=== PATIENT | female | born 1950 | race Caucasian/White ===

== ENCOUNTER 2016-10-22 02:04 | Inpatient (IN) | payer MEDICARE ==
[~2016-10-22] VITALS: Ht 162.6 cm; Wt 72.7 kg
[2016-10-22] VITALS (7 sets, daily range): BP systolic 95–123; BP diastolic 49–60
[~2016-10-22 02:04] MED LIST: ADV500INH INH; AVEL1TAB PO; BREO1INH3 INH; DEPA250T2 PO; FLON0.054; FLON1SPR; FOLI1TAB2 PO; LOMO2.5T PO; OXYC1TAB16 PO; PRED10TA PO; PREG50CA PO; SERT-138 PO; TRAZ100T4 PO; VITA100072 PO; VITA500055 PO; ZONI100C2 PO; ZYRT10TA2 PO
[2016-10-22] MEDS ORDERED: IPRATROPIUM 0.5MG/ALBUTEROL 2.5MG INH SOL UD 3ML (DUONEB)(J7620) As Ordered ONE ×2 (02:56→07:37)
[2016-10-22 03:08] LABS: ABG BASE EXCESS -3.8 (-2.0-2.0); ABG DEVICE NASAL CANN; ABG HCO3 21.2 MEQ/L (22.0-26.0); ABG PARTIAL PRESSURE CO2 38.7 mmHg (35.0-45.0); ABG PARTIAL PRESSURE O2 70.9 mmHg (75.0-100.0); ABG STANDARD HCO3 21.2 MEQ/L (22.0-26.0); ABG TOTAL CO2 22.4 MEQ/L (23.0-31.0); ABG pH (ARTERIAL) 7.357 UNITS (7.350-7.450)
[2016-10-22 03:16] LABS: BASO # 0.1 K/mm3 (0.0-0.2); BASO % 0.6 % (0.0-1.0); EOS # 0.2 K/mm3 (0.0-0.50); EOS % 1.4 % (0.0-3.0); LARGE UNSTAINED CELL # 0.1 K/mm3 (0.0-0.4); LYMPH # 1.2 K/mm3 (1.5-4.5); LYMPH % 9.5 % (24.0-44.0); MEAN CORPUSCULAR HGB CONC 31.5 g/dl (32.0-36.5); MONO # 0.6 K/mm3 (0.0-0.8); MONO % 4.8 % (0.0-5.0); NEUTROPHILS # 10.6 K/mm3 (1.8-7.7); NEUTROPHILS % 82.6 % (36.0-66.0); PLATELET COUNT, AUTOMATED 214 k/mm3 (150-450); WHITE BLOOD COUNT 12.8 K/mm3 (4.0-10.0)
[2016-10-22] MEDS ORDERED: AZITHROMYCIN 250 MG TAB As Ordered ONE (03:16)
[2016-10-22] MEDS ORDERED: CEFUROXIME INJ 750 MG VIAL (J0697) As Ordered ONE (03:16)
[2016-10-22 03:38] LABS: CALCIUM LEVEL 8.5 MG/DL (8.8-10.2); CREATININE FOR GFR 1.42 MG/DL (0.55-1.02); GLOMERULAR FILTRATION RATE 39.4 (>45); POTASSIUM SERUM 4.3 MEQ/L (3.5-5.1)
[2016-10-22] MEDS ORDERED: AZITHROMYCIN INJ 500MG VIAL (J0456) As Ordered ONE (03:39)
[2016-10-22] MEDS ORDERED: ZOLO100T PO (04:05)
[2016-10-22] MEDS ORDERED: VITA100066 PO (04:07)
[2016-10-22] MEDS ORDERED: VITA-113 SL (04:07)
[2016-10-22] MEDS ORDERED: CEPACOL LOZENGE PO PRN (05:00)
[2016-10-22] MEDS ORDERED: IPRATROPIUM 0.5MG/ALBUTEROL 2.5MG INH SOL UD 3ML (DUONEB)(J7620) NEB PRN (05:00)
[2016-10-22] MEDS ORDERED: ONDANSETRON 4 MG TAB (S0181) PO PRN (05:00)
[2016-10-22] MEDS ORDERED: MORPHINE 2 MG/ML 1ML SYRINGE IV PRN (05:00)
[2016-10-22] MEDS ORDERED: ONDANSETRON 4MG/2ML VIAL (J2405) IV PRN ×2 (05:00→13:30)
[2016-10-22] MEDS ORDERED: AZITHROMYCIN INJ 500 MG, VIAL MATE ADAPTER 1 EACH in D5W 250 ML IV SCH (05:00)
--- NOTE | 2016-10-22 05:13 | HPEPDOC ---
Medical History and Physical Date of Admission Oct 22, 2016 at 04:54 History and Physical HISTORY AND PHYSICAL Date of admission: 10/22/2016 PCP: Dr. Obi Wilhelm Chief complaint: I couldn't breathe HPI: 66-year-old female with COPD, anxiety, ulcerative colitis, chronic back pain who presented to the ER because she couldn't breathe. She states that she had been feeling well until yesterday, when she started coughing and she noticed that her breathing was worse. She denies any sick contacts. She has not found anything that helps relieve her shortness of breath. She endorses chest pain when she coughs, as well as some posttussive emesis. She denies any fevers and chills. Past medical history: COPD, anxiety, ulcerative colitis, chronic back pain Past surgical history: Hemicolectomy, hysterectomy, tonsillectomy, cholecystectomy, back surgery Family history: coronary artery disease and cancer Social history: Patient states she quit smoking approximately 18 years ago. She denies any alcohol use. She currently lives with her grandson. Allergies: Amoxicillin, clavulanic acid, NSAIDs, tapentadol Review of systems: General: Negative for fever and chills Eyes: Positive for blurry vision and goopy eyes ENT: Positive for sore throat. Negative for nose bleed. Cardiovascular: Positive for pleuritic chest pain that occurs with cough, negative for palpitations Respiratory: Positive for cough and shortness of breath GI: Positive for nausea, vomiting, chronic diarrhea. Musculoskeletal: Positive for chronic back pain Skin: Negative for rash Neuro: Positive for headache and dizziness. Negative for numbness and tingling. Psych: Negative for depression and suicidal ideation Endocrine: Negative for polyuria : Negative for dysuria Heme: Negative for bruising and bleeding Home meds: See below Physical exam: Vital signs: Blood pressure 123/66, HR 130, temperature 98.7, O2 sat 96% on 4 L , RR 20 Gen.: awake, alert, no acute distress Eyes: Extraocular movements intact, normal sclera ENT: Moist mucous membranes Cardiovascular: tachycardic but regular, no murmurs rubs or gallops Lungs: diffuse rhonchi Abdomen: Soft, NT/ND, normal BS Musculoskeletal: normal range of motion Extremities: No peripheral edema Neuro: alert and oriented 3, normal speech, no focal deficits Psych: Normal mood with congruent affect Labs and radiology: See below Sodium 147 BUN 28, creatinine 1.42 WBC 12.8 Lactate within normal limits Chest x-ray with right lower lobe infiltrate Assessment and plan: 66-year-old female with COPD, anxiety, ulcerative colitis, chronic back pain who presented to the ER because she couldn't breathe. She is admitted with sepsis secondary to community-acquired pneumonia. 1. Sepsis secondary to community-acquired pneumonia: The patient is afebrile, but she does have a leukocytosis and a sinus tachycardia. An initial lactate is within normal limits. We will continue her on Rocephin and azithromycin, and we' ll check sputum cultures. Blood cultures are already pending. She'll be monitored on telemetry given her tachycardia. She is currently hemodynamically stable and does not need a fluid bolus. 2. COPD: I believe the patient is currently experiencing a mild exacerbation secondary to her pneumonia. I will start her on scheduled and as needed DuoNeb' s. However, at this time, I do not plan on starting her on systemic steroids given her underlying infection. This can be reassessed as her clinical course continues to unfold. Continue home Zyrtec, Flonase and we will substitute her home Breo for Advair, as we do not have Breo on formulary. 3. Acute on chronic kidney disease stage III: The patient's baseline creatinine is in the low ones. Her creatinine upon admission is 1.42, and I suspect that this is prerenal secondary to her infection. We will hydrate her with gentle IV fluids and recheck creatinine tomorrow. 4. Anxiety: Continue home Zoloft and trazodone. 5. Chronic back pain: Continue home Lyrica and pain meds. DVT prophylaxis: SCDs Dispo: admit as an inpatient to the service of Dr. Bergman. CODE STATUS: DO NOT INTUBATE Vital Signs see above Laboratory Data Labs 24H Laboratory Tests 2 10/22/16 03:02: Anion Gap 11, Arterial Blood pH 7.357, Arterial Blood Partial Pressure CO2 38.7 , Arterial Blood Partial Pressure O2 70.9L, Arterial Blood Total CO2 22.4L, Arterial Blood HCO3 21.2L, Arterial Blood Base Excess -3.8L, Arterial Blood Oxygen Saturation 93.8L, White Blood Count 12.8H, Red Blood Count 4.87, Hemoglobin 13.7, Hematocrit 43.3, Mean Corpuscular Volume 89.0, Mean Corpuscular Hemoglobin 28.0, Mean Corpuscular Hemoglobin Concent 31.5L, Red Cell Distribution Width 14.0, Platelet Count 214, Neutrophils (%) (Auto) 82.6H, Lymphocytes (%) (Auto) 9.5L, Monocytes (%) (Auto) 4.8, Eosinophils (%) (Auto) 1.4, Basophils (%) (Auto) 0.6, Neutrophils # (Auto) 10.6H, Lymphocytes # (Auto) 1.2L, Monocytes # (Auto) 0.6, Eosinophils # (Auto) 0.2, Basophils # (Auto) 0.1, Blood Gas Bicarbonate Standard 21.2L, Blood Urea Nitrogen 28H, Creatinine 1.42H , Sodium Level 147H, Potassium Level 4.3, Chloride Level 111H, Carbon Dioxide Level 25, Calcium Level 8.5L, Glomerular Filtration Rate 39.4L, Lactic Acid Level 0.8, Large Unclassified Cells # 0.1, Large Unclassified Cells % 1.0, Oxygen Delivery Device NASAL JESSIE CBC/BMP Laboratory Tests 10/22/16 03:02 Calcium Level 8.5 L, Red Blood Count 4.87, Mean Corpuscular Volume 89.0, Mean Corpuscular Hemoglobin 28.0, Mean Corpuscular Hemoglobin Concent 31.5 L, Red Cell Distribution Width 14.0, Neutrophils (%) (Auto) 82.6 H, Lymphocytes (%) ( Auto) 9.5 L, Monocytes (%) (Auto) 4.8, Eosinophils (%) (Auto) 1.4, Basophils (% ) (Auto) 0.6, Neutrophils # (Auto) 10.6 H, Lymphocytes # (Auto) 1.2 L, Monocytes # (Auto) 0.6, Eosinophils # (Auto) 0.2, Basophils # (Auto) 0.1 Microbiology Microbiology 10/22/16 Blood Culture, Received Pending 10/22/16 Blood Culture, Received Pending Home Medications Scheduled (Flonase Allergy Relief) 50 Mcg/Act Spr 2 SPRAYS NA BID Cetirizine HCl (Zyrtec Allergy) 10 Mg Tab 10 MG PO DAILY Cholecalciferol (Vitamin D) 1,000 Unit Tab 1,000 UNIT PO DAILY Cyanocobalamin (Vitamin B-12) 1,000 Mcg Sub 1,000 MCG SL DAILY Fluticasone/Vilanterol (Breo Ellipta 200-25 Mcg/INH) 1 Inh Inh 1 INH INH DAILY Pregabalin (Lyrica) 50 Mg Cap 50 MG PO QID Sertraline Hcl (Zoloft) 100 Mg Tab 150 MG PO QHS Trazodone HCl (Trazodone HCl) 100 Mg Tab 200 MG PO QHS Scheduled PRN (Oxycodone/Acetaminophen 10-325 mg) 1 Tab Tab 2 TAB PO Q6H PRN PRN PAIN Allergies Coded Allergies: Amoxicillin (Verified Allergy, Mild, RASH, INCREASED HEARTRATE, 10/07/14) Clavulanic Acid (Verified Allergy, Mild, RASH, INCREASED HEARTRATE, ) NSAIDs (Verified Adverse Reaction, Severe, kidney failure, 10/07/14) Tapentadol (Verified Adverse Reaction, Intermediate, HAIR LOSS, WEIGHT LOSS, MEMORY LOSS, 10/07/14) TOMMIE HART Oct 22, 2016 05:13
[2016-10-22] MEDS ORDERED: ACETAMINOPHEN SUSP 160 MG/5 ML UDC As Ordered ONE (05:36)
[2016-10-22] MEDS ORDERED: ACETAMINOPHEN 650 MG SUPP As Ordered ONE (05:52)
[2016-10-22] MEDS: IPRATROPIUM 0.5MG/ALBUTEROL 2.5MG INH SOL UD 3ML (DUONEB)(J7620) NEB SCH ×3 (07:42→20:00)
[2016-10-22] MEDS ORDERED: cefTRIAXone SOD 1 GM in D5W MINI-BAG PLUS 50 ML IV SCH (08:00)
[2016-10-22] MEDS ORDERED: cefTRIAXone SOD 1 GM VIAL (J0696) As Ordered ONE (08:32)
[2016-10-22] MEDS: PREGABALIN 50 MG CAP (LYRICA) PO SCH ×4 (09:00→20:58)
[2016-10-22] MEDS ORDERED: SODIUM CHLORIDE 0.9% 1000 ML IV SCH (09:00)
[2016-10-22] MEDS: ADVAIR DISKUS 250/50 INH PWD INH SCH ×2 (09:43→19:49)
[2016-10-22] MEDS ORDERED: ACETAMINOPHEN 325 MG TAB As Ordered ONE (12:05)
--- NOTE | 2016-10-22 13:15 | EDDOCDS ---
Physician Documentation [facility] Name: Tierra Vanegas Age: 66 yrs Sex: Female : 1950 Arrival Date: 10/22/2016 Time: 02:04 Bed Admit Hold Private MD: Obi Wilhelm MD Disposition: 10/22/16 03:30 Hospitalization ordered by Thalia Waters for Inpatient Admission. Preliminary diagnosis are Pneumonia in diseases classified elsewhere, Chronic obstructive pulmonary disease with acute lower respiratory infection. - Bed requested for PCU. - Status is Inpatient Admission. pml - Condition is Stable. - Problem is an ongoing problem. - Symptoms have improved. Historical: - Allergies: Augmentin; nucinda; NSAIDS; - Home Meds: 1. oxycodone-acetaminophen 10-325 mg Oral tab 1 tab as needed 2. Breo Ellipta 100-25 mcg/dose inhalation dsdv 1 puff once daily 3. Flonase Allergy Relief 50 mcg/actuation nasal spsn twice a day 4. pregabalin 50 mg Oral cap four times a day 5. trazodone 100 mg Oral tab 2 tabs nightly 6. Vitamin D Oral 52481 unit daily 7. Vitmin B 12 - 2 tabs daily 8. Zoloft 150 mg Oral tab nightly 9. Zyrtec 10 mg Oral tab 1 tab once daily - PMHx: Anxiety; back pain; COPD; - PSHx: Hysterectomy; Colectomy, Complete; back surgery; Tonsillectomy; Cholecystectomy; - Social history: Smoking status: Patient states former smoker of tobacco. No barriers to communication noted, The patient speaks fluent Lithuanian, Speaks appropriately for age. - Family history: Not pertinent. - : The pt / caregiver states he / she is not on anticoagulants. Home medication list is obtained from the patient. - Exposure Risk Screening:: None identified. Vital Signs: 10/22 02:08 BP 133 / 82 (auto/); kas2 02:08 Pulse 132 MON; Pulse Ox 85% ; kas2 02:12 BP 133 / 82; Pulse 131; Resp 24; Temp 98.7(O); Pulse Ox 84% on R/A; ld5 02:13 Pulse Ox 93% on 2 lpm NC; ld5 02:23 BP 148 / 79 (auto/); kas2 02:23 Pulse 124 MON; Pulse Ox 95% ; kas2 02:24 Weight 61.69 kg / 136 lbs (R); Height 5 ft. 4 in. (162.56 cm) (R); ld5 03:30 BP 123 / 66 (auto/); kas2 03:30 Pulse 144 MON; Pulse Ox 97% ; kas2 04:31 BP 128 / 67; Pulse 133; Resp 20; Temp 98.2(O); Pulse Ox 96% 4 lpm ; Pain 0/10; kas2 04:57 BP 133 / 63 (auto/); kas2 04:57 Pulse 126 MON; Pulse Ox 97% ; kas2 05:32 Resp 22; Temp 101.1(O); Pulse Ox 99% 4 lpm ; Pain 0/10; kas2 06:38 BP 132 / 72; Pulse 124; Resp 20; Pulse Ox 99% 4 lpm ; Pain 0/10; kas2 07:07 BP 116 / 56 (auto/); hs1 07:08 Pulse 124 MON; Resp 22; Temp 101(O); Pulse Ox 87% on 4 lpm NC; hs1 07:26 Pulse 120; Resp 22; Temp 100.5(O); Pulse Ox 91% on 6 lpm NC; pml 12:35 BP 119 / 60; Pulse 112; Resp 20; Temp 101.3; Pulse Ox 96% on 6 lpm NC; pml 13:10 BP 138 / 64; Pulse 115; Resp 22; Temp 101.3(O); Pulse Ox 95% on 6 lpm NC; pml 02:24 Body Mass Index 23.34 (61.69 kg, 162.56 cm) ld5 MDM: 02:23 Chest, 2 View (pa\E\lat) Ordered. EDMS 02:52 IV Saline Lock ordered. cs11 02:52 cefUROXime 1.5 grams IV at calculated rate once over 30 mins; dilute in 50mL of NS or cs11 D5W ordered. 02:53 -Blood Culture (Adults Only), peripheral from different site, or from device/port/PICC cs11 etc. if present ordered. 02:53 Albuterol-Ipratropium 1 neb Nebulizer every 20 minutes x3 ordered. cs11 02:53 Call Respiratory ordered. cs11 02:53 azithromycin 500 mg PO once ordered. cs11 02:54 Oxygen at 4L/Min NC or Home dosage ordered. cs11 02:55 Lactic Acid (Kessler tube on ice) Ordered. EDMS 02:55 CBC with Diff Ordered. EDMS 02:55 MED Profile Ordered. EDMS 02:55 -Arterial Blood Gas Ordered. EDMS 02:55 -Blood Culture Ordered. EDMS 02:55 BED REQUEST+ADM ordered. EDMS 03:09 Call Respiratory complete. kas2 03:23 CBC with Diff Reviewed. cs11 03:23 -Arterial Blood Gas Reviewed. cs11 03:24 -Blood Culture (Adults Only), peripheral from different site, or from device/port/PICC jlm etc. if present complete. 03:26 BLOOD CULTURES Ordered. EDMS 03:39 azithromycin 500 mg IVPB once over 1 hrs; dilute in 250mL of D5W or NS ordered. cs11 03:46 Financial registration complete. hs2 03:47 [facility] [place] Payment Agreement was scanned into [employer] and attached to record. hs2 05:02 SPUTUM CULTURE AND GRAM STAIN Ordered. EDMS 05:04 Admission / Observation Status ordered. EDMS 05:05 REGULAR DIET ordered. EDMS 05:33 Acetaminophen (15mg/kg) Liquid 1000 mg PO once; not to exceed 1,000 milligrams ordered. cs11 05:34 MED Profile Reviewed. cs11 05:34 Lactic Acid (Kessler tube on ice) Reviewed. cs11 05:34 NS 0.9% 500 ml IV at bolus once ordered. cs11 05:47 Acetaminophen Suppository 650 mg WV once ordered. cs11 05:59 Acetaminophen (15mg/kg) Liquid 1000 mg PO once; not to exceed 1,000 milligrams ordered. kas2 07:41 T-Sheet-- Draft Copy was scanned into [employer] and attached to record. gb 12:47 Written Provider Order was scanned into [employer] and attached to record. deg 12:47 ECG WITH READING ER PHYS ordered. EDMS Administered Medications: 02:55 Drug: Albuterol-Ipratropium 1 neb [ipratropium-albuterol 0.5 mg-3 mg(2.5 mg base)/3 mL jc3 nebulization soln (1 neb)] Route: Nebulizer; 03:06 Drug: Albuterol-Ipratropium 1 neb [ipratropium-albuterol 0.5 mg-3 mg(2.5 mg base)/3 mL jc3 nebulization soln (1 neb)] Route: Nebulizer; 03:14 Drug: Albuterol-Ipratropium 1 neb [ipratropium-albuterol 0.5 mg-3 mg(2.5 mg base)/3 mL jc3 nebulization soln (1 neb)] Route: Nebulizer; 03:37 Drug: cefUROXime 1.5 grams [cefuroxime sodium 750 mg solution for injection] Route: IV; kas2 Rate: calculated rate; Infused Over: 30 mins; Site: right antecubital; 03:38 Not Given (patient unable to swallow pills): azithromycin 500 mg PO once kas2 04:28 Drug: azithromycin 500 mg [azithromycin 500 mg intravenous solution] Route: IVPB; kas2 Infused Over: 1 hrs; Site: right antecubital; 05:37 Drug: NS 0.9% 500 ml [sodium chloride 0.9 % intravenous solution] Route: IV; Rate: kas2 bolus; Site: right antecubital; 05:58 Drug: Acetaminophen 650 mg [acetaminophen 650 mg rectal suppository (1 supp)] Route: WV;nn1 05:59 Not Given (patient cannot tolerated po meds): Acetaminophen (15mg/kg) Liquid 1000 mg PO kas2 once; not to exceed 1,000 milligrams Signatures: Dispatcher [employer] EDAnn Marie Ventura, [employer] deg Mariel Aldridge, Reg Reg gb Myra Chapman RN RN ld5 Yuliya Sanchez RN RN pml Schiff, Craig, DO cs11 Adrienne Rodarte, [employer] [facility] Aruna Graham, Reg Reg hs2 Ciara Collins RN RN kas2 Maxi Bartlett jc3 Vishal Mcwilliams RN nn1 The chart was reviewed and I authenticate all verbal orders and agree with the evaluation and treatment provided.Attachments: 03:47 [facility] Payment Agreement hs2 07:41 T-Sheet-- Draft Copy gb 12:47 Written Provider Order deg MTDD
--- NOTE | 2016-10-22 13:15 | EDDOCDS ---
Nurse's Notes [facility] Name: Tierra Vanegas Age: 66 yrs Sex: Female : 1950 Arrival Date: 10/22/2016 Time: 02:04 Bed Admit Hold Private MD: Obi Wilhelm MD Diagnosis: Pneumonia in diseases classified elsewhere;Chronic obstructive pulmonary disease with acute lower respiratory infection Presentation: 10/22 02:13 Presenting complaint: Patient states: Productive cough and breathing difficulty for ld5 several weeks. Put on prednisone by Dr. Rico. Presents to ER with increasing SOB and breathing difficulty. Pt 84% on room air upon ER arrival. Adult Sepsis Screening: The patient does not have new or worsening altered mentation. Patient has a respiratory rate of greater than or equal to 22 (1 point). Systolic blood pressure is greater than 100. Patient has a qSOFA score of 1- Negative Sepsis Screen. Suicide/Homicide risk assessment- the patient denies having any suicidal and/or homicidal ideations and does not present with any other emotional, behavioral or mental health complaints. Status: Patient is not a rehabilitation services manager or dependent. Transition of care: patient was not received from another setting of care. 02:13 Acuity: BRAYDEN Level 2 ld5 02:13 Method Of Arrival: Walkin/Carried/Asstd ld5 Triage Assessment: 02:18 General: Appears ill. Pain: Location: head. Neurological: Level of Consciousness is ld5 awake, obeys commands. EENT: Reports sore throat, pain when swallowing. Respiratory: Onset: The symptoms/episode began/occurred yesterday, Respiratory effort is labored, Reports shortness of breath at rest on exertion cough that is productive. GI: Reports vomiting, "a couple of times". Historical: - Allergies: Augmentin; nucinda; NSAIDS; - Home Meds: 1. oxycodone-acetaminophen 10-325 mg Oral tab 1 tab as needed 2. Breo Ellipta 100-25 mcg/dose inhalation dsdv 1 puff once daily 3. Flonase Allergy Relief 50 mcg/actuation nasal spsn twice a day 4. pregabalin 50 mg Oral cap four times a day 5. trazodone 100 mg Oral tab 2 tabs nightly 6. Vitamin D Oral 33032 unit daily 7. Vitmin B 12 - 2 tabs daily 8. Zoloft 150 mg Oral tab nightly 9. Zyrtec 10 mg Oral tab 1 tab once daily - PMHx: Anxiety; back pain; COPD; - PSHx: Hysterectomy; Colectomy, Complete; back surgery; Tonsillectomy; Cholecystectomy; - Social history: Smoking status: Patient states former smoker of tobacco. No barriers to communication noted, The patient speaks fluent Haitian, Speaks appropriately for age. - Family history: Not pertinent. - : The pt / caregiver states he / she is not on anticoagulants. Home medication list is obtained from the patient. - Exposure Risk Screening:: None identified. Screenin:31 Screening information is obtained from the patient. Fall risk: No risks identified. kas2 Assistance ADL's: requires no assistance with activities of daily living. Abuse/DV Screen: The patient / caregiver reports he/she is: not in a situation that causes fear, pain or injury. Nutritional screening: No deficits noted. Advance Directives: Currently, there is no health care proxy. There is no active DNR order. There is no living will. There is no Power of Intensive Care Unit Registered Nurse. home support is adequate. Assessment: 02:28 General:. kas2 02:29 General: Appears distressed, uncomfortable, well nourished, well groomed, Behavior is kas2 appropriate for age, cooperative. Pain: Denies pain. Neurological: Level of Consciousness is awake, alert, Oriented to person, place, time. Cardiovascular: Capillary refill < 3 seconds Heart tones S1 S2 present Rhythm is sinus tachycardia No ectopy. Respiratory: Airway is patent Respiratory effort is even, unlabored, Respiratory pattern is regular, symmetrical, Breath sounds are coarse inspiratory expiratory bilaterally. Breath sounds are diminished bilaterally. Derm: Skin is intact, Skin is dry, Skin is pale, Skin temperature is warm. Injury Description: No known injury. 03:30 General: Appears in no apparent distress, comfortable, Behavior is appropriate for age, kas2 cooperative. Pain: Denies pain. Neurological: Level of Consciousness is awake, alert, Oriented to person, place, time. Cardiovascular: Rhythm is sinus tachycardia No ectopy. Respiratory: Airway is patent Respiratory effort is even, unlabored, Respiratory pattern is regular, symmetrical. Derm: Skin is intact, Skin is dry, Skin is pink, warm & dry. Skin temperature is warm. 04:28 General: Hospitalist in assessing patient at this time.. kas2 04:28 General: Patient laying in bed talking to hospitalist. Denies pain or discomfort at [facility] this time. Appears comfortable. No apparent distress. Airway patent and respiratory effort even and unlabored. Call johansen within reach. Will continue to monitor.. 05:29 General: Appears in no apparent distress, comfortable, Behavior is appropriate for age, kas2 cooperative. Pain: Denies pain. Neurological: Level of Consciousness is awake, alert, Oriented to person, place, time. Cardiovascular: Rhythm is sinus tachycardia No ectopy. Respiratory: Airway is patent Respiratory effort is even, unlabored, Respiratory pattern is regular, symmetrical. Derm: Skin is intact, Skin is dry, Skin is pink, warm & dry. Skin temperature is warm. 05:55 General: Patient tried to take oral tylenol and vomited. Dr. Soriano aware. [facility] 06:14 General:. kas2 06:37 General: Appears in no apparent distress, comfortable, Behavior is appropriate for age, kas2 cooperative. Pain: Denies pain. Neurological: Level of Consciousness is awake, alert, Oriented to person, place, time. Respiratory: Airway is patent Respiratory effort is even, unlabored, Respiratory pattern is regular, symmetrical. Derm: Skin is intact, Skin is dry, Skin is pink, warm & dry. Skin temperature is. 07:26 General: Appears in no apparent distress, comfortable, Behavior is appropriate for age, pml cooperative. Pain: Denies pain. Neurological: Level of Consciousness is awake, alert, Oriented to person, place, time. Cardiovascular: Capillary refill < 3 seconds Rhythm is sinus tachycardia No ectopy. Respiratory: Airway is patent Respiratory effort is even, pursed lip, shallow, Respiratory pattern is regular, symmetrical, Breath sounds are coarse Breath sounds with rhonchi bilaterally. GI: Abdomen is non- distended. Derm: Skin is pink, warm & dry. 09:08 General: pt unable to tolerate sips of PO fluid - appears to cough and gasp. states pml sore throat. MD Linares aware, hold AM meds until pt able to tolerate PO . 13:10 General: Appears in no apparent distress, Behavior is appropriate for age, cooperative. pml Pain: Location: throat. Neurological: Level of Consciousness is awake, alert, Oriented to person, place, time. Cardiovascular: Capillary refill < 3 seconds Rhythm is sinus tachycardia No ectopy. Respiratory: Airway is patent Respiratory effort is even, unlabored. Derm: Skin is pink, warm & dry. Vital Signs: 02:08 BP 133 / 82 (auto/); kas2 02:08 Pulse 132 MON; Pulse Ox 85% ; kas2 02:12 BP 133 / 82; Pulse 131; Resp 24; Temp 98.7(O); Pulse Ox 84% on R/A; ld5 02:13 Pulse Ox 93% on 2 lpm NC; ld5 02:23 BP 148 / 79 (auto/); kas2 02:23 Pulse 124 MON; Pulse Ox 95% ; kas2 02:24 Weight 61.69 kg (R); Height 5 ft. 4 in. (162.56 cm) (R); ld5 03:30 BP 123 / 66 (auto/); kas2 03:30 Pulse 144 MON; Pulse Ox 97% ; kas2 04:31 BP 128 / 67; Pulse 133; Resp 20; Temp 98.2(O); Pulse Ox 96% 4 lpm ; Pain 0/10; kas2 04:57 BP 133 / 63 (auto/); kas2 04:57 Pulse 126 MON; Pulse Ox 97% ; kas2 05:32 Resp 22; Temp 101.1(O); Pulse Ox 99% 4 lpm ; Pain 0/10; kas2 06:38 BP 132 / 72; Pulse 124; Resp 20; Pulse Ox 99% 4 lpm ; Pain 0/10; kas2 07:07 BP 116 / 56 (auto/); hs1 07:08 Pulse 124 MON; Resp 22; Temp 101(O); Pulse Ox 87% on 4 lpm NC; hs1 07:26 Pulse 120; Resp 22; Temp 100.5(O); Pulse Ox 91% on 6 lpm NC; pml 12:35 BP 119 / 60; Pulse 112; Resp 20; Temp 101.3; Pulse Ox 96% on 6 lpm NC; pml 13:10 BP 138 / 64; Pulse 115; Resp 22; Temp 101.3(O); Pulse Ox 95% on 6 lpm NC; pml 02:24 Body Mass Index 23.34 (61.69 kg, 162.56 cm) ld5 ED Course: 02:06 Patient visited by Corky Davis Reg. pm4 02:06 Obi Wilhelm is Private Physician. pm4 02:06 Patient moved to Waiting pm4 02:09 Tigist Black,RN is Primary Nurse. ld5 02:09 Patient moved to 10 ld5 02:15 Triage Initiated ld5 02:19 Patient visited by Myra Chapman,BOBBY. ld5 02:21 Felix Soriano DO is Attending Physician. cs11 02:21 Patient visited by Felix Soriano DO. cs11 02:24 O2 via nasal cannula \\T\\ 2L/min. ld5 02:31 Patient visited by Ciara Collins RN. kas2 02:51 Patient visited by Ciara Collins RN. kas2 03:05 -Arterial Blood Gas Sent. jc3 03:09 -Blood Culture Sent. kas2 03:09 Lactic Acid (Kessler tube on ice) Sent. kas2 03:09 CBC with Diff Sent. kas2 03:09 MED Profile Sent. kas2 03:10 groundwater monitoring technician on. Pulse ox on. NIBP on. kas2 03:10 Inserted saline lock: 20 gauge in right antecubital area and blood collected. The kas2 patient tolerated the procedure well. No procedures done that require assistance. 03:10 O2 via nasal cannula \\T\\ 4L/min. kas2 03:11 Patient visited by Ciara Collins RN. kas2 03:24 Patient visited by Ciara Collins RN. kas2 03:30 Thalia Waters is Hospitalizing Provider. cs11 03:47 [facility] Payment Agreement was scanned into [employer] and attached to record. hs2 04:00 Patient visited by Ciaar Collins RN. kas2 04:13 Patient visited by Ciara Collins RN. kas2 04:31 Patient visited by Ciara Collins RN. kas2 05:03 Patient visited by Ciara Collins RN. kas2 05:34 Patient visited by Ciara Collins RN. kas2 05:52 Patient visited by Ciara Collins RN. kas2 06:00 Patient visited by Ciara Collins RN. kas2 06:35 Patient moved to 18 jlm 06:36 Patient moved to Admit Hold kmg1 06:39 Patient visited by Ciara Collins RN. kas2 06:53 Patient visited by Ciara Collins RN. kas2 06:54 Patient visited by Ciara Collins RN. kas2 07:06 Patient visited by Ciara Collins RN. kas2 07:28 Patient visited by Yuliya Sanchez RN. pml 07:41 T-Sheet-- Draft Copy was scanned into [employer] and attached to record. gb 08:27 Primary Nurse role handed off by Tigist Black RN j 09:08 Patient visited by Yuliya Sanchez RN. pml 12:47 Written Provider Order was scanned into [employer] and attached to record. deg 13:10 The patient / caregiver is instructed regarding the plan of care and ED course. Patient pml has correct armband on for positive identification. Placed in gown. Bed in low position. Call light in reach. Side rails up X2. Administered Medications: 02:55 Drug: Albuterol-Ipratropium 1 neb [ipratropium-albuterol 0.5 mg-3 mg(2.5 mg base)/3 mL jc3 nebulization soln (1 neb)] Route: Nebulizer; 03:06 Drug: Albuterol-Ipratropium 1 neb [ipratropium-albuterol 0.5 mg-3 mg(2.5 mg base)/3 mL jc3 nebulization soln (1 neb)] Route: Nebulizer; 03:14 Drug: Albuterol-Ipratropium 1 neb [ipratropium-albuterol 0.5 mg-3 mg(2.5 mg base)/3 mL jc3 nebulization soln (1 neb)] Route: Nebulizer; 03:37 Drug: cefUROXime 1.5 grams [cefuroxime sodium 750 mg solution for injection] Route: IV; kas2 Rate: calculated rate; Infused Over: 30 mins; Site: right antecubital; 03:38 Not Given (patient unable to swallow pills): azithromycin 500 mg PO once kas2 04:28 Drug: azithromycin 500 mg [azithromycin 500 mg intravenous solution] Route: IVPB; kas2 Infused Over: 1 hrs; Site: right antecubital; 05:37 Drug: NS 0.9% 500 ml [sodium chloride 0.9 % intravenous solution] Route: IV; Rate: kas2 bolus; Site: right antecubital; 05:58 Drug: Acetaminophen 650 mg [acetaminophen 650 mg rectal suppository (1 supp)] Route: OK;nn1 05:59 Not Given (patient cannot tolerated po meds): Acetaminophen (15mg/kg) Liquid 1000 mg PO kas2 once; not to exceed 1,000 milligrams RT: 03:06 ABG's drawn from left radial artery pressure held for 5 minutes no bleeding noted jc3 pressure bandage applied specimen sent pt. tolerated well. Initial Med Neb Given as ordered. O2 via nasal cannula \\T\\ 2L/min. Respiratory: Breath sounds are coarse Breath sounds with rhonchi bilaterally. Breath sounds are diminished bilaterally. Breath sounds with wheezes bilaterally. Order Results: Lab Order: Lactic Acid (Kessler tube on ice); SPEC'M 10/22/16 03:02 Test: LACTIC ACID LEVEL, LACTATE; Value: 0.8; Range: 0.4-2.0; Units: MMOL/L; Status: F Lab Order: CBC with Diff; SPEC'M 10/22/16 03:02 Test: WHITE BLOOD COUNT; Value: 12.8; Range: 4.0-10.0; Abnormal: Above high normal; Units: K/mm3; Status: F Test: RED BLOOD COUNT; Value: 4.87; Range: 4.00-5.40; Units: M/mm3; Status: F Test: HEMOGLOBIN; Value: 13.7; Range: 12.0-16.0; Units: g/dl; Status: F Test: HEMATOCRIT; Value: 43.3; Range: 36.0-47.0; Units: %; Status: F Test: MEAN CORPUSCULAR VOLUME; Value: 89.0; Range: 80.0-96.0; Units: fl; Status: F Test: MEAN CORPUSCULAR HEMOGLOBIN; Value: 28.0; Range: 27.0-33.0; Units: pg; Status: F Test: MEAN CORPUSCULAR HGB CONC; Value: 31.5; Range: 32.0-36.5; Abnormal: Below low normal; Units: g/dl; Status: F Test: RED CELL DISTRIBUTION WIDTH; Value: 14.0; Range: 11.5-14.5; Units: %; Status: F Test: PLATELET COUNT, AUTOMATED; Value: 214; Range: 150-450; Units: k/mm3; Status: F Test: NEUTROPHILS %; Value: 82.6; Range: 36.0-66.0; Abnormal: Above high normal; Units: %; Status: F Test: LYMPH %; Value: 9.5; Range: 24.0-44.0; Abnormal: Below low normal; Units: %; Status: F Test: MONO %; Value: 4.8; Range: 0.0-5.0; Units: %; Status: F Test: EOS %; Value: 1.4; Range: 0.0-3.0; Units: %; Status: F Test: BASO %; Value: 0.6; Range: 0.0-1.0; Units: %; Status: F Test: LARGE UNSTAINED CELL %; Value: 1.0; Range: 0.0-4.0; Units: %; Status: F Test: NEUTROPHILS #; Value: 10.6; Range: 1.8-7.7; Abnormal: Above high normal; Units: K/mm3; Status: F Test: LYMPH #; Value: 1.2; Range: 1.5-4.5; Abnormal: Below low normal; Units: K/mm3; Status: F Test: MONO #; Value: 0.6; Range: 0.0-0.8; Units: K/mm3; Status: F Test: EOS #; Value: 0.2; Range: 0.0-0.50; Units: K/mm3; Status: F Test: BASO #; Value: 0.1; Range: 0.0-0.2; Units: K/mm3; Status: F Test: LARGE UNSTAINED CELL #; Value: 0.1; Range: 0.0-0.4; Units: K/mm3; Status: F Lab Order: [facility]; [facility]M 10/22/16 03:02 Test: GLUCOSE, FASTING; Value: 111; Range: 80-110; Abnormal: Above high normal; Units: MG/DL; Status: F Test: BLOOD UREA NITROGEN; Value: 28; Range: 7-18; Abnormal: Above high normal; Units: MG/DL; Status: F Test: CREATININE FOR GFR; Value: 1.42; Range: 0.55-1.02; Abnormal: Above high normal; Units: MG/DL; Status: F Test: GLOMERULAR FILTRATION RATE; Value: 39.4; Range: >45; Abnormal: Below low normal; Status: F Test: SODIUM LEVEL; Value: 147; Range: 136-145; Abnormal: Above high normal; Units: MEQ/L; Status: F Test: POTASSIUM SERUM; Value: 4.3; Range: 3.5-5.1; Units: MEQ/L; Status: F Test: CHLORIDE LEVEL; Value: 111; Range: 98-107; Abnormal: Above high normal; Units: MEQ/L; Status: F Test: CARBON DIOXIDE LEVEL; Value: 25; Range: 21-32; Units: MEQ/L; Status: F Test: ANION GAP; Value: 11; Range: 8-16; Units: MEQ/L; Status: F Test: CALCIUM LEVEL; Value: 8.5; Range: 8.8-10.2; Abnormal: Below low normal; Units: MG/DL; Status: F Test Note: ; Units are mL/min/1.73 m2 Chronic Kidney Disease Staging per NKF: Stage I & II GFR >=60 Normal to Mildly Decreased Stage III GFR 30-59 Moderately Decreased Stage IV GFR 15-29 Severely Decreased Stage V GFR <15 Very Little GFR Left ESRD GFR <15 on EQUIPMENT CLEANER Lab Order: -Arterial Blood Gas; [facility]' 10/22/16 03:02 Test: ABG pH (ARTERIAL); Value: 7.357; Range: 7.350-7.450; Units: UNITS; Status: F Test: ABG PARTIAL PRESSURE CO2; Value: 38.7; Range: 35.0-45.0; Units: mmHg; Status: F Test: ABG PARTIAL PRESSURE O2; Value: 70.9; Range: 75.0-100.0; Abnormal: Below low normal; Units: mmHg; Status: F Test: ABG TOTAL CO2; Value: 22.4; Range: 23.0-31.0; Abnormal: Below low normal; Units: MEQ/L; Status: F Test: ABG HCO3; Value: 21.2; Range: 22.0-26.0; Abnormal: Below low normal; Units: MEQ/L; Status: F Test: ABG BASE EXCESS; Value: -3.8; Range: -2.0-2.0; Abnormal: Below low normal; Status: F Test: ABG STANDARD HCO3; Value: 21.2; Range: 22.0-26.0; Abnormal: Below low normal; Units: MEQ/L; Status: F Test: ABG O2 SATURATION; Value: 93.8; Range: 95.0-99.0; Abnormal: Below low normal; Units: %; Status: F Test: ABG DEVICE; Value: NASAL JESSIE; Status: F Outcome: 03:30 Decision to Hospitalize by Provider. cs11 13:10 Discharge Assessment: Patient awake, alert and oriented x 3. No cognitive and/or pml functional deficits noted. Patient verbalized understanding of disposition instructions. patient administered narcotics - no. The following High Risk Discharge criteria are identified: None. Condition: good Condition: stable. Admission hand-off: Report Faxed Fax receipt verified by Jessy Nhi. Property sent home with patient. 13:13 No special radiology studies were completed. pml 13:14 Patient left the ED. pml Signatures: Ann Marie Jackson, Metallurgical Laboratory Assistant Unit deg Rachell Marquez, RN RN kmg1 Mariel Aldridge, Reg Reg gb Annel Horton, RN RN Maxi Schwartz jc3 Myra ChapmanRN RN ld5 Jessica Colbert RN RN hs1 Yuliya SanchezRN RN pml Felix Soriano, DO cs11 Adrienne Rodarte, Metallurgical Laboratory Assistant Unit Vishal Naidu,RN RN nn1 Aruna Graham, Reg Reg hs2 Ciara Collins RN RN kas2 Corky Davis, Reg Reg pm4 Corrections: (The following items were deleted from the chart) 05:59 05:35 Acetaminophen (15mg/kg) Liquid 1000 mg PO kas2 kas2 MTDD
[2016-10-22] MEDS: NS 1,000 ML IV SCH ×2 (14:42→22:21)
[2016-10-22] MEDS ORDERED: LevoFLOXacin IV 500 MG in APPROPRIATE DILUENT 1 EA IV ONE (15:00)
[2016-10-22] MEDS: VITAMIN D 1,000 INTERNATIONAL UNITS TABLET PO SCH (15:01)
[2016-10-22] MEDS: PERCOCET 5MG/325MG TAB PO PRN (15:01)
[2016-10-22] MEDS: CETIRIZINE (ZyrTEC) 10 MG TAB PO SCH (15:01)
[2016-10-22] MEDS: FLUTICASONE PROP 0.05% NASAL SPRAY 16 GM (FLONASE) SCH ×2 (15:02→20:57)
[2016-10-22] MEDS: guaiFENesin/CODEINE SYRUP 5 ML UDC PO PRN ×2 (15:16→20:58)
--- NOTE | 2016-10-22 15:30 | PHACANCOPD ---
PHARMACY VANCOMYCIN DOSING Pt Demographics Demographics Patient Age:66 , Weight:65.300 , Gender: female Adjusted Body Weight Date: 10/22/16, Adjusted Body Weight: Kg Events Past 24 Hours Events Past 24 Hours: YES: Elevation in WBC, Fever, Pending Diagnostics Vancomycin Vancomycin indication: sepsis Vancomycin Target Ranges: 15-20 mcg/ml Vancomycin Load Y/N: Yes Load Dose Date Time Vancomycin Load Dose: 1500mg Date: 10/22/16 Time: 1600 Vancomycin Dose Date: 10/22/16. Current Vancomycin Dose: [1g IV Q24H] Intermittent Dosing?: No Labs Labs Item Value Date Time White Blood Count 12.8 K/mm3 H 10/22/16 0302 Creatinine 1.42 MG/DL H 10/22/16 0302 Micro Microbiology 10/22/16 Blood Culture, Received Pending 10/22/16 Blood Culture, Received Pending 10/22/16 Gram Stain - Final, Resulted 10/22/16 Sputum Culture, Resulted Pending Creatinine Clearance Date:10/22/16. Estimated Creatinine Clearance: ~[36.1 ml/min]. Pending Labs Vancomycin trough scheduled for 10/25/16 @ 1500, prior to the 4th dose Assessment and Plan Maintaining Current Dose?: Yes Reason for dose change: No Dose Change Pharmacist Note Pharmacist Note Date: 10/22/16. Pharmacist note: Day #1 empiric IV levaquin/vanco initiated with a 1500mg loading dose followed by a maintenance regimen of 1g IV Q24H for the treatment of sepsis 2/2 CAP - aiming for a goal trough of 15-20 mcg/ml. WBC is currently elevated, patient has been febrile within the past 24 hours, and has a PMH of COPD. Scr is currently elevated at 1.42 with a baseline scr ~ 1.26. No PMH MRSA or vanco use here at [facility]. Blood and sputum cultures are pending. A trough has been scheduled 10/25/16 @ 1500, prior to the 4th dose. We will continue to monitor and make dose adjustments as needed. [facility] Oct 22, 2016 15:30
[2016-10-22] MEDS: VANCOMYCIN HCL 1,000 MG, VIAL MATE ADAPTER 1 EACH in D5W 250 ML IV SCH (16:34)
[2016-10-22] MEDS ORDERED: VANCOMYCIN HCL 500 MG in D5W MINI-BAG PLUS 100 ML IV ONE (17:00)
[2016-10-22] MEDS ORDERED: SODIUM CHLORIDE 0.9% 1000 ML IV ONE (17:30)
[2016-10-22 17:59] LABS: BASO % 0.3 % (0.0-1.0); EOS # 0.1 K/mm3 (0.0-0.50); EOS % 0.5 % (0.0-3.0); LARGE UNSTAINED CELL # 0.1 K/mm3 (0.0-0.4); LARGE UNSTAINED CELL % 0.7 % (0.0-4.0); LYMPH # 0.7 K/mm3 (1.5-4.5); LYMPH % 4.4 % (24.0-44.0); MEAN CORPUSCULAR HEMOGLOBIN 28.3 pg (27.0-33.0); MEAN CORPUSCULAR HGB CONC 31.8 g/dl (32.0-36.5); MEAN CORPUSCULAR VOLUME 89.1 fl (80.0-96.0); MONO # 0.5 K/mm3 (0.0-0.8); MONO % 2.8 % (0.0-5.0); NEUTROPHILS # 14.7 K/mm3 (1.8-7.7); NEUTROPHILS % 91.4 % (36.0-66.0); PLATELET COUNT, AUTOMATED 175 k/mm3 (150-450); RED CELL DISTRIBUTION WIDTH 14.1 % (11.5-14.5); WHITE BLOOD COUNT 16.1 K/mm3 (4.0-10.0)
[2016-10-22 18:22] LABS: ALBUMIN 2.4 GM/DL (3.2-5.2); ALBUMIN/GLOBULIN RATIO 0.77 (1.00-1.93); BILIRUBIN,TOTAL 0.3 MG/DL (0.2-1.0); CALCIUM LEVEL 7.5 MG/DL (8.8-10.2); CREATININE FOR GFR 1.21 MG/DL (0.55-1.02); GLOMERULAR FILTRATION RATE 47.4 (>45); MAGNESIUM LEVEL 1.9 MG/DL (1.8-2.4); TOTAL PROTEIN 5.5 GM/DL (6.4-8.2)
[2016-10-22] MEDS: SERTRALINE HCL 50 MG TAB PO SCH (20:57)
[2016-10-22] MEDS: traZODone 100 MG TAB PO SCH (20:58)
[2016-10-23] MEDS: ACETAMINOPHEN TAB 650MG DOSE (2X325MG) PO PRN ×4 (00:01→23:57)
[2016-10-23] MEDS: IPRATROPIUM 0.5MG/ALBUTEROL 2.5MG INH SOL UD 3ML (DUONEB)(J7620) NEB SCH ×4 (01:30→20:00)
[2016-10-23] MEDS ORDERED: AZITHROMYCIN INJ 500 MG, VIAL MATE ADAPTER 1 EACH in D5W 250 ML IV SCH (02:00)
[2016-10-23 04:00] VITALS: BP 100/54
[2016-10-23] MEDS: NS 1,000 ML IV SCH ×2 (04:17→14:21)
[2016-10-23] MEDS: PERCOCET 5MG/325MG TAB PO PRN (04:18)
[2016-10-23 05:47] LABS: CALCIUM LEVEL 7.7 MG/DL (8.8-10.2); CREATININE FOR GFR 1.12 MG/DL (0.55-1.02); GLOMERULAR FILTRATION RATE 51.8 (>45); MAGNESIUM LEVEL 1.8 MG/DL (1.8-2.4); POTASSIUM SERUM 3.9 MEQ/L (3.5-5.1)
[2016-10-23 05:50] LABS: BASO # 0.2 K/mm3 (0.0-0.2); BASO % 1.7 % (0.0-1.0); EOS # 0.1 K/mm3 (0.0-0.50); EOS % 0.5 % (0.0-3.0); LARGE UNSTAINED CELL # 0.1 K/mm3 (0.0-0.4); LARGE UNSTAINED CELL % 0.5 % (0.0-4.0); LYMPH # 0.6 K/mm3 (1.5-4.5); LYMPH % 3.8 % (24.0-44.0); MEAN CORPUSCULAR HEMOGLOBIN 28.3 pg (27.0-33.0); MEAN CORPUSCULAR HGB CONC 31.8 g/dl (32.0-36.5); MEAN CORPUSCULAR VOLUME 89.1 fl (80.0-96.0); MONO # 0.3 K/mm3 (0.0-0.8); MONO % 2.3 % (0.0-5.0); NEUTROPHILS # 12.6 K/mm3 (1.8-7.7); NEUTROPHILS % 91.2 % (36.0-66.0); PLATELET COUNT, AUTOMATED 150 k/mm3 (150-450); WHITE BLOOD COUNT 13.8 K/mm3 (4.0-10.0)
[2016-10-23] MEDS: ADVAIR DISKUS 250/50 INH PWD INH SCH ×2 (07:31→19:52)
[2016-10-23 08:00] VITALS: BP 107/53
[2016-10-23] MEDS: CETIRIZINE (ZyrTEC) 10 MG TAB PO SCH (08:06)
[2016-10-23] MEDS: VITAMIN D 1,000 INTERNATIONAL UNITS TABLET PO SCH (08:06)
[2016-10-23] MEDS: PREGABALIN 50 MG CAP (LYRICA) PO SCH ×4 (08:06→20:04)
[2016-10-23] MEDS: LevoFLOXacin IV 250 MG in APPROPRIATE DILUENT 1 EA IV SCH (10:40)
[2016-10-23] MEDS: FLUTICASONE PROP 0.05% NASAL SPRAY 16 GM (FLONASE) SCH ×2 (11:34→20:04)
--- NOTE | 2016-10-23 11:40 | IPNPDOC ---
Text Note Date of Service The patient was seen on 10/23/16 at 11:31. NOTE Subjective: Patient states shortness of breath has slightly improved. She is able to cough up her sputum. Denies chest pain/palpitations. Objective: Vitals: (see below) General: No acute distress, laying comfortably in bed. HEENT: Moist mucous membranes. Neck: No JVD or lymphadenopathy Cardiac: RRR, No murmurs Pulm: Coarse crackles and diminished breath sounds at the bases b/l. Expiratory wheezing and rhonchi rhonchi noted bilaterally. Abd: NT/ND + BS Ext: No edema or cyanosis Labs (see below) Laboratory Tests 2 10/22/16 17:35: Blood Urea Nitrogen 19H, Creatinine 1.21H, Sodium Level 144, Potassium Level 4.0 , Chloride Level 113H, Carbon Dioxide Level 21, Calcium Level 7.5L, Aspartate Amino Transf (AST/SGOT) 21, Alanine Aminotransferase (ALT/SGPT) 13, Alkaline Phosphatase 87, Total Bilirubin 0.3, Total Protein 5.5L, Albumin 2.4L, Albumin/ Globulin Ratio 0.77L, Anion Gap 10, White Blood Count 16.1H, Red Blood Count 4.18, Hemoglobin 11.9L, Hematocrit 37.3, Mean Corpuscular Volume 89.1, Mean Corpuscular Hemoglobin 28.3, Mean Corpuscular Hemoglobin Concent 31.8L, Red Cell Distribution Width 14.1, Platelet Count 175, Neutrophils (%) (Auto) 91.4H, Lymphocytes (%) (Auto) 4.4L, Monocytes (%) (Auto) 2.8, Eosinophils (%) (Auto) 0.5, Basophils (%) (Auto) 0.3, Neutrophils # (Auto) 14.7H, Lymphocytes # (Auto) 0.7L, Monocytes # (Auto) 0.5, Eosinophils # (Auto) 0.1, Basophils # (Auto) 0.0, Glomerular Filtration Rate 47.4, Large Unclassified Cells # 0.1, Large Unclassified Cells % 0.7, Magnesium Level 1.9 10/23/16 05:09: Blood Urea Nitrogen 16, Creatinine 1.12H, Sodium Level 144, Potassium Level 3.9 , Chloride Level 114H, Carbon Dioxide Level 21, Calcium Level 7.7L, Anion Gap 9 , White Blood Count 13.8H, Red Blood Count 3.90L, Hemoglobin 11.1L, Hematocrit 34.7L, Mean Corpuscular Volume 89.1, Mean Corpuscular Hemoglobin 28.3, Mean Corpuscular Hemoglobin Concent 31.8L, Red Cell Distribution Width 15.0H, Platelet Count 150, Neutrophils (%) (Auto) 91.2H, Lymphocytes (%) (Auto) 3.8L, Monocytes (%) (Auto) 2.3, Eosinophils (%) (Auto) 0.5, Basophils (%) (Auto) 1.7H , Neutrophils # (Auto) 12.6H, Lymphocytes # (Auto) 0.6L, Monocytes # (Auto) 0.3 , Eosinophils # (Auto) 0.1, Basophils # (Auto) 0.2, Glomerular Filtration Rate 51.8, Large Unclassified Cells # 0.1, Large Unclassified Cells % 0.5, Magnesium Level 1.8 Images: Chest x-ray on 10/22/16 with right lower lobe infiltrate Assessment/Plan 1. Severe sepsis from community acquired pneumonia- patient's antibiotics have been broadened given her acute illness. We will better doubt antibiotics pending sputum and blood cultures. Continue IV fluids. We'll trend inflammatory markers. 2. Acute COPD exacerbation secondary to underlying pneumonia. Continue nebs. Continue treating of her underlying pneumonia with current buttocks. We'll also start patient on steroids. 3. NEVIN on chronic kidney disease- patient currently is trending down today. Avoid nephrotoxins. 4. Anxiety continue home meds- 5. Chronic back pain- continue Lyrica and home meds DVT prophy: Enoxaparin Current Medications Current Medications Medications (Trade) Dose Ordered Sig/Darling Route PRN Reason Start Time Stop Time Status Last Admin Dose Admin Acetaminophen (Tylenol Tab) 650 mg Q4HP PRN PO MILD PAIN OR FEVER 10/22/16 05:00 11/21/16 04:59 10/23/16 08:06 Albuterol/ Ipratropium (Duoneb (Ipr 0.5mg/Alb 2.5mg)) 3 ml Q2HP PRN NEB SOB/WHEEZING 10/22/16 05:00 11/21/16 04:59 Albuterol/ Ipratropium (Duoneb (Ipr 0.5mg/Alb 2.5mg)) 3 ml RQ6H NEB 10/22/16 08:00 11/21/16 07:59 10/23/16 01:30 Azithromycin 500 mg/IV Miscellaneous Supplies 1 each/ Dextrose 255 ml @ 255 mls/hr Q24H IV 10/22/16 05:00 10/22/16 05:48 DC Azithromycin/IV Miscellaneous Supplies/Dextrose (Zithromax Inj/ Adapter-Vial Mate/ Dextrose 5%) 255 ml @ 255 mls/hr Q24H IV 10/23/16 02:00 10/23/16 02:00 DC Ceftriaxone Sodium/Dextrose (Rocephin/ Dextrose 5% Mini-Bag Plus) 50 ml @ 100 mls/hr Q24H IV 10/22/16 08:00 10/22/16 14:06 DC Cetirizine HCl (ZyrTEC) 10 mg DAILY PO 10/22/16 09:00 11/21/16 08:59 10/23/16 08:06 Cetylpyridinium Chloride (Cepacol) 1 suha Q1HP PRN PO COUGH 10/22/16 05:00 11/21/16 04:59 Codeine Phosphate/ Guaifenesin (Robitussin Ac) 5 ml Q4HP PRN PO COUGH 10/22/16 11:00 10/29/16 10:59 10/22/16 20:58 Fluticasone Propionate (Flonase 0.05% Nasal [place]) 2 SPRAYS IN EACH NOSTRIL BID NA 10/22/16 09:00 11/21/16 08:59 10/22/16 20:57 Home Med ASDIRECTED XX 10/22/16 04:15 10/22/16 05:51 DC Levofloxacin/IV Miscellaneous Supplies (Levaquin) 50 ml @ 50 mls/hr Q24H IV 10/23/16 10:00 10/30/16 09:59 10/23/16 10:40 Morphine Sulfate 2 mg 2 mg Q4HP PRN IV SEVERE PAIN (PS 8-10) 10/22/16 05:00 10/29/16 04:59 Ondansetron HCl (Zofran) 4 mg Q6HP PRN PO NAUSEA OR VOMITING 10/22/16 05:00 10/22/16 13:23 DC Ondansetron HCl 4 mg 4 mg Q6HP PRN IV NAUSEA OR VOMITING 10/22/16 05:00 11/21/16 04:59 10/22/16 13:56 Ondansetron HCl 4 mg 4 mg Q6HP PRN IV NAUSEA OR VOMITING 10/22/16 13:30 10/22/16 13:30 DC Oxycodone/ Acetaminophen (Percocet 5mg/ 325mg Tablet) 1 tab Q4HP PRN PO MODERATE PAIN (PS 5-7) 10/22/16 05:00 10/29/16 04:59 10/23/16 04:18 Pregabalin (Lyrica) 50 mg QID PO 10/22/16 09:00 10/29/16 08:59 10/23/16 08:06 Salmeterol Xinafoate/ Fluticasone (Advair Diskus 250/50) 1 puff BID INH 10/22/16 09:00 11/21/16 08:59 10/23/16 07:31 Sertraline HCl (Zoloft) 150 mg QHS PO 10/22/16 21:00 11/21/16 20:59 10/22/16 20:57 Sodium Chloride (Nacl 0.9%) 1,000 ml BOLUS IV 10/22/16 09:00 10/22/16 14:00 DC Sodium Chloride (Nacl 0.9%) 1,000 ml @ 125 mls/hr Q8H IV 10/22/16 04:54 11/21/16 04:53 10/23/16 04:17 Trazodone HCl (Desyrel) 200 mg QHS PO 10/22/16 21:00 11/21/16 20:59 10/22/16 20:58 Vancomycin HCl 1000 mg/IV Miscellaneous Supplies 1 each/ Dextrose 270 ml @ 270 mls/hr Q24H IV 10/22/16 16:00 10/29/16 15:59 10/22/16 16:34 Vitamin D (Vitamin D) 1,000 units DAILY PO 10/22/16 09:00 11/21/16 08:59 10/23/16 08:06 Allergies Coded Allergies: Amoxicillin (Verified Allergy, Mild, RASH, INCREASED HEARTRATE, 10/07/14) Clavulanic Acid (Verified Allergy, Mild, RASH, INCREASED HEARTRATE, ) NSAIDs (Verified Adverse Reaction, Severe, kidney failure, 10/07/14) Tapentadol (Verified Adverse Reaction, Intermediate, HAIR LOSS, WEIGHT LOSS, MEMORY LOSS, 10/07/14) VS,Fishbone, I+O VS, Fishbone, I+O Laboratory Tests 10/22/16 17:35 Calcium Level 7.5 L, Aspartate Amino Transf (AST/SGOT) 21, Alanine Aminotransferase (ALT/SGPT) 13, Alkaline Phosphatase 87, Total Bilirubin 0.3, Total Protein 5.5 L, Albumin 2.4 L, Red Blood Count 4.18, Mean Corpuscular Volume 89.1, Mean Corpuscular Hemoglobin 28.3, Mean Corpuscular Hemoglobin Concent 31.8 L, Red Cell Distribution Width 14.1, Neutrophils (%) (Auto) 91.4 H , Lymphocytes (%) (Auto) 4.4 L, Monocytes (%) (Auto) 2.8, Eosinophils (%) (Auto ) 0.5, Basophils (%) (Auto) 0.3, Neutrophils # (Auto) 14.7 H, Lymphocytes # ( Auto) 0.7 L, Monocytes # (Auto) 0.5, Eosinophils # (Auto) 0.1, Basophils # (Auto ) 0.0 10/23/16 05:09 Calcium Level 7.7 L, Red Blood Count 3.90 L, Mean Corpuscular Volume 89.1, Mean Corpuscular Hemoglobin 28.3, Mean Corpuscular Hemoglobin Concent 31.8 L, Red Cell Distribution Width 15.0 H, Neutrophils (%) (Auto) 91.2 H, Lymphocytes (%) ( Auto) 3.8 L, Monocytes (%) (Auto) 2.3, Eosinophils (%) (Auto) 0.5, Basophils (% ) (Auto) 1.7 H, Neutrophils # (Auto) 12.6 H, Lymphocytes # (Auto) 0.6 L, Monocytes # (Auto) 0.3, Eosinophils # (Auto) 0.1, Basophils # (Auto) 0.2 Vital Signs Date Time Temp Pulse Resp B/P Pulse Ox O2 Delivery O2 Flow Rate FiO2 10/23/16 08:00 99.2 110 24 107/53 93 Nasal Cannula 3.0 I&O- Last 24 Hours up to 6 AM 10/23/16 06:00 Intake Total 3480 ml Output Total 600 ml Balance 2880 ml DEONTE DANIEL MD Oct 23, 2016 11:40
[2016-10-23 12:00] VITALS: BP 104/53
[2016-10-23] MEDS: ENOXAPARIN 40 MG/0.4 ML SYRINGE (J1650) SC SCH (12:29)
[2016-10-23] MEDS: predniSONE 20 MG TAB PO SCH (12:29)
--- NOTE | 2016-10-23 15:38 | ECGEPIP ---
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
[2016-10-23] MEDS: guaiFENesin/CODEINE SYRUP 5 ML UDC PO PRN ×2 (15:49→20:04)
[2016-10-23] MEDS: VANCOMYCIN HCL 1,000 MG, VIAL MATE ADAPTER 1 EACH in D5W 250 ML IV SCH (15:50)
[2016-10-23 16:00] VITALS: BP 107/52
[2016-10-23 19:37] VITALS: BP 108/55
[2016-10-23] MEDS: traZODone 100 MG TAB PO SCH (20:04)
[2016-10-23] MEDS: SERTRALINE HCL 50 MG TAB PO SCH (20:04)
[2016-10-23 23:56] VITALS: BP 129/60
[2016-10-24] MEDS: guaiFENesin/CODEINE SYRUP 5 ML UDC PO PRN ×5 (00:26→18:28)
[2016-10-24] MEDS: IPRATROPIUM 0.5MG/ALBUTEROL 2.5MG INH SOL UD 3ML (DUONEB)(J7620) NEB SCH ×4 (01:27→20:00)
[2016-10-24] MEDS: NS 1,000 ML IV SCH ×3 (02:17→21:15)
[2016-10-24 04:00] VITALS: BP 115/56
[2016-10-24 05:27] LABS: BASO % 0.6 % (0.0-1.0); EOS % 0.2 % (0.0-3.0); LARGE UNSTAINED CELL # 0.1 K/mm3 (0.0-0.4); LARGE UNSTAINED CELL % 0.9 % (0.0-4.0); LYMPH # 0.3 K/mm3 (1.5-4.5); LYMPH % 3.5 % (24.0-44.0); MEAN CORPUSCULAR HEMOGLOBIN 28.1 pg (27.0-33.0); MEAN CORPUSCULAR HGB CONC 31.6 g/dl (32.0-36.5); MONO # 0.2 K/mm3 (0.0-0.8); NEUTROPHILS # 6.4 K/mm3 (1.8-7.7); NEUTROPHILS % 91.8 % (36.0-66.0); PLATELET COUNT, AUTOMATED 134 k/mm3 (150-450)
[2016-10-24 05:38] LABS: ANION GAP 9 MEQ/L (8-16); BLOOD UREA NITROGEN 10 MG/DL (7-18); CARBON DIOXIDE LEVEL 24 MEQ/L (21-32); CHLORIDE LEVEL 112 MEQ/L (98-107); CREATININE FOR GFR 0.96 MG/DL (0.55-1.02); GLOMERULAR FILTRATION RATE > 60.0 (>45); GLUCOSE, FASTING 117 MG/DL (80-110); MAGNESIUM LEVEL 2.1 MG/DL (1.8-2.4); POTASSIUM SERUM 3.9 MEQ/L (3.5-5.1); SODIUM LEVEL 145 MEQ/L (136-145)
[2016-10-24] MEDS: ADVAIR DISKUS 250/50 INH PWD INH SCH ×2 (07:28→20:04)
[2016-10-24 07:50] VITALS: BP 106/64
[2016-10-24] MEDS: PREGABALIN 50 MG CAP (LYRICA) PO SCH ×4 (08:19→21:15)
[2016-10-24] MEDS: predniSONE 20 MG TAB PO SCH (08:19)
[2016-10-24] MEDS: PERCOCET 5MG/325MG TAB PO PRN ×4 (08:20→22:39)
[2016-10-24] MEDS: FLUTICASONE PROP 0.05% NASAL SPRAY 16 GM (FLONASE) SCH ×2 (08:20→21:16)
[2016-10-24] MEDS: CETIRIZINE (ZyrTEC) 10 MG TAB PO SCH (08:20)
[2016-10-24] MEDS: ENOXAPARIN 40 MG/0.4 ML SYRINGE (J1650) SC SCH (08:20)
--- NOTE | 2016-10-24 08:29 | REP ---
PA and lateral chest: Comparison is a 2015. There are bilateral upper lobe bulla, more severe on the right. There is crowding of the lung markings in the lower lung zones. Findings are compatible with bullous emphysema and are unchanged. There are no acute infiltrates or effusions. There are surgical clips superimposed over the upper mediastinum, unchanged. Cardiac size is normal. The yunior, mediastinum, bony thorax are otherwise unremarkable and unchanged. Impression: There are no acute cardiopulmonary findings. There are findings compatible with bullous emphysema, unchanged. Signed by Zane Solo MD 10/22/2016 08:08 A
[2016-10-24] MEDS: VITAMIN D 1,000 INTERNATIONAL UNITS TABLET PO SCH (09:00)
[2016-10-24] MEDS: LevoFLOXacin IV 250 MG in APPROPRIATE DILUENT 1 EA IV SCH (10:22)
[2016-10-24 12:00] VITALS: BP 117/58
--- NOTE | 2016-10-24 14:03 | IPNPDOC ---
Text Note Date of Service The patient was seen on 10/24/16 at 14:01. NOTE Subjective: Patient states her shortness of breath is improving. Patient was tachycardic all ambulate into the bathroom. Denies chest pain. Objective: Vitals: (see below) General: No acute distress, laying comfortably in bed. HEENT: Moist mucous membranes. Neck: No JVD or lymphadenopathy Cardiac: RRR, No murmurs Pulm: Coarse crackles and diminished breath sounds at the bases b/l. Expiratory wheezing and rhonchi rhonchi noted bilaterally. Abd: NT/ND + BS Ext: No edema or cyanosis Labs (see below) Images: Chest x-ray on 10/22/16 with right lower lobe infiltrate Assessment/Plan 1. Severe sepsis from community acquired pneumonia- patient's antibiotics have been broadened given her acute illness. Continue vancomycin and Levaquin. We will better doubt antibiotics pending sputum and blood cultures. Continue IV fluids. Inflammatory markers trending down. 2. Acute COPD exacerbation secondary to underlying pneumonia. Continue nebs. Continue treating of her underlying pneumonia with current buttocks. We'll also start patient on steroids. 3. NEVIN on chronic kidney disease-creatinine trending down. Avoid nephrotoxins. 4. Anxiety - continue home meds 5. Chronic back pain- continue Lyrica and home meds 6. Sinus tachycardia- likely secondary to severe sepsis. Continue IV fluids antibiotics. DVT prophy: Enoxaparin VS,Fishbone, I+O VS, Fishbone, I+O Laboratory Tests 10/24/16 05:10 Calcium Level 8.0 L, Red Blood Count 3.59 L, Mean Corpuscular Volume 89.0, Mean Corpuscular Hemoglobin 28.1, Mean Corpuscular Hemoglobin Concent 31.6 L, Red Cell Distribution Width 15.0 H, Neutrophils (%) (Auto) 91.8 H, Lymphocytes (%) ( Auto) 3.5 L, Monocytes (%) (Auto) 3.0, Eosinophils (%) (Auto) 0.2, Basophils (% ) (Auto) 0.6, Neutrophils # (Auto) 6.4, Lymphocytes # (Auto) 0.3 L, Monocytes # (Auto) 0.2, Eosinophils # (Auto) 0.0, Basophils # (Auto) 0.0 Vital Signs Date Time Temp Pulse Resp B/P Pulse Ox O2 Delivery O2 Flow Rate FiO2 10/24/16 13:33 20 10/24/16 12:00 Nasal Cannula 3.0 10/24/16 12:00 99.1 113 117/58 92 I&O- Last 24 Hours up to 6 AM 10/24/16 05:59 Intake Total 2260 ml Output Total 1300 ml Balance 960 ml DEONTE DANIEL MD Oct 24, 2016 14:03
--- NOTE | 2016-10-24 14:15 | EDDOCDS ---
Physician Documentation [facility] Name: Tierra Vanegas Age: 66 yrs Sex: Female : 1950 Arrival Date: 10/22/2016 Time: 02:04 Bed Admit Hold Private MD: Obi Wilhelm MD Disposition: 10/22/16 03:30 Hospitalization ordered by Thalia Waters for Inpatient Admission. Preliminary diagnosis are Pneumonia in diseases classified elsewhere, Chronic obstructive pulmonary disease with acute lower respiratory infection. - Bed requested for PCU. - Status is Inpatient Admission. pml - Condition is Stable. - Problem is an ongoing problem. - Symptoms have improved. Historical: - Allergies: Augmentin; nucinda; NSAIDS; - Home Meds: 1. oxycodone-acetaminophen 10-325 mg Oral tab 1 tab as needed 2. Breo Ellipta 100-25 mcg/dose inhalation dsdv 1 puff once daily 3. Flonase Allergy Relief 50 mcg/actuation nasal spsn twice a day 4. pregabalin 50 mg Oral cap four times a day 5. trazodone 100 mg Oral tab 2 tabs nightly 6. [place] [address] unit daily 7. Vitmin B 12 - 2 tabs daily 8. Zoloft 150 mg Oral tab nightly 9. Zyrtec 10 mg Oral tab 1 tab once daily - PMHx: Anxiety; back pain; COPD; - PSHx: Hysterectomy; Colectomy, Complete; back surgery; Tonsillectomy; Cholecystectomy; - Social history: Smoking status: Patient states former smoker of tobacco. No barriers to communication noted, The patient speaks fluent Occitan, Speaks appropriately for age. - Family history: Not pertinent. - : The pt / caregiver states he / she is not on anticoagulants. Home medication list is obtained from the patient. - Exposure Risk Screening:: None identified. Vital Signs: 10/22 02:08 BP 133 / 82 (auto/); kas2 02:08 Pulse 132 MON; Pulse Ox 85% ; kas2 02:12 BP 133 / 82; Pulse 131; Resp 24; Temp 98.7(O); Pulse Ox 84% on R/A; ld5 02:13 Pulse Ox 93% on 2 lpm NC; ld5 02:23 BP 148 / 79 (auto/); kas2 02:23 Pulse 124 MON; Pulse Ox 95% ; kas2 02:24 Weight 61.69 kg / 136 lbs (R); Height 5 ft. 4 in. (162.56 cm) (R); ld5 03:30 BP 123 / 66 (auto/); kas2 03:30 Pulse 144 MON; Pulse Ox 97% ; kas2 04:31 BP 128 / 67; Pulse 133; Resp 20; Temp 98.2(O); Pulse Ox 96% 4 lpm ; Pain 0/10; kas2 04:57 BP 133 / 63 (auto/); kas2 04:57 Pulse 126 MON; Pulse Ox 97% ; kas2 05:32 Resp 22; Temp 101.1(O); Pulse Ox 99% 4 lpm ; Pain 0/10; kas2 06:38 BP 132 / 72; Pulse 124; Resp 20; Pulse Ox 99% 4 lpm ; Pain 0/10; kas2 07:07 BP 116 / 56 (auto/); hs1 07:08 Pulse 124 MON; Resp 22; Temp 101(O); Pulse Ox 87% on 4 lpm NC; hs1 07:26 Pulse 120; Resp 22; Temp 100.5(O); Pulse Ox 91% on 6 lpm NC; pml 12:35 BP 119 / 60; Pulse 112; Resp 20; Temp 101.3; Pulse Ox 96% on 6 lpm NC; pml 13:10 BP 138 / 64; Pulse 115; Resp 22; Temp 101.3(O); Pulse Ox 95% on 6 lpm NC; pml 02:24 Body Mass Index 23.34 (61.69 kg, 162.56 cm) ld5 MDM: 02:23 Chest, 2 View (pa\E\lat) Ordered. EDMS 02:52 IV Saline Lock ordered. cs11 02:52 cefUROXime 1.5 grams IV at calculated rate once over 30 mins; dilute in 50mL of NS or cs11 D5W ordered. 02:53 -Blood Culture (Adults Only), peripheral from different site, or from device/port/PICC cs11 etc. if present ordered. 02:53 Albuterol-Ipratropium 1 neb Nebulizer every 20 minutes x3 ordered. cs11 02:53 Call Respiratory ordered. cs11 02:53 azithromycin 500 mg PO once ordered. cs11 02:54 Oxygen at 4L/Min NC or Home dosage ordered. cs11 02:55 Lactic Acid (Kessler tube on ice) Ordered. EDMS 02:55 CBC with Diff Ordered. EDMS 02:55 MED Profile Ordered. EDMS 02:55 -Arterial Blood Gas Ordered. EDMS 02:55 -Blood Culture Ordered. EDMS 02:55 BED REQUEST+ADM ordered. EDMS 03:09 Call Respiratory complete. kas2 03:23 CBC with Diff Reviewed. cs11 03:23 -Arterial Blood Gas Reviewed. cs11 03:24 -Blood Culture (Adults Only), peripheral from different site, or from device/port/PICC jlm etc. if present complete. 03:26 BLOOD CULTURES Ordered. EDMS 03:39 azithromycin 500 mg IVPB once over 1 hrs; dilute in 250mL of D5W or NS ordered. cs11 03:46 Financial registration complete. hs2 03:47 [facility] Payment Agreement was scanned into [email or web address] and attached to record. hs2 05:02 SPUTUM CULTURE AND GRAM STAIN Ordered. EDMS 05:04 Admission / Observation Status ordered. EDMS 05:05 REGULAR DIET ordered. EDMS 05:33 Acetaminophen (15mg/kg) Liquid 1000 mg PO once; not to exceed 1,000 milligrams ordered. cs11 05:34 MED Profile Reviewed. cs11 05:34 Lactic Acid (Kessler tube on ice) Reviewed. cs11 05:34 NS 0.9% 500 ml IV at bolus once ordered. cs11 05:47 Acetaminophen Suppository 650 mg MN once ordered. cs11 05:59 Acetaminophen (15mg/kg) Liquid 1000 mg PO once; not to exceed 1,000 milligrams ordered. kas2 07:41 T-Sheet-- Draft Copy was scanned into [email or web address] and attached to record. gb 12:47 Written Provider Order was scanned into [email or web address] and attached to record. deg 12:47 ECG WITH READING ER PHYS ordered. EDMS Administered Medications: 02:55 Drug: Albuterol-Ipratropium 1 neb [ipratropium-albuterol 0.5 mg-3 mg(2.5 mg base)/3 mL jc3 nebulization soln (1 neb)] Route: Nebulizer; 03:06 Drug: Albuterol-Ipratropium 1 neb [ipratropium-albuterol 0.5 mg-3 mg(2.5 mg base)/3 mL jc3 nebulization soln (1 neb)] Route: Nebulizer; 03:14 Drug: Albuterol-Ipratropium 1 neb [ipratropium-albuterol 0.5 mg-3 mg(2.5 mg base)/3 mL jc3 nebulization soln (1 neb)] Route: Nebulizer; 03:37 Drug: cefUROXime 1.5 grams [cefuroxime sodium 750 mg solution for injection] Route: IV; kas2 Rate: calculated rate; Infused Over: 30 mins; Site: right antecubital; 03:38 Not Given (patient unable to swallow pills): azithromycin 500 mg PO once kas2 04:28 Drug: azithromycin 500 mg [azithromycin 500 mg intravenous solution] Route: IVPB; kas2 Infused Over: 1 hrs; Site: right antecubital; 05:37 Drug: NS 0.9% 500 ml [sodium chloride 0.9 % intravenous solution] Route: IV; Rate: kas2 bolus; Site: right antecubital; 05:58 Drug: Acetaminophen 650 mg [acetaminophen 650 mg rectal suppository (1 supp)] Route: MN;nn1 05:59 Not Given (patient cannot tolerated po meds): Acetaminophen (15mg/kg) Liquid 1000 mg PO kas2 once; not to exceed 1,000 milligrams Signatures: Dispatcher [employer] EDAnn Marie Ventura, Emergency Spill Response Technician Unit deg Mariel Aldridge, Reg Reg gb Myra Chapman RN RN ld5 Yuliya Sanchez RN RN pml Schiff, Craig, DO cs11 Adrienne Rodarte, Emergency Spill Response Technician Unit [facility] Aruna Graham, Reg Reg hs2 Ciara Collins RN RN kas2 Maxi Bartlett jc3 Vishal Mcwilliams RN nn1 The chart was reviewed and I authenticate all verbal orders and agree with the evaluation and treatment provided.Attachments: 03:47 [facility] Payment Agreement hs2 07:41 T-Sheet-- Draft Copy gb 12:47 Written Provider Order deg Chart Complete MTDD
--- NOTE | 2016-10-24 14:15 | EDDOCDS ---
Physician Documentation [facility] Name: Tierra Vanegas Age: 66 yrs Sex: Female : 1950 Arrival Date: 10/22/2016 Time: 02:04 Bed Admit Hold Private MD: Obi Wilhelm MD Disposition: 10/22/16 03:30 Hospitalization ordered by Thalia Waters for Inpatient Admission. Preliminary diagnosis are Pneumonia in diseases classified elsewhere, Chronic obstructive pulmonary disease with acute lower respiratory infection. - Bed requested for PCU. - Status is Inpatient Admission. pml - Condition is Stable. - Problem is an ongoing problem. - Symptoms have improved. Historical: - Allergies: Augmentin; nucinda; NSAIDS; - Home Meds: 1. oxycodone-acetaminophen 10-325 mg Oral tab 1 tab as needed 2. Breo Ellipta 100-25 mcg/dose inhalation dsdv 1 puff once daily 3. Flonase Allergy Relief 50 mcg/actuation nasal spsn twice a day 4. pregabalin 50 mg Oral cap four times a day 5. trazodone 100 mg Oral tab 2 tabs nightly 6. Vitamin D Oral 24007 unit daily 7. Vitmin B 12 - 2 tabs daily 8. Zoloft 150 mg Oral tab nightly 9. Zyrtec 10 mg Oral tab 1 tab once daily - PMHx: Anxiety; back pain; COPD; - PSHx: Hysterectomy; Colectomy, Complete; back surgery; Tonsillectomy; Cholecystectomy; - Social history: Smoking status: Patient states former smoker of tobacco. No barriers to communication noted, The patient speaks fluent Swedish, Speaks appropriately for age. - Family history: Not pertinent. - : The pt / caregiver states he / she is not on anticoagulants. Home medication list is obtained from the patient. - Exposure Risk Screening:: None identified. Vital Signs: 10/22 02:08 BP 133 / 82 (auto/); kas2 02:08 Pulse 132 MON; Pulse Ox 85% ; kas2 02:12 BP 133 / 82; Pulse 131; Resp 24; Temp 98.7(O); Pulse Ox 84% on R/A; ld5 02:13 Pulse Ox 93% on 2 lpm NC; ld5 02:23 BP 148 / 79 (auto/); kas2 02:23 Pulse 124 MON; Pulse Ox 95% ; kas2 02:24 Weight 61.69 kg / 136 lbs (R); Height 5 ft. 4 in. (162.56 cm) (R); ld5 03:30 BP 123 / 66 (auto/); kas2 03:30 Pulse 144 MON; Pulse Ox 97% ; kas2 04:31 BP 128 / 67; Pulse 133; Resp 20; Temp 98.2(O); Pulse Ox 96% 4 lpm ; Pain 0/10; kas2 04:57 BP 133 / 63 (auto/); kas2 04:57 Pulse 126 MON; Pulse Ox 97% ; kas2 05:32 Resp 22; Temp 101.1(O); Pulse Ox 99% 4 lpm ; Pain 0/10; kas2 06:38 BP 132 / 72; Pulse 124; Resp 20; Pulse Ox 99% 4 lpm ; Pain 0/10; kas2 07:07 BP 116 / 56 (auto/); hs1 07:08 Pulse 124 MON; Resp 22; Temp 101(O); Pulse Ox 87% on 4 lpm NC; hs1 07:26 Pulse 120; Resp 22; Temp 100.5(O); Pulse Ox 91% on 6 lpm NC; pml 12:35 BP 119 / 60; Pulse 112; Resp 20; Temp 101.3; Pulse Ox 96% on 6 lpm NC; pml 13:10 BP 138 / 64; Pulse 115; Resp 22; Temp 101.3(O); Pulse Ox 95% on 6 lpm NC; pml 02:24 Body Mass Index 23.34 (61.69 kg, 162.56 cm) ld5 MDM: 02:23 Chest, 2 View (pa\E\lat) Ordered. EDMS 02:52 IV Saline Lock ordered. cs11 02:52 cefUROXime 1.5 grams IV at calculated rate once over 30 mins; dilute in 50mL of NS or cs11 D5W ordered. 02:53 -Blood Culture (Adults Only), peripheral from different site, or from device/port/PICC cs11 etc. if present ordered. 02:53 Albuterol-Ipratropium 1 neb Nebulizer every 20 minutes x3 ordered. cs11 02:53 Call Respiratory ordered. cs11 02:53 azithromycin 500 mg PO once ordered. cs11 02:54 Oxygen at 4L/Min NC or Home dosage ordered. cs11 02:55 Lactic Acid (Kessler tube on ice) Ordered. EDMS 02:55 CBC with Diff Ordered. EDMS 02:55 MED Profile Ordered. EDMS 02:55 -Arterial Blood Gas Ordered. EDMS 02:55 -Blood Culture Ordered. EDMS 02:55 BED REQUEST+ADM ordered. EDMS 03:09 Call Respiratory complete. kas2 03:23 CBC with Diff Reviewed. cs11 03:23 -Arterial Blood Gas Reviewed. cs11 03:24 -Blood Culture (Adults Only), peripheral from different site, or from device/port/PICC jlm etc. if present complete. 03:26 BLOOD CULTURES Ordered. EDMS 03:39 azithromycin 500 mg IVPB once over 1 hrs; dilute in 250mL of D5W or NS ordered. cs11 03:46 Financial registration complete. hs2 03:47 [facility] [place] was scanned into [employer] and attached to record. hs2 05:02 SPUTUM CULTURE AND GRAM STAIN Ordered. EDMS 05:04 Admission / Observation Status ordered. EDMS 05:05 REGULAR DIET ordered. EDMS 05:33 Acetaminophen (15mg/kg) Liquid 1000 mg PO once; not to exceed 1,000 milligrams ordered. cs11 05:34 MED Profile Reviewed. cs11 05:34 Lactic Acid (Kessler tube on ice) Reviewed. cs11 05:34 NS 0.9% 500 ml IV at bolus once ordered. cs11 05:47 Acetaminophen Suppository 650 mg [place] once ordered. cs11 05:59 Acetaminophen (15mg/kg) Liquid 1000 mg PO once; not to exceed 1,000 milligrams ordered. kas2 07:41 T-Sheet-- Draft Copy was scanned into [employer] and attached to record. gb 12:47 Written Provider Order was scanned into [employer] and attached to record. deg 12:47 ECG WITH READING ER PHYS ordered. EDMS Administered Medications: 02:55 Drug: Albuterol-Ipratropium 1 neb [ipratropium-albuterol 0.5 mg-3 mg(2.5 mg base)/3 mL jc3 nebulization soln (1 neb)] Route: Nebulizer; 03:06 Drug: Albuterol-Ipratropium 1 neb [ipratropium-albuterol 0.5 mg-3 mg(2.5 mg base)/3 mL jc3 nebulization soln (1 neb)] Route: Nebulizer; 03:14 Drug: Albuterol-Ipratropium 1 neb [ipratropium-albuterol 0.5 mg-3 mg(2.5 mg base)/3 mL jc3 nebulization soln (1 neb)] Route: Nebulizer; 03:37 Drug: cefUROXime 1.5 grams [cefuroxime sodium 750 mg solution for injection] Route: IV; kas2 Rate: calculated rate; Infused Over: 30 mins; Site: right antecubital; 03:38 Not Given (patient unable to swallow pills): azithromycin 500 mg PO once kas2 04:28 Drug: azithromycin 500 mg [azithromycin 500 mg intravenous solution] Route: IVPB; kas2 Infused Over: 1 hrs; Site: right antecubital; 05:37 Drug: NS 0.9% 500 ml [sodium chloride 0.9 % intravenous solution] Route: IV; Rate: kas2 bolus; Site: right antecubital; 05:58 Drug: Acetaminophen 650 mg [acetaminophen 650 mg rectal suppository (1 supp)] Route: [place];nn1 05:59 Not Given (patient cannot tolerated po meds): Acetaminophen (15mg/kg) Liquid 1000 mg PO kas2 once; not to exceed 1,000 milligrams Signatures: Dispatcher [employer] EDAnn Marie Ventura, Medical Coordinator Pesticide Use Unit deg Mariel Aldridge, Reg Reg gb Myra Chapman RN RN ld5 Yuliya Sanchez RN RN pml Schiff, Craig, DO cs11 Adrienne Rodarte, Medical Coordinator Pesticide Use Unit [facility] Aruna Graham, Reg Reg hs2 Ciara Collins RN RN kas2 Maxi Bartlett jc3 Vishal Mcwilliams RN nn1 The chart was reviewed and I authenticate all verbal orders and agree with the evaluation and treatment provided.Attachments: 03:47 [facility] Payment Agreement hs2 07:41 T-Sheet-- Draft Copy gb 12:47 Written Provider Order deg Chart Complete MTDD
--- NOTE | 2016-10-24 14:15 | EDDOCDS ---
Nurse's Notes [facility] Name: Tierra Vanegas Age: 66 yrs Sex: Female : 1950 Arrival Date: 10/22/2016 Time: 02:04 Bed Admit Hold Private MD: Obi Wilhelm MD Diagnosis: Pneumonia in diseases classified elsewhere;Chronic obstructive pulmonary disease with acute lower respiratory infection Presentation: 10/22 02:13 Presenting complaint: Patient states: Productive cough and breathing difficulty for ld5 several weeks. Put on prednisone by Dr. Rico. Presents to ER with increasing SOB and breathing difficulty. Pt 84% on room air upon ER arrival. Adult Sepsis Screening: The patient does not have new or worsening altered mentation. Patient has a respiratory rate of greater than or equal to 22 (1 point). Systolic blood pressure is greater than 100. Patient has a qSOFA score of 1- Negative Sepsis Screen. Suicide/Homicide risk assessment- the patient denies having any suicidal and/or homicidal ideations and does not present with any other emotional, behavioral or mental health complaints. Status: Patient is not a food service specialist or dependent. Transition of care: patient was not received from another setting of care. 02:13 Acuity: BRAYDEN Level 2 ld5 02:13 Method Of Arrival: Walkin/Carried/Asstd ld5 Triage Assessment: 02:18 General: Appears ill. Pain: Location: head. Neurological: Level of Consciousness is ld5 awake, obeys commands. EENT: Reports sore throat, pain when swallowing. Respiratory: Onset: The symptoms/episode began/occurred yesterday, Respiratory effort is labored, Reports shortness of breath at rest on exertion cough that is productive. GI: Reports vomiting, "a couple of times". Historical: - Allergies: Augmentin; nucinda; NSAIDS; - Home Meds: 1. oxycodone-acetaminophen 10-325 mg Oral tab 1 tab as needed 2. Breo Ellipta 100-25 mcg/dose inhalation dsdv 1 puff once daily 3. Flonase Allergy Relief 50 mcg/actuation nasal spsn twice a day 4. pregabalin 50 mg Oral cap four times a day 5. trazodone 100 mg Oral tab 2 tabs nightly 6. Vitamin D Oral 15896 unit daily 7. Vitmin B 12 - 2 tabs daily 8. Zoloft 150 mg Oral tab nightly 9. Zyrtec 10 mg Oral tab 1 tab once daily - PMHx: Anxiety; back pain; COPD; - PSHx: Hysterectomy; Colectomy, Complete; back surgery; Tonsillectomy; Cholecystectomy; - Social history: Smoking status: Patient states former smoker of tobacco. No barriers to communication noted, The patient speaks fluent Eritrean, Speaks appropriately for age. - Family history: Not pertinent. - : The pt / caregiver states he / she is not on anticoagulants. Home medication list is obtained from the patient. - Exposure Risk Screening:: None identified. Screenin:31 Screening information is obtained from the patient. Fall risk: No risks identified. kas2 Assistance ADL's: requires no assistance with activities of daily living. Abuse/DV Screen: The patient / caregiver reports he/she is: not in a situation that causes fear, pain or injury. Nutritional screening: No deficits noted. Advance Directives: Currently, there is no health care proxy. There is no active DNR order. There is no living will. There is no Power of Cinder Dump Crane Operator. home support is adequate. Assessment: 02:28 General:. kas2 02:29 General: Appears distressed, uncomfortable, well nourished, well groomed, Behavior is kas2 appropriate for age, cooperative. Pain: Denies pain. Neurological: Level of Consciousness is awake, alert, Oriented to person, place, time. Cardiovascular: Capillary refill < 3 seconds Heart tones S1 S2 present Rhythm is sinus tachycardia No ectopy. Respiratory: Airway is patent Respiratory effort is even, unlabored, Respiratory pattern is regular, symmetrical, Breath sounds are coarse inspiratory expiratory bilaterally. Breath sounds are diminished bilaterally. Derm: Skin is intact, Skin is dry, Skin is pale, Skin temperature is warm. Injury Description: No known injury. 03:30 General: Appears in no apparent distress, comfortable, Behavior is appropriate for age, kas2 cooperative. Pain: Denies pain. Neurological: Level of Consciousness is awake, alert, Oriented to person, place, time. Cardiovascular: Rhythm is sinus tachycardia No ectopy. Respiratory: Airway is patent Respiratory effort is even, unlabored, Respiratory pattern is regular, symmetrical. Derm: Skin is intact, Skin is dry, Skin is pink, warm & dry. Skin temperature is warm. 04:28 General: Hospitalist in assessing patient at this time.. kas2 04:28 General: Patient laying in bed talking to hospitalist. Denies pain or discomfort at [facility] this time. Appears comfortable. No apparent distress. Airway patent and respiratory effort even and unlabored. Call johansen within reach. Will continue to monitor.. 05:29 General: Appears in no apparent distress, comfortable, Behavior is appropriate for age, kas2 cooperative. Pain: Denies pain. Neurological: Level of Consciousness is awake, alert, Oriented to person, place, time. Cardiovascular: Rhythm is sinus tachycardia No ectopy. Respiratory: Airway is patent Respiratory effort is even, unlabored, Respiratory pattern is regular, symmetrical. Derm: Skin is intact, Skin is dry, Skin is pink, warm & dry. Skin temperature is warm. 05:55 General: Patient tried to take oral tylenol and vomited. Dr. Soriano aware. [facility] 06:14 General:. kas2 06:37 General: Appears in no apparent distress, comfortable, Behavior is appropriate for age, kas2 cooperative. Pain: Denies pain. Neurological: Level of Consciousness is awake, alert, Oriented to person, place, time. Respiratory: Airway is patent Respiratory effort is even, unlabored, Respiratory pattern is regular, symmetrical. Derm: Skin is intact, Skin is dry, Skin is pink, warm & dry. Skin temperature is. 07:26 General: Appears in no apparent distress, comfortable, Behavior is appropriate for age, pml cooperative. Pain: Denies pain. Neurological: Level of Consciousness is awake, alert, Oriented to person, place, time. Cardiovascular: Capillary refill < 3 seconds Rhythm is sinus tachycardia No ectopy. Respiratory: Airway is patent Respiratory effort is even, pursed lip, shallow, Respiratory pattern is regular, symmetrical, Breath sounds are coarse Breath sounds with rhonchi bilaterally. GI: Abdomen is non- distended. Derm: Skin is pink, warm & dry. 09:08 General: pt unable to tolerate sips of PO fluid - appears to cough and gasp. states pml sore throat. MD Linares aware, hold AM meds until pt able to tolerate PO . 13:10 General: Appears in no apparent distress, Behavior is appropriate for age, cooperative. pml Pain: Location: throat. Neurological: Level of Consciousness is awake, alert, Oriented to person, place, time. Cardiovascular: Capillary refill < 3 seconds Rhythm is sinus tachycardia No ectopy. Respiratory: Airway is patent Respiratory effort is even, unlabored. Derm: Skin is pink, warm & dry. Vital Signs: 02:08 BP 133 / 82 (auto/); kas2 02:08 Pulse 132 MON; Pulse Ox 85% ; kas2 02:12 BP 133 / 82; Pulse 131; Resp 24; Temp 98.7(O); Pulse Ox 84% on R/A; ld5 02:13 Pulse Ox 93% on 2 lpm NC; ld5 02:23 BP 148 / 79 (auto/); kas2 02:23 Pulse 124 MON; Pulse Ox 95% ; kas2 02:24 Weight 61.69 kg (R); Height 5 ft. 4 in. (162.56 cm) (R); ld5 03:30 BP 123 / 66 (auto/); kas2 03:30 Pulse 144 MON; Pulse Ox 97% ; kas2 04:31 BP 128 / 67; Pulse 133; Resp 20; Temp 98.2(O); Pulse Ox 96% 4 lpm ; Pain 0/10; kas2 04:57 BP 133 / 63 (auto/); kas2 04:57 Pulse 126 MON; Pulse Ox 97% ; kas2 05:32 Resp 22; Temp 101.1(O); Pulse Ox 99% 4 lpm ; Pain 0/10; kas2 06:38 BP 132 / 72; Pulse 124; Resp 20; Pulse Ox 99% 4 lpm ; Pain 0/10; kas2 07:07 BP 116 / 56 (auto/); hs1 07:08 Pulse 124 MON; Resp 22; Temp 101(O); Pulse Ox 87% on 4 lpm NC; hs1 07:26 Pulse 120; Resp 22; Temp 100.5(O); Pulse Ox 91% on 6 lpm NC; pml 12:35 BP 119 / 60; Pulse 112; Resp 20; Temp 101.3; Pulse Ox 96% on 6 lpm NC; pml 13:10 BP 138 / 64; Pulse 115; Resp 22; Temp 101.3(O); Pulse Ox 95% on 6 lpm NC; pml 02:24 Body Mass Index 23.34 (61.69 kg, 162.56 cm) ld5 ED Course: 02:06 Patient visited by Corky Davis Reg. pm4 02:06 Obi Wilhelm is Private Physician. pm4 02:06 Patient moved to Waiting pm4 02:09 Tigist Black,RN is Primary Nurse. ld5 02:09 Patient moved to 10 ld5 02:15 Triage Initiated ld5 02:19 Patient visited by Myra Chapman,BOBBY. ld5 02:21 Felix Soriano DO is Attending Physician. cs11 02:21 Patient visited by Felix Soriano DO. cs11 02:24 O2 via nasal cannula \\T\\ 2L/min. ld5 02:31 Patient visited by Ciara Collins RN. kas2 02:51 Patient visited by Ciara Collins RN. kas2 03:05 -Arterial Blood Gas Sent. jc3 03:09 -Blood Culture Sent. kas2 03:09 Lactic Acid (Kessler tube on ice) Sent. kas2 03:09 CBC with Diff Sent. kas2 03:09 MED Profile Sent. kas2 03:10 quality assurance monitor on. Pulse ox on. NIBP on. kas2 03:10 Inserted saline lock: 20 gauge in right antecubital area and blood collected. The kas2 patient tolerated the procedure well. No procedures done that require assistance. 03:10 O2 via nasal cannula \\T\\ 4L/min. kas2 03:11 Patient visited by Ciara Collins RN. kas2 03:24 Patient visited by Ciara Collins RN. kas2 03:30 Thalia Waters is Hospitalizing Provider. cs11 03:47 [facility] Payment Agreement was scanned into [employer] and attached to record. hs2 04:00 Patient visited by Ciara Collins RN. kas2 04:13 Patient visited by Ciara Collins RN. kas2 04:31 Patient visited by Ciara Collins RN. kas2 05:03 Patient visited by Ciara Collins RN. kas2 05:34 Patient visited by Ciara Collins RN. kas2 05:52 Patient visited by Ciara Collins RN. kas2 06:00 Patient visited by Ciara Collins RN. kas2 06:35 Patient moved to 18 jlm 06:36 Patient moved to Admit Hold kmg1 06:39 Patient visited by Ciara Collins RN. kas2 06:53 Patient visited by Ciara Collins RN. kas2 06:54 Patient visited by Ciara Collins RN. kas2 07:06 Patient visited by Ciara Collins RN. kas2 07:28 Patient visited by Yuliya Sanchez RN. pml 07:41 T-Sheet-- Draft Copy was scanned into [employer] and attached to record. gb 08:27 Primary Nurse role handed off by Tigist Black RN j 09:08 Patient visited by Yuliya Sanchez RN. pml 12:47 Written Provider Order was scanned into [employer] and attached to record. deg 13:10 The patient / caregiver is instructed regarding the plan of care and ED course. Patient pml has correct armband on for positive identification. Placed in gown. Bed in low position. Call light in reach. Side rails up X2. Administered Medications: 02:55 Drug: Albuterol-Ipratropium 1 neb [ipratropium-albuterol 0.5 mg-3 mg(2.5 mg base)/3 mL jc3 nebulization soln (1 neb)] Route: Nebulizer; 03:06 Drug: Albuterol-Ipratropium 1 neb [ipratropium-albuterol 0.5 mg-3 mg(2.5 mg base)/3 mL jc3 nebulization soln (1 neb)] Route: Nebulizer; 03:14 Drug: Albuterol-Ipratropium 1 neb [ipratropium-albuterol 0.5 mg-3 mg(2.5 mg base)/3 mL jc3 nebulization soln (1 neb)] Route: Nebulizer; 03:37 Drug: cefUROXime 1.5 grams [cefuroxime sodium 750 mg solution for injection] Route: IV; kas2 Rate: calculated rate; Infused Over: 30 mins; Site: right antecubital; 03:38 Not Given (patient unable to swallow pills): azithromycin 500 mg PO once kas2 04:28 Drug: azithromycin 500 mg [azithromycin 500 mg intravenous solution] Route: IVPB; kas2 Infused Over: 1 hrs; Site: right antecubital; 05:37 Drug: NS 0.9% 500 ml [sodium chloride 0.9 % intravenous solution] Route: IV; Rate: kas2 bolus; Site: right antecubital; 05:58 Drug: Acetaminophen 650 mg [acetaminophen 650 mg rectal suppository (1 supp)] Route: ME;nn1 05:59 Not Given (patient cannot tolerated po meds): Acetaminophen (15mg/kg) Liquid 1000 mg PO kas2 once; not to exceed 1,000 milligrams RT: 03:06 ABG's drawn from left radial artery pressure held for 5 minutes no bleeding noted jc3 pressure bandage applied specimen sent pt. tolerated well. Initial Med Neb Given as ordered. O2 via nasal cannula \\T\\ 2L/min. Respiratory: Breath sounds are coarse Breath sounds with rhonchi bilaterally. Breath sounds are diminished bilaterally. Breath sounds with wheezes bilaterally. Order Results: Lab Order: Lactic Acid (Kessler tube on ice); SPEC'M 10/22/16 03:02 Test: LACTIC ACID LEVEL, LACTATE; Value: 0.8; Range: 0.4-2.0; Units: MMOL/L; Status: F Lab Order: CBC with Diff; SPEC'M 10/22/16 03:02 Test: WHITE BLOOD COUNT; Value: 12.8; Range: 4.0-10.0; Abnormal: Above high normal; Units: K/mm3; Status: F Test: RED BLOOD COUNT; Value: 4.87; Range: 4.00-5.40; Units: M/mm3; Status: F Test: HEMOGLOBIN; Value: 13.7; Range: 12.0-16.0; Units: g/dl; Status: F Test: HEMATOCRIT; Value: 43.3; Range: 36.0-47.0; Units: %; Status: F Test: MEAN CORPUSCULAR VOLUME; Value: 89.0; Range: 80.0-96.0; Units: fl; Status: F Test: MEAN CORPUSCULAR HEMOGLOBIN; Value: 28.0; Range: 27.0-33.0; Units: pg; Status: F Test: MEAN CORPUSCULAR HGB CONC; Value: 31.5; Range: 32.0-36.5; Abnormal: Below low normal; Units: g/dl; Status: F Test: RED CELL DISTRIBUTION WIDTH; Value: 14.0; Range: 11.5-14.5; Units: %; Status: F Test: PLATELET COUNT, AUTOMATED; Value: 214; Range: 150-450; Units: k/mm3; Status: F Test: NEUTROPHILS %; Value: 82.6; Range: 36.0-66.0; Abnormal: Above high normal; Units: %; Status: F Test: LYMPH %; Value: 9.5; Range: 24.0-44.0; Abnormal: Below low normal; Units: %; Status: F Test: MONO %; Value: 4.8; Range: 0.0-5.0; Units: %; Status: F Test: EOS %; Value: 1.4; Range: 0.0-3.0; Units: %; Status: F Test: BASO %; Value: 0.6; Range: 0.0-1.0; Units: %; Status: F Test: LARGE UNSTAINED CELL %; Value: 1.0; Range: 0.0-4.0; Units: %; Status: F Test: NEUTROPHILS #; Value: 10.6; Range: 1.8-7.7; Abnormal: Above high normal; Units: K/mm3; Status: F Test: LYMPH #; Value: 1.2; Range: 1.5-4.5; Abnormal: Below low normal; Units: K/mm3; Status: F Test: MONO #; Value: 0.6; Range: 0.0-0.8; Units: K/mm3; Status: F Test: EOS #; Value: 0.2; Range: 0.0-0.50; Units: K/mm3; Status: F Test: BASO #; Value: 0.1; Range: 0.0-0.2; Units: K/mm3; Status: F Test: LARGE UNSTAINED CELL #; Value: 0.1; Range: 0.0-0.4; Units: K/mm3; Status: F Lab Order: [facility]; [facility]M 10/22/16 03:02 Test: GLUCOSE, FASTING; Value: 111; Range: 80-110; Abnormal: Above high normal; Units: MG/DL; Status: F Test: BLOOD UREA NITROGEN; Value: 28; Range: 7-18; Abnormal: Above high normal; Units: MG/DL; Status: F Test: CREATININE FOR GFR; Value: 1.42; Range: 0.55-1.02; Abnormal: Above high normal; Units: MG/DL; Status: F Test: GLOMERULAR FILTRATION RATE; Value: 39.4; Range: >45; Abnormal: Below low normal; Status: F Test: SODIUM LEVEL; Value: 147; Range: 136-145; Abnormal: Above high normal; Units: MEQ/L; Status: F Test: POTASSIUM SERUM; Value: 4.3; Range: 3.5-5.1; Units: MEQ/L; Status: F Test: CHLORIDE LEVEL; Value: 111; Range: 98-107; Abnormal: Above high normal; Units: MEQ/L; Status: F Test: CARBON DIOXIDE LEVEL; Value: 25; Range: 21-32; Units: MEQ/L; Status: F Test: ANION GAP; Value: 11; Range: 8-16; Units: MEQ/L; Status: F Test: CALCIUM LEVEL; Value: 8.5; Range: 8.8-10.2; Abnormal: Below low normal; Units: MG/DL; Status: F Test Note: ; Units are mL/min/1.73 m2 Chronic Kidney Disease Staging per NKF: Stage I & II GFR >=60 Normal to Mildly Decreased Stage III GFR 30-59 Moderately Decreased Stage IV GFR 15-29 Severely Decreased Stage V GFR <15 Very Little GFR Left ESRD GFR <15 on CHECK OUT CLERK Lab Order: -Arterial Blood Gas; [facility]' 10/22/16 03:02 Test: ABG pH (ARTERIAL); Value: 7.357; Range: 7.350-7.450; Units: UNITS; Status: F Test: ABG PARTIAL PRESSURE CO2; Value: 38.7; Range: 35.0-45.0; Units: mmHg; Status: F Test: ABG PARTIAL PRESSURE O2; Value: 70.9; Range: 75.0-100.0; Abnormal: Below low normal; Units: mmHg; Status: F Test: ABG TOTAL CO2; Value: 22.4; Range: 23.0-31.0; Abnormal: Below low normal; Units: MEQ/L; Status: F Test: ABG HCO3; Value: 21.2; Range: 22.0-26.0; Abnormal: Below low normal; Units: MEQ/L; Status: F Test: ABG BASE EXCESS; Value: -3.8; Range: -2.0-2.0; Abnormal: Below low normal; Status: F Test: ABG STANDARD HCO3; Value: 21.2; Range: 22.0-26.0; Abnormal: Below low normal; Units: MEQ/L; Status: F Test: ABG O2 SATURATION; Value: 93.8; Range: 95.0-99.0; Abnormal: Below low normal; Units: %; Status: F Test: ABG DEVICE; Value: NASAL JESSIE; Status: F Outcome: 03:30 Decision to Hospitalize by Provider. cs11 13:10 Discharge Assessment: Patient awake, alert and oriented x 3. No cognitive and/or pml functional deficits noted. Patient verbalized understanding of disposition instructions. patient administered narcotics - no. The following High Risk Discharge criteria are identified: None. Condition: good Condition: stable. Admission hand-off: Report Faxed Fax receipt verified by Jessy Nhi. Property sent home with patient. 13:13 No special radiology studies were completed. pml 13:14 Patient left the ED. pml Signatures: Ann Marie Jackson, Marketing Project Specialist Unit deg Rachell Marquez, RN RN kmg1 Mariel Aldridge, Reg Reg gb Annel Horton, RN RN Maxi Schwartz jc3 Myra ChapmanRN RN ld5 Jessica Colbert RN RN hs1 Yuliya SanchezRN RN pml Felix Soriano, DO cs11 Adrienne Rodarte, Marketing Project Specialist Unit Vishal Naidu,RN RN nn1 Aruna Graham, Reg Reg hs2 Ciara Collins RN RN kas2 Corky Davis, Reg Reg pm4 Corrections: (The following items were deleted from the chart) 05:59 05:35 Acetaminophen (15mg/kg) Liquid 1000 mg PO kas2 kas2 Chart Complete MTDD
[2016-10-24 16:00] VITALS: BP 114/63
[2016-10-24] MEDS: VANCOMYCIN HCL 1,000 MG, VIAL MATE ADAPTER 1 EACH in D5W 250 ML IV SCH (16:15)
[2016-10-24] MEDS ORDERED: oxyCODONE 5MG TAB PO ONE (16:30)
[2016-10-24] MEDS ORDERED: ONDANSETRON 4MG/2ML VIAL (J2405) IV PRN (16:30)
--- NOTE | 2016-10-24 19:24 | ECGEPIP ---
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
[2016-10-24 19:43] VITALS: BP 115/55
[2016-10-24] MEDS: traZODone 100 MG TAB PO SCH (21:15)
[2016-10-24] MEDS: SERTRALINE HCL 50 MG TAB PO SCH (21:15)
[2016-10-25] VITALS (7 sets, daily range): BP systolic 105–136; BP diastolic 54–71
[2016-10-25] MEDS: guaiFENesin/CODEINE SYRUP 5 ML UDC PO PRN ×4 (00:32→15:20)
[2016-10-25] MEDS: IPRATROPIUM 0.5MG/ALBUTEROL 2.5MG INH SOL UD 3ML (DUONEB)(J7620) NEB SCH ×4 (02:16→20:00)
[2016-10-25] MEDS: PERCOCET 5MG/325MG TAB PO PRN ×4 (02:42→19:22)
[2016-10-25] MEDS: NS 1,000 ML IV SCH ×4 (04:38→23:17)
[2016-10-25 05:36] LABS: BASO # 0.1 K/mm3 (0.0-0.2); EOS % 0.7 % (0.0-3.0); LARGE UNSTAINED CELL # 0.1 K/mm3 (0.0-0.4); LARGE UNSTAINED CELL % 1.1 % (0.0-4.0); LYMPH # 0.5 K/mm3 (1.5-4.5); LYMPH % 6.5 % (24.0-44.0); MEAN CORPUSCULAR HEMOGLOBIN 27.9 pg (27.0-33.0); MEAN CORPUSCULAR HGB CONC 31.1 g/dl (32.0-36.5); MEAN CORPUSCULAR VOLUME 89.6 fl (80.0-96.0); MONO # 0.3 K/mm3 (0.0-0.8); MONO % 4.5 % (0.0-5.0); NEUTROPHILS # 5.3 K/mm3 (1.8-7.7); NEUTROPHILS % 86.2 % (36.0-66.0); PLATELET COUNT, AUTOMATED 152 k/mm3 (150-450); RED CELL DISTRIBUTION WIDTH 15.1 % (11.5-14.5); WHITE BLOOD COUNT 6.1 K/mm3 (4.0-10.0)
[2016-10-25 05:43] LABS: ANION GAP 7 MEQ/L (8-16); BLOOD UREA NITROGEN 6 MG/DL (7-18); CALCIUM LEVEL 7.9 MG/DL (8.8-10.2); CARBON DIOXIDE LEVEL 25 MEQ/L (21-32); CHLORIDE LEVEL 112 MEQ/L (98-107); CREATININE FOR GFR 0.88 MG/DL (0.55-1.02); GLOMERULAR FILTRATION RATE > 60.0 (>45); GLUCOSE, FASTING 99 MG/DL (80-110); MAGNESIUM LEVEL 1.8 MG/DL (1.8-2.4); POTASSIUM SERUM 3.4 MEQ/L (3.5-5.1); SODIUM LEVEL 144 MEQ/L (136-145)
[2016-10-25] MEDS: ADVAIR DISKUS 250/50 INH PWD INH SCH ×2 (07:34→20:04)
[2016-10-25] MEDS: predniSONE 20 MG TAB PO SCH (08:36)
[2016-10-25] MEDS: VITAMIN D 1,000 INTERNATIONAL UNITS TABLET PO SCH (08:36)
[2016-10-25] MEDS: CETIRIZINE (ZyrTEC) 10 MG TAB PO SCH (08:36)
[2016-10-25] MEDS: PREGABALIN 50 MG CAP (LYRICA) PO SCH ×4 (08:36→20:37)
[2016-10-25] MEDS: FLUTICASONE PROP 0.05% NASAL SPRAY 16 GM (FLONASE) SCH ×2 (08:37→20:38)
[2016-10-25] MEDS: ENOXAPARIN 40 MG/0.4 ML SYRINGE (J1650) SC SCH (08:38)
[2016-10-25] MEDS: POTASSIUM CHLORIDE 10% LIQ 20 MEQ/15 ML UDC PO ONE ×2 (09:30→09:41)
[2016-10-25] MEDS: LevoFLOXacin IV 250 MG in APPROPRIATE DILUENT 1 EA IV SCH (09:40)
--- NOTE | 2016-10-25 12:31 | IPN ---
DATE OF SERVICE: 10/25/2016 Ms. Vanegas is still experiencing shortness of breath. She has coughing, which has led to some abdominal discomfort on the left. No chest pain. Not producing sputum particularly. Acapella device is not useful. Temperature 96, pulse 99, respiratory rate 20, blood pressure 125/65, saturating 92% on 3 liters nasal cannula. Intake and output (I and O) notable for positive fluid balance of 2965. Two bowel movements were noted yesterday. Weight is 71.4 kilos with body mass index 27. She is awake and appropriately interactive. Pleasantly conversant. Breathing is symmetrically diminished. Inspiratory to expiratory ratio (I:E) is 1:3. Course upper airway sounds throughout. Heart is distant sounding. Normal S1, S2. Heart rate, which had been in the 120s to 130s, has dropped down to right around 100. Abdomen soft, doughy, nontender. White cell count 6.1, hemoglobin 9.3, platelets 152. Potassium 3.4. C-reactive protein 9.5. ASSESSMENT: This is a 66-year-old with community-acquired pneumonia status post severe sepsis. PLAN: 1. Community-acquired pneumonia. Patient is improving. Continue current antibiotics. 2. Patient has acute chronic obstructive pulmonary disease (COPD) exacerbation. She is being treated with nebulizers. Would benefit from Tessalon Perls for cough. I will add low-dose Toradol for what is likely a pleuritic pain related to her coughing. 3. Patient has acute kidney disease, which is resolving. Adding low-dose Toradol. Continue to monitor laboratories. 4. Patient has chronic back pain. 5. Patient's tachycardia is improving, as well.
[2016-10-25] MEDS: KETOROLAC 30 MG/ML VIAL (J1885) IV PRN (13:17)
[2016-10-25] MEDS: BENZONATATE 100 MG CAP PO PRN (14:19)
[2016-10-25] MEDS ORDERED: POTASSIUM CHLORIDE 10 MEQ SR TABLET PO ONE (15:15)
[2016-10-25] MEDS: VANCOMYCIN HCL 1,000 MG, VIAL MATE ADAPTER 1 EACH in D5W 250 ML IV SCH (16:40)
--- NOTE | 2016-10-25 17:51 | PHACANCOPD ---
PHARMACY VANCOMYCIN DOSING Pt Demographics Demographics Patient Age:66 , Weight:71.400 , Gender: female Adjusted Body Weight Date: 10/22/16, Adjusted Body Weight: Kg Vancomycin Vancomycin indication: sepsis Vancomycin Target Ranges: 15-20 mcg/ml Vancomycin Load Y/N: Yes Load Dose Date Time Vancomycin Load Dose: 1500mg Date: 10/22/16 Time: 1600 Vancomycin Dose Date: 10/25/16. Current Vancomycin Dose: [1GRAM IV Q18H @16] Date: 10/22/16. Current Vancomycin Dose: [1g IV Q24H] Intermittent Dosing?: No Labs Labs Item Value Date Time White Blood Count 13.8 K/mm3 H 10/23/16 0509 White Blood Count 7.0 K/mm3 10/24/16 0510 White Blood Count 6.1 K/mm3 10/25/16 0515 Creatinine 0.96 MG/DL 10/24/16 0510 Creatinine 0.88 MG/DL 10/25/16 0515 Creatinine 1.12 MG/DL H 10/23/16 0509 Vancomycin Level Trough 10.3 UG/ML 10/25/16 1511 Micro Microbiology 10/22/16 Blood Culture - Preliminary, Resulted No Growth after 72 hours. All specime... 10/22/16 Blood Culture - Preliminary, Resulted No Growth after 72 hours. All specime... 10/22/16 Gram Stain - Final, Complete 10/22/16 Sputum Culture - Final, Complete Creatinine Clearance Date:10/25/16. Creatinine Clearance: [58]. Date:10/22/16. Estimated Creatinine Clearance: ~[36.1 ml/min]. Pending Labs Vancomycin trough scheduled for 10/25/16 @ 1500, prior to the 4th dose Assessment and Plan Maintaining Current Dose?: No Reason for dose change: Trough too low Pharmacist Note Pharmacist Note Date: 10/25/16. Pharmacist note: Patients trough was subtherapeutic after 3 doses. Dose was changed to 1gram q18h. patients renal function has improved the last few days and WBC's are no longer elevated. Consider drawing a trough after 3 more doses ( 10/27 @ 2100). Continue to monitor and adjust dose as needed. Date: 10/22/16. Pharmacist note: Day #1 empiric IV levaquin/vanco initiated with a 1500mg loading dose followed by a maintenance regimen of 1g IV Q24H for the treatment of sepsis 2/2 CAP - aiming for a goal trough of 15-20 mcg/ml. WBC is currently elevated, patient has been febrile within the past 24 hours, and has a PMH of COPD. Scr is currently elevated at 1.42 with a baseline scr ~ 1.26. No PMH MRSA or vanco use here at [facility]. Blood and sputum cultures are pending. A trough has been scheduled 10/25/16 @ 1500, prior to the 4th dose. We will continue to monitor and make dose adjustments as needed. JACKIE CASIANO PHARMACY Oct 25, 2016 17:51
[2016-10-25] MEDS: SERTRALINE HCL 50 MG TAB PO SCH (20:37)
[2016-10-25] MEDS: traZODone 100 MG TAB PO SCH (20:37)
[2016-10-26] MEDS: IPRATROPIUM 0.5MG/ALBUTEROL 2.5MG INH SOL UD 3ML (DUONEB)(J7620) NEB SCH ×4 (01:55→20:00)
[2016-10-26] MEDS: PERCOCET 5MG/325MG TAB PO PRN ×3 (02:15→21:50)
[2016-10-26] MEDS: guaiFENesin/CODEINE SYRUP 5 ML UDC PO PRN ×3 (02:29→21:47)
[2016-10-26 03:09] VITALS: BP 148/64
[2016-10-26 06:03] LABS: BLOOD UREA NITROGEN 6 MG/DL (7-18); CARBON DIOXIDE LEVEL 28 MEQ/L (21-32); CHLORIDE LEVEL 113 MEQ/L (98-107); CREATININE FOR GFR 0.85 MG/DL (0.55-1.02); GLOMERULAR FILTRATION RATE > 60.0 (>45); GLUCOSE, FASTING 83 MG/DL (80-110); POTASSIUM SERUM 3.8 MEQ/L (3.5-5.1); SODIUM LEVEL 145 MEQ/L (136-145)
[2016-10-26 06:04] LABS: ANION GAP 4 MEQ/L (8-16); CALCIUM LEVEL 7.6 MG/DL (8.8-10.2); MAGNESIUM LEVEL 1.9 MG/DL (1.8-2.4)
[2016-10-26 06:16] LABS: BASO % 0.3 % (0.0-1.0); EOS % 0.9 % (0.0-3.0); LARGE UNSTAINED CELL # 0.1 K/mm3 (0.0-0.4); LARGE UNSTAINED CELL % 1.8 % (0.0-4.0); LYMPH # 0.6 K/mm3 (1.5-4.5); MEAN CORPUSCULAR HEMOGLOBIN 27.6 pg (27.0-33.0); MEAN CORPUSCULAR HGB CONC 30.9 g/dl (32.0-36.5); MEAN CORPUSCULAR VOLUME 89.5 fl (80.0-96.0); MONO # 0.2 K/mm3 (0.0-0.8); MONO % 4.7 % (0.0-5.0); NEUTROPHILS # 3.9 K/mm3 (1.8-7.7); NEUTROPHILS % 80.2 % (36.0-66.0); PLATELET COUNT, AUTOMATED 146 k/mm3 (150-450); RED CELL DISTRIBUTION WIDTH 14.1 % (11.5-14.5); WHITE BLOOD COUNT 4.8 K/mm3 (4.0-10.0)
[2016-10-26] MEDS: NS 1,000 ML IV SCH (06:57)
[2016-10-26] MEDS: ADVAIR DISKUS 250/50 INH PWD INH SCH ×2 (07:26→19:57)
[2016-10-26 08:00] VITALS: BP 137/70
--- NOTE | 2016-10-26 09:15 | REP ---
Chest x-ray: Two views. History: Pneumonia. Comparison study October 22, 2016. Findings: There is a fairly large area of consolidation in the right lower lobe. Patchy consolidation is suspected in the left lower lobe as well compatible with pneumonia. These changes are new. There is oligemia and emphysematous change in the upper lobes bilaterally. Clips are noted on the left posteriorly adjacent to the upper thoracic spine. EKG monitoring electrodes and oxygen delivery tubing are seen. Heart is not enlarged. Impression: Bilateral lower lobe infiltrates consistent with pneumonia. Signed by Rolan Hayden MD 10/26/2016 10:30 A
[2016-10-26] MEDS: FLUTICASONE PROP 0.05% NASAL SPRAY 16 GM (FLONASE) SCH ×2 (09:25→21:51)
[2016-10-26] MEDS: KETOROLAC 30 MG/ML VIAL (J1885) IV PRN ×3 (09:25→21:51)
[2016-10-26] MEDS: PREGABALIN 50 MG CAP (LYRICA) PO SCH ×4 (09:26→21:47)
[2016-10-26] MEDS: CETIRIZINE (ZyrTEC) 10 MG TAB PO SCH (09:26)
[2016-10-26] MEDS: ENOXAPARIN 40 MG/0.4 ML SYRINGE (J1650) SC SCH (09:26)
[2016-10-26] MEDS: VITAMIN D 1,000 INTERNATIONAL UNITS TABLET PO SCH (09:26)
[2016-10-26] MEDS: BENZONATATE 100 MG CAP PO PRN ×2 (09:26→17:36)
[2016-10-26] MEDS: predniSONE 20 MG TAB PO SCH (09:26)
[2016-10-26] MEDS: LevoFLOXacin IV 250 MG in APPROPRIATE DILUENT 1 EA IV SCH (09:27)
[2016-10-26] MEDS: VANCOMYCIN HCL 1,000 MG, VIAL MATE ADAPTER 1 EACH in D5W 250 ML IV SCH (10:45)
[2016-10-26 12:00] VITALS: BP 144/76
[2016-10-26 16:00] VITALS: BP 150/63
--- NOTE | 2016-10-26 17:34 | IPN ---
DATE: 10/26/2016 SUBJECTIVE: Ms. Vanegas is feeling better than on arrival. Still is short of breath. Pain has been helped and coughing has been helped by the addition of Toradol and Tessalon Perles. She is still producing some sputum. OBJECTIVE: VITAL SIGNS: Temperature 96.6, pulse 75, respiratory rate 20, blood pressure 144/76, 94% on three liters. Intake and output noted for positive fluid balance of 2905, one bowel movement thus far today. Weight 74.5 kg with a body mass index 28.2. GENERAL: She is awake, alert. LUNGS: Breathing is symmetrical, rested. Speaks in sentences. No accessory muscle use. Coarse airway sounds throughout, more notable than yesterday. Occasional polyphonic wheezes. HEART: Regular rate and rhythm. ABDOMEN: Soft, nontender. LABORATORY DATA: White cell count 4.8, hemoglobin 8.9, and platelets 146. BUN 5, creatinine 0.85. C-reactive protein is 4.16. ASSESSMENT: This is a 66-year-old with community-acquired pneumonia status post severe sepsis. PLAN: 1. Community-acquired pneumonia. The patient is improving. Continue current antibiotics. She is producing sputum at this point. We will obtain another sputum sample and respiratory panel as she is not improving at a rate that I thought would be consistent with her situation. 2. The patient has acute chronic obstructive pulmonary disease (COPD) exacerbation. Continue to use nebulizers, Tessalon Perles for cough, has had Toradol for pain, continuing with steroids. 3. The patient is acute kidney injury which is resolving. I believe at this point we can readjust the dose of her Levaquin. 4. The patient has chronic back pain.
[2016-10-26 20:00] VITALS: BP 127/62; PULSE 97
[2016-10-26] MEDS: traZODone 100 MG TAB PO SCH (21:47)
[2016-10-26] MEDS: SERTRALINE HCL 50 MG TAB PO SCH (21:47)
[2016-10-26 23:55] VITALS: BP 128/65
[2016-10-27] VITALS (7 sets, daily range): BP systolic 130–180; BP diastolic 61–88; PULSE 75–117
[2016-10-27] MEDS: IPRATROPIUM 0.5MG/ALBUTEROL 2.5MG INH SOL UD 3ML (DUONEB)(J7620) NEB SCH ×4 (02:41→19:27)
[2016-10-27] MEDS: VANCOMYCIN HCL 1,000 MG, VIAL MATE ADAPTER 1 EACH in D5W 250 ML IV SCH (03:29)
[2016-10-27] MEDS: guaiFENesin/CODEINE SYRUP 5 ML UDC PO PRN ×2 (03:31→12:42)
[2016-10-27] MEDS: LevoFLOXacin 750 MG TABLET PO SCH (05:13)
[2016-10-27 05:58] LABS: BASO % 0.4 % (0.0-1.0); LARGE UNSTAINED CELL # 0.1 K/mm3 (0.0-0.4); LARGE UNSTAINED CELL % 2.2 % (0.0-4.0); LYMPH # 0.7 K/mm3 (1.5-4.5); LYMPH % 20.3 % (24.0-44.0); MEAN CORPUSCULAR HEMOGLOBIN 28.1 pg (27.0-33.0); MEAN CORPUSCULAR HGB CONC 31.9 g/dl (32.0-36.5); MEAN CORPUSCULAR VOLUME 88.2 fl (80.0-96.0); MONO # 0.2 K/mm3 (0.0-0.8); MONO % 5.6 % (0.0-5.0); NEUTROPHILS # 2.6 K/mm3 (1.8-7.7); NEUTROPHILS % 70.4 % (36.0-66.0); PLATELET COUNT, AUTOMATED 159 k/mm3 (150-450); RED CELL DISTRIBUTION WIDTH 13.9 % (11.5-14.5); WHITE BLOOD COUNT 3.6 K/mm3 (4.0-10.0)
[2016-10-27 06:00] LABS: ANION GAP 5 MEQ/L (8-16); BLOOD UREA NITROGEN 6 MG/DL (7-18); CALCIUM LEVEL 8.1 MG/DL (8.8-10.2); CARBON DIOXIDE LEVEL 31 MEQ/L (21-32); CHLORIDE LEVEL 110 MEQ/L (98-107); CREATININE FOR GFR 0.87 MG/DL (0.55-1.02); GLOMERULAR FILTRATION RATE > 60.0 (>45); GLUCOSE, FASTING 83 MG/DL (80-110); MAGNESIUM LEVEL 1.9 MG/DL (1.8-2.4); POTASSIUM SERUM 3.4 MEQ/L (3.5-5.1); SODIUM LEVEL 146 MEQ/L (136-145)
[2016-10-27] MEDS: ADVAIR DISKUS 250/50 INH PWD INH SCH ×2 (07:49→19:26)
[2016-10-27] MEDS: PREGABALIN 50 MG CAP (LYRICA) PO SCH ×4 (08:15→20:29)
[2016-10-27] MEDS: predniSONE 20 MG TAB PO SCH (08:15)
[2016-10-27] MEDS: VITAMIN D 1,000 INTERNATIONAL UNITS TABLET PO SCH (08:15)
[2016-10-27] MEDS: FLUTICASONE PROP 0.05% NASAL SPRAY 16 GM (FLONASE) SCH ×2 (08:15→20:30)
[2016-10-27] MEDS: PERCOCET 5MG/325MG TAB PO PRN ×3 (08:17→20:34)
[2016-10-27] MEDS: ENOXAPARIN 40 MG/0.4 ML SYRINGE (J1650) SC SCH (08:17)
[2016-10-27] MEDS: CETIRIZINE (ZyrTEC) 10 MG TAB PO SCH (08:17)
[2016-10-27] MEDS: BENZONATATE 100 MG CAP PO PRN ×2 (10:22→20:34)
[2016-10-27] MEDS: KETOROLAC 30 MG/ML VIAL (J1885) IV PRN (15:15)
[2016-10-27] MEDS ORDERED: POTASSIUM CHLORIDE 10 MEQ SR TABLET PO ONE (17:15)
[2016-10-27] MEDS: traZODone 100 MG TAB PO SCH (20:29)
[2016-10-27] MEDS: SERTRALINE HCL 50 MG TAB PO SCH (20:29)
--- NOTE | 2016-10-27 21:44 | IPN ---
DATE: 10/27/2016 Ms. Vanegas is still feeling short of breath, does feel like she is getting better. She has no complaints of chest pain, but does have abdominal discomfort with cough. Has been tolerating a diet. Has been up and moving around slightly in the room. Temperature 97.3, pulse 84, respiratory rate 20, blood pressure 157/73, 93% on 3 liters nasal cannula. Intake and output is notable for a positive fluid balance of +100, one bowel movement yesterday, weight is 74.4 kg. She is awake, pleasantly conversant, in no acute distress. Breathing symmetrical. I:E ratio is 1:3. Aeration is improved. There are still upper airway sounds noted. No wheezes. Heart is in a regular rate and rhythm. No significant arrhythmia. Abdomen soft, nontender. No rebound, no guarding. No significant lower extremity edema. White cell count 3.6, hemoglobin 9.2, trending upward, and platelets of 159. Sodium 146, potassium 3.4, chloride 110, carbon dioxide 31, BUN 6, creatinine 0.87, C-reactive protein is improved at 3.62. My assessment is as follows: This is a 66-year-old with community-acquired pneumonia status post severe sepsis. Respiratory screen has shown respiratory syncytial virus (RSV). Plan is as follows: 1. For community-acquired pneumonia, patient is continued on antibiotics. We can discontinue vancomycin at this point. Repeat sputum has been ordered and has yet to have been collected. Respiratory panel shows respiratory syncytial virus (RSV). 2. Patient has chronic obstructive pulmonary disease (COPD) exacerbation. On nebulizer, Tessalon Perles, Toradol, and steroids. Steroids are in the form of daily prednisone which can likely be weaned starting tomorrow. 3. The patient has resolved acute kidney injury. Continues with Toradol as needed for pain which she has found useful. Renal function seems unaffected, despite her previous response to nonsteroidal anti-inflammatory drugs (NSAIDs), she has not used anymore.
[2016-10-28] MEDS: KETOROLAC 30 MG/ML VIAL (J1885) IV PRN ×3 (00:53→23:28)
[2016-10-28] MEDS: guaiFENesin/CODEINE SYRUP 5 ML UDC PO PRN ×3 (00:53→14:49)
[2016-10-28] MEDS: IPRATROPIUM 0.5MG/ALBUTEROL 2.5MG INH SOL UD 3ML (DUONEB)(J7620) NEB SCH ×4 (01:17→19:33)
[2016-10-28] MEDS: LevoFLOXacin 750 MG TABLET PO SCH (05:05)
[2016-10-28] MEDS: PERCOCET 5MG/325MG TAB PO PRN ×4 (05:10→22:05)
[2016-10-28 06:00] VITALS: BP 138/65
[2016-10-28 06:22] LABS: BASO % 0.3 % (0.0-1.0); EOS # 0.1 K/mm3 (0.0-0.50); EOS % 1.2 % (0.0-3.0); LARGE UNSTAINED CELL # 0.1 K/mm3 (0.0-0.4); LARGE UNSTAINED CELL % 2.5 % (0.0-4.0); LYMPH % 19.3 % (24.0-44.0); MEAN CORPUSCULAR HEMOGLOBIN 27.6 pg (27.0-33.0); MEAN CORPUSCULAR HGB CONC 31.5 g/dl (32.0-36.5); MEAN CORPUSCULAR VOLUME 87.6 fl (80.0-96.0); MONO # 0.3 K/mm3 (0.0-0.8); MONO % 4.9 % (0.0-5.0); NEUTROPHILS # 3.7 K/mm3 (1.8-7.7); NEUTROPHILS % 71.9 % (36.0-66.0); PLATELET COUNT, AUTOMATED 214 k/mm3 (150-450); RED CELL DISTRIBUTION WIDTH 13.8 % (11.5-14.5); WHITE BLOOD COUNT 5.1 K/mm3 (4.0-10.0)
[2016-10-28 06:28] LABS: CALCIUM LEVEL 8.5 MG/DL (8.8-10.2); CREATININE FOR GFR 1.01 MG/DL (0.55-1.02); GLOMERULAR FILTRATION RATE 58.4 (>45); MAGNESIUM LEVEL 1.9 MG/DL (1.8-2.4); POTASSIUM SERUM 3.2 MEQ/L (3.5-5.1)
[2016-10-28] MEDS: ADVAIR DISKUS 250/50 INH PWD INH SCH ×2 (08:16→19:33)
[2016-10-28] MEDS: CETIRIZINE (ZyrTEC) 10 MG TAB PO SCH (09:08)
[2016-10-28] MEDS: VITAMIN D 1,000 INTERNATIONAL UNITS TABLET PO SCH (09:08)
[2016-10-28] MEDS: ENOXAPARIN 40 MG/0.4 ML SYRINGE (J1650) SC SCH (09:08)
[2016-10-28] MEDS: predniSONE 20 MG TAB PO SCH (09:08)
[2016-10-28] MEDS: FLUTICASONE PROP 0.05% NASAL SPRAY 16 GM (FLONASE) SCH ×2 (09:08→22:00)
[2016-10-28] MEDS: PREGABALIN 50 MG CAP (LYRICA) PO SCH ×4 (09:08→22:01)
[2016-10-28] MEDS ORDERED: POTASSIUM CHLORIDE 10 MEQ SR TABLET PO ONE (09:45)
[2016-10-28 10:55] VITALS: BP 137/60
[2016-10-28 14:00] VITALS: BP 162/114
[2016-10-28 15:37] VITALS: BP 156/84
--- NOTE | 2016-10-28 17:14 | IPN ---
DATE: 10/28/2016 SUBJECTIVE: This is a 66-year-old female who is seen and examined at bed side. Overnight still reports cough, but it is improved compared to admission. Cough is still dry. Had an episode last night when she felt pressure and pinching sensation in her chest. No nausea, vomiting, diarrhea, constipation, fever, chills. OBJECTIVE: VITAL SIGNS: Blood pressure 138/65, heart rate 84, temperature 98.1, respiratory rate 20, pulse ox 95% on 3 liters nasal cannula. INTAKE AND OUTPUT LAST 24 HOURS: 2110 and 1300. GENERAL: Patient is lying in bed. Comfortable, chronically ill-appearing. Her voice is still hoarse. HEENT: Normocephalic, atraumatic. Moist oral mucosa. NECK: Supple. Tracheal midline. No jugular venous distention. CHEST: Symmetric chest rise. No accessory muscle use. Breath sounds diminished bilateral lung bases. Some coarse sounding expiratory wheezing throughout lung moreira. Anterior chest is diffusely tender to palpation. HEART: Regular rate and rhythm, S1, S2 present. ABDOMEN: Soft, non-tender, non-distended. No rebound. No guarding. No peritoneal sign. EXTREMITIES: No pedal edema. Pedal pulses present bilaterally. LABORATORY DATA: White cell count 5.1, hemoglobin 9.3, hematocrit 29.2. Platelets 214. Neutrophil 72, sodium 147, potassium 3.2, chloride 107, carbon dioxide 33, BUN 9, creatinine 1.01, glucose 92, magnesium1.9, CK 227, troponin negative. CRP 2.01. Respiratory syncytial virus (RSV) positive. IMPRESSION AND PLAN; Ms. Vanegas is a 66-year-old female with history of chronic obstructive pulmonary disease, anxiety, ulcerative colitis who presented with shortness of breath, found to have pneumonia. 1. Community-acquired pneumonia. She is respiratory syncytial virus (RSV) positive. Prednisone was tapered down yesterday, currently on prednisone 20 mg by mouth daily. 2. Chest pain. Patient reported pain that was reproducible on physical exam. This is likely secondary to musculoskeletal as it was reproducible, however we will also check cardiac marker and electrocardiogram to rule out for underlying cardiac less likely. 3. Chronic obstructive pulmonary disease (COPD). Patient is not home Oxygen dependent. Continue nebulizer treatment on tapering dose steroids, Tessalon Perles. Advair scheduled. 4. Acute kidney injury resolved. 5. Chronic back pain. Continue home dose Lyrica 50 mg four times a day. 6. Vitamin D deficiency. Continue 1000 units by mouth daily. 7. Anxiety. Continue home dose of Zoloft. 8. Ulcerative colitis. 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 Reports chronic diarrhea, which has not been changed. 9. Deep vein thrombosis prophylaxis. Sequential compression devices (SCDs) and thromboembolic deterrent stockings (TEDS) and Lovenox. MTDD
--- NOTE | 2016-10-28 18:30 | ECGEPIP ---
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
[2016-10-28 22:00] VITALS: BP 132/63
[2016-10-28] MEDS: traZODone 100 MG TAB PO SCH (22:00)
[2016-10-28] MEDS: SERTRALINE HCL 50 MG TAB PO SCH (22:01)
[2016-10-29] MEDS: IPRATROPIUM 0.5MG/ALBUTEROL 2.5MG INH SOL UD 3ML (DUONEB)(J7620) NEB SCH ×4 (02:00→20:00)
[2016-10-29] MEDS: LevoFLOXacin 750 MG TABLET PO SCH (05:34)
[2016-10-29 06:00] VITALS: BP 150/91
[2016-10-29 06:22] LABS: BASO % 0.6 % (0.0-1.0); EOS # 0.1 K/mm3 (0.0-0.50); EOS % 2.5 % (0.0-3.0); LARGE UNSTAINED CELL # 0.1 K/mm3 (0.0-0.4); LYMPH # 1.3 K/mm3 (1.5-4.5); LYMPH % 24.8 % (24.0-44.0); MEAN CORPUSCULAR HGB CONC 31.9 g/dl (32.0-36.5); MEAN CORPUSCULAR VOLUME 87.9 fl (80.0-96.0); MONO # 0.2 K/mm3 (0.0-0.8); MONO % 4.3 % (0.0-5.0); NEUTROPHILS # 3.6 K/mm3 (1.8-7.7); NEUTROPHILS % 65.8 % (36.0-66.0); PLATELET COUNT, AUTOMATED 256 k/mm3 (150-450); RED CELL DISTRIBUTION WIDTH 13.8 % (11.5-14.5); WHITE BLOOD COUNT 5.4 K/mm3 (4.0-10.0)
[2016-10-29 06:38] LABS: CALCIUM LEVEL 8.1 MG/DL (8.8-10.2); CREATININE FOR GFR 1.02 MG/DL (0.55-1.02); GLOMERULAR FILTRATION RATE 57.7 (>45); POTASSIUM SERUM 3.6 MEQ/L (3.5-5.1)
[2016-10-29] MEDS: ADVAIR DISKUS 250/50 INH PWD INH SCH ×3 (08:11→19:49)
[2016-10-29] MEDS: CETIRIZINE (ZyrTEC) 10 MG TAB PO SCH (09:48)
[2016-10-29] MEDS: VITAMIN D 1,000 INTERNATIONAL UNITS TABLET PO SCH (09:48)
[2016-10-29] MEDS: predniSONE 20 MG TAB PO SCH (09:48)
[2016-10-29] MEDS: PREGABALIN 50 MG CAP (LYRICA) PO SCH ×4 (09:48→20:08)
[2016-10-29] MEDS: PERCOCET 5MG/325MG TAB PO PRN ×3 (09:49→19:28)
[2016-10-29] MEDS: FLUTICASONE PROP 0.05% NASAL SPRAY 16 GM (FLONASE) SCH ×2 (09:49→20:08)
[2016-10-29] MEDS: ENOXAPARIN 40 MG/0.4 ML SYRINGE (J1650) SC SCH (09:50)
[2016-10-29] MEDS: guaiFENesin/CODEINE SYRUP 5 ML UDC PO PRN (10:07)
[2016-10-29 14:00] VITALS: BP 149/73
[2016-10-29] MEDS: traZODone 100 MG TAB PO SCH (20:08)
[2016-10-29] MEDS: SERTRALINE HCL 50 MG TAB PO SCH (20:08)
[2016-10-29] MEDS: KETOROLAC 30 MG/ML VIAL (J1885) IV PRN (20:48)
[2016-10-29 22:00] VITALS: BP 136/63
[2016-10-30] MEDS: IPRATROPIUM 0.5MG/ALBUTEROL 2.5MG INH SOL UD 3ML (DUONEB)(J7620) NEB SCH ×4 (02:25→19:30)
[2016-10-30] MEDS: guaiFENesin/CODEINE SYRUP 5 ML UDC PO PRN ×4 (03:03→21:10)
[2016-10-30] MEDS: PERCOCET 5MG/325MG TAB PO PRN ×5 (03:04→21:10)
--- NOTE | 2016-10-30 03:12 | IPN ---
DATE: 10/29/2016 SUBJECTIVE: This is a 66-year-old female who was seen and examined at bedside. Overnight no reported acute events. This morning, states that she feels somewhat improved compared to yesterday. Has a cough with some sputum. Actually ambulated in the room. No fevers, chills, night sweats, or abdominal pain. Continues to report loose bowel movement which is reportedly chronic for patient as she does have underlying ulcerative colitis (UC). OBJECTIVE: VITAL SIGNS: Blood pressure 150/91, heart rate 89, temperature 97.7, respiratory rate 20, pulse oximetry 93% on 2.5 liters nasal cannula. Intake and output for last 24 hours: Intake 2805, output 1675, one bowel movement. GENERAL: The patient is sitting in bed comfortable in no acute distress. She is alert, awake, oriented times three, pleasant and cooperative. HEENT: Normocephalic, atraumatic. NECK: Supple. Trachea midline. CHEST: Symmetric chest rise. No accessory muscle use. Breath sounds diminished, still coarse sounding, but less wheezy today compared to yesterday. HEART: Regular rate and rhythm, S1, S2. ABDOMEN: Soft, nontender, nondistended. Bowel sounds present. No guarding. No rebound. EXTREMITIES: No pedal edema. Pedal pulses present bilaterally. LABORATORY DATA: WBC 5.7, hemoglobin 9.4, hematocrit 29.5, platelets 256. Sodium 145, potassium 3.6, chloride 104, carbon dioxide 35, BUN 9, creatinine 1.02, glucose 84, magnesium 2, CRP is 1.46, improved from yesterday 2.01. RSV positive. Sputum culture is pending. IMPRESSION AND PLAN: Ms. Vanegas is a pleasant 66-year-old female with history of chronic obstructive pulmonary disease (COPD), anxiety, ulcerative colitis who presented with shortness of breath found to have pneumonia. 1. Community-acquired pneumonia. She was also found to be respiratory syncytial virus (RSV) positive. Continue prednisone taper. We will start with prednisone 10 mg tomorrow. She has been on antibiotics since 10/23; however, last dose was low previously due to acute kidney disease on admission. Patient was started on Levaquin 750 on 10/27. 2. Chest pain. This was reproducible on physical exam. Cardiac markers and EKG were negative. Continue supportive management with Toradol 50 mg every six hours and Percocet. 3. COPD. Patient reportedly is not home oxygen dependent, lives at home by herself. Continue nebulizer treatment and tapering dose steroids. She is also on Tessalon and Advair scheduled. 4. Acute kidney injury, resolved. 5. Chronic back pain. She is on home dose Lyrica 50 mg four times a day, also has narcotics ordered. 6. Vitamin D deficiency. Continue vitamin D supplementation. 7. Anxiety. Continue Zoloft. 8. Ulcerative colitis. Has chronic diarrhea per patient. No concerns. 9. Deep vein thrombosis (DVT) prophylaxis. Sequential compression devices (SCDs) , thromboembolic devices (TEDS) and Lovenox. My preceptor for this patient encounter was Dr. Dimitris Miller. The preceptor was physically present in the building during the encounter and was fully available as needed. All aspects of the patient interview, examination, medical decision making process, and medical care plan development were reviewed and approved by the preceptor. The preceptor is aware and concurs with the plan as stated in the body of this note and will attest to such by his co-signature. CONY
[2016-10-30] MEDS: LevoFLOXacin 750 MG TABLET PO SCH (05:06)
[2016-10-30 06:00] VITALS: BP 141/78
[2016-10-30 06:12] LABS: BASO % 0.3 % (0.0-1.0); EOS # 0.2 K/mm3 (0.0-0.50); EOS % 2.8 % (0.0-3.0); LARGE UNSTAINED CELL # 0.1 K/mm3 (0.0-0.4); LARGE UNSTAINED CELL % 1.5 % (0.0-4.0); LYMPH # 1.1 K/mm3 (1.5-4.5); LYMPH % 19.4 % (24.0-44.0); MEAN CORPUSCULAR HEMOGLOBIN 27.6 pg (27.0-33.0); MEAN CORPUSCULAR HGB CONC 31.9 g/dl (32.0-36.5); MEAN CORPUSCULAR VOLUME 86.7 fl (80.0-96.0); MONO # 0.3 K/mm3 (0.0-0.8); NEUTROPHILS # 3.9 K/mm3 (1.8-7.7); NEUTROPHILS % 70.1 % (36.0-66.0); PLATELET COUNT, AUTOMATED 300 k/mm3 (150-450); RED CELL DISTRIBUTION WIDTH 14.1 % (11.5-14.5); WHITE BLOOD COUNT 5.5 K/mm3 (4.0-10.0)
[2016-10-30 06:25] LABS: CALCIUM LEVEL 8.2 MG/DL (8.8-10.2); CREATININE FOR GFR 1.11 MG/DL (0.55-1.02); GLOMERULAR FILTRATION RATE 52.4 (>45); POTASSIUM SERUM 3.5 MEQ/L (3.5-5.1)
[2016-10-30] MEDS: ADVAIR DISKUS 250/50 INH PWD INH SCH ×2 (07:23→19:29)
[2016-10-30] MEDS: VITAMIN D 1,000 INTERNATIONAL UNITS TABLET PO SCH (08:51)
[2016-10-30] MEDS: PREGABALIN 50 MG CAP (LYRICA) PO SCH ×4 (08:51→21:09)
[2016-10-30] MEDS: CETIRIZINE (ZyrTEC) 10 MG TAB PO SCH (08:51)
[2016-10-30] MEDS: predniSONE 20 MG TAB PO SCH (08:52)
[2016-10-30] MEDS: FLUTICASONE PROP 0.05% NASAL SPRAY 16 GM (FLONASE) SCH ×2 (08:52→21:09)
[2016-10-30] MEDS: ENOXAPARIN 40 MG/0.4 ML SYRINGE (J1650) SC SCH (08:54)
[2016-10-30 13:44] VITALS: BP 148/78
--- NOTE | 2016-10-30 14:26 | IPN ---
DATE: 10/30/2016 Ms. Vanegas is feeling a little better today. She is still short of breath. No chest pain. Still bringing up sputum. Repeat sputum culture is still pending. Respiratory panel from the first of course grew RSV. Temperature 97.1, pulse 81, respiratory rate 19, blood pressure 141/78, 98% on 2 liters nasal cannula. Intake and output notable for a negative fluid balance of -1200. One bowel movement noted yesterday. She is awake and appropriately interactive. Breathing is symmetrical. Speaking in complete sentences. No accessory muscle use. Diminished aeration throughout. 1:4 I-to-E ratio. Upper airway noises. Heart is regular rate and rhythm. Abdomen soft, doughy, nontender. White cell count 5.5, hemoglobin 9, platelets of 300. Creatinine 1.1, trending upward. My assessment is as follows: This is a 66-year-old with chronic obstructive pulmonary disease (COPD), anxiety, and ulcerative colitis who presented with shortness of breath and found to have pneumonia. Plan is as follows: 1. The patient has community acquired pneumonia with respiratory syncytial virus (RSV) as well. The patient is continued on steroids and IV antibiotics. 2. The patient has pleuritic type chest pain, made worse with cough. She has had previous cardiac markers and EKG. 3. The patient has had acute kidney injury. Renal function is slightly worse than yesterday. I will repeat labs in the morning. 4. The patient has chronic back pain. 5. The patient has vitamin D deficiency. 6. The patient has ulcerative colitis with chronic diarrhea. 7. The patient has appropriate deep vein thrombosis (DVT) prophylaxis.
[2016-10-30] MEDS: SERTRALINE HCL 50 MG TAB PO SCH (21:09)
[2016-10-30] MEDS: traZODone 100 MG TAB PO SCH (21:09)
[2016-10-30 22:00] VITALS: BP 130/72
[2016-10-31] MEDS: IPRATROPIUM 0.5MG/ALBUTEROL 2.5MG INH SOL UD 3ML (DUONEB)(J7620) NEB SCH ×4 (02:00→21:25)
[2016-10-31] MEDS: guaiFENesin/CODEINE SYRUP 5 ML UDC PO PRN ×4 (05:05→20:57)
[2016-10-31] MEDS: PERCOCET 5MG/325MG TAB PO PRN ×4 (05:05→21:00)
[2016-10-31] MEDS: LevoFLOXacin 750 MG TABLET PO SCH (05:05)
[2016-10-31 05:53] LABS: BASO % 0.6 % (0.0-1.0); EOS # 0.2 K/mm3 (0.0-0.50); EOS % 3.4 % (0.0-3.0); LARGE UNSTAINED CELL # 0.1 K/mm3 (0.0-0.4); LARGE UNSTAINED CELL % 1.5 % (0.0-4.0); LYMPH # 1.3 K/mm3 (1.5-4.5); LYMPH % 22.7 % (24.0-44.0); MEAN CORPUSCULAR HEMOGLOBIN 27.6 pg (27.0-33.0); MEAN CORPUSCULAR HGB CONC 31.9 g/dl (32.0-36.5); MEAN CORPUSCULAR VOLUME 86.7 fl (80.0-96.0); MONO # 0.2 K/mm3 (0.0-0.8); MONO % 3.9 % (0.0-5.0); NEUTROPHILS # 3.6 K/mm3 (1.8-7.7); NEUTROPHILS % 67.8 % (36.0-66.0); PLATELET COUNT, AUTOMATED 320 k/mm3 (150-450); RED CELL DISTRIBUTION WIDTH 14.5 % (11.5-14.5); WHITE BLOOD COUNT 5.3 K/mm3 (4.0-10.0)
[2016-10-31 06:00] VITALS: BP 156/73
[2016-10-31 06:00] LABS: CALCIUM LEVEL 7.8 MG/DL (8.8-10.2); CREATININE FOR GFR 1.14 MG/DL (0.55-1.02); GLOMERULAR FILTRATION RATE 50.8 (>45); POTASSIUM SERUM 3.5 MEQ/L (3.5-5.1)
[2016-10-31] MEDS: ADVAIR DISKUS 250/50 INH PWD INH SCH ×2 (07:55→21:25)
[2016-10-31] MEDS: ENOXAPARIN 40 MG/0.4 ML SYRINGE (J1650) SC SCH (09:00)
[2016-10-31] MEDS: PREGABALIN 50 MG CAP (LYRICA) PO SCH ×4 (10:15→20:59)
[2016-10-31] MEDS: VITAMIN D 1,000 INTERNATIONAL UNITS TABLET PO SCH (10:15)
[2016-10-31] MEDS: FLUTICASONE PROP 0.05% NASAL SPRAY 16 GM (FLONASE) SCH ×2 (10:16→20:59)
[2016-10-31] MEDS: predniSONE 20 MG TAB PO SCH (10:16)
[2016-10-31] MEDS: CETIRIZINE (ZyrTEC) 10 MG TAB PO SCH (10:17)
--- NOTE | 2016-10-31 11:50 | REP ---
CT CHEST WITHOUT CONTRAST: 10/31/2016. Comparison: Chest x-ray 10/26/2016, 10/22/2016. CT chest 11/02/2015. Clinical history: Bilateral lower lobe infiltrates on recent chest x-ray. Technique: Noncontrast protocol with coronal and sagittal reconstructions. Advanced COPD with bullous emphysematous changes with giant bulla in the right upper and midlung zones with smaller bulla bilaterally in the anterior right upper lung zone and left upper lobe. Dependent atelectatic changes along the major fissure on the left. There are small bilateral effusions, right slightly greater than left. Consolidative opacity peripherally in the right lower lobe and minor patchy atelectasis or infiltrate on the left noted. Some increased density in that collapsed lung that may be calcium or barium but I am not aware of any barium studies that would suggest aspiration. Anterior segment linear atelectatic change right upper lung zone. Linear atelectasis in the lingula. Heart not grossly enlarged. The aorta is without aneurysm and has calcifications arch and descending portion. No pathologic sized mediastinal or hilar adenopathy. There is no axillary or supraclavicular mass and no gross hilar mass. Bone windows show the sternum, manubrium, medial clavicles, scapulae, visualized ribs, small portion humeral heads and the spine were grossly intact. In the upper abdomen, the liver, spleen and upper poles of kidneys are seen in part but without acute finding. No ascites or discrete mass. Adrenal glands intact. Small hiatal hernia suggested. No other findings. Impression: 1. Bibasilar patchy infiltrates, certainly much less extensive on the left than on radiograph 5 days ago with much greater consolidated patchy opacity in the periphery of the right lower lobe. This represents some consolidative infiltrate or atelectasis peripherally with increased density within that may be small calcifications or aspirated barium although I am not aware of any barium intake. These areas were clear of density on noncontrast CT 1 year ago. The finding is not pleural calcification. 2. Small bilateral pleural effusions. 3. Advanced bullous emphysematous changes with giant bulla in the right mid and upper lung zone unchanged. No other significant finding. Signed by Juan Pablo Roberts MD 10/31/2016 04:22 P
[2016-10-31 14:00] VITALS: BP 169/85
--- NOTE | 2016-10-31 18:12 | IPN ---
DATE: 10/31/2016 Ms. Vanegas is feeling short of breath. Her voice has not returned to normal. She feels like there is mucous to produce but is unable to bring it up. a Temperature 97.4, pulse 93, respiratory rate 20, blood pressure 169/85, 98% on 1 liters nasal cannula. Intake and output notable for a positive fluid balance 860. Four bowel movement noted yesterday. She is awake and appropriately interactive. Pleasantly conversant. Voice is hoarse. Breathing is symmetrical diminished. Decreased aeration. Upper airway sounds are noted and no wheezes. Heart is distant sounding. Normal S1, S2. Abdomen soft, doughy, nontender. White cell count 5.3, hemoglobin 9.1, platelets of 320. BUN 9, creatinine 1.14. Repeat chest CT is done which showed bibasilar patchy infiltrates much less extensive on the left than on the radiograph 5 days ago, with the increased greater consolidated patchy opacity in the periphery of the right lower lobe, although that was an x-ray. My assessment is as follows: This is a 66-year-old with chronic obstructive pulmonary disease (COPD), anxiety, and ulcerative colitis who presented with shortness of breath and found to have pneumonia. Plan is as follows: 1. The patient has community acquired pneumonia also with a respiratory screen possible respiratory syncytial virus (RSV) as well. The patient has continued on steroids and is currently on oral antibiotics in the form of Levaquin. 2. The patient has pleuritic type chest pain, which has improved. She had previously some Toradol with good effect. That is currently off. 3. The patient had acute kidney injury. Will followup renal function. 4. Patient has mucous secretions. We have ordered inhaled Mucomyst as a mucolytic as well as chest physical therapy to see if that provides some symptomatic relief. 5. The patient has vitamin D deficiency. 6. The patient has ulcerative colitis with chronic diarrhea.
[2016-10-31] MEDS: SERTRALINE HCL 50 MG TAB PO SCH (20:59)
[2016-10-31] MEDS: traZODone 100 MG TAB PO SCH (20:59)
[2016-10-31] MEDS: ACETYLCYSTEINE 10% 30 ML VIAL INH SCH (21:24)
[2016-10-31 22:00] VITALS: BP 116/56
[2016-11-01] MEDS: PERCOCET 5MG/325MG TAB PO PRN ×4 (02:08→21:21)
[2016-11-01] MEDS: guaiFENesin/CODEINE SYRUP 5 ML UDC PO PRN ×3 (02:09→16:50)
[2016-11-01] MEDS: IPRATROPIUM 0.5MG/ALBUTEROL 2.5MG INH SOL UD 3ML (DUONEB)(J7620) NEB SCH ×4 (02:11→20:00)
[2016-11-01] MEDS: LevoFLOXacin 750 MG TABLET PO SCH (05:05)
[2016-11-01 06:00] VITALS: BP 161/40
[2016-11-01 06:41] LABS: BASO % 0.8 % (0.0-1.0); EOS # 0.1 K/mm3 (0.0-0.50); EOS % 1.6 % (0.0-3.0); LARGE UNSTAINED CELL # 0.1 K/mm3 (0.0-0.4); LARGE UNSTAINED CELL % 1.4 % (0.0-4.0); LYMPH % 16.4 % (24.0-44.0); MEAN CORPUSCULAR HEMOGLOBIN 26.8 pg (27.0-33.0); MEAN CORPUSCULAR HGB CONC 30.6 g/dl (32.0-36.5); MEAN CORPUSCULAR VOLUME 87.6 fl (80.0-96.0); MONO # 0.3 K/mm3 (0.0-0.8); MONO % 4.6 % (0.0-5.0); NEUTROPHILS # 4.7 K/mm3 (1.8-7.7); NEUTROPHILS % 75.1 % (36.0-66.0); PLATELET COUNT, AUTOMATED 320 k/mm3 (150-450); WHITE BLOOD COUNT 6.3 K/mm3 (4.0-10.0)
[2016-11-01 06:59] LABS: CALCIUM LEVEL 7.8 MG/DL (8.8-10.2); CREATININE FOR GFR 1.18 MG/DL (0.55-1.02); GLOMERULAR FILTRATION RATE 48.8 (>45); POTASSIUM SERUM 3.3 MEQ/L (3.5-5.1)
[2016-11-01] MEDS: ACETYLCYSTEINE 10% 30 ML VIAL INH SCH ×2 (08:00→20:00)
[2016-11-01] MEDS: ADVAIR DISKUS 250/50 INH PWD INH SCH ×2 (08:00→20:06)
[2016-11-01 08:58] LABS: MAGNESIUM LEVEL 2.1 MG/DL (1.8-2.4)
[2016-11-01] MEDS ORDERED: POTASSIUM CHLORIDE 10 MEQ SR TABLET PO ONE (09:00)
[2016-11-01] MEDS: CETIRIZINE (ZyrTEC) 10 MG TAB PO SCH (09:16)
[2016-11-01] MEDS: FLUTICASONE PROP 0.05% NASAL SPRAY 16 GM (FLONASE) SCH ×2 (09:16→21:22)
[2016-11-01] MEDS: VITAMIN D 1,000 INTERNATIONAL UNITS TABLET PO SCH (09:16)
[2016-11-01] MEDS: PREGABALIN 50 MG CAP (LYRICA) PO SCH ×4 (09:16→21:22)
[2016-11-01] MEDS: predniSONE 20 MG TAB PO SCH (09:17)
[2016-11-01] MEDS: ENOXAPARIN 40 MG/0.4 ML SYRINGE (J1650) SC SCH (09:17)
--- NOTE | 2016-11-01 10:15 | IPNPDOC ---
Assessment/Plan Date Seen The patient was seen on 11/01/16. Problems Problems: (1) RSV (respiratory syncytial virus infection) Status: Acute Response to Treatment: Improving Discussed With: Patient Problem Specific Plan: Monitor Clinically (2) PNA (pneumonia) Status: Acute Response to Treatment: Improving Discussed With: Patient Problem Specific Plan: Monitor Clinically Problem Text: Has completed 5 days of Levaquin 750mg. D/C today. Start diflucan as per sputum cultures. (3) Ulcerative colitis Status: Chronic Discussed With: Patient Problem Specific Plan: Monitor Clinically Problem Text: Chronic diarrhea. Continue with prednisone. (4) Anxiety and depression Status: Chronic Discussed With: Patient Problem Specific Plan: Monitor Clinically Problem Text: Continue with Zoloft. (5) COPD with acute exacerbation Status: Chronic Discussed With: Patient Problem Specific Plan: Monitor Clinically Problem Text: Continue with respiratory treatments. Chest therapy. Incentive spirometry. Supplemental oxygen. Mucolytics. Plan / VTE VTE Prophylaxis Ordered?: Yes (Lovenox) Plan Diet: Continue Current Activity: Continue Current Medications: Taper Steroids Diagnostics: Repeat Labs in AM Anticipated Discharge: Home Plan Text Creatinine still slowly rising. Will check UA. Start diflucan. Continue with current respiratory regimen including chest PT. O2 sats on ambulation. Subjective Review of Systems CC/HPI The patient is a 66-year-old female admitted with a reason for visit of Community Acquired Pneumonia. General: Denies: Chills, Fatigue, Malaise, Night Sweats, Normal Appetite, Other Symptoms, ROS Unobtainable Constitutional: Denies: Chills, Fatigue, Fever, Lethargy, Malaise, Night Sweats , Other, Weakness, Weight Loss Eyes: Denies: Conjunctivae inflammation, Eyelid inflammation, Other, Pain, Redness, Vision change ENT: Denies: Dysphagia, Ear Pain, Epistaxis, Head Aches, Other Symptoms, Post Nasal Drip, Sinus Congestion, Sore Throat Skin: Denies: Breakdown, Bruising, Dry, Itching, Jaundice, Lesions, Nail Changes, Other, Rash Pulmonary: Reports: Cough, Dyspnea, Denies: Other Symptoms, Pleuritic Chest Pain Cardiovascular: Denies: Chest Pain, Edema, Lt Headedness, Orthopnea, Other Symptoms, Palpitations, Paroxysmal Noc. Dyspnea Gastrointestinal: Reports: Diarrhea, Denies: Abdominal Pain, Constipation, Hematochezia, Melena, Nausea, Other Symptoms, Vomiting Objective Physical Examination General Exam: Positive: Alert, Cooperative, No Acute Distress Eye Exam: Positive: Conjunctiva & lids normal, EOMI, PERRLA ENT Exam: Positive: Atraumatic Neck Exam: Positive: Supple Chest Exam: Positive: Diminished, Rhonchi, Wheezing Heart Exam: Positive: Rate Normal, Regular Rhythm Abdomen Exam: Positive: Normal bowel sounds, Soft, Negative: Tenderness Extremity Exam: Negative: Edema Psych Exam: Positive: Mental status NL, Mood NL, Oriented x 3 Vital Signs/I&O Vital Signs Date Time Temp Pulse Resp B/P Pulse Ox O2 Delivery O2 Flow Rate FiO2 11/01/16 09:00 Nasal Cannula 1.0 11/01/16 07:30 18 11/01/16 06:00 97.3 84 161/40 90 I&O- Last 24 Hours up to 6 AM 11/01/16 05:59 Intake Total 2280 ml Output Total 2150 ml Balance 130 ml Laboratory Data Labs 24H Laboratory Tests 2 11/01/16 06:25: Anion Gap 7L, White Blood Count 6.3, Red Blood Count 3.40L, Hemoglobin 9.1L, Hematocrit 29.7L, Mean Corpuscular Volume 87.6, Mean Corpuscular Hemoglobin 26.8L, Mean Corpuscular Hemoglobin Concent 30.6L, Red Cell Distribution Width 14.0, Platelet Count 320, Neutrophils (%) (Auto) 75.1H, Lymphocytes (%) (Auto) 16.4L, Monocytes (%) (Auto) 4.6, Eosinophils (%) (Auto) 1.6, Basophils (%) (Auto ) 0.8, Neutrophils # (Auto) 4.7, Lymphocytes # (Auto) 1.0L, Monocytes # (Auto) 0.3, Eosinophils # (Auto) 0.1, Basophils # (Auto) 0.0, Blood Urea Nitrogen 11, Creatinine 1.18H, Sodium Level 142, Potassium Level 3.3L, Chloride Level 101, Carbon Dioxide Level 34H, Calcium Level 7.8L, Glomerular Filtration Rate 48.8, Large Unclassified Cells # 0.1, Large Unclassified Cells % 1.4, Magnesium Level 2.1 CBC/BMP Laboratory Tests 11/01/16 06:25 Calcium Level 7.8 L, Red Blood Count 3.40 L, Mean Corpuscular Volume 87.6, Mean Corpuscular Hemoglobin 26.8 L, Mean Corpuscular Hemoglobin Concent 30.6 L, Red Cell Distribution Width 14.0, Neutrophils (%) (Auto) 75.1 H, Lymphocytes (%) ( Auto) 16.4 L, Monocytes (%) (Auto) 4.6, Eosinophils (%) (Auto) 1.6, Basophils (% ) (Auto) 0.8, Neutrophils # (Auto) 4.7, Lymphocytes # (Auto) 1.0 L, Monocytes # (Auto) 0.3, Eosinophils # (Auto) 0.1, Basophils # (Auto) 0.0 Microbiology Microbiology 10/22/16 Blood Culture - Final, Complete NO GROWTH AFTER 5 DAYS 10/22/16 Blood Culture - Final, Complete NO GROWTH AFTER 5 DAYS 10/29/16 Gram Stain - Final, Complete 10/29/16 Sputum Culture - Final, Complete Yeast Like Organism 10/26/16 Respiratory Virus Panel (PCR) (JIMMIE) - Final, Complete Respiratory Syncytial Virus 10/22/16 Gram Stain - Final, Complete 10/22/16 Sputum Culture - Final, Complete AVA CEBALLOS MD Nov 01, 2016 10:15
[2016-11-01] MEDS: FLUCONAZOLE 100 MG TAB PO SCH (11:02)
[2016-11-01 14:00] VITALS: BP 118/60
[2016-11-01] MEDS: SERTRALINE HCL 50 MG TAB PO SCH (21:22)
[2016-11-01] MEDS: traZODone 100 MG TAB PO SCH (21:22)
[2016-11-01 22:00] VITALS: BP 143/71
[2016-11-02] MEDS: guaiFENesin/CODEINE SYRUP 5 ML UDC PO PRN ×3 (01:49→22:13)
[2016-11-02 06:00] VITALS: BP 164/75
[2016-11-02 06:06] LABS: BASO % 0.5 % (0.0-1.0); EOS # 0.1 K/mm3 (0.0-0.50); LARGE UNSTAINED CELL # 0.2 K/mm3 (0.0-0.4); LARGE UNSTAINED CELL % 2.1 % (0.0-4.0); LYMPH # 1.2 K/mm3 (1.5-4.5); MEAN CORPUSCULAR HEMOGLOBIN 27.2 pg (27.0-33.0); MEAN CORPUSCULAR HGB CONC 31.2 g/dl (32.0-36.5); MEAN CORPUSCULAR VOLUME 87.3 fl (80.0-96.0); MONO # 0.4 K/mm3 (0.0-0.8); MONO % 4.8 % (0.0-5.0); NEUTROPHILS # 5.4 K/mm3 (1.8-7.7); NEUTROPHILS % 74.7 % (36.0-66.0); PLATELET COUNT, AUTOMATED 330 k/mm3 (150-450); RED CELL DISTRIBUTION WIDTH 14.1 % (11.5-14.5); WHITE BLOOD COUNT 7.2 K/mm3 (4.0-10.0)
[2016-11-02 06:22] LABS: CREATININE FOR GFR 1.06 MG/DL (0.55-1.02); GLOMERULAR FILTRATION RATE 55.2 (>45); POTASSIUM SERUM 3.8 MEQ/L (3.5-5.1)
[2016-11-02] MEDS: IPRATROPIUM 0.5MG/ALBUTEROL 2.5MG INH SOL UD 3ML (DUONEB)(J7620) NEB SCH ×3 (07:30→20:00)
[2016-11-02] MEDS: ACETYLCYSTEINE 10% 30 ML VIAL INH SCH ×2 (07:31→19:31)
[2016-11-02] MEDS: ADVAIR DISKUS 250/50 INH PWD INH SCH ×2 (07:31→19:31)
[2016-11-02] MEDS: CETIRIZINE (ZyrTEC) 10 MG TAB PO SCH (08:12)
[2016-11-02] MEDS: VITAMIN D 1,000 INTERNATIONAL UNITS TABLET PO SCH (08:12)
[2016-11-02] MEDS: predniSONE 20 MG TAB PO SCH (08:12)
[2016-11-02] MEDS: ENOXAPARIN 40 MG/0.4 ML SYRINGE (J1650) SC SCH (08:12)
[2016-11-02] MEDS: FLUTICASONE PROP 0.05% NASAL SPRAY 16 GM (FLONASE) SCH ×2 (08:13→21:14)
[2016-11-02] MEDS: FLUCONAZOLE 100 MG TAB PO SCH (08:13)
[2016-11-02] MEDS: PREGABALIN 50 MG CAP (LYRICA) PO SCH ×4 (08:24→21:13)
[2016-11-02] MEDS: PERCOCET 5MG/325MG TAB PO PRN ×4 (08:24→22:14)
--- NOTE | 2016-11-02 13:22 | IPNPDOC ---
Subjective General Date Seen The patient was seen on 11/02/16. Chief Complaint/HPI The patient is a 66-year-old female admitted with a reason for visit of Community Acquired Pneumonia. Subjective General: Denies: Chills, Fatigue, Malaise, Night Sweats, Normal Appetite, Other Symptoms, ROS Unobtainable Constitutional: Denies: Chills, Fatigue, Fever, Lethargy, Malaise, Night Sweats , Other, Weakness, Weight Loss Eyes: Denies: Conjunctivae inflammation, Eyelid inflammation, Other, Pain, Redness, Vision change ENT: Denies: Dysphagia, Ear Pain, Epistaxis, Head Aches, Other Symptoms, Post Nasal Drip, Sinus Congestion, Sore Throat Skin: Denies: Breakdown, Bruising, Dry, Itching, Jaundice, Lesions, Nail Changes, Other, Rash Pulmonary: Reports: Cough, Denies: Dyspnea, Other Symptoms, Pleuritic Chest Pain Cardiovascular: Denies: Chest Pain, Edema, Lt Headedness, Orthopnea, Other Symptoms, Palpitations, Paroxysmal Noc. Dyspnea Gastrointestinal: Denies: Abdominal Pain, Constipation, Diarrhea, Hematochezia , Melena, Nausea, Other Symptoms, Vomiting Genitourinary: Denies: Dysuria, Frequency, Hematuria, Incontinence, Other Symptoms, Retention Objective Physical Examination General Exam: Positive: Alert, Cooperative, No Acute Distress Eye Exam: Positive: Conjunctiva & lids normal, EOMI, PERRLA ENT Exam: Positive: Atraumatic Neck Exam: Positive: Supple Chest Exam: Positive: Diminished, Rhonchi, Wheezing Heart Exam: Positive: Rate Normal, Regular Rhythm Abdomen Exam: Positive: Normal bowel sounds, Soft, Tenderness Extremity Exam: Negative: Edema Psych Exam: Positive: Mental status NL, Mood NL, Oriented x 3 Assessment /Plan Problems Problems: (1) RSV (respiratory syncytial virus infection) Status: Acute Response to Treatment: Improving Discussed With: Patient Problem Specific Plan: Monitor Clinically (2) PNA (pneumonia) Status: Acute Response to Treatment: Improving Discussed With: Patient Problem Specific Plan: Monitor Clinically Problem Text: Has completed 5 days of Levaquin 750mg. D/C today. Start diflucan as per sputum cultures. (3) Ulcerative colitis Status: Chronic Discussed With: Patient Problem Specific Plan: Monitor Clinically Problem Text: Chronic diarrhea. Continue with prednisone. Some LLQ pain, CT abd/pelvis for further evaluation. (4) Anxiety and depression Status: Chronic Discussed With: Patient Problem Specific Plan: Monitor Clinically Problem Text: Continue with Zoloft. (5) COPD with acute exacerbation Status: Chronic Discussed With: Patient Problem Specific Plan: Monitor Clinically Problem Text: Continue with respiratory treatments. Chest therapy. Incentive spirometry. Supplemental oxygen. Mucolytics. Plan/VTE VTE Prophylaxis Ordered?: Yes (Lovenox) Plan Diet: Continue Current Activity: Continue Current Medications: Taper Steroids Diagnostics: Repeat Labs in AM, CT Anticipated Discharge: Home Continue to wean O2. LLQ tenderness , CT abd/pelvis for further eval. VS, I&O, 24H, [facility] Vital Signs/I&O Vital Signs Date Time Temp Pulse Resp B/P Pulse Ox O2 Delivery O2 Flow Rate FiO2 11/02/16 12:42 20 Room Air 11/02/16 08:30 2.0 11/02/16 06:00 97.8 84 164/75 93 I&O- Last 24 Hours up to 6 AM 11/02/16 05:59 Intake Total 2160 ml Output Total 3000 ml Balance -840 ml Laboratory Data 24H LABS Laboratory Tests 2 11/02/16 05:33: Anion Gap 6L, White Blood Count 7.2, Red Blood Count 3.49L, Hemoglobin 9.5L, Hematocrit 30.5L, Mean Corpuscular Volume 87.3, Mean Corpuscular Hemoglobin 27.2 , Mean Corpuscular Hemoglobin Concent 31.2L, Red Cell Distribution Width 14.1, Platelet Count 330, Neutrophils (%) (Auto) 74.7H, Lymphocytes (%) (Auto) 16.0L, Monocytes (%) (Auto) 4.8, Eosinophils (%) (Auto) 2.0, Basophils (%) (Auto) 0.5, Neutrophils # (Auto) 5.4, Lymphocytes # (Auto) 1.2L, Monocytes # (Auto) 0.4, Eosinophils # (Auto) 0.1, Basophils # (Auto) 0.0, Blood Urea Nitrogen 9, Creatinine 1.06H, Sodium Level 142, Potassium Level 3.8, Chloride Level 102, Carbon Dioxide Level 34H, Calcium Level 8.0L, Glomerular Filtration Rate 55.2, Large Unclassified Cells # 0.2, Large Unclassified Cells % 2.1 CBC/BMP Laboratory Tests 11/02/16 05:33 Calcium Level 8.0 L, Red Blood Count 3.49 L, Mean Corpuscular Volume 87.3, Mean Corpuscular Hemoglobin 27.2, Mean Corpuscular Hemoglobin Concent 31.2 L, Red Cell Distribution Width 14.1, Neutrophils (%) (Auto) 74.7 H, Lymphocytes (%) ( Auto) 16.0 L, Monocytes (%) (Auto) 4.8, Eosinophils (%) (Auto) 2.0, Basophils (% ) (Auto) 0.5, Neutrophils # (Auto) 5.4, Lymphocytes # (Auto) 1.2 L, Monocytes # (Auto) 0.4, Eosinophils # (Auto) 0.1, Basophils # (Auto) 0.0 Microbiology Microbiology 10/29/16 Gram Stain - Final, Complete 10/29/16 Sputum Culture - Final, Complete Yeast Like Organism 10/26/16 Respiratory Virus Panel (PCR) (JIMMIE) - Final, Complete Respiratory Syncytial Virus AVA CEBALLOS MD Nov 02, 2016 13:22
[2016-11-02 14:20] VITALS: BP 143/67
--- NOTE | 2016-11-02 14:28 | REP ---
CT abdomen and pelvis without IV or bowel contrast: Comparison is 11/06/2012. The patient is a history of colectomy and hysterectomy. There are markedly distended bowel loops throughout the abdomen compatible with bowel obstruction. Occasional air-fluid levels are noted. There are surgical suture lines in the pelvis at the rectum compatible with anastomosis. Just distal to these surgical suture lines there is a soft tissue mass in the region of the anus a which may represent tumor . There are a few loops of proximal small bowel That are not dilated. There is no pneumoperitoneum. No ascites. Within the visualized lower lung moreira, there is minor atelectasis in the lung bases. I suspect there is a small right pleural effusion. The unenhanced hepatic parenchyma is unremarkable. Surgical clips in the gallbladder fossa. The pancreas and spleen are unremarkable. The adrenals and unenhanced kidneys are unremarkable. Abdominal aorta is unremarkable. There is no ascites. There is no pneumoperitoneum. Pelvis: The bladder is distended but otherwise unremarkable. There is no adenopathy or ascites. Impression: The patient has a history of colectomy. There is a soft tissue mass-like density in the rectoanal region, adjacent to surgical clips, as a change from the prior study. There are markedly dilated bowel loops throughout the abdomen. There are loops of proximal small bowel that are nondilated. . Findings are suspicious for bowel obstruction. There is no pneumoperitoneum or ascites. Small right pleural effusion. Atelectasis in the right lung base. Signed by Zane Solo MD 11/02/2016 02:19 P
[2016-11-02] MEDS: SERTRALINE HCL 50 MG TAB PO SCH (21:13)
[2016-11-02] MEDS: traZODone 100 MG TAB PO SCH (21:14)
[2016-11-02 22:00] VITALS: BP 113/56
[2016-11-03] MEDS: IPRATROPIUM 0.5MG/ALBUTEROL 2.5MG INH SOL UD 3ML (DUONEB)(J7620) NEB SCH ×4 (01:49→19:43)
[2016-11-03] MEDS: PERCOCET 5MG/325MG TAB PO PRN ×4 (02:45→20:43)
[2016-11-03 05:58] LABS: BASO % 0.6 % (0.0-1.0); EOS # 0.2 K/mm3 (0.0-0.50); EOS % 2.8 % (0.0-3.0); LARGE UNSTAINED CELL # 0.1 K/mm3 (0.0-0.4); LARGE UNSTAINED CELL % 1.9 % (0.0-4.0); LYMPH # 1.4 K/mm3 (1.5-4.5); MEAN CORPUSCULAR HEMOGLOBIN 27.5 pg (27.0-33.0); MEAN CORPUSCULAR HGB CONC 31.3 g/dl (32.0-36.5); MEAN CORPUSCULAR VOLUME 88.1 fl (80.0-96.0); MONO # 0.5 K/mm3 (0.0-0.8); MONO % 7.6 % (0.0-5.0); NEUTROPHILS # 4.7 K/mm3 (1.8-7.7); NEUTROPHILS % 68.1 % (36.0-66.0); PLATELET COUNT, AUTOMATED 332 k/mm3 (150-450); RED CELL DISTRIBUTION WIDTH 14.3 % (11.5-14.5); WHITE BLOOD COUNT 6.8 K/mm3 (4.0-10.0)
[2016-11-03 06:00] VITALS: BP 131/62
[2016-11-03 06:07] LABS: CALCIUM LEVEL 8.3 MG/DL (8.8-10.2); CREATININE FOR GFR 1.08 MG/DL (0.55-1.02); POTASSIUM SERUM 3.9 MEQ/L (3.5-5.1)
[2016-11-03] MEDS: ACETYLCYSTEINE 10% 30 ML VIAL INH SCH ×2 (08:00→19:43)
[2016-11-03] MEDS: BENZONATATE 100 MG CAP PO PRN (08:50)
[2016-11-03] MEDS: FLUCONAZOLE 100 MG TAB PO SCH (09:01)
[2016-11-03] MEDS: predniSONE 20 MG TAB PO SCH (09:01)
[2016-11-03] MEDS: PREGABALIN 50 MG CAP (LYRICA) PO SCH ×4 (09:02→20:43)
[2016-11-03] MEDS: CETIRIZINE (ZyrTEC) 10 MG TAB PO SCH (09:02)
[2016-11-03] MEDS: VITAMIN D 1,000 INTERNATIONAL UNITS TABLET PO SCH (09:02)
[2016-11-03] MEDS: FLUTICASONE PROP 0.05% NASAL SPRAY 16 GM (FLONASE) SCH ×2 (09:03→20:43)
[2016-11-03] MEDS: ENOXAPARIN 40 MG/0.4 ML SYRINGE (J1650) SC SCH (09:03)
[2016-11-03] MEDS: ADVAIR DISKUS 250/50 INH PWD INH SCH ×2 (09:15→19:43)
--- NOTE | 2016-11-03 10:40 | IPNPDOC ---
Subjective General Date Seen The patient was seen on 11/03/16. Subjective Chief Complaint/HPI The patient is a 66-year-old female admitted with a reason for visit of Community Acquired Pneumonia. General: Denies: Chills, Fatigue, Malaise, Night Sweats, Normal Appetite, Other Symptoms, ROS Unobtainable Constitutional: Denies: Chills, Fatigue, Fever, Lethargy, Malaise, Night Sweats , Other, Weakness, Weight Loss Eyes: Denies: Conjunctivae inflammation, Eyelid inflammation, Other, Pain, Redness, Vision change ENT: Denies: Dysphagia, Ear Pain, Epistaxis, Head Aches, Other Symptoms, Post Nasal Drip, Sinus Congestion, Sore Throat Skin: Denies: Breakdown, Bruising, Dry, Itching, Jaundice, Lesions, Nail Changes, Other, Rash Pulmonary: Reports: Cough, Dyspnea Cardiovascular: Denies: Chest Pain, Edema, Lt Headedness, Orthopnea, Other Symptoms, Palpitations, Paroxysmal Noc. Dyspnea Gastrointestinal: Denies: Abdominal Pain, Constipation, Diarrhea, Hematochezia , Melena, Nausea, Other Symptoms, Vomiting Objective Physical Examination General Exam: Positive: Alert, Cooperative, No Acute Distress Eye Exam: Positive: Conjunctiva & lids normal, EOMI, PERRLA ENT Exam: Positive: Atraumatic Neck Exam: Positive: Supple Chest Exam: Positive: Normal air movement, Rhonchi, Wheezing Heart Exam: Positive: Rate Normal, Regular Rhythm Abdomen Exam: Positive: Normal bowel sounds, Soft, Tenderness Extremity Exam: Negative: Edema Psych Exam: Positive: Mental status NL, Mood NL, Oriented x 3 Assessment /Plan Problems Problems: (1) RSV (respiratory syncytial virus infection) Status: Acute Response to Treatment: Improving Discussed With: Patient Problem Specific Plan: Monitor Clinically (2) PNA (pneumonia) Status: Acute Response to Treatment: Improving Discussed With: Patient Problem Specific Plan: Monitor Clinically Problem Text: Has completed 5 days of Levaquin. Continue diflucan as per sputum cultures. (3) Ulcerative colitis Status: Chronic Discussed With: Patient Problem Specific Plan: Monitor Clinically Problem Text: Chronic diarrhea. Continue with prednisone. LLQ pain / tenderness much improved today. CT reveals possible obstruction, possible rectal mass. Surgical consultation pending. Discussed with GI. Follow annually with GI in [place] - Dr. Padilla. Patient states she is passing gas. Also stated she had a bowel movement although this was not witnessed. (4) Anxiety and depression Status: Chronic Discussed With: Patient Problem Specific Plan: Monitor Clinically Problem Text: Continue with Zoloft. (5) COPD with acute exacerbation Status: Chronic Discussed With: Patient Problem Specific Plan: Monitor Clinically Problem Text: Continue with respiratory treatments. Chest therapy. Incentive spirometry. Supplemental oxygen. Mucolytics. Plan/VTE VTE Prophylaxis Ordered?: Yes (Lovenox) Plan Diet: Continue Current Activity: Continue Current Diagnostics: Repeat Labs in AM Anticipated Discharge: Home, Home With Services VS, I&O, 24H, [facility] Vital Signs/I&O Vital Signs Date Time Temp Pulse Resp B/P Pulse Ox O2 Delivery O2 Flow Rate FiO2 11/03/16 09:03 20 Nasal Cannula 11/03/16 06:00 97.1 78 131/62 94 2.0 I&O- Last 24 Hours up to 6 AM 11/03/16 06:00 Intake Total 1470 ml Output Total 1700 ml Balance -230 ml Laboratory Data 24H LABS Laboratory Tests 2 11/03/16 05:26: Anion Gap 6L, White Blood Count 6.8, Red Blood Count 3.43L, Hemoglobin 9.4L, Hematocrit 30.2L, Mean Corpuscular Volume 88.1, Mean Corpuscular Hemoglobin 27.5 , Mean Corpuscular Hemoglobin Concent 31.3L, Red Cell Distribution Width 14.3, Platelet Count 332, Neutrophils (%) (Auto) 68.1H, Lymphocytes (%) (Auto) 19.0L, Monocytes (%) (Auto) 7.6H, Eosinophils (%) (Auto) 2.8, Basophils (%) (Auto) 0.6 , Neutrophils # (Auto) 4.7, Lymphocytes # (Auto) 1.4L, Monocytes # (Auto) 0.5, Eosinophils # (Auto) 0.2, Basophils # (Auto) 0.0, Blood Urea Nitrogen 8, Creatinine 1.08H, Sodium Level 143, Potassium Level 3.9, Chloride Level 103, Carbon Dioxide Level 34H, Calcium Level 8.3L, Glomerular Filtration Rate 54.0, Large Unclassified Cells # 0.1, Large Unclassified Cells % 1.9 CBC/BMP Laboratory Tests 11/03/16 05:26 Calcium Level 8.3 L, Red Blood Count 3.43 L, Mean Corpuscular Volume 88.1, Mean Corpuscular Hemoglobin 27.5, Mean Corpuscular Hemoglobin Concent 31.3 L, Red Cell Distribution Width 14.3, Neutrophils (%) (Auto) 68.1 H, Lymphocytes (%) ( Auto) 19.0 L, Monocytes (%) (Auto) 7.6 H, Eosinophils (%) (Auto) 2.8, Basophils (%) (Auto) 0.6, Neutrophils # (Auto) 4.7, Lymphocytes # (Auto) 1.4 L, Monocytes # (Auto) 0.5, Eosinophils # (Auto) 0.2, Basophils # (Auto) 0.0 Microbiology Microbiology 10/29/16 Gram Stain - Final, Complete 10/29/16 Sputum Culture - Final, Complete Yeast Like Organism 10/26/16 Respiratory Virus Panel (PCR) (JIMMIE) - Final, Complete Respiratory Syncytial Virus VAA CEBALLOS MD Nov 03, 2016 10:40
[2016-11-03] MEDS: guaiFENesin/CODEINE SYRUP 5 ML UDC PO PRN ×2 (11:17→20:43)
[2016-11-03] MEDS ORDERED: ONDANSETRON 4 MG TAB (S0181) PO PRN (20:30)
[2016-11-03] MEDS: traZODone 100 MG TAB PO SCH (20:43)
[2016-11-03] MEDS: SERTRALINE HCL 50 MG TAB PO SCH (20:43)
[2016-11-03 22:00] VITALS: BP 123/59
[2016-11-04] MEDS: IPRATROPIUM 0.5MG/ALBUTEROL 2.5MG INH SOL UD 3ML (DUONEB)(J7620) NEB SCH ×4 (02:00→19:58)
[2016-11-04] MEDS: guaiFENesin/CODEINE SYRUP 5 ML UDC PO PRN ×4 (05:41→20:33)
[2016-11-04] MEDS: PERCOCET 5MG/325MG TAB PO PRN ×4 (05:42→20:33)
[2016-11-04 06:00] VITALS: BP 139/63
[2016-11-04] MEDS: ADVAIR DISKUS 250/50 INH PWD INH SCH ×2 (07:49→19:58)
[2016-11-04] MEDS: ACETYLCYSTEINE 10% 30 ML VIAL INH SCH ×2 (07:54→19:58)
--- NOTE | 2016-11-04 08:24 | CR ---
DATE OF CONSULTATION: 11/04/2016 REASON FOR CONSULTATION: Abdominal distension. HISTORY OF PRESENT ILLNESS: The patient is a 66-year-old female who came in to the hospital on 10/22/2016 for shortness of breath. She was diagnosed with chronic obstructive pulmonary disease (COPD) exacerbation as well as pneumonia. She has been in the hospital ever since. They have had difficulty weaning her off of the oxygen. She does not currently use oxygen at home; however, she has not been able to be taken off of it here since she has been in the hospital. She does have a history of ulcerative colitis with chronic back pain. Throughout her stay, her abdomen was been getting slightly more distended. She persistently has at least one to two bowel movements every day, yet she is still getting distended. They checked a CT of the abdomen which shows dilated intestines as well as a possible mass near the rectum causing a bowel obstruction. Therefore, I was called to evaluate. Upon questioning the patient, she states that she did have a total colectomy with a J pouch done down in [place] with Dr. Padilla and he has been following up with her yearly with colonoscopies. The last one was around a year ago and was normal and she is scheduled to see him again soon. She denies any blood in her stool. She does have loose watery bowel movements, but that is normal for her. She denies any nausea or vomiting. She does feel a little bit more distended than normal, but has not noticed any changes in the frequency of her bowel movements. PAST MEDICAL HISTORY: 1. COPD. 2. Anxiety. 3. Ulcerative colitis. 4. Chronic back pain. PAST SURGICAL HISTORY: 1. Total colectomy with J pouch. 2. Hysterectomy. 3. Tonsillectomy. 4. Cholecystectomy. 5. Back surgery. FAMILY HISTORY: Noncontributory. SOCIAL HISTORY: Quit smoking 18 years ago. Denies any drug or alcohol usage. ALLERGIES: - AMOXICILLIN - CLAVULANIC ACID - NSAIDS HOME MEDICATIONS: Please see med record. REVIEW OF SYSTEMS: Pertinent positive and negatives as stated in the history of present illness (HPI). PHYSICAL EXAMINATION: General: Alert and oriented times three. No acute distress. Vitals: Temperature 96.6, pulse 83, respirations 19, blood pressure 123/59, pulse oximetry 93% on 2 liters nasal cannula. HEENT: Pupils equal round and react to light accommodation. Heart: S1, S2 regular rate and rhythm. Lungs: Clear to auscultation bilaterally. Abdomen: Soft, slightly distended, nontender. Bowel sounds are positive. Extremities: No clubbing, cyanosis or edema. LABORATORY DATA: White count 7.2, hemoglobin 9.5, platelets 330, potassium 3.9, creatinine 1.08. IMAGING STUDIES: CT of abdomen and pelvis shows a soft tissue mass density in the rectoanal region adjacent to surgical clips. This is change from a prior study. There is also markedly dilated bowel loops throughout the abdomen and the loops of proximal small bowel are non dilated. Findings are suspicious for bowel obstruction. No signs of pneumoperitoneum or ascites. ASSESSMENT/PLAN: The patient is a 66-year-old female with history of ulcerative colitis status post total colectomy with J pouch currently being treated for community-acquired pneumonia and now has a new onset of abdominal distention with possible bowel obstruction. After reviewing the CT, this the bowel dilation is likely partially secondary to chronic dilation due to the J pouch; however, there is this concerning lesion in the rectoanal region for possible mass as well. Since she is not having any symptoms of obstruction other than a slight distention, recommendation is to discharge her home once she is medically stable and breathing is back to baseline. She can then follow up with Dr. Padilla as an outpatient to see if he recommends a repeat colonoscopy versus CT scan.
[2016-11-04] MEDS: CETIRIZINE (ZyrTEC) 10 MG TAB PO SCH (08:28)
[2016-11-04] MEDS: predniSONE 20 MG TAB PO SCH (08:29)
[2016-11-04] MEDS: PREGABALIN 50 MG CAP (LYRICA) PO SCH ×4 (08:30→20:32)
[2016-11-04] MEDS: ENOXAPARIN 40 MG/0.4 ML SYRINGE (J1650) SC SCH (08:31)
[2016-11-04] MEDS: VITAMIN D 1,000 INTERNATIONAL UNITS TABLET PO SCH (08:31)
[2016-11-04] MEDS: FLUCONAZOLE 100 MG TAB PO SCH (08:31)
[2016-11-04] MEDS: FLUTICASONE PROP 0.05% NASAL SPRAY 16 GM (FLONASE) SCH ×2 (08:31→20:33)
[2016-11-04] MEDS ORDERED: FLUC10TA PO (10:06)
--- NOTE | 2016-11-04 10:24 | IPNPDOC ---
Subjective General Date Seen The patient was seen on 11/04/16. Subjective Chief Complaint/HPI The patient is a 66-year-old female admitted with a reason for visit of Community Acquired Pneumonia. General: Denies: Chills, Fatigue, Malaise, Night Sweats, Normal Appetite, Other Symptoms, ROS Unobtainable Constitutional: Denies: Chills, Fatigue, Fever, Lethargy, Malaise, Night Sweats , Other, Weakness, Weight Loss Eyes: Denies: Conjunctivae inflammation, Eyelid inflammation, Other, Pain, Redness, Vision change ENT: Denies: Dysphagia, Ear Pain, Epistaxis, Head Aches, Other Symptoms, Post Nasal Drip, Sinus Congestion, Sore Throat Skin: Denies: Breakdown, Bruising, Dry, Itching, Jaundice, Lesions, Nail Changes, Other, Rash Pulmonary: Reports: Dyspnea, Denies: Cough, Other Symptoms, Pleuritic Chest Pain Cardiovascular: Denies: Chest Pain, Edema, Lt Headedness, Orthopnea, Other Symptoms, Palpitations, Paroxysmal Noc. Dyspnea Gastrointestinal: Denies: Abdominal Pain, Constipation, Diarrhea, Hematochezia , Melena, Nausea, Other Symptoms, Vomiting Genitourinary: Denies: Dysuria, Frequency, Hematuria, Incontinence, Other Symptoms, Retention Objective Physical Examination General Exam: Positive: Alert, Cooperative, No Acute Distress Eye Exam: Positive: Conjunctiva & lids normal, EOMI, PERRLA ENT Exam: Positive: Atraumatic Neck Exam: Positive: Supple Chest Exam: Positive: Normal air movement, Rhonchi, Wheezing Heart Exam: Positive: Rate Normal, Regular Rhythm Abdomen Exam: Positive: Normal bowel sounds, Soft, Tenderness Extremity Exam: Negative: Edema Psych Exam: Positive: Mental status NL, Mood NL, Oriented x 3 Assessment /Plan Problems Problems: (1) Acute respiratory failure with hypoxia Status: Acute Response to Treatment: Improving Discussed With: Patient Problem Specific Plan: Monitor Clinically, Repeat Tests Problem Text: Still requiring supplemental oxygen. Will check 2D echocardiogram. (2) RSV (respiratory syncytial virus infection) Status: Acute Response to Treatment: Improving Discussed With: Patient Problem Specific Plan: Monitor Clinically (3) PNA (pneumonia) Status: Acute Response to Treatment: Improving Discussed With: Patient Problem Specific Plan: Monitor Clinically Problem Text: Has completed 5 days of Levaquin. Continue diflucan as per sputum cultures. (4) Ulcerative colitis Status: Chronic Discussed With: Patient Problem Specific Plan: Monitor Clinically Problem Text: Chronic diarrhea. Continue with prednisone. LLQ pain / tenderness much improved today. CT reveals possible obstruction, possible rectal mass. Surgical consultation pending. Discussed with GI. Follow annually with GI in [place] - Dr. Padilla. Patient states she is passing gas. Also stated she had a bowel movement although this was not witnessed. (5) Anxiety and depression Status: Chronic Discussed With: Patient Problem Specific Plan: Monitor Clinically Problem Text: Continue with Zoloft. (6) COPD with acute exacerbation Status: Chronic Discussed With: Patient Problem Specific Plan: Monitor Clinically Problem Text: Continue with respiratory treatments. Chest therapy. Incentive spirometry. Supplemental oxygen. Mucolytics. Plan/VTE VTE Prophylaxis Ordered?: Yes (Lovenox) Plan Diet: Continue Current Activity: Continue Current Diagnostics: Repeat Labs in AM Anticipated Discharge: Home, Home With Services VS, I&O, 24H, Fishbone Vital Signs/I&O Vital Signs Date Time Temp Pulse Resp B/P Pulse Ox O2 Delivery O2 Flow Rate FiO2 11/04/16 06:12 18 11/04/16 06:00 96.5 87 139/63 93 Nasal Cannula 2.0 I&O- Last 24 Hours up to 6 AM 11/04/16 06:00 Intake Total 1440 ml Output Total 1850 ml Balance -410 ml Laboratory Data Microbiology Microbiology 10/29/16 Gram Stain - Final, Complete 10/29/16 Sputum Culture - Final, Complete Yeast Like Organism 10/26/16 Respiratory Virus Panel (PCR) (JIMMIE) - Final, Complete Respiratory Syncytial Virus AVA CEBALLOS MD Nov 04, 2016 10:24
[2016-11-04 14:00] VITALS: BP 130/67
[2016-11-04] MEDS: traZODone 100 MG TAB PO SCH (20:32)
[2016-11-04] MEDS: SERTRALINE HCL 50 MG TAB PO SCH (20:32)
[2016-11-04 22:00] VITALS: BP 148/66
[2016-11-05] MEDS: IPRATROPIUM 0.5MG/ALBUTEROL 2.5MG INH SOL UD 3ML (DUONEB)(J7620) NEB SCH ×4 (02:00→20:00)
[2016-11-05] MEDS: PERCOCET 5MG/325MG TAB PO PRN ×3 (05:58→20:28)
[2016-11-05 06:00] VITALS: BP 142/67
[2016-11-05] MEDS: ADVAIR DISKUS 250/50 INH PWD INH SCH ×2 (07:51→20:19)
[2016-11-05] MEDS: ACETYLCYSTEINE 10% 30 ML VIAL INH SCH ×2 (07:52→20:00)
[2016-11-05] MEDS: guaiFENesin/CODEINE SYRUP 5 ML UDC PO PRN ×3 (08:38→20:27)
[2016-11-05] MEDS: predniSONE 20 MG TAB PO SCH (08:38)
[2016-11-05] MEDS: FLUCONAZOLE 100 MG TAB PO SCH (08:38)
[2016-11-05] MEDS: VITAMIN D 1,000 INTERNATIONAL UNITS TABLET PO SCH (08:38)
[2016-11-05] MEDS: CETIRIZINE (ZyrTEC) 10 MG TAB PO SCH (08:38)
[2016-11-05] MEDS: PREGABALIN 50 MG CAP (LYRICA) PO SCH ×4 (08:38→20:29)
[2016-11-05] MEDS: FLUTICASONE PROP 0.05% NASAL SPRAY 16 GM (FLONASE) SCH ×2 (08:39→20:29)
[2016-11-05] MEDS: ENOXAPARIN 40 MG/0.4 ML SYRINGE (J1650) SC SCH (08:39)
--- NOTE | 2016-11-05 12:04 | IPNPDOC ---
Subjective General Date Seen The patient was seen on 11/05/16. Subjective Chief Complaint/HPI The patient is a 66-year-old female admitted with a reason for visit of Community Acquired Pneumonia. General: Denies: Chills, Fatigue, Malaise, Night Sweats, Normal Appetite, Other Symptoms, ROS Unobtainable Constitutional: Denies: Chills, Fatigue, Fever, Lethargy, Malaise, Night Sweats , Other, Weakness, Weight Loss Eyes: Denies: Conjunctivae inflammation, Eyelid inflammation, Other, Pain, Redness, Vision change ENT: Denies: Dysphagia, Ear Pain, Epistaxis, Head Aches, Other Symptoms, Post Nasal Drip, Sinus Congestion, Sore Throat Skin: Denies: Breakdown, Bruising, Dry, Itching, Jaundice, Lesions, Nail Changes, Other, Rash Pulmonary: Reports: Cough, Dyspnea, Denies: Other Symptoms, Pleuritic Chest Pain Cardiovascular: Denies: Chest Pain, Edema, Lt Headedness, Orthopnea, Other Symptoms, Palpitations, Paroxysmal Noc. Dyspnea Gastrointestinal: Denies: Abdominal Pain, Constipation, Diarrhea, Hematochezia , Melena, Nausea, Other Symptoms, Vomiting Objective Physical Examination General Exam: Positive: Alert, Cooperative, No Acute Distress Eye Exam: Positive: Conjunctiva & lids normal, EOMI, PERRLA ENT Exam: Positive: Atraumatic Neck Exam: Positive: Supple Chest Exam: Positive: Normal air movement, Rhonchi Heart Exam: Positive: Rate Normal, Regular Rhythm Abdomen Exam: Positive: Normal bowel sounds, Soft, Tenderness Extremity Exam: Negative: Edema Psych Exam: Positive: Mental status NL, Mood NL, Oriented x 3 Assessment /Plan Problems Problems: (1) Acute respiratory failure with hypoxia Status: Acute Response to Treatment: Progressing Discussed With: Patient Problem Specific Plan: Monitor Clinically, Repeat Tests Problem Text: Still requiring supplemental oxygen. Will check 2D echocardiogram. (2) RSV (respiratory syncytial virus infection) Status: Acute Response to Treatment: Progressing Discussed With: Patient Problem Specific Plan: Monitor Clinically (3) PNA (pneumonia) Status: Acute Response to Treatment: Improving Discussed With: Patient Problem Specific Plan: Monitor Clinically Problem Text: Has completed 5 days of Levaquin. Continue diflucan as per sputum cultures. (4) Ulcerative colitis Status: Chronic Discussed With: Patient Problem Specific Plan: Monitor Clinically Problem Text: Chronic diarrhea. Continue with prednisone. LLQ pain / tenderness much improved. Discussed with GI and surgery. Assistance appreciated. 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 Padilla. (5) Anxiety and depression Status: Chronic Discussed With: Patient Problem Specific Plan: Monitor Clinically Problem Text: Continue with Zoloft. (6) COPD with acute exacerbation Status: Chronic Discussed With: Patient Problem Specific Plan: Monitor Clinically Problem Text: Continue with respiratory treatments. Chest therapy. Incentive spirometry. Supplemental oxygen. Mucolytics. Plan/VTE VTE Prophylaxis Ordered?: Yes (Lovenox) Plan Diet: Continue Current Activity: Continue Current Respiratory: Wean Oxygen Diagnostics: Repeat Labs in AM, TTE Anticipated Discharge: Home, Home With Services Disposition Anticipating discharge in 24-48 hours. VS, I&O, 24H, Fishbone Vital Signs/I&O Vital Signs Date Time Temp Pulse Resp B/P Pulse Ox O2 Delivery O2 Flow Rate FiO2 11/05/16 06:36 18 11/05/16 06:00 97.1 74 142/67 93 Nasal Cannula 2.0 I&O- Last 24 Hours up to 6 AM 11/05/16 06:00 Intake Total 1230 ml Output Total 1500 ml Balance -270 ml Laboratory Data Microbiology Microbiology 10/29/16 Gram Stain - Final, Complete 10/29/16 Sputum Culture - Final, Complete Yeast Like Organism 10/26/16 Respiratory Virus Panel (PCR) (JIMMIE) - Final, Complete Respiratory Syncytial Virus AVA CEBALLOS MD Nov 05, 2016 12:04
--- NOTE | 2016-11-05 12:55 | REP ---
CHEST PA AND LATERAL: 11/05/2016. Comparison CT chest 10/31/2016, PA and lateral chest 10/26/2016. Clinical history: Follow-up pneumonia. 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 There is been significant improvement in the basilar patchy infiltrates since the previous study with basilar fibrotic changes maintained and superimposed patchy atelectasis or infiltrate may persist. Trace right effusion again seen. The mediastinal silhouette, aorta, heart and airway intact. Bones unchanged. Impression: 1. Much improved bibasilar infiltrates with basilar fibrotic changes, crowded markings and possibility that some superimposed patchy infiltrates remain noted. There is a trace right effusion. Signed by Juan Pablo Roberts MD 11/05/2016 07:35 P
[2016-11-05 14:00] VITALS: BP 138/70
[2016-11-05] MEDS: traZODone 100 MG TAB PO SCH (20:28)
[2016-11-05] MEDS: SERTRALINE HCL 50 MG TAB PO SCH (20:29)
[2016-11-05 22:00] VITALS: BP 127/63
[2016-11-06] MEDS: IPRATROPIUM 0.5MG/ALBUTEROL 2.5MG INH SOL UD 3ML (DUONEB)(J7620) NEB SCH ×4 (02:00→19:36)
[2016-11-06] MEDS: guaiFENesin/CODEINE SYRUP 5 ML UDC PO PRN ×3 (05:30→14:31)
[2016-11-06] MEDS: PERCOCET 5MG/325MG TAB PO PRN ×4 (05:31→20:54)
[2016-11-06 06:00] VITALS: BP 123/60
[2016-11-06] MEDS: ACETYLCYSTEINE 10% 30 ML VIAL INH SCH ×2 (07:44→19:35)
[2016-11-06] MEDS: ADVAIR DISKUS 250/50 INH PWD INH SCH ×2 (07:44→19:35)
[2016-11-06] MEDS: predniSONE 20 MG TAB PO SCH (09:35)
[2016-11-06] MEDS: CETIRIZINE (ZyrTEC) 10 MG TAB PO SCH (09:36)
[2016-11-06] MEDS: FLUTICASONE PROP 0.05% NASAL SPRAY 16 GM (FLONASE) SCH ×2 (09:36→20:54)
[2016-11-06] MEDS: VITAMIN D 1,000 INTERNATIONAL UNITS TABLET PO SCH (09:36)
[2016-11-06] MEDS: PREGABALIN 50 MG CAP (LYRICA) PO SCH ×4 (09:36→20:54)
[2016-11-06] MEDS: ENOXAPARIN 40 MG/0.4 ML SYRINGE (J1650) SC SCH (09:36)
[2016-11-06] MEDS: FLUCONAZOLE 100 MG TAB PO SCH (09:36)
--- NOTE | 2016-11-06 11:24 | IPNPDOC ---
Subjective General Date Seen The patient was seen on 11/06/16. Subjective Chief Complaint/HPI The patient is a 66-year-old female admitted with a reason for visit of Community Acquired Pneumonia. General: Denies: Chills, Fatigue, Malaise, Night Sweats, Normal Appetite, Other Symptoms, ROS Unobtainable Constitutional: Denies: Chills, Fatigue, Fever, Lethargy, Malaise, Night Sweats , Other, Weakness, Weight Loss Eyes: Denies: Conjunctivae inflammation, Eyelid inflammation, Other, Pain, Redness, Vision change ENT: Denies: Dysphagia, Ear Pain, Epistaxis, Head Aches, Other Symptoms, Post Nasal Drip, Sinus Congestion, Sore Throat Skin: Denies: Breakdown, Bruising, Dry, Itching, Jaundice, Lesions, Nail Changes, Other, Rash Pulmonary: Reports: Cough, Dyspnea, Denies: Other Symptoms, Pleuritic Chest Pain Cardiovascular: Denies: Chest Pain, Edema, Lt Headedness, Orthopnea, Other Symptoms, Palpitations, Paroxysmal Noc. Dyspnea Gastrointestinal: Denies: Abdominal Pain, Constipation, Diarrhea, Hematochezia , Melena, Nausea, Other Symptoms, Vomiting Objective Physical Examination General Exam: Positive: Alert, Cooperative, No Acute Distress Eye Exam: Positive: Conjunctiva & lids normal, EOMI, PERRLA ENT Exam: Positive: Atraumatic Neck Exam: Positive: Supple Chest Exam: Positive: Normal air movement, Rhonchi Heart Exam: Positive: Rate Normal, Regular Rhythm Abdomen Exam: Positive: Normal bowel sounds, Soft, Tenderness Extremity Exam: Negative: Edema Psych Exam: Positive: Mental status NL, Mood NL, Oriented x 3 Assessment /Plan Problems Problems: (1) Acute respiratory failure with hypoxia Status: Acute Response to Treatment: Progressing Discussed With: Patient Problem Specific Plan: Monitor Clinically, Repeat Tests Problem Text: Still requiring supplemental oxygen. Will check 2D echocardiogram , study completed, pending report. (2) RSV (respiratory syncytial virus infection) Status: Acute Response to Treatment: Progressing Discussed With: Patient Problem Specific Plan: Monitor Clinically (3) PNA (pneumonia) Status: Acute Response to Treatment: Improving Discussed With: Patient Problem Specific Plan: Monitor Clinically Problem Text: Has completed 5 days of Levaquin. Continue diflucan as per sputum cultures. (4) Ulcerative colitis Status: Chronic Discussed With: Patient Problem Specific Plan: Monitor Clinically Problem Text: Chronic diarrhea. Continue with prednisone. LLQ pain / tenderness much improved. Discussed with GI and surgery. Assistance appreciated. 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 Padilla. (5) Anxiety and depression Status: Chronic Discussed With: Patient Problem Specific Plan: Monitor Clinically Problem Text: Continue with Zoloft. (6) COPD with acute exacerbation Status: Chronic Discussed With: Patient Problem Specific Plan: Monitor Clinically Problem Text: Continue with respiratory treatments. Chest therapy. Incentive spirometry. Supplemental oxygen. Mucolytics. Plan/VTE VTE Prophylaxis Ordered?: Yes (Lovenox) Plan Diet: Continue Current Activity: Continue Current Respiratory: Wean Oxygen Diagnostics: Repeat Labs in AM Anticipated Discharge: Home, Home With Services VS, I&O, 24H, [facility] Vital Signs/I&O Vital Signs Date Time Temp Pulse Resp B/P Pulse Ox O2 Delivery O2 Flow Rate FiO2 11/06/16 10:18 18 11/06/16 07:59 Nasal Cannula 2.0 11/06/16 06:00 96.8 87 123/60 94 I&O- Last 24 Hours up to 6 AM 11/06/16 06:00 Intake Total 1650 ml Output Total 1400 ml Balance 250 ml Laboratory Data Microbiology Microbiology 10/29/16 Gram Stain - Final, Complete 10/29/16 Sputum Culture - Final, Complete Yeast Like Organism AVA CEBALLOS MD Nov 06, 2016 11:24
--- NOTE | 2016-11-06 12:10 | ECHO ---
DATE OF STUDY: 11/06/2016 REFERRING PHYSICIAN: Dr. Facundo Holley INDICATION: Dyspnea. HEIGHT: 64 inches. WEIGHT: 160 pounds. MEASUREMENTS: Aortic root: 3.3 cm Proximal ascending aorta: 2.9 cm Left atrium: 2.8 cm Ventricular septum: 0.92 cm Posterior wall: 0.90 cm Left ventricle diastole: 4.5 cm Left ventricle systole: 2.3 cm Right ventricle: 3.2 cm Inferior vena cava: 1.7 cm DOPPLER MEASUREMENTS: Aortic valve velocity: 125 cm/s LVOT velocity: 129 cm/s LVOT VTI: 27.1 cm Mitral E velocity: 98.7 cm/s Mitral A velocity: 106 cm/s Mitral deceleration time 211 milliseconds Pulmonary artery systolic pressure: 39 mmHg by pulmonary acceleration time method MITRAL ANNULAR TISSUE DOPPLER: E prime septal: 7.9 cm/s E prime lateral: 10.3 cm/s DESCRIPTION: Rhythm was sinus. Image quality was fair. No pericardial effusion. This was a 2D, M-mode, color flow Doppler, and pulse wave Doppler examination and included mitral annular tissue Doppler. CONCLUSIONS: 1. Suggestive of mild elevation of pulmonary artery systolic pressure (39 mmHg). 2. Normal left ventricle internal dimensions, wall thickness, wall motion, wall thickening, systolic function and diastolic function. Left ventricle (LV) diastolic function within normal limits for age. Left ventricular ejection fraction (LVEF) 65% by visual estimate. 3. Otherwise normal appearing echocardiogram Doppler study.
[2016-11-06 14:00] VITALS: BP 127/66
[2016-11-06] MEDS: traZODone 100 MG TAB PO SCH (20:53)
[2016-11-06] MEDS: SERTRALINE HCL 50 MG TAB PO SCH (20:54)
[2016-11-06 22:00] VITALS: BP 113/54
[2016-11-07] MEDS: IPRATROPIUM 0.5MG/ALBUTEROL 2.5MG INH SOL UD 3ML (DUONEB)(J7620) NEB SCH ×2 (02:00→08:00)
[2016-11-07] MEDS: guaiFENesin/CODEINE SYRUP 5 ML UDC PO PRN ×2 (03:59→09:47)
[2016-11-07] MEDS: PERCOCET 5MG/325MG TAB PO PRN ×2 (03:59→09:47)
[2016-11-07 06:00] VITALS: BP 139/72
[2016-11-07 06:30] LABS: BASO # 0.1 K/mm3 (0.0-0.2); BASO % 1.1 % (0.0-1.0); EOS # 0.2 K/mm3 (0.0-0.50); LARGE UNSTAINED CELL # 0.1 K/mm3 (0.0-0.4); LARGE UNSTAINED CELL % 1.7 % (0.0-4.0); LYMPH # 1.8 K/mm3 (1.5-4.5); LYMPH % 24.3 % (24.0-44.0); MEAN CORPUSCULAR HEMOGLOBIN 27.3 pg (27.0-33.0); MEAN CORPUSCULAR HGB CONC 30.9 g/dl (32.0-36.5); MEAN CORPUSCULAR VOLUME 88.5 fl (80.0-96.0); MONO # 0.5 K/mm3 (0.0-0.8); MONO % 7.6 % (0.0-5.0); NEUTROPHILS # 4.3 K/mm3 (1.8-7.7); NEUTROPHILS % 62.3 % (36.0-66.0); PLATELET COUNT, AUTOMATED 328 k/mm3 (150-450); RED CELL DISTRIBUTION WIDTH 14.3 % (11.5-14.5); WHITE BLOOD COUNT 6.8 K/mm3 (4.0-10.0)
[2016-11-07 06:34] LABS: CALCIUM LEVEL 8.6 MG/DL (8.8-10.2); CREATININE FOR GFR 1.08 MG/DL (0.55-1.02)
[2016-11-07] MEDS: ADVAIR DISKUS 250/50 INH PWD INH SCH (07:31)
[2016-11-07] MEDS: ACETYLCYSTEINE 10% 30 ML VIAL INH SCH (08:00)
[2016-11-07] MEDS: PREGABALIN 50 MG CAP (LYRICA) PO SCH (09:46)
[2016-11-07] MEDS: VITAMIN D 1,000 INTERNATIONAL UNITS TABLET PO SCH (09:46)
[2016-11-07] MEDS: predniSONE 20 MG TAB PO SCH (09:46)
[2016-11-07] MEDS: FLUCONAZOLE 100 MG TAB PO SCH (09:46)
[2016-11-07] MEDS: CETIRIZINE (ZyrTEC) 10 MG TAB PO SCH (09:46)
[2016-11-07] MEDS: ENOXAPARIN 40 MG/0.4 ML SYRINGE (J1650) SC SCH (09:48)
[2016-11-07] MEDS: FLUTICASONE PROP 0.05% NASAL SPRAY 16 GM (FLONASE) SCH (09:49)
--- NOTE | 2016-11-07 11:43 | DS.PDOC ---
Discharge Summary General Date of Admission Oct 22, 2016 at 04:54 Date of Discharge Nov 07, 2016 Primary Care Physician: Obi Wilhelm MD Specialist/Consultants Involve: MICHAEL GUERRIER DO Discharge Summary PROCEDURES PERFORMED DURING STAY: [None.] COMPLICATIONS/CHIEF COMPLAINT: Community Acquired Pneumonia ADMISSION DIAGNOSES: 1. Acute hypoxic respiratory failure 2. Pneumonia 3. Ulcerative Colitis 4. Anxiety/Depression 5. COPD exacerbation DISCHARGE DIAGNOSES: 1. Chronic hypoxic respiratory failure 2. Ulcerative colitis 3. COPD exacerbation 4. Pneumonia 5. RSV 6. Anxiety/depression HISTORY OF PRESENT ILLNESS: Patient is a 66 year old female admitted for acute hypoxic respiratory failure found to be septic deemed secondary to pneumonia. HOSPITAL COURSE: Patient was admitted for acute hypoxic respiratory panel. Started on IV antibiotics for pneumonia. She was requiring supplemental oxygen to maintain adequate O2 saturations. Respiratory panel did reveal RSV. She completed an appropriate course of antimicrobials. Hospital stay was complicated with abdominal pain. CT abdomen revealed possible obstruction and possible rectal mass. 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 She does have a history of UC s/p J pouch. Patient was unable to be weaned of oxygen, as she desaturated to 85% on RA with ambulation. As such patient is being discharged with home O2. DISCHARGE MEDICATIONS: Please see below. ALLERGIES: Please see below. PHYSICAL EXAMINATION ON DISCHARGE: VITAL SIGNS: Please see below. GENERAL: NAD HEENT: NC/AT, EOMI, PERRL NECK: supple CARDIOVASCULAR EXAMINATION: +S1S2, RRR RESPIRATORY EXAMINATION: CTA B/L ABDOMINAL EXAMINATION: soft, NT, +BS EXTREMITIES: no edema SKIN: no rashes NEUROLOGICAL EXAMINATION: no gross focal deficits PSYCHIATRIC EXAMINATION: AAOx3 LABORATORY DATA: Please see below. IMAGING: VTE Prophylaxis ordered?: yes DISCHARGE CONDITION: [Stable]. DISPOSITION: Discharge home with services. ACTIVITY: as tolerated ITEMS TO FOLLOWUP ON OUTPATIENT: 1. Follow up with GI DR. Padilla in [place] as directed for further evaluation of possible rectal mass. DISCHARGE PLAN AND INSTRUCTIONS: 1. PCP in 3-5 days TIME SPENT ON DISCHARGE: Greater than 30 minutes. Vital Signs/I&Os Vital Signs Date Time Temp Pulse Resp B/P Pulse Ox O2 Delivery O2 Flow Rate FiO2 11/07/16 09:47 20 11/07/16 06:00 97.0 73 139/72 93 Nasal Cannula 1.0 I&O- Last 24 Hours up to 6 AM 11/07/16 06:00 Intake Total 1650 ml Output Total 2100 ml Balance -450 ml Laboratory Data Labs 24H Laboratory Tests 2 11/07/16 06:04: Anion Gap 7L, White Blood Count 6.8, Red Blood Count 3.85L, Hemoglobin 10.5L, Hematocrit 34.0L, Mean Corpuscular Volume 88.5, Mean Corpuscular Hemoglobin 27.3 , Mean Corpuscular Hemoglobin Concent 30.9L, Red Cell Distribution Width 14.3, Platelet Count 328, Neutrophils (%) (Auto) 62.3, Lymphocytes (%) (Auto) 24.3, Monocytes (%) (Auto) 7.6H, Eosinophils (%) (Auto) 3.0, Basophils (%) (Auto) 1.1H , Neutrophils # (Auto) 4.3, Lymphocytes # (Auto) 1.8, Monocytes # (Auto) 0.5, Eosinophils # (Auto) 0.2, Basophils # (Auto) 0.1, Blood Urea Nitrogen 12, Creatinine 1.08H, Sodium Level 141, Potassium Level 4.0, Chloride Level 105, Carbon Dioxide Level 29, Calcium Level 8.6L, Glomerular Filtration Rate 54.0, Large Unclassified Cells # 0.1, Large Unclassified Cells % 1.7 CBC/BMP Laboratory Tests 11/07/16 06:04 Calcium Level 8.6 L, Red Blood Count 3.85 L, Mean Corpuscular Volume 88.5, Mean Corpuscular Hemoglobin 27.3, Mean Corpuscular Hemoglobin Concent 30.9 L, Red Cell Distribution Width 14.3, Neutrophils (%) (Auto) 62.3, Lymphocytes (%) (Auto ) 24.3, Monocytes (%) (Auto) 7.6 H, Eosinophils (%) (Auto) 3.0, Basophils (%) ( Auto) 1.1 H, Neutrophils # (Auto) 4.3, Lymphocytes # (Auto) 1.8, Monocytes # ( Auto) 0.5, Eosinophils # (Auto) 0.2, Basophils # (Auto) 0.1 Microbiology Microbiology 10/29/16 Gram Stain - Final, Complete 10/29/16 Sputum Culture - Final, Complete Yeast Like Organism Medications Scheduled (Flonase Allergy Relief) 50 Mcg/Act Spr 2 SPRAYS NA BID Cetirizine HCl (Zyrtec Allergy) 10 Mg Tab 10 MG PO DAILY Cholecalciferol (Vitamin D) 1,000 Unit Tab 1,000 UNIT PO DAILY Cyanocobalamin (Vitamin B-12) 1,000 Mcg Sub 1,000 MCG SL DAILY Fluconazole (Diflucan) 100 Mg Tab 100 MG PO DAILY Fluticasone/Vilanterol (Breo Ellipta 200-25 Mcg/INH) 1 Inh Inh 1 INH INH DAILY Pregabalin (Lyrica) 50 Mg Cap 50 MG PO QID Sertraline Hcl (Zoloft) 100 Mg Tab 150 MG PO QHS Trazodone HCl (Trazodone HCl) 100 Mg Tab 200 MG PO QHS Scheduled PRN (Oxycodone/Acetaminophen 10-325 mg) 1 Tab Tab 2 TAB PO Q6H PRN PRN PAIN Allergies Coded Allergies: Amoxicillin (Verified Allergy, Mild, RASH, INCREASED HEARTRATE, 10/07/14) Clavulanic Acid (Verified Allergy, Mild, RASH, INCREASED HEARTRATE, ) NSAIDs (Verified Adverse Reaction, Severe, kidney failure, 10/07/14) Tapentadol (Verified Adverse Reaction, Intermediate, HAIR LOSS, WEIGHT LOSS, MEMORY LOSS, 10/07/14) AVA CEBALLOS MD Nov 07, 2016 11:43
== END 2016-11-07 13:10 | disposition home or self-care (01) | DRG 871 ==
LOC: M ED 02:04 → M ED INP 04:54 → M PCU 13:21 → M MSPAV 10-27 16:43
PROVIDERS: ADMIT Hospitalist; ATTEND Internal Medicine
DX: A41.9 Sepsis, unspecified organism (principal); J18.9 Pneumonia, unspecified organism; J96.01 Acute respiratory failure with hypoxia; K51.90 Ulcerative colitis, unspecified, without complications; J44.0 Chronic obstructive pulmonary disease with (acute) lower respiratory infection; N17.9 Acute kidney failure, unspecified; N18.3 Chronic kidney disease, stage 3 (moderate); E55.9 Vitamin D deficiency, unspecified; F32.9 Major depressive disorder, single episode, unspecified; M54.9 Dorsalgia, unspecified; B97.4 Respiratory syncytial virus as the cause of diseases classified elsewhere; K62.9 Disease of anus and rectum, unspecified; R65.20 Severe sepsis without septic shock; F41.9 Anxiety disorder, unspecified; Z87.891 Personal history of nicotine dependence; Z88.0 Allergy status to penicillin; Z88.6 Allergy status to analgesic agent; Z88.8 Allergy status to other drugs, medicaments and biological substances; Z79.899 Other long term (current) drug therapy; Z90.49 Acquired absence of other specified parts of digestive tract

== ENCOUNTER → 2017-02-15 | Outpatient (CLI) | payer MEDICARE ==
[~2017-02-15] MED LIST changes: +FLUC10TA PO; +VITA-113 SL; +VITA100066 PO; +ZOLO100T PO
--- NOTE | 2017-02-15 18:28 | REP ---
CT CHEST WITHOUT CONTRAST: REASON: Followup abnormal lung opacities. COMPARISON: Multiple latest 10/31/2016. The mediastinum and pulmonary yunior are unchanged showing no evidence of a mass or adenopathy. The imaged upper abdomen and imaged osseous structures are unchanged. Evaluation of the lung moreira again shows extensive lung filed hyperexpansion and extensive bullous emphysematous changes and pleural blebs seen in the lung upper lobe and apical regions right greater than left status quo. The asymmetric and patchy lung base opacities seen on the prior exam have markedly improved with only a minimal patchy residual. The left lower lobe lung nodule seen on the latest prior which measured 5 mm has actually gotten smaller and today that nodule measures 3 mm. Basilar reticulonodular densities persist. These too have improved. IMPRESSION: Improved lung field findings as described above. There is no Fleischner's society criteria on the recommendation for followup of such abnormalities. Followup should be based on clinical assessment. Signed by Nehemias Lee DO 02/15/2017 06:53 P
== END ==
LOC: M RAD 16:49
PROVIDERS: ATTEND Internal Medicine Pulmonary Disease
DX: J44.9 Chronic obstructive pulmonary disease, unspecified (principal)

== ENCOUNTER 2017-04-10 18:39 | Emergency (ER) | payer MEDICARE ==
[~2017-04-10] VITALS: Ht 162.6 cm; Wt 66.8 kg
[~2017-04-10 18:39] MED LIST changes: -AVEL1TAB PO; +AVEL1TAB3 PO; -FOLI1TAB2 PO; +FOLI1TAB4 PO; +TRAZ-136 PO; -TRAZ100T4 PO
[2017-04-10 19:42] LABS: CALCIUM LEVEL 8.6 MG/DL (8.8-10.2); CREATININE FOR GFR 1.88 MG/DL (0.55-1.02); GLOMERULAR FILTRATION RATE 28.5 (>45); POTASSIUM SERUM 4.1 MEQ/L (3.5-5.1)
[2017-04-10] MEDS ORDERED: NS 1,000 ML IV ONE (20:15)
[2017-04-10] MEDS ORDERED: NS 500 ML IV ONE (20:45)
[2017-04-10 20:46] VITALS: O2SAT 85
[2017-04-10 22:21] VITALS: BP 126/60
== END 2017-04-10 22:36 | disposition home or self-care (01) ==
LOC: M ED 18:39
DX: I95.1 Orthostatic hypotension (principal); K52.9 Noninfective gastroenteritis and colitis, unspecified; J44.9 Chronic obstructive pulmonary disease, unspecified; Z87.891 Personal history of nicotine dependence

== ENCOUNTER → 2017-05-02 | Outpatient (CLI) | payer MEDICARE ==
[~2017-05-02] MED LIST changes: +E-Z-GAS II EFFERVESCENT PACKET (SODIUM BICARB./CITRIC ACID/SIMETHICONE) As Ordered ONE; +E-Z-HD 98% w/w 340GM SUSP BTL As Ordered ONE; +E-Z-PAQUE 96% w/w SUSP 176GM BTL As Ordered ONE; +PRED20TA PO; +TUSSSUS6 PO
--- NOTE | 2017-05-02 11:42 | REP ---
ESOPHAGRAM: Procedure is performed by NATASHA Quintana, under the direct supervision of Dr. Kessler. All images were reviewed with Dr Kessler prior to dictation. The patient was able to ingest liquid barium and air in a quantity sufficient to produce a double contrast examination. The oral and pharyngeal stages of deglutition appeared unremarkable. Esophageal transport was prompt and efficient. There was no evidence of esophagitis, stricture, mucosal ring or hiatal hernia. Gastroesophageal reflux was observed on this exam. IMPRESSION: Gastroesophageal reflux. Otherwise unremarkable esophagram. Fluoroscopy time was 1 minute 51 seconds. Reviewed by NATASHA Graham 05/02/2017 12:28 PEdited and Signed by Zane Kessler MD 05/02/2017 08:10 P
== END ==
LOC: M RAD 08:55
PROVIDERS: ATTEND Family Medicine
DX: R13.11 Dysphagia, oral phase (principal); K21.9 Gastro-esophageal reflux disease without esophagitis

== ENCOUNTER → 2017-06-13 | Outpatient (CLI) | payer MEDICARE ==
[~2017-06-13] MED LIST changes: -E-Z-GAS II EFFERVESCENT PACKET (SODIUM BICARB./CITRIC ACID/SIMETHICONE) As Ordered ONE; -E-Z-HD 98% w/w 340GM SUSP BTL As Ordered ONE; -E-Z-PAQUE 96% w/w SUSP 176GM BTL As Ordered ONE
[2017-06-13 15:27] LABS: BASO # 0.1 K/mm3 (0.0-0.2); BASO % 0.8 % (0.0-1.0); EOS # 0.3 K/mm3 (0.0-0.50); EOS % 3.1 % (0.0-3.0); LARGE UNSTAINED CELL # 0.1 K/mm3 (0.0-0.4); LARGE UNSTAINED CELL % 0.9 % (0.0-4.0); LYMPH # 1.2 K/mm3 (1.5-4.5); LYMPH % 12.3 % (24.0-44.0); MEAN CORPUSCULAR HEMOGLOBIN 27.3 pg (27.0-33.0); MEAN CORPUSCULAR HGB CONC 32.6 g/dl (32.0-36.5); MEAN CORPUSCULAR VOLUME 83.8 fl (80.0-96.0); MONO # 0.6 K/mm3 (0.0-0.8); MONO % 6.3 % (0.0-5.0); NEUTROPHILS % 76.5 % (36.0-66.0); PLATELET COUNT, AUTOMATED 220 k/mm3 (150-450); RED CELL DISTRIBUTION WIDTH 14.1 % (11.5-14.5); WHITE BLOOD COUNT 9.1 K/mm3 (4.0-10.0)
[2017-06-13 15:51] LABS: ALBUMIN/GLOBULIN RATIO 0.88 (1.00-1.93); BILIRUBIN,TOTAL 0.4 MG/DL (0.2-1.0); CALCIUM LEVEL 8.4 MG/DL (8.8-10.2); CREATININE FOR GFR 1.2 MG/DL (0.55-1.02); GLOMERULAR FILTRATION RATE 47.7 (>45); POTASSIUM SERUM 3.7 MEQ/L (3.5-5.1); TOTAL PROTEIN 6.4 GM/DL (6.4-8.2)
== END ==
LOC: M LAB 15:05
PROVIDERS: ATTEND Psychiatry & Neurology Neurology
DX: G43.909 Migraine, unspecified, not intractable, without status migrainosus (principal); J40 Bronchitis, not specified as acute or chronic

== ENCOUNTER 2017-07-08 16:43 | Emergency (ER) | payer MEDICARE ==
[~2017-07-08] VITALS: Ht 162.6 cm; Wt 65.5 kg
[~2017-07-08 16:43] MED LIST changes: -PRED20TA PO; -TUSSSUS6 PO
[2017-07-08] MEDS ORDERED: LOMO2.5T PO (17:04)
[2017-07-08] MEDS ORDERED: PRED20TA PO (17:04)
[2017-07-08] MEDS ORDERED: methylPREDNISolone INJ 125 MG/2 ML VIAL (J2930) IV ONE (17:45)
[2017-07-08] MEDS ORDERED: PSEUDOEPHEDRINE 30 MG TAB PO ONE (17:45)
[2017-07-08] MEDS: IPRATROPIUM 0.5MG/ALBUTEROL 2.5MG INH SOL UD 3ML (DUONEB)(J7620) NEB PRN ×3 (17:58→18:20)
[2017-07-08 18:15] LABS: BASO # 0.1 10^3/uL (0.0-0.2); BASO % 0.7 % (0.0-1.0); EOS % 0.2 % (0.0-3.0); IMMATURE GRANULOCYTE % 1.2 % (0-0); LYMPH # 1.4 10^3/uL (1.5-4.5); LYMPH % 12.5 % (24.0-44.0); MEAN CORPUSCULAR HGB CONC 31.4 g/dl (32.0-36.5); MONO # 0.5 10^3/uL (0.0-0.8); MONO % 4.6 % (0.0-5.0); NEUTROPHILS # 8.7 10^3/uL (1.8-7.7); NEUTROPHILS % 80.8 % (36.0-66.0); PLATELET COUNT, AUTOMATED 231 10^3/uL (150-450); RED CELL DISTRIBUTION WIDTH 15.6 % (11.5-14.5); WHITE BLOOD COUNT 10.8 10^3/uL (4.0-10.0)
[2017-07-08 18:19] LABS: VENOUS BASE EXCESS -3.1 (-2.0-2.0); VENOUS O2 SATURATION 87.2 % (60.0-80.0); VENOUS PARTIAL PRESSURE CO2 37.5 mmHg (38.0-50.0); VENOUS PARTIAL PRESSURE O2 53.5 mmHg (30.0-50.0); VENOUS STANDARD HCO3 21.7 MEQ/L; VENOUS TOTAL CO2 22.7 MEQ/L (24.0-28.0)
[2017-07-08] MEDS ORDERED: ACETAMINOPHEN TAB 650MG DOSE (2X325MG) PO ONE (18:30)
[2017-07-08 18:38] LABS: CALCIUM LEVEL 8.7 MG/DL (8.8-10.2); CREATININE FOR GFR 1.88 MG/DL (0.55-1.02); GLOMERULAR FILTRATION RATE 28.4 (>45); POTASSIUM SERUM 4.7 MEQ/L (3.5-5.1)
[2017-07-08] MEDS ORDERED: TUSSSUS6 PO (19:14)
[2017-07-08] MEDS ORDERED: AVEL1TAB3 PO (19:14)
[2017-07-08 19:25] VITALS: BP 141/74
--- NOTE | 2017-07-09 11:30 | REP ---
Chest x-ray: Two views. History: Dyspnea and cough. Comparison study: November 05, 2016. Findings: The lungs are rather hyperinflated and there is emphysema and significant oligemia in the upper lobes bilaterally, right more so than left. These changes are stable. No focal infiltrate is seen. Pleural angles are sharp. Heart is not enlarged. There are surgical clips projecting posterior medially in the left chest unchanged. No significant bony abnormality is seen. Impression: Evidence of COPD. No acute infiltrate. Signed by Rolan Hayden MD 07/09/2017 09:37 A
== END 2017-07-08 19:45 | disposition home or self-care (01) ==
LOC: M ED 16:43
DX: J44.1 Chronic obstructive pulmonary disease with (acute) exacerbation (principal); J32.9 Chronic sinusitis, unspecified; I11.9 Hypertensive heart disease without heart failure; Z86.73 Personal history of transient ischemic attack (TIA), and cerebral infarction without residual deficits; Z79.899 Other long term (current) drug therapy; Z79.51 Long term (current) use of inhaled steroids; Z88.0 Allergy status to penicillin; Z88.8 Allergy status to other drugs, medicaments and biological substances; Z87.891 Personal history of nicotine dependence
CPT/HCPCS: 71020; 80048; 82803; 85025; 94640; 96374; 99283; J2930

== ENCOUNTER → 2017-08-22 | Outpatient (CLI) | payer OTHER ==
[~2017-08-22] MED LIST changes: +LEVA1TAB2 PO; +OXYCODONE; +PRED20TA PO; +TUSSSUS6 PO
--- NOTE | 2017-09-11 00:11 | ECWPNPC ---
PATIENT NAME: RADHA HENRY : 1950 GENDER: FEMALE VISIT DATE: 08/22/2017 DISCHARGE DATE: 08/22/17 1515 VISIT LOCKED DATE TIME: PHYSICIAN: TESS SMITH RESOURCE: TESS SMITH REASON FOR APPOINTMENT 1. W/C BACK HISTORY OF PRESENT ILLNESS NEW PATIENT CONSULT: WHEN DID YOUR PAIN FIRST START? . BRIEFLY DESCRIBE HOW YOUR PAIN STARTED? . HOW DOES YOUR PAIN CHANGE WITH TIME? . DOES YOUR PAIN AWAKEN YOU FROM SLEEP? . HOW MANY HOURS OF SLEEP DO YOU NORMALLY GET? . ANY DIAGNOSTIC TESTING? . FACILITY WHERE TESTS WERE DONE? ____. PAIN TREATMENT TREATMENT YES CANCER HAVE YOU EVER HAD ANY TYPE OF CANCER?NO NO. PAIN SCREENING: PATIENT HAS A COMPLAINT OF ACUTE OR CHRONIC PAIN :YES FALL RISK SCREENING: SCREENING :NO FALLS IN THE PAST YEAR TURCIOS INVENTORY: QUESTIONNAIRE ASSESSEDYES SCORE VALUE CALCULATED YES SCORE: . DENIES SUICIDAL IDEATION TODAY'S VISIT: NOTES: PT REFERRED BY YARIEL PERERA/Jenny DAVIES MD FROM [facility] FOR CHRONIC LOW BACK PAIN. THIS IS A WORKERS COMP COVERED INJURY. PT HAS PREVIOUSLY BEEN SEEN HERE AT [facility] BY Flip MOREAU AND MORE RECENTLY BY DR Bel RIGGINS AT [facility]. ONSET OF INSURY WAS 06/24/2006 WHILE WORKING AT [place], [place]. STATES SHE PICKED UP AN 85# ROUND OF WIRE WHEN IT FELL OFF THE CART. STATES HAS NOT WORKED SINCE. REPORTS PAIN IN CENTER LOW BACK HAS NOT CHANGED MUCH WITH THE EXCEPTION OF NEW NUMBNESS IN RIGHT LEG. HAS HAD N/T IN LEFT LEG SINCE SECOND BACK SURGERY. HAS HAD EMG/NCS TO LEFT LEG BUT NOT THE RIGHT. NO RECENT FALLS. NO LOSS OF BOWEL CONTROL BUT DOES HAVE HX OF ULCERATIVE COLITIS. NO LOSS OF BLADDER CONTROL. DID HAVE INJECTION THERAPY IN [place] MANY YEARS AGO. HAD PHYSICAL THERAPY MANY YEARS AGO. DOES NOT BELIEVE SHE COULD DO PT DUE TO HER PAIN. STATES LYRICA IS NOT HELPFUL HOPED. OTHER MEDS HAVE INCLUDED PERCOCET, MUSCLE RELAXERS IN PAST, NEVER ON AMITRIPTYLINE, . CURRENT MEDICATIONS TAKING LYRICA 50 MG CAPSULE 2 CAPSULE ORALLY 2 TIMES A DAY TAKING TRAZODONE HCL 100 MG TABLET 2 TABLET AT BEDTIME ORALLY ONCE A DAY TAKING SERTRALINE HCL 100 MG TABLET 1 TABLET ORALLY ONCE A DAY TAKING LOMOTIL 2.5-0.025 MG TABLET 1 TAB ORALLY DAILY TAKING VENTOLIN HFA 108 (90 BASE) MCG/ACT AEROSOL SOLUTION 2 PUFFS NEEDED INHALATION EVERY 6 HRS TAKING ZYRTEC 10 MG ORALLY DAILY TAKING BREO ELLIPTA 200-25 MCG/INH AEROSOL POWDER BREATH ACTIVATED 1 PUFF INHALATION ONCE A DAY MEDICATION LIST REVIEWED AND RECONCILED WITH THE PATIENT PAST MEDICAL HISTORY COLITIS PNEUMONIA ACUTE ARTHRITIS BRONCHITIS / COPD LOW BACK PAIN / NECK PAIN / THORACIC PAIN TIA'S YEARS AGO DECREASED KIDNEY FUNCTION REFLUX ALLERGIES AUGMENTIN: HEART PALPITATIONS: ALLERGY NUCYNTA: LOSS HAIR, WGT LOSS AND ITCHING: ALLERGY NSAIDS: KIDNEY FUNCTION: SIDE EFFECTS SURGICAL HISTORY APPENDECTOMY TERESITA CATARACTS GALLBLADDER HERNIA REPAIR HYSTERECTOMY LUMBAR LAMI 2009 LEFT SHOULDER SURGERY LEFT CARPAL TUNNEL L4- S1 LUMBAR FUSION 2010 TONSILLECTOMY BOWEL RESECTION FOR ULCERATIVE COLITIS 1999 REMOVED POLYPS FROM [facility] FAMILY HISTORY FATHER: , DIAGNOSED WITH HEART DISEASE, CANCER MOTHER: , DIAGNOSED WITH CANCER 5 BROTHER(S) , 1 SISTER(S) . 1 SON(S) , 1 DAUGHTER(S) . 1 SISTER FROM CANCER AT AGE OF 121 BROTHER FROM CANCERSON HAS HEART ISSUESDAUGHTER HAS SEIZURES. SOCIAL HISTORY GENERAL: TOBACCO USE ARE YOU A:FORMER SMOKER HOW LONG HAS IT BEEN SINCE YOU LAST SMOKED?> 10 YEARS ALCOHOL SCREENING POINTS0 INTERPRETATIONNEGATIVE RECREATIONAL DRUG USE DRUG USE?NO RELIGIOUS [id number] NONE LANGUAGE LANGUAGES SPOKEN:CZECH LEARNING BARRIERS / SPECIAL NEEDS BARRIERS TO LEARNING?NO HEARING IMPAIRED?NO VISION IMPAIRED?YES :CORRECTIVE LENSES COGNITIVELY IMPAIRED?NO READINESS TO LEARN?YES LEARNING PREFERENCES?NO LEARNING CAPABILITIES PRESENT?YES EMOTIONAL BARRIERS?NO SPECIAL DEVICES?NO TEACHER'S AIDE NEEDED?NO PAIN CLINIC PFS, CLERGY, PUBLIC HEALTH REFERRALS PFS REFERRAL NEEDED?NO CLERGY REFERRAL NEEDED?NO PUBLIC HEALTH REFERRAL NEEDED?NO WAS THE PROVIDER NOTIFIED OF ANY PERTINENT INFO?NO HAS THE PATIENT BEEN EDUCATED REGARDING HIS/HER PLAN OF CARE?YES HAS THE PATIENT BEEN EDUCATED REGARDING PAIN, THE RISK FOR PAIN, THE IMPORTANCE OF EFFECTIVE PAIN MANAGEMENT, AND THE PAIN ASSESSMENT PROCESS?YES PATIENT: ____. ADVANCE DIRECTIVES HEALTH CARE PROXY?NO WOULD YOU LIKE MORE INFORMATION?NO DO YOU HAVE A DNR?NO WOULD YOU LIKE MORE INFORMATION?NO LIVING WILL?NO WOULD YOU LIKE MORE INFORMATION?NO POWER OF STRIP TANK TENDER?NO WOULD YOU LIKE MORE INFORMATION?NO REVIEW OF SYSTEMS FOLLOW-UP ROS: PULMONOLOGY: NOTES GETS UPSET BECAUSE CAN NOT WALK TO CARE FOR HOME BEFORE . REVIEWED BY: PROVIDER: . CONSTITUTIONAL: ANY CHANGE IN YOUR MEDICAL CONDITION? NO . CHILLS NO . FEVER NO . INFECTION: DO YOU HAVE NEW INFECTIONS? NO . DO YOU HAVE HISTORY OF MRSA? NO . MUSCULOSKELETAL: ANY NEW PATTERNS OF PAIN OR NUMBNESS? NO . SYTEMIC LUPUS NO . GASTROENTEROLOGY: ANY NEW CHANGE IN BOWEL CONTROL? NO . BARRETTS ESOPHAGUS NO . CIRRHOSIS NO . HEPATITIS NO . LIVER FAILURE NO . ACID REFLUX NO . UNEXPLAINED WEIGHT LOSS NO . GENITOURINARY: ANY NEW CHANGE IN BLADDER CONTROL? NO . IS THERE A CHANCE YOU COULD BE ? NO . HEMATOLOGY/LYMPH: DO YOU TAKE ANY BLOOD THINNERS? (FOR EXAMPLE- COUMADIN, PLAVIX, AGGRENOX, PLATEL, PRADAXA, OR XARELTO) NO . WHEN WAS YOUR LAST DOSE? DATE: TIME: . LOW PLATELET COUNT NO . SICKLE CELL DISEASE NO . VON WILLIEBRANDS NO . FACTOR V LEIDEN NO . THALLASEMIA NO . ANEMIA NO . EASY BRUISING NO . NEUROLOGY: HAVE YOU FALLEN IN THE PAST 6 MONTHS? NO . ANY NEW EXTREMITY NUMBNESS OR WEAKNESS? NO . HEAD INJURY NO . DEMENTIA NO . CEREBRAL PALSY NO . MULTIPLE SCLEROSIS NO . DIZZINESS NO . HEADACHE YES - SEES DR ROJAS AT NEUROLOGY . STROKES NO . VERTIGO NO . CARDIOLOGY: DO YOU HAVE A PACEMAKER OR DEFIBRILLATOR? NO . ANGINA NO . HEART ATTACK NO . HEART SURGERY NO . CONGESTIVE HEART FAILURE/FLUID OVERLOAD NO . CHEST PAIN NO . HIGH BLOOD PRESSURE NO . IRREGULAR HEART BEAT NO . RESPIRATORY: HAVE YOU BEEN SICK IN THE PAST WEEK? YES, COUGH . FEVER NO . FLU LIKE SYMPTOMS? NO . CPAP NO . BYPAP NO . ASTHMA NO . EMPHYSEMA YES . CHRONIC LUNG DISEASES YES - HAD PNEUMONIA SEPTEMBER 2016 AND JUNE 2017 WITH PROLONGED HOSPITALIZATION . SHORTNESS OF BREATH ON EXERTION YES . DO YOU USE ANY TYPE OF TOBACCO (SMOKE, SMOKELESS, CHEW)? NO . COUGH YES . SNORING NO . INTEGUMENTARY: DO YOU HAVE ANY RASHES OR OPEN SORES? NO . ALLERGIC/IMMUNO: ARE YOU ALLERGIC TO SHELLFISH OR IV DYE? NO . ANY NEW ALLERGIES? NO . PSYCHIATRIC: DO YOU HAVE THOUGHTS OF HURTING YOURSELF OR SOMEONE ELSE? NO . ARE YOU ABUSED, NEGLECTED, OR IN AN UNSAFE ENVIRONMENT? NO . ENDOCRINOLOGY: ARE YOU DIABETIC? NO . THYROID DISORDER NO . OTHER: DO YOU NEED ANY PRESCRIPTIONS? NO . IF YES, PLEASE LIST: ____ . ANY NEW PROBLEMS WITH YOUR MEDICATIONS? NO . WHEN DID YOU LAST EAT? ____ . WHEN DID YOU LAST DRINK? ____ . WHAT DID YOU LAST DRINK? ____ . NAME OF PERSON DRIVING YOU HOME? ____ . DO YOU HAVE ANY OTHER QUESTIONS OR CONCERNS NO . VITAL SIGNS WT 149 LBS, HT 64 IN, BMI 25.57 INDEX, BP 103/63 MM HG, HR 90 /MIN, RR 16 /MIN, TEMP 97.0 F, OXYGEN SAT % 91%, SAFE IN ENV? (Y/N) YES, REVIEWED BY: NAS. EXAMINATION GENERAL EXAMINATION: PSYCHALERT , ORIENTED X 3 , APPROPRIATE MOOD AND AFFECT , GOOD HSTORIAN . LUNGS:DECREASED AIR ENTRY AT BASES, NO WHEEZES, RALES OR RHONCHI. SHORT OF BREATH ON EXERTION . HEART:HEART RATE REGULAR, S1, S2 IN A REGULAR RATE AND RHYTHM. NO SIGNIFICANT MURMURS, RUBS OR GALLOPS NOTED . MUSCULOSKELETAL:ABLE TO FLEX SPINE TO 30 DEGREES, CAN NOT EXTEND PAST MIDLINE. SLR + AT 30 DEGREES ON LEFT, 45 DEGREES ON RIGHT. POINT TENDERRNESS OVER LUMBAR SPNOUS PROCESSES AND L>R SIJ . GAIT ANTALGIC. HAS DIFF WITH HEEL AND TOE WALK. . EXTREMITIES:PULSES 2 PLUS BILATERALLY, NO EDEMA. NEUROLOGIC EXAM:CN'S II-XII GROSSLY INTACT. DTR'S 1_ BILARERAL UPPER EXTREMITIES, 2+ BILATERAL LOWER ETREMITIES. NO SENSORY DEFIECEIT LOWER EXTREMITIES. PLANTAR RESPONSE ID FLEXOR. NO CLONUS . DIAGNOSTIC TESTS REVIEWEDMRO OF 10/12/16 REVIEWED. ASSESSMENTS LUMBAR POST-LAMINECTOMY SYNDROME - M96.1 (PRIMARY) LUMBAR RADICULOPATHY - M54.16 TREATMENT LUMBAR POST-LAMINECTOMY SYNDROME REFILL LYRICA CAPSULE, 150 MG, 1 CAPSULE, ORALLY, 2 TIMES A DAY MDD=2, 30 DAY(S), 60, REFILLS 1 INJECTION ANESTHETIC SACROILIAC JOINTTESS SMITH 08/22/2017 2:57:10 PM > BILATERAL CLINICAL NOTES: PT IS SEEN TODAY FOR THE WC COVERED BODY PART OF THE LOW BACK. CASE REVIEWED WITH DR BUTLER AND BASED ON THIS REVIEW WE WILL MOVE FORWARD WITH TREATMENT TO INCLUDE CONTINUATION OF LYRICA AND STEROID INJECTION TO THE BILATERAL SACRALILIAC JOINTS. THIS HAS BEEN EFFECTIVE IN THE PAST. WILL DISCUSS FURTHER TREATMENT SUCH OTHER MEDS AND PHYSICAL THERAPY. PROCEDURES PN WORKMANS' COMP OPINION IN YOUR OPINION, WAS THE INCIDENT THAT THE PATIENT DESCRIBED THE COMPETENT MEDICAL CAUSE OF THIS INJURY/ILLNESS? YES ARE THE PATIENT'S COMPLAINTS CONSISTENT WITH HIS/HER HISTORY OF THE INJURY/ILLNESS? YES IS THE PATIENT'S HISTORY OF THE INJURY/ILLNESS CONSISTENT WITH YOUR OBJECTIVE FINDING? YES WHAT IS THE PERCENTAGE OF TEMPORARY IMPAIRMENT? MODERATE TO MARKED = 66.7% IS THE PATIENT WORKING? NO DOCTOR ON SITE: ADRIANA LAMB MD DISPOSITION & COMMUNICATION FOLLOW UP 6 WEEKS (REASON: WC GET PA FOR BILATERAL SIJ AND PHYSICAL THERAPY) ELECTRONICALLY SIGNED BY PRIETO MCGREGOR ON 09/10/2017 AT 03:27 PM EST DISCLAIMER : THIS IS A VISIT SUMMARY EXTRACTED FROM THE [employer] CHART. IT IS NOT A COPY OF THE [employer] PROGRESS NOTE. CONY
== END ==
LOC: M PAIN 13:15
PROVIDERS: ATTEND Nurse Practitioner Family
DX: G89.29 Other chronic pain (principal); M96.1 Postlaminectomy syndrome, not elsewhere classified; M54.16 Radiculopathy, lumbar region; J44.9 Chronic obstructive pulmonary disease, unspecified; I25.2 Old myocardial infarction; Z88.1 Allergy status to other antibiotic agents; Z88.6 Allergy status to analgesic agent; Z88.8 Allergy status to other drugs, medicaments and biological substances; Z79.51 Long term (current) use of inhaled steroids; Z79.899 Other long term (current) drug therapy; Z87.891 Personal history of nicotine dependence

== ENCOUNTER 2017-09-05 12:49 | Emergency (ER) | payer MEDICARE ==
[~2017-09-05] VITALS: Ht 162.6 cm; Wt 67.7 kg
[~2017-09-05 12:49] MED LIST changes: -LEVA1TAB2 PO; -OXYCODONE
[2017-09-05 12:50] VITALS: BP 125/62
[2017-09-05] MEDS ORDERED: OXYCODONE (13:01)
[2017-09-05] MEDS ORDERED: ALBUTEROL SULFATE 2.5 MG/0.5 ML INH NEB SOLN NEB ONE (13:45)
[2017-09-05] MEDS ORDERED: NS 500 ML IV ONE (13:45)
[2017-09-05 14:17] LABS: BASO # 0.1 10^3/uL (0.0-0.2); BASO % 1.3 % (0.0-1.0); EOS # 0.3 10^3/uL (0.0-0.50); EOS % 4.3 % (0.0-3.0); IMMATURE GRANULOCYTE % 0.3 % (0-0); LYMPH # 1.5 10^3/uL (1.5-4.5); MEAN CORPUSCULAR HEMOGLOBIN 26.8 pg (27.0-33.0); MEAN CORPUSCULAR HGB CONC 32.1 g/dl (32.0-36.5); MEAN CORPUSCULAR VOLUME 83.4 fl (80.0-96.0); MONO # 0.6 10^3/uL (0.0-0.8); MONO % 7.7 % (0.0-5.0); NEUTROPHILS # 4.7 10^3/uL (1.8-7.7); NEUTROPHILS % 65.4 % (36.0-66.0); PLATELET COUNT, AUTOMATED 188 10^3/uL (150-450); RED CELL DISTRIBUTION WIDTH 14.8 % (11.5-14.5); WHITE BLOOD COUNT 7.2 10^3/uL (4.0-10.0)
[2017-09-05 14:27] LABS: INR 1.08
[2017-09-05 14:39] LABS: ERYTHROCYTE SEDIMENTATION RATE 18 mm/hr (0-30)
[2017-09-05] MEDS ORDERED: ISOVUE-370 76% 100ML VIAL (Q9967) As Ordered ONE (14:40)
[2017-09-05 14:44] LABS: ALBUMIN 3.5 GM/DL (3.2-5.2); ALBUMIN/GLOBULIN RATIO 1.21 (1.00-1.93); ALKALINE PHOSPHATASE 109 U/L (45-117); ALT/SGPT 12 U/L (12-78); ANION GAP 8 MEQ/L (8-16); AST/SGOT 18 U/L (7-37); BILIRUBIN,DIRECT < 0.1 MG/DL (0.0-0.2); BILIRUBIN,TOTAL 0.3 MG/DL (0.2-1.0); BLOOD UREA NITROGEN 17 MG/DL (7-18); CALCIUM LEVEL 8.3 MG/DL (8.8-10.2); CARBON DIOXIDE LEVEL 26 MEQ/L (21-32); CHLORIDE LEVEL 109 MEQ/L (98-107); CREATININE FOR GFR 1.29 MG/DL (0.55-1.02); GLOMERULAR FILTRATION RATE 43.9 (>45); GLUCOSE, FASTING 98 MG/DL (80-110); POTASSIUM SERUM 4.1 MEQ/L (3.5-5.1); SODIUM LEVEL 143 MEQ/L (136-145); TOTAL PROTEIN 6.4 GM/DL (6.4-8.2)
--- NOTE | 2017-09-05 15:06 | REP ---
Left lower extremity deep vein duplex ultrasound: The deep veins demonstrate normal compression, normal Doppler color flow and normal Doppler waveforms with respiration and augmentation from the popliteal vein to the common femoral vein. Impression: There is no deep vein thrombus of the left lower extremity. Signed by Zane Solo MD 09/05/2017 02:57 P
--- NOTE | 2017-09-05 15:28 | REP ---
Soft tissue ultrasonography of the left lateral calf and the location of a palpable lump: The patient indicates a lump has been present for approximate 1 day. There is no history of injury. In the location of the palpable lump there is a complex fluid collection in the subcutaneous soft tissues measuring 1.5 x 1.9 x 0.4 cm. This is nonspecific and could represent hematoma or abscess. Signed by Zane Solo MD 09/05/2017 03:20 P
--- NOTE | 2017-09-05 15:43 | REP ---
CT pulmonary angiogram with IV contrast. History: Shortness of breath. Low oxygen saturation. Comparison studies: Comparison CT ANGIO is from June 13, 2015. Contrast dose: 75 cc's of Isovue [address] technique: Helical scanning is acquired and overlapping 1.5 mm and contiguous 3 mm axial images are reformatted. In addition, a 3-D work station is deployed to generate thick slab maximum intensity projection images in sagittal and coronal imaging projections. CT pulmonary angiographic findings: There is good opacification of the pulmonary arterial tree. There is no CT evidence of pulmonary embolism. The thoracic aorta shows atherosclerotic calcification but otherwise enhances normally and is normal in caliber and course. No adrenal lesion is seen. There are clips in the gallbladder fossa. There is a clip in the left upper quadrant of the abdomen. The visualized upper abdominal structures are otherwise unremarkable. No pleural effusion is seen. No hilar or mediastinal mass or adenopathy is observed. Maximum intensity projection images show no evidence of vessel cutoff or filling defect. There are scattered granulomatous nodules throughout the lung moreira. There are areas of linear fibrosis in both lower lung zones. There are paraspinal calcifications in the left upper lobe status post left thoracotomy. There are advanced emphysematous changes in the upper lung zone regions bilaterally. No acute bony abnormality is seen. Impression: 1. No CT evidence of pulmonary embolism. 2. Advanced COPD with emphysematous changes. 3. Multiple calcified and noncalcified pulmonary nodules again noted unchanged from May 2015 prior study. Bilateral lower lobe linear fibrosis. Signed by Rolan Hayden MD 09/05/2017 04:04 P
[2017-09-05] MEDS ORDERED: methylPREDNISolone INJ 125 MG/2 ML VIAL (J2930) IV ONE (16:15)
[2017-09-05] MEDS ORDERED: LevoFLOXacin IV 500 MG in APPROPRIATE DILUENT 1 EA IV ONE (16:15)
[2017-09-05] MEDS ORDERED: IPRATROPIUM 0.5MG/ALBUTEROL 2.5MG INH SOL UD 3ML (DUONEB)(J7620) NEB ONE (17:30)
[2017-09-05] MEDS ORDERED: PRED20TA PO (18:17)
[2017-09-05] MEDS ORDERED: LEVA1TAB2 PO (18:17)
[2017-09-05 18:30] VITALS: O2SAT 90
--- NOTE | 2017-09-05 21:23 | ECGEPIP ---
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
== END 2017-09-05 18:34 | disposition home or self-care (01) ==
LOC: M ED 12:49
DX: J44.1 Chronic obstructive pulmonary disease with (acute) exacerbation (principal); S80.12XA Contusion of left lower leg, initial encounter; X58.XXXA Exposure to other specified factors, initial encounter; Y92.89 Other specified places as the place of occurrence of the external cause; Y93.89 Activity, other specified; Y99.8 Other external cause status; I50.9 Heart failure, unspecified; J40 Bronchitis, not specified as acute or chronic; I77.6 Arteritis, unspecified; N18.9 Chronic kidney disease, unspecified; M51.9 Unspecified thoracic, thoracolumbar and lumbosacral intervertebral disc disorder; F41.9 Anxiety disorder, unspecified; F33.9 Major depressive disorder, recurrent, unspecified; Z79.51 Long term (current) use of inhaled steroids; Z79.899 Other long term (current) drug therapy; Z88.0 Allergy status to penicillin; Z88.8 Allergy status to other drugs, medicaments and biological substances; Z86.73 Personal history of transient ischemic attack (TIA), and cerebral infarction without residual deficits; Z98.890 Other specified postprocedural states; Z96.9 Presence of functional implant, unspecified; Z87.891 Personal history of nicotine dependence; Z87.19 Personal history of other diseases of the digestive system
CPT/HCPCS: 71275; 76882; 80048; 80076; 81001; 83605; 85025; 85610; 85652; 85730; 86140; 87040; 93005; 93971; 94640; 96365; 96366; 96375; 99284; J1956; J2930; Q9967

== ENCOUNTER → 2017-10-03 | Outpatient (CLI) | payer OTHER | LOC: M PAIN 15:15 | DX: M96.1 Postlaminectomy syndrome, not elsewhere classified (principal); M54.16 Radiculopathy, lumbar region; K52.9 Noninfective gastroenteritis and colitis, unspecified; J44.9 Chronic obstructive pulmonary disease, unspecified; N25.89 Other disorders resulting from impaired renal tubular function; Z79.899 Other long term (current) drug therapy; Z88.8 Allergy status to other drugs, medicaments and biological substances; Z86.73 Personal history of transient ischemic attack (TIA), and cerebral infarction without residual deficits; Z87.891 Personal history of nicotine dependence | CPT/HCPCS: G0463 ==

== ENCOUNTER → 2017-10-10 | Outpatient (CLI) | payer OTHER ==
[~2017-10-10] MED LIST changes: -ADV500INH INH; -AVEL1TAB3 PO; -BREO1INH3 INH; +BUPIVACAINE HCL 0.25% 30 ML VIAL As Ordered; -DEPA250T2 PO; -FLON0.054; -FLON1SPR; -FLUC10TA PO; -FOLI1TAB4 PO; +ISOVUE-M 300 61% 15ML VIAL (Q9967) As Ordered; +LIDOCAINE 1% SDV INJ 30 ML VIAL As Ordered; -LOMO2.5T PO; -OXYC1TAB16 PO; -PRED10TA PO; -PRED20TA PO; -PREG50CA PO; -SERT-138 PO; -TRAZ-136 PO; +TRIAMCINOLONE ACETONIDE SUSP 40 MG/ML VIAL (J3301) As Ordered; -TUSSSUS6 PO; -VITA-113 SL; -VITA100066 PO; -VITA100072 PO; -VITA500055 PO; -ZOLO100T PO; -ZONI100C2 PO; -ZYRT10TA2 PO; +diazePAM 5 MG TAB As Ordered; +oxyCODONE 5MG TAB As Ordered
== END ==
LOC: M PAIN 11:45
DX: G89.29 Other chronic pain (principal); M46.1 Sacroiliitis, not elsewhere classified; M53.88 Other specified dorsopathies, sacral and sacrococcygeal region; Z88.1 Allergy status to other antibiotic agents; Z88.6 Allergy status to analgesic agent; Z88.8 Allergy status to other drugs, medicaments and biological substances; Z79.899 Other long term (current) drug therapy
CPT/HCPCS: J3301

== ENCOUNTER 2017-10-22 13:32 | Emergency (ER) | payer MEDICARE, OTHER ==
[2017-10-22] MEDS: NS 500 ML IV (17:26)
[2017-10-22] MEDS: MORPHINE 4 MG/ML 1ML SYRINGE IV ×3 (17:27→21:12)
[2017-10-22 17:29] LABS: BASO # 0.1 10^3/uL (0.0-0.2); BASO % 0.7 % (0.0-1.0); EOS # 0.4 10^3/uL (0.0-0.50); EOS % 2.8 % (0.0-3.0); HEMATOCRIT 41.4 % (36.0-47.0); HEMOGLOBIN 13.1 g/dl (12.0-16.0); IMMATURE GRANULOCYTE # 0.3 10^3/uL (0-0); LYMPH # 1.8 10^3/uL (1.5-4.5); LYMPH % 12.4 % (24.0-44.0); MEAN CORPUSCULAR HEMOGLOBIN 27.1 pg (27.0-33.0); MEAN CORPUSCULAR HGB CONC 31.6 g/dl (32.0-36.5); MEAN CORPUSCULAR VOLUME 85.5 fl (80.0-96.0); MONO # 0.8 10^3/uL (0.0-0.8); MONO % 5.8 % (0.0-5.0); NEUTROPHILS # 10.8 10^3/uL (1.8-7.7); NEUTROPHILS % 76.3 % (36.0-66.0); PLATELET COUNT, AUTOMATED 202 10^3/uL (150-450); RED BLOOD COUNT 4.84 10^6/uL (4.00-5.40); RED CELL DISTRIBUTION WIDTH 14.2 % (11.5-14.5); WHITE BLOOD COUNT 14.1 10^3/uL (4.0-10.0)
[2017-10-22 17:55] LABS: ALBUMIN 3.5 GM/DL (3.2-5.2); ALKALINE PHOSPHATASE 109 U/L (45-117); ALT/SGPT 13 U/L (12-78); AMYLASE 63 U/L (25-115); ANION GAP 9 MEQ/L (8-16); AST/SGOT 16 U/L (7-37); BILIRUBIN,DIRECT 0.1 MG/DL (0.0-0.2); BILIRUBIN,TOTAL 0.6 MG/DL (0.2-1.0); BLOOD UREA NITROGEN 16 MG/DL (7-18); CALCIUM LEVEL 8.6 MG/DL (8.8-10.2); CARBON DIOXIDE LEVEL 25 MEQ/L (21-32); CHLORIDE LEVEL 108 MEQ/L (98-107); CPK CREATINE PHOSPHOKINASE 33 U/L (26-192); CREATININE FOR GFR 1.22 MG/DL (0.55-1.02); GLOMERULAR FILTRATION RATE 46.8 (>45); GLUCOSE, FASTING 111 MG/DL (70-100); LIPASE 243 U/L (73-393); POTASSIUM SERUM 3.5 MEQ/L (3.5-5.1); SODIUM LEVEL 142 MEQ/L (136-145); TOTAL PROTEIN 7.4 GM/DL (6.4-8.2); TROPONIN I < 0.02 NG/ML (< 0.10)
[2017-10-22 17:56] LABS: MB/CK RELATIVE INDEX 3.03 (< OR =4)
[2017-10-22] MEDS ORDERED: ISOVUE-370 76% 100ML VIAL (Q9967) As Ordered (17:58)
[2017-10-22 17:59] LABS: LACTIC ACID SEPSIS PROTOCOL 0.9 MMOL/L (0.4-2.0)
[2017-10-22] MEDS: NS 1,000 ML IV ×2 (18:15→22:05)
[2017-10-22] MEDS: metroNIDAZOLE 500 MG in APPROPRIATE DILUENT 1 EA IV (19:45)
[2017-10-22] MEDS: CIPROFLOXACIN 400 MG in APPROPRIATE DILUENT 1 EA IV (19:56)
[2017-10-22] MEDS: METOCLOPRAMIDE INJ 10MG/2ML VIAL (J2765) IV (22:00)
== END 2017-10-22 22:10 | disposition short-term general hospital (02) ==
LOC: M ED 13:32
DX: K56.2 Volvulus (principal); J44.9 Chronic obstructive pulmonary disease, unspecified; F41.9 Anxiety disorder, unspecified; F33.9 Major depressive disorder, recurrent, unspecified; Z86.73 Personal history of transient ischemic attack (TIA), and cerebral infarction without residual deficits; Z87.19 Personal history of other diseases of the digestive system; Z79.899 Other long term (current) drug therapy; Z79.51 Long term (current) use of inhaled steroids; Z88.0 Allergy status to penicillin; Z88.8 Allergy status to other drugs, medicaments and biological substances; Z87.891 Personal history of nicotine dependence
CPT/HCPCS: Q9967

== ENCOUNTER → 2017-11-28 | Outpatient (CLI) | payer OTHER | LOC: M PAIN 14:15 | DX: M46.1 Sacroiliitis, not elsewhere classified (principal); M96.1 Postlaminectomy syndrome, not elsewhere classified; Z79.899 Other long term (current) drug therapy; Z88.8 Allergy status to other drugs, medicaments and biological substances | CPT/HCPCS: G0463 ==

== ENCOUNTER → 2018-02-16 | Outpatient (CLI) | payer MEDICARE | LOC: M RAD 15:12 | DX: M54.5 Low back pain (principal) | CPT/HCPCS: 72110 ==

== ENCOUNTER → 2018-04-24 | Outpatient (CLI) | payer OTHER | LOC: M PAIN 11:45 | DX: G89.29 Other chronic pain (principal); M46.1 Sacroiliitis, not elsewhere classified; M53.88 Other specified dorsopathies, sacral and sacrococcygeal region; J44.9 Chronic obstructive pulmonary disease, unspecified; K21.9 Gastro-esophageal reflux disease without esophagitis; Z79.51 Long term (current) use of inhaled steroids; Z79.899 Other long term (current) drug therapy; Z88.1 Allergy status to other antibiotic agents; Z88.6 Allergy status to analgesic agent; Z88.8 Allergy status to other drugs, medicaments and biological substances; Z86.73 Personal history of transient ischemic attack (TIA), and cerebral infarction without residual deficits | CPT/HCPCS: J3301 ==

== ENCOUNTER → 2018-05-14 | Outpatient (CLI) | payer OTHER | LOC: M PAIN 15:00 | DX: M96.1 Postlaminectomy syndrome, not elsewhere classified (principal); M54.16 Radiculopathy, lumbar region; J44.9 Chronic obstructive pulmonary disease, unspecified; Z86.73 Personal history of transient ischemic attack (TIA), and cerebral infarction without residual deficits; K21.9 Gastro-esophageal reflux disease without esophagitis; Z90.49 Acquired absence of other specified parts of digestive tract; Z90.710 Acquired absence of both cervix and uterus; Z79.899 Other long term (current) drug therapy; Z98.41 Cataract extraction status, right eye; Z98.42 Cataract extraction status, left eye; Z98.1 Arthrodesis status; Z87.891 Personal history of nicotine dependence; Z88.1 Allergy status to other antibiotic agents; Z88.6 Allergy status to analgesic agent; Z88.8 Allergy status to other drugs, medicaments and biological substances | CPT/HCPCS: G0463 ==

== ENCOUNTER → 2018-06-13 | Outpatient (CLI) | payer OTHER ==
[2018-06-13 14:42] LABS: CREATININE FOR GFR 1.31 MG/DL (0.55-1.30)
[2018-06-13 14:42] LABS: BLOOD UREA NITROGEN 17 MG/DL (7-18)
== END ==
LOC: M LAB 13:35
DX: Z01.818 Encounter for other preprocedural examination (principal); M54.5 Low back pain

== ENCOUNTER → 2018-07-24 | Outpatient (CLI) | payer MEDICARE, OTHER ==
[2018-07-24 15:55] LABS: BLOOD UREA NITROGEN 16 MG/DL (7-18)
[2018-07-24 15:55] LABS: CREATININE FOR GFR 1.08 MG/DL (0.55-1.30); GLOMERULAR FILTRATION RATE 53.7 (>45)
== END ==
LOC: M LAB 14:45
DX: Z01.818 Encounter for other preprocedural examination (principal); M54.5 Low back pain
CPT/HCPCS: 82565

== ENCOUNTER → 2018-08-24 | Outpatient (CLI) | payer OTHER | LOC: M PAIN 12:45 | DX: M51.16 Intervertebral disc disorders with radiculopathy, lumbar region (principal); M96.1 Postlaminectomy syndrome, not elsewhere classified; Z79.51 Long term (current) use of inhaled steroids; Z79.899 Other long term (current) drug therapy; Z88.1 Allergy status to other antibiotic agents; Z88.6 Allergy status to analgesic agent; Z88.8 Allergy status to other drugs, medicaments and biological substances; Z86.73 Personal history of transient ischemic attack (TIA), and cerebral infarction without residual deficits; Z87.19 Personal history of other diseases of the digestive system; Z87.891 Personal history of nicotine dependence | CPT/HCPCS: G0463 ==

== ENCOUNTER 2018-09-30 14:25 | Emergency (ER) | payer MEDICARE ==
[~2018-09-30] VITALS: Ht 162.6 cm; Wt 60.9 kg
[~2018-09-30 14:25] MED LIST changes: +ADV500INH INH; +AVEL1TAB3 PO; +BREO1INH3 INH; -BUPIVACAINE HCL 0.25% 30 ML VIAL As Ordered; +DEPA250T2 PO; +FLON0.054; +FLON1SPR; +FLUC10TA PO; +FOLI1TAB11 PO; -ISOVUE-M 300 61% 15ML VIAL (Q9967) As Ordered; +LEVA1TAB2 PO; -LIDOCAINE 1% SDV INJ 30 ML VIAL As Ordered; +LOMO2.5T PO; +OXYC10TA3 PO; +OXYCODONE; +PRED10TA PO; +PRED20TA PO; +PREG50CA PO; +SERT-138 PO; +TRAZ-163 PO; -TRIAMCINOLONE ACETONIDE SUSP 40 MG/ML VIAL (J3301) As Ordered; +TUSS1SUS2 PO; +VITA-113 SL; +VITA100066 PO; +VITA100072 PO; +VITA500055 PO; +ZOLO100T PO; +ZONI100C2 PO; +ZYRT10CA5 PO; -diazePAM 5 MG TAB As Ordered; -oxyCODONE 5MG TAB As Ordered
--- NOTE | 2018-09-30 14:48 | REP ---
Chest two views HISTORY: Cough Comparison: 07/08/2017 The lungs are hyperinflated. An increase in interstitial markings is present in the lower lobes. Bullae are present in the upper lobes. The heart is normal in size. The pulmonary vasculature is normal in appearance. The bony structure is intact. IMPRESSION: Findings consistent with COPD. Electronically Signed by Facundo Amaya MD 09/30/2018 02:40 P
[2018-09-30 15:05] LABS: BASO # 0.1 10^3/uL (0.0-0.2); BASO % 1.1 % (0.0-1.0); EOS # 0.2 10^3/uL (0.0-0.50); EOS % 2.2 % (0.0-3.0); HEMATOCRIT 44.3 % (36.0-47.0); LYMPH # 1.9 10^3/uL (1.5-4.5); LYMPH % 23.7 % (24.0-44.0); MEAN CORPUSCULAR HEMOGLOBIN 26.6 pg (27.0-33.0); MEAN CORPUSCULAR HGB CONC 31.6 g/dl (32.0-36.5); MEAN CORPUSCULAR VOLUME 84.1 fl (80.0-96.0); MONO # 0.5 10^3/uL (0.0-0.8); MONO % 6.2 % (0.0-5.0); NEUTROPHILS # 5.4 10^3/uL (1.8-7.7); NEUTROPHILS % 66.4 % (36.0-66.0); PLATELET COUNT, AUTOMATED 220 10^3/uL (150-450); RED BLOOD COUNT 5.27 10^6/uL (4.00-5.40); WHITE BLOOD COUNT 8.1 10^3/uL (4.0-10.0)
[2018-09-30 15:33] LABS: ALBUMIN 3.9 GM/DL (3.2-5.2); ALT/SGPT 18 U/L (12-78); BILIRUBIN,DIRECT 0.1 MG/DL (0.0-0.2); BILIRUBIN,TOTAL 0.5 MG/DL (0.2-1.0); BLOOD UREA NITROGEN 18 MG/DL (7-18); CALCIUM LEVEL 8.6 MG/DL (8.8-10.2); CARBON DIOXIDE LEVEL 26 MEQ/L (21-32); CHLORIDE LEVEL 105 MEQ/L (98-107); CPK CREATINE PHOSPHOKINASE 53 U/L (26-192); CREATININE FOR GFR 1.38 MG/DL (0.55-1.30); GLOMERULAR FILTRATION RATE 40.5 (>45); GLUCOSE, FASTING 97 MG/DL (70-100); MB/CK RELATIVE INDEX 2.64 (< OR =4); NT-PRO BNP 229 PG/ML (<125); POTASSIUM SERUM 3.7 MEQ/L (3.5-5.1); SODIUM LEVEL 139 MEQ/L (136-145); THYROXINE (T4) 11.2 UG/DL (4.5-12.0); TOTAL PROTEIN 6.8 GM/DL (6.4-8.2); TROPONIN I < 0.02 NG/ML (< 0.10)
[2018-09-30 17:35] LABS: INFLUENZA A AMPLIFICATION NEGATIVE (NEGATIVE); INFLUENZA B AMPLIFICATION NEGATIVE (NEGATIVE)
[2018-09-30] MEDS ORDERED: zyrtec PO (17:54)
[2018-09-30 18:00] VITALS: BP 134/71
[2018-09-30] MEDS ORDERED: BREO1INH3 PO (18:00)
[2018-09-30] MEDS ORDERED: VENTAER INH (18:00)
[2018-09-30] MEDS ORDERED: ZITHTAB PO (18:02)
[2018-09-30] MEDS ORDERED: DOXY100C37 PO (18:11)
--- NOTE | 2018-10-01 13:42 | ECGEPIP ---
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
== END 2018-09-30 18:16 | disposition home or self-care (01) ==
LOC: M ED 14:25
DX: J06.9 Acute upper respiratory infection, unspecified (principal); J44.9 Chronic obstructive pulmonary disease, unspecified; F41.9 Anxiety disorder, unspecified; Z88.0 Allergy status to penicillin; Z88.8 Allergy status to other drugs, medicaments and biological substances; Z87.891 Personal history of nicotine dependence

== ENCOUNTER → 2018-11-27 | Outpatient (CLI) | payer MEDICARE ==
[~2018-11-27] MED LIST changes: +BREO1INH3 PO; +DOXY100C37 PO; +GASTROGRAFIN SOLUTION 30ML (Q9963) As Ordered ONE; +ISOVUE-370 76% 100ML VIAL (Q9967) As Ordered ONE; +VENTAER INH; +ZITHTAB PO; +zyrtec PO
--- NOTE | 2018-11-27 18:50 | REP ---
A CT abdomen pelvis with IV and oral contrast: Comparison is 10/22/2017. The patient is a history of colectomy with ileal rectosigmoid anastomosis. There is an anastomotic suture line in the rectal sigmoid area. There is diffuse bowel distension of the remaining small bowel with multiple air-fluid levels. The appearance is similar to the prior study and suggestive of small bowel obstruction. There is no pneumoperitoneum. There is no ascites. There is fibro linear scarring in the lung bases bilaterally, similar to the prior study. There are surgical clips in the gallbladder fossa suggesting cholecystectomy. There is mild dilatation of the intrahepatic biliary ducts, unchanged, likely post cholecystectomy state. The pancreas and spleen are normal size and unremarkable. The adrenals are unremarkable. The kidneys are unremarkable. The abdominal aorta is unremarkable except for calcified atheroma. There is no retroperitoneal adenopathy or mass. There is no mesenteric adenopathy or mass. Pelvis: There is a hysterectomy. The vaginal cuff and adnexa are unremarkable. There is no ascites or adenopathy. Impression: Ileal rectosigmoid anastomosis. Marked distension of the remaining small bowel with multiple air-fluid levels compatible with small bowel obstruction, however, the appearance is similar to the prior study. There is no pneumoperitoneum or ascites. Cholecystectomy. Electronically Signed by Zane Solo MD 11/27/2018 06:41 P
== END ==
LOC: M RAD 12:32
PROVIDERS: ATTEND Surgery
DX: R14.0 Abdominal distension (gaseous) (principal); Z98.0 Intestinal bypass and anastomosis status; Z90.49 Acquired absence of other specified parts of digestive tract
CPT/HCPCS: 74177; Q9963; Q9967

== ENCOUNTER → 2018-12-03 | Outpatient (CLI) | payer OTHER ==
[~2018-12-03] MED LIST changes: -GASTROGRAFIN SOLUTION 30ML (Q9963) As Ordered ONE; -ISOVUE-370 76% 100ML VIAL (Q9967) As Ordered ONE
--- NOTE | 2018-12-18 03:51 | ECWPNPC ---
PATIENT NAME: RADHA HENRY : 1950 GENDER: FEMALE VISIT DATE: 12/03/2018 DISCHARGE DATE: 12/03/18 1647 VISIT LOCKED DATE TIME: PHYSICIAN: ADRIANA WEAVER MD RESOURCE: ADRIANA WEAVER MD DISCLAIMER : THIS IS A VISIT SUMMARY [facility]TRACTED FROM [facility] CHART. IT IS NOT A COPY OF THE [employer] PROGRESS NOTE. MTDD
== END ==
LOC: M PAIN 14:30
PROVIDERS: ATTEND Anesthesiology
DX: M96.1 Postlaminectomy syndrome, not elsewhere classified (principal); M54.16 Radiculopathy, lumbar region; J44.9 Chronic obstructive pulmonary disease, unspecified; Z79.51 Long term (current) use of inhaled steroids; Z79.899 Other long term (current) drug therapy; Z88.6 Allergy status to analgesic agent; Z88.8 Allergy status to other drugs, medicaments and biological substances; Z86.73 Personal history of transient ischemic attack (TIA), and cerebral infarction without residual deficits; Z87.891 Personal history of nicotine dependence

== ENCOUNTER → 2018-12-24 | Outpatient (CLI) | payer MEDICARE ==
[~2018-12-24] MED LIST changes: +E-Z-GAS II EFFERVESCENT PACKET (SODIUM BICARB./CITRIC ACID/SIMETHICONE) As Ordered ONE; +E-Z-HD 98% w/w 340GM SUSP BTL As Ordered ONE; +E-Z-PAQUE 96% w/w SUSP 176GM BTL As Ordered ONE; +PRED-351 PO; -PRED10TA PO; +VITA100018 PO; -VITA100072 PO
--- NOTE | 2018-12-24 16:30 | REP ---
UPPER GI AIR CONTRAST AND SMALL BOWEL FOLLOW-THROUGH The procedure was performed under the direct supervision of Dr. Hayden. The images were reviewed with Dr. Hayden The board turner film shows no organomegaly or pathological masses. The intestinal gas pattern is non-specific. There are surgical clips noted in the upper abdomen. There are bowel sutures noted in the pelvis consistent with the patient's history of colectomy. There is no fixation hardware in the lumbar spine from L3 S1. Liquid barium and gas producing crystals were given in the erect position as well as liquid barium in the prone oblique position in order to perform a double contrast upper GI examination. Additionally liquid barium was given at the end of the examination in order to perform a small bowel follow-through. The oral and pharyngeal stages of deglutition are unremarkable. Esophageal transport is prompt and efficient and there is no esophagitis, stricture, mucosal ring or hiatal hernia. Gastroesophageal reflux is not demonstrated on this examination. The stomach dumont are normally outlined . The rugal folds are smooth and regular. There is no gastritis neoplasm or ulcer disease. The duodenal dumont are normally outlined . The mucosal folds are smooth and regular. There is no duodenitis pancreatitis peptic ulcer disease or neoplasm. The visualized portion of the proximal small bowel appears normal in course and caliber. The barium column was followed through the small bowel to the level of the anastomosis. Small bowel transit time is approximately 90 minutes. During fluoroscopy gentle palpation shows all loops are freely movable and pliable. There are no fixed or angulated loops. The small bowel mucosal pattern is normal in course and caliber. There is no transition to suggest a partial small-bowel obstruction. There is no evidence of stricture or obstruction at the anastomosis. There is contrast seen in the rectum. Impression: Postsurgical changes consistent with the patient's history of colectomy. There is no evidence of stricture or obstruction. 1.7 minutes of fluoro time was utilized for this procedure. Reviewed by NATASHA Gao 12/24/2018 03:47 P Electronically Signed by Rolan Hayden MD 12/24/2018 04:22 P
== END ==
LOC: M RAD 10:54
PROVIDERS: ATTEND Surgery
DX: K91.850 Pouchitis (principal); Z90.49 Acquired absence of other specified parts of digestive tract

== ENCOUNTER → 2019-01-16 | Outpatient (CLI) | payer OTHER ==
[~2019-01-16] MED LIST changes: -E-Z-GAS II EFFERVESCENT PACKET (SODIUM BICARB./CITRIC ACID/SIMETHICONE) As Ordered ONE; -E-Z-HD 98% w/w 340GM SUSP BTL As Ordered ONE; -E-Z-PAQUE 96% w/w SUSP 176GM BTL As Ordered ONE
--- NOTE | 2019-02-04 00:37 | ECWPNPC ---
PATIENT NAME: RADHA HENRY : 1950 GENDER: FEMALE VISIT DATE: 01/16/2019 DISCHARGE DATE: 01/16/19 1616 VISIT LOCKED DATE TIME: PHYSICIAN: ADRIANA WEAVER MD RESOURCE: ADRIANA WEAVER MD REASON FOR APPOINTMENT 1. LBP & LEG PAIN HISTORY OF PRESENT ILLNESS HISTORY OF PRESENT ILLNESS: PAIN THE PATIENT DESCRIBES THE PAIN... 68 YEAR OLD FEMALE PATIENT WITH A HISTORY OF CHRONIC LOW BACK AND LEG PAIN. THE PATIENT DESCRIBES THE PAIN TENDER, SHARP, STABBING, AND CONTINUOUS WITH A PAIN SCORE OF 6-10/10 DEPENDING ON PHYSICAL ACTIVITY. THE PATIENT WAS HURT IN A WORK RELATED INJURY ON 06/24/2006 WHILE WORKING AT [employer] WHEN SHE INJURED HER BACK AFTER SHE PICKED UP A 85 LB WIRE ROUND THAT HAD FALLEN OFF OF A CART. THE PATIENT SAYS THE PAIN STARTS IN HER LOW BACK AND RADIATES TO BOTH OF HER LEGS. THE PATIENT SAYS THE PAIN INCREASES DURING ACTIVITIES AND CAUSES DIFFICULTY PERFORMING NORMAL ACTIVITIES SUCH WALKING AND CLEANING HER HOUSE. THE PATIENT WAS PRESCRIBED OXYCODONE SEVERAL WEEKS AGO AND SAYS THE MEDICATION REALLY HELPS IN HER PAIN MANAGEMENT. THE PATIENT SAYS SHE IS NOW ABLE TO SLEEP BETTER AND PERFORM NORMAL ACTIVITIES WITH EASE THAT SHE WASN'T ABLE TO DO BEFORE THE MEDICATION. PATIENT DENIES UNEXPLAINABLE WEIGHT LOSS, FEVER, CHILLS, NEW CHANGES ON HER URINARY OR BOWEL CONTROL. FALL RISK SCREENING: SCREENING :NO FALLS REPORTED IN THE LAST YEAR CURRENT MEDICATIONS TAKING OXYCODONE HCL 10 MG TABLET 1 TABLET NEEDED ORALLY FOR PAIN EVERY 12 HRS MDD2 TAKING GABAPENTIN 300 MG CAPSULE 1 CAPSULE ORALLY THREE TIMES A DAY MDD 3 TAKING TRAZODONE HCL 100 MG TABLET 2 TABLET AT BEDTIME ORALLY ONCE A DAY TAKING SERTRALINE HCL 100 MG TABLET 1 1/2 TABLETS ORALLY BEFORE BEDTIME TAKING ZYRTEC 10 MG ORALLY DAILY TAKING VENTOLIN HFA 108 (90 BASE) MCG/ACT AEROSOL SOLUTION 2 PUFFS NEEDED INHALATION EVERY 6 HRS TAKING BREO ELLIPTA 200-25 MCG/INH AEROSOL POWDER BREATH ACTIVATED 1 PUFF INHALATION ONCE A DAY TAKING FLONASE 50 MCG/ACT SUSPENSION 1 SPRAY IN EACH NOSTRIL NASALLY ONCE A DAY TAKING PREDNISONE 10 MG TABLET 2 TABLETS ORALLY W MORE WEEKS -02-10, NOTES: TAPERING DOSE-WILL BE COMPLETED 05/17 NOT-TAKING CODEINE SULFATE 30 MG TABLET 1 TABLET AT BEDTIME ORALLY FOR PAIN ONCE A DAY NOT-TAKING HYDROCODONE-ACETAMINOPHEN 5-325 MG TABLET 1 TABLET NEEDED ORALLY FOR PAIN EVERY 6 HRS MDD2 NOT-TAKING CYMBALTA 30 MG CAPSULE DELAYED RELEASE PARTICLES 1 CAPSULE ORALLY WITH FOOD ONCE A DAY NOT-TAKING OXYCODONE-ACETAMINOPHEN 5-325 MG TABLET 1 TABLET ORALLY EVERY 6 HRS PRN PAIN MDD=2 NOT-TAKING GABAPENTIN 300 MG CAPSULE 1 CAPSULE ORALLY THREE TIMES A DAY MDD3 NOT-TAKING PEPCID 40 MG TABLET 1 TABLET ORALLY ONCE A DAY NOT-TAKING LEVAQUIN 250 MG TABLET 1 TABLET ORALLY ONCE A DAY X 10 STARTED, NOTES: STARTED 05/09 NOT-TAKING LYRICA 150 MG CAPSULE 1 CAPSULE ORALLY 2 TIMES A DAY MDD=2 NOT-TAKING LOMOTIL 2.5-0.025 MG TABLET 1 TAB ORALLY DAILY NEEDED, NOTES: NONE LATELY NOT-TAKING KETOROLAC TROMETHAMINE 10 MG TABLET 1 TABLET WITH FOOD OR MILK NEEDED ORALLY EVERY 8 HRS MEDICATION LIST REVIEWED AND RECONCILED WITH THE PATIENT PAST MEDICAL HISTORY COLITIS PNEUMONIA ACUTE ARTHRITIS BRONCHITIS / COPD LOW BACK PAIN / NECK PAIN / THORACIC PAIN TIA'S YEARS AGO DECREASED KIDNEY FUNCTION REFLUX ACUTE BRONCHITIS ULCERATIVE COLITIS ALLERGIES NUCYNTA: LOSS HAIR, WGT LOSS AND ITCHING - ALLERGY NSAIDS: KIDNEY FUNCTION - SIDE EFFECTS SURGICAL HISTORY APPENDECTOMY TERESITA CATARACTS GALLBLADDER HERNIA REPAIR HYSTERECTOMY LUMBAR LAMI 2009 LEFT SHOULDER SURGERY LEFT CARPAL TUNNEL L4- S1 LUMBAR FUSION 2010 TONSILLECTOMY BOWEL RESECTION FOR ULCERATIVE COLITIS 1999,09/2017 REMOVED POLYPS FROM VOCAL CORDS BRIANNA ON RIGHT LUNG FAMILY HISTORY FATHER: , DIAGNOSED WITH HEART DISEASE, CANCER MOTHER: , CANCER, OTHER 5 BROTHER(S) , 1 SISTER(S) . 1 SON(S) , 1 DAUGHTER(S) . DAD-PROSTATE CA\\\\NMOM-LUNG CA, EMPHYSEMA\\\\N SISTER FROM CANCER AT AGE OF 12\\\\N1 BROTHER FROM CANCER\\\\NSON HAS HEART ISSUES\\\\NDAUGHTER HAS SEIZURES. SOCIAL HISTORY GENERAL: TOBACCO USE ARE YOU A:FORMER SMOKER HOW LONG HAS IT BEEN SINCE YOU LAST SMOKED?> 10 YEARS PAIN CLINIC PFS, CLERGY, PUBLIC HEALTH REFERRALS PFS REFERRAL NEEDED?NO CLERGY REFERRAL NEEDED?NO PUBLIC HEALTH REFERRAL NEEDED?NO WAS THE PROVIDER NOTIFIED OF ANY PERTINENT INFO?YES N /A HAS THE PATIENT BEEN EDUCATED REGARDING HIS/HER PLAN OF CARE?YES HAS THE PATIENT BEEN EDUCATED REGARDING PAIN, THE RISK FOR PAIN, THE IMPORTANCE OF EFFECTIVE PAIN MANAGEMENT, AND THE PAIN ASSESSMENT PROCESS?YES LATEX QUESTIONNAIRE LATEX ALLERGY : HAVE YOU EVER DEVELOPED ANY TYPE OF REACTION AFTER HANDLING LATEX PRODUCTS SUCH RUBBER GLOVES, CONDOMS, DIAPHRAGMS, BALLOONS, SOCKS, OR UNDERWEAR?NO LATEX ALLERGY : HAVE YOU EVER DEVELOPED ANY TYPE OF REACTION DURING OR AFTER DENTAL APPOINTMENT, VAGINAL/RECTAL EXAMINATION, SURGICAL PROCEDURE, OR ANY OTHER EXPOSURE?NO DATE ASKED : 12/26/2018 LATEX RISK : HAVE YOU EVER HAD ANY DIFFICULTY BREATHING OR HIVES AFTER EATING OR HANDLING ANY FRUITS, OR VEGETABLES; SUCH KIWI, BANANAS, STONE FRUITS, OR CHESTNUTSNO LATEX RISK : DO YOU HAVE A PREVIOUS PERSONAL HISTORY OF MORE THAN NINE SURGERIES, SPINA BIFIDA, OR REPEATED CATHERTIZATIONS? NO LATEX RISK : ARE YOU FREQUENTLY EXPOSED TO LATEX PRODUCTS IN YOUR OCCUPATION?NO CAFFEINE CAFFEINE USE?YES HOW OFTEN AND HOW MUCH? 1 COFFEE AND 1 PEPSI /DAILY ADVANCE DIRECTIVE ADVANCE DIRECTIVE DISCUSSED WITH PATIENT:YES PT DOES NOT HAVE ANY ADVANCED DIRECTIVES AND SHE DECLINES INFORMATION ON HCP AT THIS TIME. EDUCATION LEVEL OF EDUCATION: GED TENRIISM [id number] NONE LANGUAGE LANGUAGES SPOKEN:BRUNEIAN DOMESTIC VIOLENCE DO YOU FEEL SAFE IN YOUR ENVIRONMENT?YES ALCOHOL SCREENING DID YOU HAVE A DRINK CONTAINING ALCOHOL IN THE PAST YEAR?NO POINTS0 INTERPRETATIONNEGATIVE RECREATIONAL DRUG USE DRUG USE?NO LEARNING BARRIERS / SPECIAL NEEDS BARRIERS TO LEARNING?NO HEARING IMPAIRED?NO VISION IMPAIRED?YES COGNITIVELY IMPAIRED?NO :CORRECTIVE LENSES READING READINESS TO LEARN?YES LEARNING PREFERENCES?NO LEARNING CAPABILITIES PRESENT?YES EMOTIONAL BARRIERS?NO SPECIAL DEVICES?NO PEER EDUCATOR NEEDED?NO 05/14/18 1610 REVIEWED WITH PTBel TIAN WITH PATIENT 08/24/18 1251 JS. HOSPITALIZATION/MAJOR DIAGNOSTIC PROCEDURE SURGERY RELATED PNEUMONIA REVIEW OF SYSTEMS REVIEWED BY: PROVIDER: ADRIANA WEAVER MD . CONSTITUTIONAL: ANY CHANGE IN YOUR MEDICAL CONDITION? NO . CHILLS NO . FEVER NO . INFECTION: DO YOU HAVE NEW INFECTIONS? NO . DO YOU HAVE HISTORY OF MRSA? NO . MUSCULOSKELETAL: ANY NEW PATTERNS OF PAIN OR NUMBNESS? NO . GASTROENTEROLOGY: ANY NEW CHANGE IN BOWEL CONTROL? NO . GENITOURINARY: ANY NEW CHANGE IN BLADDER CONTROL? NO . IS THERE A CHANCE YOU COULD BE ? NO . HEMATOLOGY/LYMPH: DO YOU TAKE ANY BLOOD THINNERS? (FOR EXAMPLE- COUMADIN, PLAVIX, AGGRENOX, PLATEL, PRADAXA, OR XARELTO) NO . WHEN WAS YOUR LAST DOSE? DATE: TIME: . NEUROLOGY: HAVE YOU FALLEN IN THE PAST 12 MONTHS? NO . ANY NEW EXTREMITY NUMBNESS OR WEAKNESS? NO . CARDIOLOGY: DO YOU HAVE A PACEMAKER OR DEFIBRILLATOR? NO . RESPIRATORY: HAVE YOU BEEN SICK IN THE PAST WEEK? NO . FEVER NO . FLU LIKE SYMPTOMS? NO . COUGH NO . INTEGUMENTARY: DO YOU HAVE ANY RASHES OR OPEN SORES? NO . ALLERGIC/IMMUNO: ARE YOU ALLERGIC TO IV DYE? NO . ANY NEW ALLERGIES? NO . PSYCHIATRIC: DO YOU HAVE THOUGHTS OF HURTING YOURSELF OR SOMEONE ELSE? NO . ARE YOU ABUSED, NEGLECTED, OR IN AN UNSAFE ENVIRONMENT? NO . ENDOCRINOLOGY: ARE YOU DIABETIC? NO . OTHER: DO YOU NEED ANY PRESCRIPTIONS? NO . IF YES, PLEASE LIST: ____ . ANY NEW PROBLEMS WITH YOUR MEDICATIONS? NO . WHEN DID YOU LAST EAT? ____ . WHEN DID YOU LAST DRINK? ____ . WHAT DID YOU LAST DRINK? ____ . NAME OF PERSON DRIVING YOU HOME? ____ . DO YOU HAVE ANY OTHER QUESTIONS OR CONCERNS NO . VITAL SIGNS WT 141.2 LBS, HT 64 IN, BMI 24.23 INDEX, BP 122/66 MM HG, HR 86 /MIN, RR 18 /MIN, TEMP 97.0 F, OXYGEN SAT % 95%, SAFE IN ENV? (Y/N) YES, NA INITIALS SC 14:34, REVIEWED BY: KG. EXAMINATION GENERAL EXAMINATION: PATIENT IS ALERT O X 3 AND COOPERATIVE. TENDERNESS IN THE LOW BACK. PRESENCE OF BANDS OF TISSUE AND TRIGGER POINTS WITH RESTRICTION OF MOVEMENT OF THE LOW BACK. MRI OF THE LUMBAR SPINE DONE ON 07/30/2018 SHOWS BULGING DISCS AT MULTIPLE LEVELS, SPINAL STENOSIS, AND FACET ARTHROPATHY CHANGES. 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 HENRY'S PAIN MANAGEMENT CASE. DUE TO THE TRIGGER POINTS, BANDS OF TISSUE, AND RESTRICTION OF MOVEMENT, I WOULD LIKE TO MOVE FORWARD WITH A TRIGGER POINT INJECTION AT THIS TIME. WE DISCUSSED THE BENEFITS, RISKS, AND ALTERNATIVES OF THE INJECTION AND THE PATIENT WOULD LIKE TO PROCEED. I ALSO SUGGESTED AN EPIDURAL AN ALTERNATIVE PROCEDURE FOR THE FUTURE DUE TO THE RADICULOPATHY DOWN THE LEGS. I HAD A DISCUSSION ABOUT THE PATIENTS MEDICATION MANAGEMENT AND EXPLAINED I WILL NEED TO SEEK A DOCTOR TO DOCTOR AGREEMENT TO CONTINUE THE PATIENT'S OXYCODONE. DUE TO THE PATIENT'S COPD, I WILL NOT INCREASE THE MEDICATION. I WILL PERFORM A PILL COUNTING TODAY. UTOX DONE ON 12/26/2018 SHOWS CONCURRENT RESULTS. ISTOP _# [id number] WAS REVIEWED TODAY. THE PATIENT WILL FOLLOW UP IN 1 MONTH. INSTRUCTIONS WERE GIVEN, QUESTIONS WERE ANSWERED, PATIENT REPORTS UNDERSTANDING AND AGREES WITH THE PLAN. I, OLLIE LANG, DOCUMENTED THE ABOVE INFORMATION ACTING A SCRIBE FOR DR. WEAVER. I HAVE REVIEWED THE ABOVE DOCUMENT, WRITTEN BY OLLIE DONNELLY AND I VERIFY THAT IT IS ACCURATE. . OTHERS REFILL OXYCODONE HCL TABLET, 10 MG, 1 TABLET NEEDED, ORALLY FOR PAIN, EVERY 12 HRS MDD2, 30 DAY(S), 60, REFILLS 0 PROCEDURES PN WORKMANS' COMP OPINION IN YOUR OPINION, WAS THE INCIDENT THAT THE PATIENT DESCRIBED THE COMPETENT MEDICAL CAUSE OF THIS INJURY/ILLNESS? YES ARE THE PATIENT'S COMPLAINTS CONSISTENT WITH HIS/HER HISTORY OF THE INJURY/ILLNESS? YES IS THE PATIENT'S HISTORY OF THE INJURY/ILLNESS CONSISTENT WITH YOUR OBJECTIVE FINDING? YES WHAT IS THE PERCENTAGE OF TEMPORARY IMPAIRMENT? MODERATE TO MARKED = 66.7% IS THE PATIENT WORKING? NO DOCTOR ON SITE: ADRIANA LAMB MD PROCEDURE CODES FA211 ESTABILISHED PATIENT [facility] FACILITY CHARGE [id number] CURRENT MEDS W/DOSAGES DOCUMENTED G8730 PAIN ASSESS POS TOOL F/U PLAN DOC DISPOSITION & COMMUNICATION FOLLOW UP 4 WEEKS ELECTRONICALLY SIGNED BY ADRIANA WEAVER MD, MD ON 02/03/2019 AT 04:03 PM EDT DISCLAIMER : THIS IS A VISIT SUMMARY EXTRACTED FROM THE [employer] CHART. IT IS NOT A COPY OF THE [employer] PROGRESS NOTE. CONY
== END ==
LOC: M PAIN 14:30
PROVIDERS: ATTEND Anesthesiology
DX: M79.18 Myalgia, other site (principal); M51.16 Intervertebral disc disorders with radiculopathy, lumbar region; M54.5 Low back pain; G89.29 Other chronic pain; J44.9 Chronic obstructive pulmonary disease, unspecified; Z86.73 Personal history of transient ischemic attack (TIA), and cerebral infarction without residual deficits; Z87.891 Personal history of nicotine dependence; Z88.5 Allergy status to narcotic agent; Z88.6 Allergy status to analgesic agent; Z79.51 Long term (current) use of inhaled steroids; Z79.899 Other long term (current) drug therapy

== ENCOUNTER 2019-02-17 14:29 | Inpatient (IN) | payer MEDICARE ==
[~2019-02-17] VITALS: Ht 162.6 cm; Wt 65.5 kg
[2019-02-17] MEDS ORDERED: ALBUTEROL SULFATE 2.5 MG/0.5 ML INH NEB SOLN INH ONE (15:00)
[2019-02-17] MEDS ORDERED: IPRATROPIUM 0.5MG/ALBUTEROL 2.5MG INH SOL UD 3ML (DUONEB)(J7620) NEB ONE (15:00)
[2019-02-17] MEDS ORDERED: methylPREDNISolone INJ 125 MG/2 ML VIAL (J2930) IV ONE (15:00)
[2019-02-17 15:04] LABS: BASO # 0.1 10^3/uL (0.0-0.2); BASO % 0.6 % (0.0-1.0); EOS # 0.3 10^3/uL (0.0-0.50); EOS % 3.5 % (0.0-3.0); HEMATOCRIT 40.6 % (36.0-47.0); HEMOGLOBIN 12.9 g/dl (12.0-15.5); LYMPH # 1.5 10^3/uL (1.5-4.5); LYMPH % 16.1 % (24.0-44.0); MEAN CORPUSCULAR HEMOGLOBIN 28.1 pg (27.0-33.0); MEAN CORPUSCULAR HGB CONC 31.8 g/dl (32.0-36.5); MEAN CORPUSCULAR VOLUME 88.5 fl (80.0-96.0); MONO # 0.8 10^3/uL (0.0-0.8); MONO % 7.9 % (0.0-5.0); NEUTROPHILS # 6.7 10^3/uL (1.8-7.7); NEUTROPHILS % 71.2 % (36.0-66.0); PLATELET COUNT, AUTOMATED 202 10^3/uL (150-450); RED BLOOD COUNT 4.59 10^6/uL (4.00-5.40); WHITE BLOOD COUNT 9.5 10^3/uL (4.0-10.0)
[2019-02-17 15:13] LABS: ABG BASE EXCESS -0.6 (-2.0-2.0); ABG HCO3 23.9 MEQ/L (22.0-26.0); ABG O2 SATURATION 93.5 % (95.0-99.0); ABG PARTIAL PRESSURE CO2 38.9 mmHg (35.0-45.0); ABG PARTIAL PRESSURE O2 69.5 mmHg (75.0-100.0); ABG STANDARD HCO3 23.9 MEQ/L (22.0-26.0); ABG TOTAL CO2 25.1 MEQ/L (23.0-31.0); ABG pH (ARTERIAL) 7.406 UNITS (7.350-7.450)
--- NOTE | 2019-02-17 15:25 | REP ---
Clinical: Cough and dyspnea. Comparison: 09/30/2018. Findings: Advanced COPD and emphysematous changes are appreciated. The cardiac silhouette is normal. Surgical clips overlying the mediastinum are stable. No definite consolidation, effusion, or pneumothorax. Skeletal structures demonstrate age-related osteopenia and degenerative changes. Impression: Chronic COPD and emphysematous changes. Subtle superimposed acute basilar atelectasis cannot be excluded. Electronically Signed by Alfredo Pillai MD 02/17/2019 03:17 P
[2019-02-17 15:38] LABS: ALBUMIN 3.3 GM/DL (3.2-5.2); ALT/SGPT 22 U/L (12-78); BILIRUBIN,DIRECT 0.2 MG/DL (0.0-0.2); BILIRUBIN,TOTAL 0.8 MG/DL (0.2-1.0); BLOOD UREA NITROGEN 10 MG/DL (7-18); CALCIUM LEVEL 8.3 MG/DL (8.8-10.2); CARBON DIOXIDE LEVEL 25 MEQ/L (21-32); CHLORIDE LEVEL 106 MEQ/L (98-107); CPK CREATINE PHOSPHOKINASE 185 U/L (26-192); CREATININE FOR GFR 1.72 MG/DL (0.55-1.30); GLOMERULAR FILTRATION RATE 31.4 (>45); GLUCOSE, FASTING 141 MG/DL (70-100); MB/CK RELATIVE INDEX 1.46 (< OR =4); NT-PRO BNP 735 PG/ML (<125); POTASSIUM SERUM 4.2 MEQ/L (3.5-5.1); SODIUM LEVEL 140 MEQ/L (136-145); TOTAL PROTEIN 6.1 GM/DL (6.4-8.2); TROPONIN I < 0.02 NG/ML (< 0.10)
[2019-02-17 15:41] LABS: INR 1.09; PROTHROMBIN TIME 14.2 SECONDS (12.1-14.4)
[2019-02-17 15:47] LABS: INFLUENZA A AMPLIFICATION NEGATIVE (NEGATIVE); INFLUENZA B AMPLIFICATION NEGATIVE (NEGATIVE)
--- NOTE | 2019-02-17 16:21 | REP ---
Clinical: Severe chest pain. Technique: Axial noncontrast images from the thoracic inlet to the upper abdomen with coronal and sagittal re-formations. Comparison : 10/14/2017. Findings: Advanced, marked COPD and emphysematous changes with large biapical bullae and blebs (right greater than left) remain stable. Small ill-defined areas of nodularity in the posterior bilateral lower lobes are nonspecific but may represent elements of acute atelectasis/small multifocal pneumonia. No effusion. No pneumothorax. Tracheobronchial tree is patent. Few mediastinal and hilar lymph nodes are nonspecific and possibly reactive. Atherosclerotic changes to the thoracic aorta and coronary arteries noted without aortic aneurysm or cardiomegaly. No pericardial effusion. Impression: 1. Advanced COPD/emphysematous changes with large by apical blebs/bullae (right greater than left) no pneumothorax. 2. Small ill-defined areas of nodularity/consolidations in the posterior lower lobes along with suspected reactive adenopathy. Differential diagnosis includes but is not limited to atelectasis and multifocal pneumonia. Short-term follow-up is recommended. Electronically Signed by Alfredo Pillai MD 02/17/2019 04:14 P
[2019-02-17] MEDS ORDERED: AZITHROMYCIN INJ 500 MG, VIAL MATE ADAPTER 1 EACH in D5W 250 ML IV ONE (17:00)
[2019-02-17] MEDS ORDERED: cefTRIAXone SOD 1 GM in D5W MINI-BAG PLUS 50 ML IV ONE (17:00)
[2019-02-17] MEDS ORDERED: OXYC-517 PO (17:30)
[2019-02-17] MEDS ORDERED: GABA-843 PO (17:30)
[2019-02-17] MEDS ORDERED: MONT10TA2 PO (17:30)
[2019-02-17] MEDS ORDERED: VENTAER INH (17:30)
[2019-02-17] MEDS ORDERED: CETI10CA2 PO (17:30)
[2019-02-17] MEDS ORDERED: guaiFENesin 200 MG TAB PO PRN (17:30)
--- NOTE | 2019-02-17 17:50 | HPEPDOC ---
General Date of Admission 02/17/2019 Date of Service: February 17, 2019 Chief Complaint The patient is a 68-year-old female who presented to the ER with complaints of Shortness of breath. History of Present Illness Patient is a 68-year-old female with a PMHx of COPD on 2L of oxygen during exertion, Mild Pulmonary HTN, Ulcerative colitis (s/p Hemicolectomy), CKD3, Anxiety, Neuropathy, Chronic back pain, who presented to the emergency room with complaints of shortness of breath. Patient has noted that she has been on prednisone since December 24 was on 60 mg and then had taper down every week. 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 Rico. Patient was given a prescription for Augmentin, that she has completed, and also had her dose of prednisone increased. Despite this, patient needs to have shortness of breath after her antibiotics completed. Patient of that today. Her shortness of breath was causing her to have lightheadedness. She did report associated cough without any expectoration of sputum. . She notes that she expenses central chest pain, sharp/burning in character, radiating across her chest. No alleviating or aggravating factors. Does not experience excessive sweating. Has not experienced any fevers or chills in the last 2 weeks. Patient denies abdominal pain, nausea, or vomiting. Reports that she experienc es, diarrhea, but has been chronic and she takes medications for this. Patient denies any discomfort with urination. Patient reports that her weight has been increasing; she reports an 11 pound weight increase since December 24, but notes that her appetite is fairly okay. Home Medications Scheduled Cetirizine HCl (ZyrTEC) 10 Mg Capsule, 10 MG PO DAILY, (Reported) Fluticasone Propionate (Flonase Allergy Relief) 50 Mcg/Act Spr, 2 SPRAYS NA BID, (Reported) Fluticasone/Vilanterol (Breo Ellipta 200-25 Mcg INH) 1 Inh Inh, 1 PUFF PO DAILY, (Reported) Gabapentin (Gabapentin) 300 Mg Capsule, 300 MG PO TID, (Reported) Montelukast Sodium (Montelukast Sodium) 10 Mg Tablet, 10 MG PO QHS, (Reported) Oxycodone HCl (Oxycodone HCl) 5 Mg Tablet, 10 MG PO BID, (Reported) Sertraline Hcl (Zoloft) 100 Mg Tab, 150 MG PO QHS, (Reported) Trazodone HCl (Trazodone HCl) 100 Mg Tab, 200 MG PO QHS, (Reported) Scheduled PRN Albuterol Sulfate (Ventolin Hfa) 18 Gm Hfa.aer.ad, 2 PUFF INH Q4H PRN for SHORTNESS OF BREATH, (Reported) Allergies Coded Allergies: NSAIDS (Non-Steroidal Anti-Inflamma (Verified Allergy, Unknown, renal failure, 02/17/19) tapentadol (Verified Allergy, Unknown, hair loss, weight loss, 02/17/19) Past Medical History Medical History COPD on 2L of oxygen during exertion, Mild Pulmonary HTN, Ulcerative colitis (s/p Hemicolectomy), CKD3, Anxiety, Neuropathy, Chronic back pain Surgical History Hemicolectomy; 1999 Hysterectomy Tonsillectomy Cholecystectomy Back surgery 2; 2010 and 2008 Family History - Mother with history of lung cancer - Father with history of CAD and prostate cancer - Brother with a history of brain cancer - Sister with a history of bone cancer in her left leg Social History - Denies the use of alcohol or illicit drugs; patient reports she quit smoking 20 years ago but was a smoker of 40 years at 0.5 PPD - Denies recent travel or sick contacts - Lives with her grandson - Occupation; retired but used to work at [employer] Review of Systems Other systems 10 point review of systems complete, all negative otherwise stated in HPI Vital Signs - Vitals: BP 118/58, HR 106, RR 20, Sat 91%NC3L, Temp 95.7F - General: Lying in bed, No acute distress, Speaking in full sentences, AAOx3 - HEENT: NC, AT, PERRLA, EOMI - CVS: RRR, +S1S2, - Murmurs / rubs / gallops - Lungs: Poor inspiratory effort bilaterally, there is mild wheezing that is appreciated, no rhonchi or crackles - Abdomen: Soft, Non-distended, Non-tender - Extremities: No lower extremity edema, No calf tenderness - Neuro: No focal motor or sensory deficit - Skin: No visible rashes Laboratory Data Labs 24H Laboratory Tests 2 02/17/19 14:43: Immature Granulocyte % (Auto) 0.7, White Blood Count 9.5, Red Blood Count 4.59, Hemoglobin 12.9, Hematocrit 40.6, Mean Corpuscular Volume 88.5, Mean Corpuscular Hemoglobin 28.1, Mean Corpuscular Hemoglobin Concent 31.8L, Red Cell Distribution Width 14.1, Platelet Count 202, Neutrophils (%) (Auto) 71.2H, Lymphocytes (%) (Auto) 16.1L, Monocytes (%) (Auto) 7.9H, Eosinophils (%) (Auto) 3.5H, Basophils (%) (Auto) 0.6, Neutrophils # (Auto) 6.7, Lymphocytes # (Auto) 1.5, Monocytes # (Auto) 0.8, Eosinophils # (Auto) 0.3, Basophils # (Auto) 0.1, Nucleated Red Blood Cells % (auto) 0.0, Anion Gap 9, Glomerular Filtration Rate 31.4L, Lactic Acid Level 3.8*H, Calcium Level 8.3L, Aspartate Amino Transf (AST/SGOT) 31, Alanine Aminotransferase (ALT/SGPT) 22, Alkaline Phosphatase 77, Total Bilirubin 0.8, Direct Bilirubin 0.2, Total Creatine Kinase 185, Creatine Kinase MB 3.0, Creatine Kinase MB Relative Index 1.46, Troponin I < 0.02, XS-Wdh-B-Type Natriuretic Peptide 735H, Total Protein 6.1L, Albumin 3.3, Albumin/Globulin Ratio 1.18, Thyroid Stimulating Hormone (TSH) 1.770, Thyroxine (T4) 11.0 02/17/19 14:51: Influenza Type A (RT-PCR) NEGATIVE, Influenza Type B (RT-PCR) NEGATIVE 02/17/19 14:55: Blood Gas Bicarbonate Standard 23.9, Arterial Blood pH 7.406, Arterial Blood Partial Pressure CO2 38.9, Arterial Blood Partial Pressure O2 69.5L, Arterial Blood Total CO2 25.1, Arterial Blood HCO3 23.9, Arterial Blood Base Excess -0.6, Arterial Blood Oxygen Saturation 93.5L 02/17/19 15:26: Prothrombin Time 14.2, Prothromb Time International Ratio 1.09 CBC/BMP Laboratory Tests 02/17/19 14:43 Red Blood Count 4.59, Mean Corpuscular Volume 88.5, Mean Corpuscular Hemoglobin 28.1, Mean Corpuscular Hemoglobin Concent 31.8 L, Red Cell Distribution Width 14.1, Neutrophils (%) (Auto) 71.2 H, Lymphocytes (%) (Auto) 16.1 L, Monocytes (%) (Auto) 7.9 H, Eosinophils (%) (Auto) 3.5 H, Basophils (%) (Auto) 0.6, Neutrophils # (Auto) 6.7, Lymphocytes # (Auto) 1.5, Monocytes # (Auto) 0.8, Eosinophils # (Auto) 0.3, Basophils # (Auto) 0.1 Microbiology Microbiology 02/17/19 Blood Culture, Received Pending 02/17/19 Blood Culture, Received Pending Plan / VTE VTE Prophylaxis Ordered?: Yes Plan Plan Shortness of breath - likely 2/2 acute hypoxic respiratory failure - likely 2/2 underlying lung disease exacerbation; possibly 2/2 pneumonia (coverage for community acquired, coverage for MRSA pneumonia) - Presented to the ER with complaints of shortness of breath - On arrival to the emergency room, patient was found to be severely hypoxic; RR>26, Saturation of 78% on Room air; she had noted that she had ran out of oxygen while coming to the ER - Patient was using accessory muscles to breath - Since then patient has been placed back on nasal cannula oxygen at 3 L - Physical reveals poor inspiratory effort bilaterally with mild wheezing - ABG noted; without any significant PCO2 retention - s/p Solumedrol loading in the ER; c/w 60 q8h - c/w Duoneb therapy - Will start Guaifenesin - Will start incentive spirometry and Acapella Possible pneumonia (coverage for community acquired, coverage for MRSA pneumonia) - CXR 02/17: Chronic COPD and emphysematous changes. Subtle superimposed acute basilar atelectasis cannot be excluded. - CT chest 02/17: 1. Advanced COPD/emphysematous changes with large by apical blebs/bullae (right greater than left) no pneumothorax. 2. Small ill-defined areas of nodularity/consolidations in the posterior lower lobes along with suspe cted reactive adenopathy. Differential diagnosis includes but is not limited to atelectasis and multifocal pneumonia. Short-term follow-up is recommended. - s/p Ceftriaxone in the ER - Will start the patient on Ceftaroline Atypical chest pain - possibly 2/2 underlying lung etiology, less likely 2/2 cardiac etiology - Patient description of chest pain is atypical and not characteristic of card iac etiology - EKG is consistent with prior we have on record without any significant changes - Will get ECHO - Troponin x 1 negative - Will trend troponin Lactic acidosis - suspect likely 2/2 work of breathing, unlikely 2/2 sepsis etiology - On arrival, patient had reported that she had run out of oxygen; RR >26, Sat < 76% on room air - Will perform follow up lactic acid Elevated Cr on CKD3 - possibly 2/2 pre-renal etiology - Will check urine analysis and urine electrolytes - Will start IV fluid hydration Mild Pulmonary HTN - Was seen on echocardiogram from 2017 - Will repeat Ulcerative colitis - s/p Hemicolectomy Anxiety - Currently not on any medications Neuropathy - c/w Gabapentin Chronic back pain - c/w Oxycodone DVT prophylaxis - Will start Heparin LYLA RICK MD February 17, 2019 17:50
[2019-02-17] MEDS ORDERED: NS 1,000 ML IV SCH (18:00)
[2019-02-17 19:00] VITALS: BP 111/64
[2019-02-17 20:13] LABS: CPK CREATINE PHOSPHOKINASE 181 U/L (26-192); MB/CK RELATIVE INDEX 1.55 (< OR =4); TROPONIN I < 0.02 NG/ML (< 0.10)
[2019-02-17] MEDS: FLUTICASONE PROP 0.05% NASAL SPRAY 16 GM (FLONASE) SCH (20:37)
[2019-02-17] MEDS: traZODone 100 MG TAB PO SCH (20:38)
[2019-02-17] MEDS: MONTELUKAST 10 MG TAB PO SCH (20:38)
[2019-02-17] MEDS: GABAPENTIN 300 MG CAP PO SCH (20:38)
[2019-02-17] MEDS: SERTRALINE HCL 50 MG TAB PO SCH (20:38)
[2019-02-17] MEDS: CEFTAROLINE FOSAMIL 400 MG in D5W MINI-BAG PLUS 50 ML IV SCH (20:39)
[2019-02-17] MEDS: oxyCODONE 5MG TAB PO SCH (20:39)
[2019-02-17] MEDS: IPRATROPIUM 0.5MG/ALBUTEROL 2.5MG INH SOL UD 3ML (DUONEB)(J7620) NEB SCH (21:05)
[2019-02-17] MEDS: ADVAIR HFA 230/21MCG INHALER INH SCH (21:05)
[2019-02-17 22:00] VITALS: BP 113/50
[2019-02-17] MEDS: methylPREDNISolone INJ 40 MG/1 ML VIAL (J2920) IV SCH (22:03)
[2019-02-17] MEDS: HEPARIN SOD (PORCINE) 5000 UNITS/ML VIAL SC SCH (22:03)
[2019-02-18] MEDS: IPRATROPIUM 0.5MG/ALBUTEROL 2.5MG INH SOL UD 3ML (DUONEB)(J7620) NEB SCH ×4 (00:30→19:21)
[2019-02-18 01:26] LABS: CPK CREATINE PHOSPHOKINASE 193 U/L (26-192); MB/CK RELATIVE INDEX 1.97 (< OR =4); TROPONIN I < 0.02 NG/ML (< 0.10)
[2019-02-18 06:00] VITALS: BP_SYST 109; BP_SYST 151; BP_DIAS 69; BP_DIAS 87
[2019-02-18] MEDS: methylPREDNISolone INJ 40 MG/1 ML VIAL (J2920) IV SCH ×3 (06:17→22:22)
[2019-02-18] MEDS: HEPARIN SOD (PORCINE) 5000 UNITS/ML VIAL SC SCH ×3 (06:17→20:32)
[2019-02-18] MEDS: ADVAIR HFA 230/21MCG INHALER INH SCH ×2 (07:27→19:22)
[2019-02-18 07:32] LABS: BASO % 0.1 % (0.0-1.0); HEMATOCRIT 37.1 % (36.0-47.0); HEMOGLOBIN 11.6 g/dl (12.0-15.5); LYMPH # 0.4 10^3/uL (1.5-4.5); LYMPH % 5.5 % (24.0-44.0); MEAN CORPUSCULAR HEMOGLOBIN 27.2 pg (27.0-33.0); MEAN CORPUSCULAR HGB CONC 31.3 g/dl (32.0-36.5); MEAN CORPUSCULAR VOLUME 87.1 fl (80.0-96.0); MONO # 0.2 10^3/uL (0.0-0.8); MONO % 2.8 % (0.0-5.0); NEUTROPHILS # 6.1 10^3/uL (1.8-7.7); NEUTROPHILS % 90.6 % (36.0-66.0); PLATELET COUNT, AUTOMATED 189 10^3/uL (150-450); RED BLOOD COUNT 4.26 10^6/uL (4.00-5.40); WHITE BLOOD COUNT 6.8 10^3/uL (4.0-10.0)
[2019-02-18 07:57] LABS: CALCIUM LEVEL 7.7 MG/DL (8.8-10.2); CREATININE FOR GFR 1.25 MG/DL (0.55-1.30); GLOMERULAR FILTRATION RATE 45.4 (>45); MAGNESIUM LEVEL 2.3 MG/DL (1.8-2.4); POTASSIUM SERUM 4.2 MEQ/L (3.5-5.1)
[2019-02-18] MEDS: CEFTAROLINE FOSAMIL 400 MG in D5W MINI-BAG PLUS 50 ML IV SCH ×2 (08:32→20:32)
[2019-02-18] MEDS: GABAPENTIN 300 MG CAP PO SCH ×3 (08:32→20:32)
[2019-02-18] MEDS: CETIRIZINE (ZyrTEC) 10 MG TAB PO SCH (08:32)
[2019-02-18] MEDS: FLUTICASONE PROP 0.05% NASAL SPRAY 16 GM (FLONASE) SCH ×2 (08:33→20:32)
[2019-02-18] MEDS: oxyCODONE 5MG TAB PO SCH ×2 (08:33→20:34)
[2019-02-18] MEDS: DEXTROMETHORPHAN 60MG/10ML SUSP 90ML BTL(DELSYM) PO PRN (10:19)
--- NOTE | 2019-02-18 13:13 | IPNPDOC ---
Text Note Date of Service The patient was seen on 02/18/19. NOTE Subjective: Patient is a 68-year-old female with a PMHx of COPD on 2L of oxygen during exertion, Mild Pulmonary HTN, Ulcerative colitis (s/p Hemicolectomy), CKD3, Anxiety, Neuropathy, Chronic back pain, who presented to the emergency room with complaints of shortness of breath. Patient has noted that she has been on prednisone since December 24 was on 60 mg and then had taper down every week. Last week she was expressing worsening shortness of breath and had seen her electrical prospector, Dr. Rico. Patient was given a prescription for Augmentin, that she has completed, and also had her dose of prednisone increased. Despite this, patient needs to have shortness of breath after her antibiotics completed. Patient of that today. In the emergency room, patient was found to have an exacerbation of her underlying lung condition and was admitted to the [facility] for further evaluation and treatment. Patient was seen and examined at the bedside. Currently she is expressing significant coughing does not express any difficulty breathing.Denies p alpitations. Experiences some pain with cough. Denies nausea, vomiting. Denies abdominal pain, constipation, diarrhea, or urinary discomfort. Objective: Vitals (See below) General: Lying in bed, no acute distress, comfortable, AAOx3 HEENT: NC, AT CVS: RRR, +S1S2 Lungs: Air entry bilaterally. There is still mild wheezing appreciated. No rhonchi or rales Abdomen: Soft, nondistended with tenderness Extremities: No appreciable lower extremity edema, - Calf tenderness Assessment and plan: Shortness of breath - likely 2/2 acute hypoxic respiratory failure - likely 2/2 underlying obstructive lung disease; possibly 2/2 pneumonia (coverage for com munity acquired, coverage for MRSA pneumonia) - On arrival to the emergency room, patient was found to be severely hypoxic; RR>26, Saturation of 78% on Room air; she had noted that she had ran out of oxygen while coming to the ER; patient was using accessory muscles to breath - Currently, patient has had a significant improvement in breathing; patient does experience coughing spells - Patient has been tapered down to her outpatient level of oxygen by nasal cannula - Improved aeration bilaterally, but still with wheezing - ABG noted; without any significant PCO2 retention - c/w Solumedrol at current dose - c/w Duoneb therapy and Guaifenesin; Will add cough suppressant - c/w incentive spirometry and Acapella Possible pneumonia (coverage for community acquired, coverage for MRSA pneumonia ) - CXR 02/17: Chronic COPD and emphysematous changes. Subtle superimposed acute basilar atelectasis cannot be excluded. - CT chest 02/17: 1. Advanced COPD/emphysematous changes with large by apical bl ebs/bullae (right greater than left) no pneumothorax. 2. Small ill-defined areas of nodularity/consolidations in the posterior lower lobes along with suspected reactive adenopathy. Differential diagnosis includes but is not limited to atelectasis and multifocal pneumonia. Short-term follow-up is recommended. - s/p Ceftriaxone in the ER - c/w Ceftaroline (Day #2) Atypical chest pain - possibly 2/2 pleuritic pain 2/2 possible pneumonia, less likely 2/2 cardiac etiology - Patient description of chest pain is atypical and not characteristic of cardiac etiology - EKG is consistent with prior we have on record without any significant changes - ECHO pending - Troponin x 3 negative - Will trend troponin Lactic acidosis - suspect likely 2/2 work of breathing, unlikely 2/2 sepsis etiology - On arrival, patient had reported that she had run out of oxygen; RR >26, Sat < 76% on room air - Will perform follow up lactic acid s/p Elevated Cr on CKD3 - possibly 2/2 pre-renal etiology - Baseline creatinine of approximately 1.3 - Will check urine analysis and urine electrolytes - s/p IV fluid hydration Mild Pulmonary HTN - Was seen on echocardiogram from 2017 - ECHO; pending Ulcerative colitis - s/p Hemicolectomy Anxiety - Currently not on any medications Neuropathy - c/w Gabapentin Chronic back pain - c/w Oxycodone DVT prophylaxis - c/w Heparin VS,Fishbone, I+O VS, Fishbone, I+O Laboratory Tests 02/17/19 14:43 Red Blood Count 4.59, Mean Corpuscular Volume 88.5, Mean Corpuscular Hemoglobin 28.1, Mean Corpuscular Hemoglobin Concent 31.8 L, Red Cell Distribution Width 14.1, Neutrophils (%) (Auto) 71.2 H, Lymphocytes (%) (Auto) 16.1 L, Monocytes (%) (Auto) 7.9 H, Eosinophils (%) (Auto) 3.5 H, Basophils (%) (Auto) 0.6, Neutrophils # (Auto) 6.7, Lymphocytes # (Auto) 1.5, Monocytes # (Auto) 0.8, Eosinophils # (Auto) 0.3, Basophils # (Auto) 0.1 02/18/19 06:52 Red Blood Count 4.26, Mean Corpuscular Volume 87.1, Mean Corpuscular Hemoglobin 27.2, Mean Corpuscular Hemoglobin Concent 31.3 L, Red Cell Distribution Width 13.8, Neutrophils (%) (Auto) 90.6 H, Lymphocytes (%) (Auto) 5.5 L, Monocytes (%) (Auto) 2.8, Eosinophils (%) (Auto) 0.0, Basophils (%) (Auto) 0.1, Neutrophils # (Auto) 6.1, Lymphocytes # (Auto) 0.4 L, Monocytes # (Auto) 0.2, Eosinophils # (Auto) 0.0, Basophils # (Auto) 0.0, Calcium Level 7.7 L Vital Signs Date Time Temp Pulse Resp B/P (MAP) Pulse Ox O2 Delivery O2 Flow Rate FiO2 02/18/19 09:03 18 02/18/19 08:50 2.0 02/18/19 06:00 97.5 96 109/69 (82) 94 02/17/19 18:47 Nasal Cannula I&O- Last 24 Hours up to 6 AM 02/18/19 06:00 Intake Total 760 ml Output Total 900 ml Balance -140 ml LYLA RICK MD February 18, 2019 13:13
[2019-02-18 14:00] VITALS: BP 107/59
[2019-02-18] MEDS ORDERED: DEXTROMETHORPHAN 60MG/10ML SUSP 90ML BTL(DELSYM) PO ONE (18:00)
[2019-02-18] MEDS: MONTELUKAST 10 MG TAB PO SCH (20:32)
[2019-02-18] MEDS: SERTRALINE HCL 50 MG TAB PO SCH (20:32)
[2019-02-18] MEDS: traZODone 100 MG TAB PO SCH (20:32)
--- NOTE | 2019-02-18 20:52 | ECGEPIP ---
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
[2019-02-18] MEDS: IPRATROPIUM 0.5MG/ALBUTEROL 2.5MG INH SOL UD 3ML (DUONEB)(J7620) NEB PRN (21:05)
[2019-02-18 22:00] VITALS: BP 109/61
[2019-02-19] MEDS: IPRATROPIUM 0.5MG/ALBUTEROL 2.5MG INH SOL UD 3ML (DUONEB)(J7620) NEB SCH ×4 (01:49→19:32)
[2019-02-19 06:00] VITALS: BP 109/62
[2019-02-19 06:09] LABS: BASO % 0.1 % (0.0-1.0); HEMOGLOBIN 10.6 g/dl (12.0-15.5); LYMPH # 0.4 10^3/uL (1.5-4.5); LYMPH % 2.7 % (24.0-44.0); MEAN CORPUSCULAR HEMOGLOBIN 27.2 pg (27.0-33.0); MEAN CORPUSCULAR HGB CONC 31.2 g/dl (32.0-36.5); MEAN CORPUSCULAR VOLUME 87.4 fl (80.0-96.0); MONO # 0.4 10^3/uL (0.0-0.8); MONO % 3.2 % (0.0-5.0); NEUTROPHILS % 93.1 % (36.0-66.0); PLATELET COUNT, AUTOMATED 207 10^3/uL (150-450); RED BLOOD COUNT 3.89 10^6/uL (4.00-5.40)
[2019-02-19] MEDS: HEPARIN SOD (PORCINE) 5000 UNITS/ML VIAL SC SCH ×3 (06:09→22:12)
[2019-02-19] MEDS: methylPREDNISolone INJ 40 MG/1 ML VIAL (J2920) IV SCH ×2 (06:09→22:12)
[2019-02-19] MEDS: DEXTROMETHORPHAN 60MG/10ML SUSP 90ML BTL(DELSYM) PO PRN (06:09)
[2019-02-19 06:32] LABS: CREATININE FOR GFR 1.12 MG/DL (0.55-1.30); GLOMERULAR FILTRATION RATE 51.5 (>45)
[2019-02-19 06:33] LABS: MAGNESIUM LEVEL 2.3 MG/DL (1.8-2.4); POTASSIUM SERUM 4.3 MEQ/L (3.5-5.1)
[2019-02-19] MEDS: ADVAIR HFA 230/21MCG INHALER INH SCH ×2 (07:59→19:32)
[2019-02-19] MEDS: oxyCODONE 5MG TAB PO SCH ×2 (08:20→22:11)
[2019-02-19] MEDS: CETIRIZINE (ZyrTEC) 10 MG TAB PO SCH (08:20)
[2019-02-19] MEDS: CEFTAROLINE FOSAMIL 400 MG in D5W MINI-BAG PLUS 50 ML IV SCH ×2 (08:21→22:12)
[2019-02-19] MEDS: FLUTICASONE PROP 0.05% NASAL SPRAY 16 GM (FLONASE) SCH ×2 (08:21→22:10)
[2019-02-19] MEDS: GABAPENTIN 300 MG CAP PO SCH ×3 (08:21→22:10)
[2019-02-19] MEDS: IPRATROPIUM 0.5MG/ALBUTEROL 2.5MG INH SOL UD 3ML (DUONEB)(J7620) NEB PRN (13:50)
[2019-02-19 14:44] VITALS: BP 123/61
[2019-02-19] MEDS: NYSTATIN 500,000 U/5 ML SUSP UDC SS SCH ×2 (17:06→22:10)
--- NOTE | 2019-02-19 17:49 | IPNPDOC ---
Subjective Date Seen The patient was seen on 02/19/19. Subjective Chief Complaint/HPI Shortness of breath Events since last encounter The patient reports her shortness of breath is improving although she still has quite a bit of a coughmostly nonproductive as well as some associated chest wall pain worse with coughing but also present at other times. Denies any associated fevers/chills or sweats. No nausea or vomiting. Reports she is quite unsteady when she gets to the bathroom and back and her legs feel a little shaky. Tolerating oral intake. Objective Physical Examination General Exam: Positive: Alert, No Acute Distress, Other (coughing often) Eye Exam: Positive: PERRLA ENT Exam: Positive: Other ENT (very slight oral thrush on the hard palate) Chest Exam: Positive: Other (slight bilateral wheeze. No overt distress) Heart Exam: Positive: Other (S1 and S2 heard, no rubs or gallops.) Abdomen Exam: Positive: Other (soft, nontender) Neuro Exam: Positive: Other (awake, alert, answering portions appropriately. Moving all 4 extremities) Assessment /Plan Assessment Current Medications Albuterol/ Ipratropium (Duoneb (Ipr 0.5mg/Alb 2.5mg)) 3 ml Q2HP PRN NEB SOB /WHEEZING Last administered on 02/19/19at 13:50; Start 02/17/19 at 17:30 Albuterol/ Ipratropium (Duoneb (Ipr 0.5mg/Alb 2.5mg)) 3 ml RQ6H NEB Last administered on 02/19/19at 07:59; Start 02/17/19 at 20:00 Ceftaroline Fosamil 400 mg/ Dextrose 50 ml @ 50 mls/hr Q12H IV Last administered on 02/19/19at 08:21; Start 02/17/19 at 21:00 Cetirizine HCl (ZyrTEC) 10 mg DAILY PO Last administered on 02/19/19at 08:20; Start 02/18/19 at 09:00 Codeine Phosphate/ Guaifenesin (Robitussin Ac) 5 ml Q4HP PRN PO COUGH; Start 02/19/19 at 14:45 Dextromethorphan (Delsym Af 12hr Susp) 30 mg Q12HP PRN PO COUGH Last adm inistered on 02/19/19at 06:09; Start 02/18/19 at 08:00; Stop 02/19/19 at 14:51; Status DC Fluticasone Propionate (Flonase 0.05% Nasal [place]) 2 spray BID NA Last administered on 02/19/19 08:21; Start 02/17/19 at 21:00 Gabapentin (Neurontin) 300 mg TID PO Last administered on 02/19/19 15:09; Start 02/17/19 at 21:00 Guaifenesin (Robitussin Tab) 200 mg Q8HP PRN PO CONGESTION; Start 02/17/19 at 17:30; Stop 02/19/19 at 14:54; Status DC Heparin Sodium (Porcine) (Heparin) 5,000 units Q8H SC Last administered on 02/19/19at 15:10; Start 02/17/19 at 22:00 Home Med (Med Rec Complete!) ASDIRECTED XX ; Start 02/17/19 at 17:45; Stop 02/17/19 at 17:45; Status DC Methylprednisolone (SOLU medrol) 40 mg BID IV ; Start 02/19/19 at 21:00 Methylprednisolone (SOLU medrol) 40 mg Q8H IV Last administered on 02/19/19 06:09; Start 02/17/19 at 23:00; Stop 02/19/19 at 14:36; Status DC Montelukast Sodium (Singulair) 10 mg QHS PO Last administered on 02/18/19 20:32; Start 02/17/19 at 21:00 Nystatin (Mycostatin) 5 ml QID SS Last administered on 02/19/19at 17:06; Start 02/19/19 at 17:00; Stop 03/01/19 at 16:59 Oxycodone HCl (Roxicodone, Oxyir) 5 mg BID PO Last administered on 02/19/19 08:20; Start 02/17/19 at 21:00 Salmeterol Xinafoate/ Fluticasone (Advair Hfa 230/ 21) 2 puff BID INH Last administered on 02/19/19 07:59; Start 02/17/19 at 21:00 Sertraline HCl (Zoloft) 150 mg QHS PO Last administered on 02/18/19at 20:32; Start 02/17/19 at 21:00 Sodium Chloride 1,000 ml @ 80 mls/hr [id number] IV Last administered on 02/17/19at 17:57; Start 02/17/19 at 18:00; Stop 02/18/19 at 06:29; Status DC Trazodone HCl (Desyrel) 100 mg QHS PO Last administered on 02/18/19at 20:32; Start 02/17/19 at 21:00 Acute on chronic hypoxemic respiratory failure secondary to community-acquired pneumonia and acute COPD exacerbation secondary to same: -I will taper the IV Solu-Medrol -Continue IV Ceftaroline D3 - plan total 5-7 day treatment with antibiotics -Continue DuoNeb's, wean supplemental oxygen as tolerated -Continue incentive spirometry and Acapella Atypical chest pain -suspect musculoskeletal/pleuritic pain: -Serial troponins negative, 2-D echo pending. -Added Robitussin-AC prn - this should help with cough and chest wall pain Lactic acidosis - suspect likely 2/2 work of breathing, unlikely 2/2 sepsis etiology -Resolved Acute on CKD3 - possibly 2/2 pre-renal etiology -Resolved. Creatinine at baseline Mild Pulmonary HTN - Was seen on echocardiogram from 2017 - ECHO; pending Ulcerative colitis - s/p previous Hemicolectomy Anxiety - Currently not on any medications Neuropathy - c/w Gabapentin Chronic back pain - c/w Oxycodone DVT prophylaxis - c/w Heparin Generalized weakness: -PT/OT evaluation Disposition: -Anticipate discharge home with home health within the next 24-48 hours once able to transition to oral prednisone and pending final PT/OT recommendations. Plan/VTE VTE Prophylaxis Ordered?: Yes VS, I&O, 24H, Fishbone Vital Signs/I&O Vital Signs Date Time Temp Pulse Resp B/P (MAP) Pulse Ox O2 Delivery O2 Flow Rate FiO2 02/19/19 14:44 98.6 112 18 123/61 (81) 96 2.0 02/17/19 18:47 Nasal Cannula I&O- Last 24 Hours up to 6 AM 02/19/19 06:00 Intake Total 1620 ml Output Total 2650 ml Balance -1030 ml Laboratory Data 24H LABS Laboratory Tests 2 02/19/19 05:27: Immature Granulocyte % (Auto) 0.9, White Blood Count 14.0H, Red Blood Count 3.89L, Hemoglobin 10.6L, Hematocrit 34.0L, Mean Corpuscular Volume 87.4, Mean Corpuscular Hemoglobin 27.2, Mean Corpuscular Hemoglobin Concent 31.2L, Red Cell Distribution Width 14.0, Platelet Count 207, Neutrophils (%) (Auto) 93.1H, Lymphocytes (%) (Auto) 2.7L, Monocytes (%) (Auto) 3.2, Eosinophils (%) (Auto) 0.0, Basophils (%) (Auto) 0.1, Neutrophils # (Auto) 13.0H, Lymphocytes # (Auto) 0.4L, Monocytes # (Auto) 0.4, Eosinophils # (Auto) 0.0, Basophils # (Auto) 0.0, Nucleated Red Blood Cells % (auto) 0.0, Anion Gap 6L, Glomerular Filtration Rate 51.5, Blood Urea Nitrogen 12, Creatinine 1.12, Sodium Level 143, Potassium Level 4.3, Chloride Level 109H, Carbon Dioxide Level 28, Calcium Level 8.0L, Magnesium Level 2.3 CBC/BMP Laboratory Tests 02/19/19 05:27 Red Blood Count 3.89 L, Mean Corpuscular Volume 87.4, Mean Corpuscular Hemoglobin 27.2, Mean Corpuscular Hemoglobin Concent 31.2 L, Red Cell Distribution Width 14.0, Neutrophils (%) (Auto) 93.1 H, Lymphocytes (%) (Auto) 2.7 L, Monocytes (%) (Auto) 3.2, Eosinophils (%) (Auto) 0.0, Basophils (%) (Auto) 0.1, Neutrophils # (Auto) 13.0 H, Lymphocytes # (Auto) 0.4 L, Monocytes # (Auto) 0.4, Eosinophils # (Auto) 0.0, Basophils # (Auto) 0.0, Calcium Level 8.0 L Microbiology Microbiology 02/17/19 Blood Culture - Preliminary, Resulted No Growth after 48 hours. All Specime... 02/17/19 Blood Culture - Preliminary, Resulted No Growth after 48 hours. All Specime... EMILIE CHOWDHURY MD February 19, 2019 17:49
[2019-02-19 22:00] VITALS: BP 114/56
[2019-02-19] MEDS: MONTELUKAST 10 MG TAB PO SCH (22:10)
[2019-02-19] MEDS: SERTRALINE HCL 50 MG TAB PO SCH (22:11)
[2019-02-19] MEDS: traZODone 100 MG TAB PO SCH (22:11)
[2019-02-19] MEDS: guaiFENesin/CODEINE SYRUP 5 ML UDC PO PRN (22:11)
[2019-02-20] MEDS: IPRATROPIUM 0.5MG/ALBUTEROL 2.5MG INH SOL UD 3ML (DUONEB)(J7620) NEB SCH ×4 (02:00→17:54)
[2019-02-20] MEDS: HEPARIN SOD (PORCINE) 5000 UNITS/ML VIAL SC SCH ×3 (05:49→20:37)
[2019-02-20 06:00] VITALS: BP 117/68
[2019-02-20] MEDS: guaiFENesin/CODEINE SYRUP 5 ML UDC PO PRN ×2 (06:09→12:27)
[2019-02-20 07:06] LABS: BASO % 0.1 % (0.0-1.0); HEMOGLOBIN 11.1 g/dl (12.0-15.5); LYMPH # 0.7 10^3/uL (1.5-4.5); LYMPH % 7.1 % (24.0-44.0); MEAN CORPUSCULAR HGB CONC 30.8 g/dl (32.0-36.5); MEAN CORPUSCULAR VOLUME 90.7 fl (80.0-96.0); MONO # 0.4 10^3/uL (0.0-0.8); MONO % 4.3 % (0.0-5.0); NEUTROPHILS # 8.6 10^3/uL (1.8-7.7); NEUTROPHILS % 87.8 % (36.0-66.0); PLATELET COUNT, AUTOMATED 214 10^3/uL (150-450); RED BLOOD COUNT 3.97 10^6/uL (4.00-5.40); WHITE BLOOD COUNT 9.8 10^3/uL (4.0-10.0)
[2019-02-20 07:26] LABS: CALCIUM LEVEL 8.4 MG/DL (8.8-10.2); CREATININE FOR GFR 1.47 MG/DL (0.55-1.30); GLOMERULAR FILTRATION RATE 37.6 (>45); POTASSIUM SERUM 4.4 MEQ/L (3.5-5.1)
[2019-02-20] MEDS: ADVAIR HFA 230/21MCG INHALER INH SCH ×2 (07:44→17:55)
[2019-02-20] MEDS: GABAPENTIN 300 MG CAP PO SCH ×3 (09:09→20:37)
[2019-02-20] MEDS: methylPREDNISolone INJ 40 MG/1 ML VIAL (J2920) IV SCH ×2 (09:09→20:37)
[2019-02-20] MEDS: CEFTAROLINE FOSAMIL 400 MG in D5W MINI-BAG PLUS 50 ML IV SCH ×2 (09:09→20:37)
[2019-02-20] MEDS: NYSTATIN 500,000 U/5 ML SUSP UDC SS SCH ×4 (09:09→20:36)
[2019-02-20] MEDS: FLUTICASONE PROP 0.05% NASAL SPRAY 16 GM (FLONASE) SCH ×2 (09:10→20:36)
[2019-02-20] MEDS: oxyCODONE 5MG TAB PO SCH ×2 (09:10→20:38)
[2019-02-20] MEDS: CETIRIZINE (ZyrTEC) 10 MG TAB PO SCH (09:10)
[2019-02-20] MEDS: IPRATROPIUM 0.5MG/ALBUTEROL 2.5MG INH SOL UD 3ML (DUONEB)(J7620) NEB PRN (13:04)
[2019-02-20 14:00] VITALS: BP 130/76
--- NOTE | 2019-02-20 17:34 | IPNPDOC ---
Subjective Date Seen The patient was seen on 02/20/19. Subjective Chief Complaint/HPI Shortness of breath Events since last encounter Patient reports her shortness of breath and cough seem improved from yesterday although still having coughing as well as associated chest wall pain with coughing. No nausea or vomiting. Tolerating oral intake. Reports the Robitussin AC seems to be helping with the cough and chest wall pain. No problems of bladder/bowel habits. Ambulated with physical therapy earlier today and did well. Objective Physical Examination General Exam: Positive: Alert, No Acute Distress, Other (lying in bed) Eye Exam: Positive: PERRLA ENT Exam: Positive: Mucous membr. moist/pink, Other ENT (no thrush noted over the hard palate today) Chest Exam: Positive: Other (very slight wheeze. No distress. Slightly diminished air entry bilaterally.) Heart Exam: Positive: Other (S1 and S2 heard, no rubs or gallops.) Abdomen Exam: Positive: Soft, Other; Negative: Tenderness Neuro Exam: Positive: Other (awake, alert, answering questions appropriately. Moving all 4 extremities) Assessment /Plan Assessment Current Medications Albuterol/ Ipratropium (Duoneb (Ipr 0.5mg/Alb 2.5mg)) 3 ml Q2HP PRN NEB SOB/WHEEZING Last administered on 02/20/19at 13:04; Start 02/17/19 at 17:30 Albuterol/ Ipratropium (Duoneb (Ipr 0.5mg/Alb 2.5mg)) 3 ml RQ6H NEB Last administered on 02/19/19at 19:32; Start 02/17/19 at 20:00 Ceftaroline Fosamil 400 mg/ Dextrose 50 ml @ 50 mls/hr Q12H IV Last administered on 02/20/19at 09:09; Start 02/17/19 at 21:00 Cetirizine HCl (ZyrTEC) 10 mg DAILY PO Last administered on 02/20/19at 09:10; Start 02/18/19 at 09:00 Codeine Phosphate/ Guaifenesin (Robitussin Ac) 5 ml Q4HP PRN PO COUGH Last administered on 02/20/19at 12:27; Start 02/19/19 at 14:45; Stop 02/20/19 at 12:30; Status DC Codeine Phosphate/ Guaifenesin (Robitussin Ac) 10 ml Q4HP PRN PO COUGH; Start 02/20/19 at 12:30 Dextromethorphan (Delsym Af 12hr Susp) 30 mg Q12HP PRN PO COUGH Last administered on 02/19/19 06:09; Start 02/18/19 at 08:00; Stop 02/19/19 at 14:51; Status DC Fluticasone Propionate (Flonase 0.05% Nasal [place]) 2 spray BID NA Last administered on 02/20/19 09:10; Start 02/17/19 at 21:00 Gabapentin (Neurontin) 300 mg TID PO Last administered on 02/20/19 16:09; Start 02/17/19 at 21:00 Guaifenesin (Robitussin Tab) 200 mg Q8HP PRN PO CONGESTION; Start 02/17/19 at 17:30; Stop 02/19/19 at 14:54; Status DC Heparin Sodium (Porcine) (Heparin) 5,000 units Q8H SC Last administered on 02/20/19at 14:38; Start 02/17/19 at 22:00 Home Med (Med Rec Complete!) ASDIRECTED XX ; Start 02/17/19 at 17:45; Stop 02/17/19 at 17:45; Status DC Methylprednisolone (SOLU medrol) 40 mg BID IV Last administered on 02/20/19 09:09; Start 02/19/19 at 21:00; Stop 02/21/19 at 00:00 Methylprednisolone (SOLU medrol) 40 mg Q8H IV Last administered on 02/19/19 06:09; Start 02/17/19 at 23:00; Stop 02/19/19 at 14:36; Status DC Montelukast Sodium (Singulair) 10 mg QHS PO Last administered on 02/19/19 22:10; Start 02/17/19 at 21:00 Nystatin (Mycostatin) 5 ml QID SS Last administered on 02/20/19 16:09; Start 02/19/19 at 17:00; Stop 03/01/19 at 16:59 Oxycodone HCl (Roxicodone, Oxyir) 5 mg BID PO Last administered on 02/20/19 09:10; Start 02/17/19 at 21:00 Prednisone (Deltasone) 40 mg DAILY PO ; Start 02/21/19 at 09:00 Salmeterol Xinafoate/ Fluticasone (Advair Hfa 230/ 21) 2 puff BID INH Last administered on 02/20/19at 07:44; Start 02/17/19 at 21:00 Sertraline HCl (Zoloft) 150 mg QHS PO Last administered on 02/19/19at 22:11; Start 02/17/19 at 21:00 Sodium Chloride 1,000 ml @ 80 mls/hr [id number] IV Last administered on 02/17/19at 17:57; Start 02/17/19 at 18:00; Stop 02/18/19 at 06:29; Status DC Trazodone HCl (Desyrel) 100 mg QHS PO Last administered on 02/19/19at 22:11; Start 02/17/19 at 21:00 Acute on chronic hypoxemic respiratory failure secondary to community-acquired pneumonia and acute COPD exacerbation secondary to same: -DC IV Solu-Medrol after dose tonight and transitioned to oral prednisone from tomorrow -Continue IV Ceftaroline D4 - plan total 5-7 day treatment with antibiotics -Continue DuoNeb's, wean supplemental oxygen as tolerated -Continue incentive spirometry and Acapella Atypical chest pain -suspect musculoskeletal/pleuritic pain: -Serial troponins negative, 2-D echo pending. -Ct Robitussin-AC prn -increased dose todaythis seems to be helping Lactic acidosis - suspect likely 2/2 work of breathing, unlikely 2/2 sepsis etiology -Resolved Acute on CKD3 - possibly 2/2 pre-renal etiology -Resolved. Creatinine at baseline Mild Pulmonary HTN - Was seen on echocardiogram from 2017 - ECHO pending Ulcerative colitis - s/p previous Hemicolectomy Anxiety - Currently not on any medications Neuropathy - c/w Gabapentin Chronic back pain - c/w Oxycodone DVT prophylaxis - c/w Heparin Generalized weakness: -Improving. Ambulated with PT today. Disposition: -Anticipate discharge home tomorrow if patient is doing well Plan/VTE VTE Prophylaxis Ordered?: Yes VS, I&O, 24H, Fishbone Vital Signs/I&O Vital Signs Date Time Temp Pulse Resp B/P (MAP) Pulse Ox O2 Delivery O2 Flow Rate FiO2 02/20/19 14:00 98.8 90 18 130/76 (94) 93 2.0 02/17/19 18:47 Nasal Cannula I&O- Last 24 Hours up to 6 AM 02/20/19 06:00 Intake Total 1980 ml Output Total 1750 ml Balance 230 ml Laboratory Data 24H LABS Laboratory Tests 2 02/20/19 06:30: Immature Granulocyte % (Auto) 0.7, White Blood Count 9.8, Red Blood Count 3.97L, Hemoglobin 11.1L, Hematocrit 36.0, Mean Corpuscular Volume 90.7, Mean Corpuscular Hemoglobin 28.0, Mean Corpuscular Hemoglobin Concent 30.8L, Red Cell Distribution Width 14.0, Platelet Count 214, Neutrophils (%) (Auto) 87.8H, Lymphocytes (%) (Auto) 7.1L, Monocytes (%) (Auto) 4.3, Eosinophils (%) (Auto) 0 .0, Basophils (%) (Auto) 0.1, Neutrophils # (Auto) 8.6H, Lymphocytes # (Auto) 0.7L, Monocytes # (Auto) 0.4, Eosinophils # (Auto) 0.0, Basophils # (Auto) 0.0, Nucleated Red Blood Cells % (auto) 0.0, Anion Gap 9, Glomerular Filtration Rate 37.6L, Blood Urea Nitrogen 17, Creatinine 1.47H, Sodium Level 141, Potassium Level 4.4, Chloride Level 107, Carbon Dioxide Level 25, Calcium Level 8.4L, Magnesium Level 2.0 CBC/BMP Laboratory Tests 02/20/19 06:30 Red Blood Count 3.97 L, Mean Corpuscular Volume 90.7, Mean Corpuscular Hemoglobin 28.0, Mean Corpuscular Hemoglobin Concent 30.8 L, Red Cell Distribution Width 14.0, Neutrophils (%) (Auto) 87.8 H, Lymphocytes (%) (Auto) 7.1 L, Monocytes (%) (Auto) 4.3, Eosinophils (%) (Auto) 0.0, Basophils (%) (Auto) 0.1, Neutrophils # (Auto) 8.6 H, Lymphocytes # (Auto) 0.7 L, Monocytes # (Auto) 0.4, Eosinophils # (Auto) 0.0, Basophils # (Auto) 0.0, Calcium Level 8.4 L Microbiology Microbiology 02/17/19 Blood Culture - Preliminary, Resulted No Growth after 72 hours. All specime... 02/17/19 Blood Culture - Preliminary, Resulted No Growth after 72 hours. All specime... EMILIE CHOWDHURY MD February 20, 2019 17:34
[2019-02-20] MEDS: traZODone 100 MG TAB PO SCH (20:37)
[2019-02-20] MEDS: SERTRALINE HCL 50 MG TAB PO SCH (20:37)
[2019-02-20] MEDS: MONTELUKAST 10 MG TAB PO SCH (20:37)
[2019-02-20 22:00] VITALS: BP 129/76
[2019-02-21] MEDS: guaiFENesin/CODEINE SYRUP 5 ML UDC PO PRN ×2 (01:29→08:25)
[2019-02-21] MEDS: IPRATROPIUM 0.5MG/ALBUTEROL 2.5MG INH SOL UD 3ML (DUONEB)(J7620) NEB SCH ×3 (02:09→13:05)
[2019-02-21] MEDS: HEPARIN SOD (PORCINE) 5000 UNITS/ML VIAL SC SCH (05:23)
[2019-02-21 06:00] VITALS: BP 123/65
[2019-02-21 06:05] LABS: BASO % 0.1 % (0.0-1.0); HEMATOCRIT 33.1 % (36.0-47.0); HEMOGLOBIN 10.5 g/dl (12.0-15.5); LYMPH # 0.7 10^3/uL (1.5-4.5); LYMPH % 8.6 % (24.0-44.0); MEAN CORPUSCULAR HEMOGLOBIN 27.4 pg (27.0-33.0); MEAN CORPUSCULAR HGB CONC 31.7 g/dl (32.0-36.5); MEAN CORPUSCULAR VOLUME 86.4 fl (80.0-96.0); MONO # 0.4 10^3/uL (0.0-0.8); MONO % 5.7 % (0.0-5.0); NEUTROPHILS # 6.4 10^3/uL (1.8-7.7); NEUTROPHILS % 84.8 % (36.0-66.0); PLATELET COUNT, AUTOMATED 212 10^3/uL (150-450); RED BLOOD COUNT 3.83 10^6/uL (4.00-5.40); WHITE BLOOD COUNT 7.6 10^3/uL (4.0-10.0)
[2019-02-21 06:33] LABS: CALCIUM LEVEL 8.1 MG/DL (8.8-10.2); CREATININE FOR GFR 1.37 MG/DL (0.55-1.30); GLOMERULAR FILTRATION RATE 40.8 (>45); MAGNESIUM LEVEL 2.2 MG/DL (1.8-2.4); POTASSIUM SERUM 3.9 MEQ/L (3.5-5.1)
[2019-02-21] MEDS: ADVAIR HFA 230/21MCG INHALER INH SCH (07:18)
[2019-02-21] MEDS: CETIRIZINE (ZyrTEC) 10 MG TAB PO SCH (08:25)
[2019-02-21] MEDS: GABAPENTIN 300 MG CAP PO SCH (08:25)
[2019-02-21] MEDS: NYSTATIN 500,000 U/5 ML SUSP UDC SS SCH ×2 (08:25→12:26)
[2019-02-21] MEDS: oxyCODONE 5MG TAB PO SCH (08:26)
[2019-02-21] MEDS: FLUTICASONE PROP 0.05% NASAL SPRAY 16 GM (FLONASE) SCH (08:26)
[2019-02-21] MEDS: CEFTAROLINE FOSAMIL 400 MG in D5W MINI-BAG PLUS 50 ML IV SCH (08:26)
[2019-02-21] MEDS ORDERED: predniSONE 20 MG TAB PO SCH (09:00)
--- NOTE | 2019-02-21 10:01 | ECHO ---
DATE OF PROCEDURE: 02/20/2019 REFERRING PHYSICIAN: Shantal Barr MD INDICATION: Dyspnea. HEIGHT: 163 cm WEIGHT: 65 kg 2D MEASUREMENTS: Aortic root 3.1 cm Left atrium 2.3 cm Left ventricle diastole 4.3 cm Ventricular septum 0.94 cm Posterior wall 0.99 cm Inferior vena cava 2.1 cm with marked reduction with respiratory variation DOPPLER MEASUREMENTS: Aortic valve velocity 115 cm/s LVOT velocity 83.5 cm/s Mitral E velocity 86.3 cm/s Mitral A velocity 92.6 cm/s Mitral deceleration time 176 ms No tricuspid regurgitation. Pulmonary artery systolic pressure 41 mmHg MITRAL ANNULAR TISSUE DOPPLER: E prime septal 6.3 cm/s E prime lateral 7.2 cm/s DESCRIPTION: Rhythm was sinus. Image quality was fair. No pericardial effusion. This was a 2D, M mode, color flow Doppler and pulse wave Doppler examination and included mitral annular tissue Doppler. CONCLUSIONS: 1. Normal left ventricle internal dimensions and wall thickness. Normal regional LV wall motion and wall thickening. Normal LV systolic function. LVEF 65% by visual estimate. Grade 1 LV diastolic dysfunction (impaired relaxation filling pattern). Normal left atrial size. 2. Suggestive of moderate elevation of pulmonary artery systolic pressure (41 mmHg). Normal right ventricle size and systolic function. Normal right atrial size. 3. Inferior vena cava dilatation with marked reduction with respiratory variation. Suggestive of elevated central venous pressure of at least 20 mmHg.
[2019-02-21] MEDS ORDERED: NYST50SS SS (14:15)
[2019-02-21] MEDS ORDERED: GUAI1SOL7 PO (14:15)
[2019-02-21] MEDS ORDERED: CEFD1CAP8 PO (14:15)
[2019-02-21] MEDS ORDERED: PRED20TA PO (14:15)
--- NOTE | 2019-02-21 18:52 | DS.PDOC ---
Discharge Summary General Date of Admission February 17, 2019 at 17:16 Date of Discharge 02/21/19 Discharge Summary PROCEDURES PERFORMED DURING STAY: 2D Echo: CONCLUSIONS: 1. Normal left ventricle internal dimensions and wall thickness. Normal regional LV wall motion and wall thickening. Normal LV systolic function. LVEF 65% by visual estimate. Grade 1 LV diastolic dysfunction (impaired relaxation filling pattern). Normal left atrial size. 2. Suggestive of moderate elevation of pulmonary artery systolic pressure (41 mmHg). Normal right ventricle size and systolic function. Normal right atrial size. 3. Inferior vena cava dilatation with marked reduction with respiratory variation. Suggestive of elevated central venous pressure of at least 20 mmHg. ADMITTING DIAGNOSES: Shortness of breath likely secondary to acute hypoxic respiratory failure - likely 2/2 underlying lung disease exacerbation; possibly 2/2 pneumonia, atypical chest pain possibly 2/2 underlying lung etiology, less likely 2/2 cardiac etiology, lactic acidosis, elevated creatinine on chronic kidney disease stage III possibly prerenal, mild pulmonary hypertension, ulcerative colitis, anxiety, neuropathy, chronic back pain DISCHARGE DIAGNOSES: Acute on chronic hypoxemic respiratory failure secondary to community-acquired pneumonia and acute COPD exacerbation secondary to same, atypical chest pain suspect musculoskeletal/pleuritic pain, lactic acidosis resolved, acute on chronic kidney disease stage III resolved likely prerenal, mild pulmonary hypertension, ulcerative colitis, anxiety, neuropathy, chronic back pain COMPLICATIONS/CHIEF COMPLAINT: Shortness of breath HISTORY OF PRESENT ILLNESS: The patient is a 68-year-old female with a history of COPD who uses 2 L oxygen at nighttime as well as during the day with exertion with complains of increasing shortness of breath despite being treated as outpatient with Augmentin as well as oral prednisone. She also reported some chest pain. After initially relation in the ER, patient was admitted to our facility for further management. HOSPITAL COURSE: Acute on chronic hypoxemic respiratory failure secondary to community-acquired pneumonia and acute COPD exacerbation secondary to same: -She was treated with IV Solu-Medrol eventually transitioned to oral prednisone once breathing improved. -Patient was also treated with IV Ceftaroline D4 - plan to switch to oral antibiotics on discharge to finish total 7 day treatment. -She was on DuoNeb's, supplemental oxygen -She was also on incentive spirometry and Acapella Atypical chest pain -suspect musculoskeletal/pleuritic pain: -Serial troponins negative, 2-D echo as above -Ct Robitussin-AC prn this seems to be helping. Prescription provided for same on discharge Lactic acidosis - suspect likely 2/2 work of breathing, unlikely 2/2 sepsis etiology -Resolved Acute on CKD3 - possibly 2/2 pre-renal etiology -Resolved. Creatinine at baseline Mild Pulmonary HTN - Was seen on echocardiogram from 2017 - Echocardiogram during this hospital stay as Ulcerative colitis - s/p previous Hemicolectomy Anxiety - Currently not on any medications Neuropathy - c/w Gabapentin Chronic back pain - c/w Oxycodone Generalized weakness: -Improving. Ambulated quite well with PTno need for home PT. On day of of discharge, patient is doing well. She is requiring 2 L oxygenthis will be continued on discharge. She is able to ambulate by herself. Tolerating oral intake well. Plan is for patient to be discharged home today DISCHARGE MEDICATIONS: Please see below. ALLERGIES: Please see below. PHYSICAL EXAMINATION ON DISCHARGE: VITAL SIGNS: Please see below. GENERAL: Sitting up in bed HEENT: PERRLA, OMM CARDIOVASCULAR EXAMINATION: S1, S2 heard, no rubs or gallops RESPIRATORY EXAMINATION: Diminished air entry bilaterally. Very slight wheeze ABDOMINAL EXAMINATION: Soft, nontender NEUROLOGICAL EXAMINATION: Awake, alert, answering questions appropriately, able to ambulate LABORATORY DATA: Please see below. IMAGING: Chest CT: Impression: 1. Advanced COPD/emphysematous changes with large by apical blebs/bullae (right greater than left) no pneumothorax. 2. Small ill-defined areas of nodularity/consolidations in the posterior lower lobes along with suspected reactive adenopathy. Differential diagnosis includes but is not limited to atelectasis and multifocal pneumonia. Short-term follow- up is recommended. PROGNOSIS: Fair ACTIVITY: As tolerated. DIET: Regular DISCHARGE PLAN: Discharge home today. Outpatient follow-up with her primary care provider in one week as well as with Dr. Rico per previous appointment. DISPOSITION: Home DISCHARGE CONDITION: Stable. TIME SPENT ON DISCHARGE: 38 minutes. Vital Signs/I&Os Vital Signs Date Time Temp Pulse Resp B/P (MAP) Pulse Ox O2 Delivery O2 Flow Rate FiO2 02/21/19 13:06 93 02/21/19 08:56 18 02/21/19 08:00 2.0 02/21/19 06:00 98.3 123/65 (84) 94 02/17/19 18:47 Nasal Cannula I&O- Last 24 Hours up to 6 AM 02/21/19 06:00 Intake Total 1780 ml Output Total 2250 ml Balance -470 ml Laboratory Data Labs 24H Laboratory Tests 2 02/21/19 05:23: Immature Granulocyte % (Auto) 0.8, White Blood Count 7.6, Red Blood Count 3.83L, Hemoglobin 10.5L, Hematocrit 33.1L, Mean Corpuscular Volume 86.4, Mean Corpuscular Hemoglobin 27.4, Mean Corpuscular Hemoglobin Concent 31.7L, Red Cell Distribution Width 13.7, Platelet Count 212, Neutrophils (%) (Auto) 84.8H, Lymphocytes (%) (Auto) 8.6L, Monocytes (%) (Auto) 5.7H, Eosinophils (%) (Auto) 0.0, Basophils (%) (Auto) 0.1, Neutrophils # (Auto) 6.4, Lymphocytes # (Auto) 0.7L, Monocytes # (Auto) 0.4, Eosinophils # (Auto) 0.0, Basophils # (Auto) 0.0, Nucleated Red Blood Cells % (auto) 0.0, Anion Gap 7L, Glomerular Filtration Rate 40.8L, Blood Urea Nitrogen 14, Creatinine 1.37H, Sodium Level 141, Potassium Level 3.9, Chloride Level 104, Carbon Dioxide Level 30, Calcium Level 8.1L, Magnesium Level 2.2 CBC/BMP Laboratory Tests 02/21/19 05:23 Red Blood Count 3.83 L, Mean Corpuscular Volume 86.4, Mean Corpuscular Hemoglobin 27.4, Mean Corpuscular Hemoglobin Concent 31.7 L, Red Cell Distribution Width 13.7, Neutrophils (%) (Auto) 84.8 H, Lymphocytes (%) (Auto) 8.6 L, Monocytes (%) (Auto) 5.7 H, Eosinophils (%) (Auto) 0.0, Basophils (%) (Auto) 0.1, Neutrophils # (Auto) 6.4, Lymphocytes # (Auto) 0.7 L, Monocytes # (Auto) 0.4, Eosinophils # (Auto) 0.0, Basophils # (Auto) 0.0, Calcium Level 8.1 L Microbiology Microbiology 02/17/19 Blood Culture - Preliminary, Resulted No Growth after 72 hours. All specime... 02/17/19 Blood Culture - Preliminary, Resulted No Growth after 72 hours. All specime... Discharge Medications Scheduled Cefdinir (Cefdinir) 300 Mg Capsule, 300 MG PO BID Cetirizine HCl (ZyrTEC) 10 Mg Capsule, 10 MG PO DAILY, (Reported) Fluticasone Propionate (Flonase Allergy Relief) 50 Mcg/Act Spr, 2 SPRAYS NA BID, (Reported) Fluticasone/Vilanterol (Breo Ellipta 200-25 Mcg INH) 1 Inh Inh, 1 PUFF PO DAILY, (Reported) Gabapentin (Gabapentin) 300 Mg Capsule, 300 MG PO TID, (Reported) Montelukast Sodium (Montelukast Sodium) 10 Mg Tablet, 10 MG PO QHS, (Reported) Nystatin (Nystatin Oral Susp) 100,000 Unit/1 Ml Oral.susp, 5 ML SS QID Oxycodone HCl (Oxycodone HCl) 5 Mg Tablet, 10 MG PO BID, (Reported) Prednisone (Prednisone) 20 Mg Tablet, 40 MG PO DAILY 2 tabs daily for 5 days, then 1 tab daily for 5 days, then 0.5 tab daily for 6 days Sertraline Hcl (Zoloft) 100 Mg Tab, 150 MG PO QHS, (Reported) Trazodone HCl (Trazodone HCl) 100 Mg Tab, 200 MG PO QHS, (Reported) Scheduled PRN Albuterol Sulfate (Ventolin Hfa) 18 Gm Hfa.aer.ad, 2 PUFF INH Q4H PRN for SHORTNESS OF BREATH, (Reported) Codeine Phosphate/Guaifenesin (Guaifen-Codeine 100-10 mg/5 ml) 5 Ml Liquid, 10 ML PO Q4HP PRN for COUGH Allergies Coded Allergies: NSAIDS (Non-Steroidal Anti-Inflamma (Verified Allergy, Unknown, renal failure, 02/17/19) tapentadol (Verified Allergy, Unknown, hair loss, weight loss, 02/17/19) EMILIE CHOWDHURY MD February 21, 2019 14:17
== END 2019-02-21 14:45 | disposition home or self-care (01) | DRG 193 ==
LOC: M ED 14:29 → M ED INP 17:16 → M MS5PR 18:50
PROVIDERS: ADMIT Internal Medicine; ATTEND Internal Medicine
DX: J18.9 Pneumonia, unspecified organism (principal); J96.21 Acute and chronic respiratory failure with hypoxia; J44.1 Chronic obstructive pulmonary disease with (acute) exacerbation; J44.0 Chronic obstructive pulmonary disease with (acute) lower respiratory infection; E87.2 Acidosis; N17.9 Acute kidney failure, unspecified; I27.20 Pulmonary hypertension, unspecified; N18.3 Chronic kidney disease, stage 3 (moderate); F41.9 Anxiety disorder, unspecified; R07.89 Other chest pain; R53.1 Weakness; G62.9 Polyneuropathy, unspecified; M54.9 Dorsalgia, unspecified; Z99.81 Dependence on supplemental oxygen; Z79.891 Long term (current) use of opiate analgesic; Z79.899 Other long term (current) drug therapy; Z88.6 Allergy status to analgesic agent; Z90.49 Acquired absence of other specified parts of digestive tract; Z88.8 Allergy status to other drugs, medicaments and biological substances

== ENCOUNTER → 2019-03-04 | Outpatient (CLI) | payer OTHER ==
[~2019-03-04] MED LIST changes: +AZEL1SPR3 NARES; +AZIT-12 PO; +CEFD1CAP8 PO; +CEPH500C PO; +CETI10CA2 PO; +GABA-843 PO; +GUAI1SOL7 PO; +HYOS1TAB SL; +MONT10TA2 PO; +NYST50SS SS; +OXYC-517 PO; +OXYC10TA12 PO; +TRAZ10TA PO
--- NOTE | 2019-03-16 23:40 | ECWPNPC ---
PATIENT NAME: RADHA HENRY : 1950 GENDER: FEMALE VISIT DATE: 03/04/2019 DISCHARGE DATE: 03/04/19 1504 VISIT LOCKED DATE TIME: PHYSICIAN: ADRIANA WEAVER MD RESOURCE: ADRIANA WEAVER MD REASON FOR APPOINTMENT 1. W/C LOWER BACK HISTORY OF PRESENT ILLNESS HISTORY OF PRESENT ILLNESS: PAIN THE PATIENT DESCRIBES THE PAIN... 68 YEAR OLD FEMALE PATIENT WITH A HISTORY OF CHRONIC LOW BACK AND LEG PAIN. THE PATIENT DESCRIBES THE PAIN ACHING, TENDER, AND INTERMITTENT WITH A PAIN SCORE OF 5-8/10 DEPENDING ON PHYSICAL ACTIVITY. THE PATIENT WAS HURT IN A WORK RELATED INJURY ON 06/24/2006 WHILE WORKING AT [employer] WHEN SHE INJURED HER BACK WHILE PICKING UP A 85 LB WIRE ROUND THAT HAD FALLEN OFF OF A CART. THE PATIENT STATES HER PAIN IS MAINLY IN HER LOW BACK AND WITH RADIATION DOWN HER LEFT LEG THAT CAUSES PINS AND NEEDLES SENSATION. THE PATIENT SAYS THE PAIN INCREASES DURING ACTIVITIES AND CAUSES DIFFICULTY IN PERFORMING HER DAILY ACTIVITIES SUCH WALKING, COOKING, AND CLEANING HER HOUSE. THE PATIENT IS USING GABAPENTIN THREE TIMES DAILY. THE PATIENT STATES IT IS HELPING WITH HER PAIN AND SLEEP, AND NOTICES INCREASED LEG PAIN IF SHE FORGETS A DOSE IN THE AFTERNOON. THE PATIENT IS ALSO USING OXYCODONE TWICE DAILY AND SHE SAYS IT HELPS WITH HER SOMATIC PAIN. PATIENT DENIES UNEXPLAINABLE WEIGHT LOSS, FEVER, CHILLS, NEW CHANGES ON HER URINARY OR BOWEL CONTROL. FALL RISK SCREENING: SCREENING :NO FALLS REPORTED IN THE LAST YEAR CURRENT MEDICATIONS TAKING GABAPENTIN 300 MG CAPSULE 1 CAPSULE ORALLY THREE TIMES A DAY MDD 3 TAKING TRAZODONE HCL 100 MG TABLET 2 TABLET AT BEDTIME ORALLY ONCE A DAY TAKING SERTRALINE HCL 100 MG TABLET 1 1/2 TABLETS ORALLY BEFORE BEDTIME TAKING ZYRTEC 10 MG ORALLY DAILY TAKING VENTOLIN HFA 108 (90 BASE) MCG/ACT AEROSOL SOLUTION 2 PUFFS NEEDED INHALATION EVERY 6 HRS TAKING BREO ELLIPTA 200-25 MCG/INH AEROSOL POWDER BREATH ACTIVATED 1 PUFF INHALATION ONCE A DAY TAKING FLONASE 50 MCG/ACT SUSPENSION 1 SPRAY IN EACH NOSTRIL NASALLY ONCE A DAY TAKING PREDNISONE 10 MG TABLET 2 TABLETS ORALLY W MORE WEEKS 01-27-19, NOTES: TAPERING DOSE-WILL BE COMPLETED 05/17 TAKING OXYCODONE HCL 10 MG TABLET 1 TABLET NEEDED ORALLY FOR PAIN EVERY 12 HRS MDD2 TAKING SINGULAIR 10 MG TABLET 1 TABLET ORALLY ONCE A DAY NOT-TAKING CODEINE SULFATE 30 MG TABLET 1 TABLET AT BEDTIME ORALLY FOR PAIN ONCE A DAY NOT-TAKING HYDROCODONE-ACETAMINOPHEN 5-325 MG TABLET 1 TABLET NEEDED ORALLY FOR PAIN EVERY 6 HRS MDD2 NOT-TAKING CYMBALTA 30 MG CAPSULE DELAYED RELEASE PARTICLES 1 CAPSULE ORALLY WITH FOOD ONCE A DAY NOT-TAKING OXYCODONE-ACETAMINOPHEN 5-325 MG TABLET 1 TABLET ORALLY EVERY 6 HRS PRN PAIN MDD=2 NOT-TAKING GABAPENTIN 300 MG CAPSULE 1 CAPSULE ORALLY THREE TIMES A DAY MDD3 NOT-TAKING PEPCID 40 MG TABLET 1 TABLET ORALLY ONCE A DAY NOT-TAKING LEVAQUIN 250 MG TABLET 1 TABLET ORALLY ONCE A DAY X 10 STARTED, NOTES: STARTED 05/09 NOT-TAKING LYRICA 150 MG CAPSULE 1 CAPSULE ORALLY 2 TIMES A DAY MDD=2 NOT-TAKING LOMOTIL 2.5-0.025 MG TABLET 1 TAB ORALLY DAILY NEEDED, NOTES: NONE LATELY NOT-TAKING KETOROLAC TROMETHAMINE 10 MG TABLET 1 TABLET WITH FOOD OR MILK NEEDED ORALLY EVERY 8 HRS MEDICATION LIST REVIEWED AND RECONCILED WITH THE PATIENT PAST MEDICAL HISTORY COLITIS PNEUMONIA - MULTIPLE TIMES ACUTE ARTHRITIS BRONCHITIS / COPD LOW BACK PAIN / NECK PAIN / THORACIC PAIN TIA'S YEARS AGO DECREASED KIDNEY FUNCTION REFLUX ACUTE BRONCHITIS ULCERATIVE COLITIS ALLERGIES NUCYNTA: LOSS HAIR, WGT LOSS AND ITCHING - ALLERGY NSAIDS: KIDNEY FUNCTION - SIDE EFFECTS SURGICAL HISTORY APPENDECTOMY TERESITA CATARACTS GALLBLADDER HERNIA REPAIR HYSTERECTOMY LUMBAR LAMI 2009 LEFT SHOULDER SURGERY LEFT CARPAL TUNNEL L4- S1 LUMBAR FUSION 2010 TONSILLECTOMY BOWEL RESECTION FOR ULCERATIVE COLITIS 1999,09/2017 REMOVED POLYPS FROM VOCAL CORDS BRIANNA ON RIGHT LUNG FAMILY HISTORY FATHER: , DIAGNOSED WITH HEART DISEASE, CANCER MOTHER: , CANCER, OTHER 5 BROTHER(S) , 1 SISTER(S) . 1 SON(S) , 1 DAUGHTER(S) . DAD-PROSTATE CA\\\\NMOM-LUNG CA, EMPHYSEMA\\\\N SISTER FROM CANCER AT AGE OF 12\\\\N1 BROTHER FROM CANCER\\\\NSON HAS HEART ISSUES\\\\NDAUGHTER HAS SEIZURES. SOCIAL HISTORY GENERAL: TOBACCO USE ARE YOU A:FORMER SMOKER HOW LONG HAS IT BEEN SINCE YOU LAST SMOKED?> 10 YEARS PAIN CLINIC PFS, CLERGY, PUBLIC HEALTH REFERRALS PFS REFERRAL NEEDED?NO CLERGY REFERRAL NEEDED?NO PUBLIC HEALTH REFERRAL NEEDED?NO WAS THE PROVIDER NOTIFIED OF ANY PERTINENT INFO?YES N /A HAS THE PATIENT BEEN EDUCATED REGARDING HIS/HER PLAN OF CARE?YES HAS THE PATIENT BEEN EDUCATED REGARDING PAIN, THE RISK FOR PAIN, THE IMPORTANCE OF EFFECTIVE PAIN MANAGEMENT, AND THE PAIN ASSESSMENT PROCESS?YES LATEX QUESTIONNAIRE LATEX ALLERGY : HAVE YOU EVER DEVELOPED ANY TYPE OF REACTION AFTER HANDLING LATEX PRODUCTS SUCH RUBBER GLOVES, CONDOMS, DIAPHRAGMS, BALLOONS, SOCKS, OR UNDERWEAR?NO LATEX ALLERGY : HAVE YOU EVER DEVELOPED ANY TYPE OF REACTION DURING OR AFTER DENTAL APPOINTMENT, VAGINAL/RECTAL EXAMINATION, SURGICAL PROCEDURE, OR ANY OTHER EXPOSURE?NO LATEX RISK : HAVE YOU EVER HAD ANY DIFFICULTY BREATHING OR HIVES AFTER EATING OR HANDLING ANY FRUITS, OR VEGETABLES; SUCH KIWI, BANANAS, STONE FRUITS, OR CHESTNUTSNO LATEX RISK : DO YOU HAVE A PREVIOUS PERSONAL HISTORY OF MORE THAN NINE SURGERIES, SPINA BIFIDA, OR REPEATED CATHERTIZATIONS? NO LATEX RISK : ARE YOU FREQUENTLY EXPOSED TO LATEX PRODUCTS IN YOUR OCCUPATION?NO DATE ASKED : 12/26/2018 CAFFEINE CAFFEINE USE?YES HOW OFTEN AND HOW MUCH? 1 COFFEE AND 1 PEPSI /DAILY ADVANCE DIRECTIVE ADVANCE DIRECTIVE DISCUSSED WITH PATIENT:YES PT DOES NOT HAVE ANY ADVANCED DIRECTIVES AND SHE DECLINES INFORMATION ON HCP AT THIS TIME. EDUCATION LEVEL OF EDUCATION: [facility] [id number] NONE LANGUAGE LANGUAGES SPOKEN:BELARUSIAN DOMESTIC VIOLENCE DO YOU FEEL SAFE IN YOUR ENVIRONMENT?YES ALCOHOL SCREENING DID YOU HAVE A DRINK CONTAINING ALCOHOL IN THE PAST YEAR?NO POINTS0 INTERPRETATIONNEGATIVE RECREATIONAL DRUG USE DRUG USE?NO LEARNING BARRIERS / SPECIAL NEEDS BARRIERS TO LEARNING?NO HEARING IMPAIRED?NO VISION IMPAIRED?YES :CORRECTIVE LENSES READING COGNITIVELY IMPAIRED?NO READINESS TO LEARN?YES LEARNING PREFERENCES?NO LEARNING CAPABILITIES PRESENT?YES EMOTIONAL BARRIERS?NO SPECIAL DEVICES?NO SPA ASSOCIATE NEEDED?NO 05/14/18 1610 REVIEWED WITH PT. ADREVIEWED WITH PATIENT 08/24/18 1251 JSREVIEWED WITH PATIENT 03/04/19 1415 JS. HOSPITALIZATION/MAJOR DIAGNOSTIC PROCEDURE SURGERY RELATED PNEUMONIA PNEUMONIA 01/2019 REVIEW OF SYSTEMS REVIEWED BY: PROVIDER: ADRIANA WEAVER MD . CONSTITUTIONAL: ANY CHANGE IN YOUR MEDICAL CONDITION? YES, HOSPITALIZED WITH PNEUMONIA FOR 5 DAYS AT THE END OF JANUARY . CHILLS NO . FEVER NO . INFECTION: DO YOU HAVE NEW INFECTIONS? YES, PNEUMONIA . DO YOU HAVE HISTORY OF MRSA? NO . MUSCULOSKELETAL: ANY NEW PATTERNS OF PAIN OR NUMBNESS? YES, NUMBNESS/TINGLING TO LEFT LEG, STARTED A FEW DAYS AGO . GASTROENTEROLOGY: ANY NEW CHANGE IN BOWEL CONTROL? NO . GENITOURINARY: ANY NEW CHANGE IN BLADDER CONTROL? NO . IS THERE A CHANCE YOU COULD BE ? NO . HEMATOLOGY/LYMPH: DO YOU TAKE ANY BLOOD THINNERS? (FOR EXAMPLE- COUMADIN, PLAVIX, AGGRENOX, PLATEL, PRADAXA, OR XARELTO) NO . WHEN WAS YOUR LAST DOSE? DATE: TIME: . NEUROLOGY: HAVE YOU FALLEN IN THE PAST 12 MONTHS? NO . ANY NEW EXTREMITY NUMBNESS OR WEAKNESS? YES, NUMBNESS/TINGLING TO LEFT LEG, STARTED A FEW DAYS AGO . CARDIOLOGY: DO YOU HAVE A PACEMAKER OR DEFIBRILLATOR? NO . RESPIRATORY: HAVE YOU BEEN SICK IN THE PAST WEEK? YES, PNEUMONIA . FEVER NO . FLU LIKE SYMPTOMS? NO . COUGH YES, PRODUCTIVE - IMPROVED NOW . INTEGUMENTARY: DO YOU HAVE ANY RASHES OR OPEN SORES? NO . ALLERGIC/IMMUNO: ARE YOU ALLERGIC TO IV DYE? NO . ANY NEW ALLERGIES? NO . PSYCHIATRIC: DO YOU HAVE THOUGHTS OF HURTING YOURSELF OR SOMEONE ELSE? NO . ARE YOU ABUSED, NEGLECTED, OR IN AN UNSAFE ENVIRONMENT? NO . ENDOCRINOLOGY: ARE YOU DIABETIC? NO . OTHER: DO YOU NEED ANY PRESCRIPTIONS? NO . IF YES, PLEASE LIST: ____ . ANY NEW PROBLEMS WITH YOUR MEDICATIONS? NO . WHEN DID YOU LAST EAT? ____ . WHEN DID YOU LAST DRINK? ____ . WHAT DID YOU LAST DRINK? ____ . NAME OF PERSON DRIVING YOU HOME? ____ . DO YOU HAVE ANY OTHER QUESTIONS OR CONCERNS NO . VITAL SIGNS WT 148.0 LBS, HT 64 IN, BMI 25.40 INDEX, BP 115/57 MM HG, HR 90 /MIN, RR 18 /MIN, TEMP 97.4 F, OXYGEN SAT % 92%, SAFE IN ENV? (Y/N) YES, NA INITIALS AW 1408, REVIEWED BY: ROGELIO. EXAMINATION GENERAL EXAMINATION: PATIENT IS ALERT O X 3 AND COOPERATIVE. ANTALGIC WALK. PRESENCE OF BANDS OF TISSUE AND TRIGGER POINTS WITH RESTRICTION OF MOVEMENT OF THE LUMBAR SPINE. ASSESSMENTS MYALGIA, OTHER SITE - M79.18 (PRIMARY) LUMBAR POST-LAMINECTOMY SYNDROME - M96.1 TREATMENT MYALGIA, OTHER SITE CLINICAL NOTES: WE DISCUSSED SEVERAL ISSUES WITH MS. HENRY'S PAIN MANAGEMENT CASE. THE PATIENT WILL CONTINUE WITH HER CURRENT MEDICATION REGIMEN OF OXYCODONE 55 TABLETS FOR THE MONTH NEEDED FOR PAIN AND GABAPENTIN 300 MG THREE TIMES DAILY TO HELP WITH PAIN AND SLEEP. I DISCUSSED THE RISKS ASSOCIATED WITH THE USE OF OPIOIDS INCLUDING THE POSSIBLE DEVELOPMENT OF ADDICTION OR TOLERANCE AND THE PATIENT VERBALIZED UNDERSTANDING. I WILL SEEK FOR A DOCTOR TO DOCTOR AGREEMENT TO CONTINUE PRESCRIBING THE OPIOID MEDICATION. I DISCUSSED WITH THE PATIENT THAT SHE IS A GOOD CANDIDATE FOR LUMBAR TRIGGER POINTS AND EPIDURAL INJECTIONS, HOWEVER SHE WAS HOSPITALIZED IN JANUARY WITH PNEUMONIA AND IS STILL RECOVERING. THE PATIENT WILL FOLLOW UP IN SEVERAL WEEKS. INSTRUCTIONS WERE GIVEN, QUESTIONS WERE ANSWERED, PATIENT REPORTS UNDERSTANDING AND AGREES WITH THE PLAN. I, OLLIE LANG, DOCUMENTED THE ABOVE INFORMATION ACTING A SCRIBE FOR DR. WEAVER. I HAVE REVIEWED THE ABOVE DOCUMENT, WRITTEN BY OLLIE DONNELLY AND I VERIFY THAT IT IS ACCURATE. . OTHERS REFILL OXYCODONE HCL TABLET, 10 MG, 1 TABLET NEEDED, ORALLY FOR PAIN, EVERY 12 HRS MDD2, 30 DAY(S), 55, REFILLS 0 REFILL GABAPENTIN CAPSULE, 300 MG, 1 CAPSULE, ORALLY, THREE TIMES A DAY MDD 3, 30 DAYS, 90, REFILLS 1 NOTES: TRIGGER POINT INJECTION MATERIAL WAS PRINTED,TRIGGER POINT INJECTION: YOUR EXPERIENCE MATERIAL WAS PRINTED. PROCEDURES PN WORKMANS' COMP OPINION IN YOUR OPINION, WAS THE INCIDENT THAT THE PATIENT DESCRIBED THE COMPETENT MEDICAL CAUSE OF THIS INJURY/ILLNESS? YES ARE THE PATIENT'S COMPLAINTS CONSISTENT WITH HIS/HER HISTORY OF THE INJURY/ILLNESS? YES IS THE PATIENT'S HISTORY OF THE INJURY/ILLNESS CONSISTENT WITH YOUR OBJECTIVE FINDING? YES WHAT IS THE PERCENTAGE OF TEMPORARY IMPAIRMENT? MODERATE TO MARKED = 66.7% IS THE PATIENT WORKING? NO DOCTOR ON SITE: ADRIANA LAMB MD PREVENTIVE MEDICINE PAIN CLINIC TEACHING: PROCEDURE TEACHING PRINTED AND REVIEWED INFORMATION ON TRIGGER POINT INJECTIONS FOR REFERENCE FOR THE FUTURE. KRISTINE SHIPMAN 03/04/2019 3:03:42 PM > . PROCEDURE CODES FA211 ESTABILISHED PATIENT [facility] FACILITY CHARGE G8427 CURRENT MEDS W/DOSAGES DOCUMENTED G8730 PAIN ASSESS POS TOOL F/U PLAN DOC DISPOSITION & COMMUNICATION FOLLOW UP 4 WEEKS (REASON: MEDS, TPI IN FUTURE) ELECTRONICALLY SIGNED BY ADRIANA WEAVER MD, MD ON 03/16/2019 AT 05:01 PM EDT DISCLAIMER : THIS IS A VISIT SUMMARY EXTRACTED FROM THE [employer] CHART. IT IS NOT A COPY OF THE [employer] PROGRESS NOTE. CONY
== END ==
LOC: M PAIN 14:00
PROVIDERS: ATTEND Anesthesiology
DX: M79.18 Myalgia, other site (principal); M96.1 Postlaminectomy syndrome, not elsewhere classified; M19.90 Unspecified osteoarthritis, unspecified site; J44.9 Chronic obstructive pulmonary disease, unspecified; Z87.891 Personal history of nicotine dependence; Z88.5 Allergy status to narcotic agent; Z88.6 Allergy status to analgesic agent; Z79.51 Long term (current) use of inhaled steroids; Z79.899 Other long term (current) drug therapy

== ENCOUNTER 2019-03-09 17:34 | Inpatient (IN) | payer MEDICARE ==
[~2019-03-09] VITALS: Ht 162.6 cm; Wt 64.8 kg
[~2019-03-09 17:34] MED LIST changes: -AZEL1SPR3 NARES; -AZIT-12 PO; -CEPH500C PO; -HYOS1TAB SL; -OXYC10TA12 PO; -TRAZ10TA PO
[2019-03-09] MEDS ORDERED: AZEL1SPR3 NARES (17:42)
[2019-03-09] MEDS ORDERED: methylPREDNISolone INJ 125 MG/2 ML VIAL (J2930) IV ONE (18:00)
[2019-03-09] MEDS ORDERED: IPRATROPIUM 0.5MG/ALBUTEROL 2.5MG INH SOL UD 3ML (DUONEB)(J7620) NEB ONE ×3 (18:00→21:00)
[2019-03-09 18:19] LABS: ABG BASE EXCESS 1.6 (-2.0-2.0); ABG HCO3 24.8 MEQ/L (22.0-26.0); ABG O2 SATURATION 97.3 % (95.0-99.0); ABG PARTIAL PRESSURE CO2 34.4 mmHg (35.0-45.0); ABG PARTIAL PRESSURE O2 90.1 mmHg (75.0-100.0); ABG STANDARD HCO3 25.9 MEQ/L (22.0-26.0); ABG TOTAL CO2 25.8 MEQ/L (23.0-31.0); ABG pH (ARTERIAL) 7.475 UNITS (7.350-7.450)
[2019-03-09 18:25] LABS: BASO # 0.1 10^3/uL (0.0-0.2); BASO % 0.6 % (0.0-1.0); EOS # 0.1 10^3/uL (0.0-0.50); EOS % 0.5 % (0.0-3.0); HEMATOCRIT 37.6 % (36.0-47.0); LYMPH # 1.4 10^3/uL (1.5-4.5); LYMPH % 13.8 % (24.0-44.0); MEAN CORPUSCULAR HEMOGLOBIN 27.3 pg (27.0-33.0); MEAN CORPUSCULAR HGB CONC 31.9 g/dl (32.0-36.5); MEAN CORPUSCULAR VOLUME 85.6 fl (80.0-96.0); MONO # 0.8 10^3/uL (0.0-0.8); MONO % 7.5 % (0.0-5.0); NEUTROPHILS # 7.7 10^3/uL (1.8-7.7); NEUTROPHILS % 76.5 % (36.0-66.0); PLATELET COUNT, AUTOMATED 180 10^3/uL (150-450); RED BLOOD COUNT 4.39 10^6/uL (4.00-5.40)
[2019-03-09 18:36] LABS: INR 1.23; PROTHROMBIN TIME 15.7 SECONDS (12.1-14.4)
[2019-03-09 18:37] LABS: PARTIAL THROMBOPLASTIN TIME 32.8 SECONDS (25.4-37.6)
[2019-03-09 18:54] LABS: BLOOD UREA NITROGEN 14 MG/DL (7-18); CALCIUM LEVEL 8.5 MG/DL (8.8-10.2); CARBON DIOXIDE LEVEL 28 MEQ/L (21-32); CHLORIDE LEVEL 106 MEQ/L (98-107); CK-MB VALUE MASS 1.6 NG/ML (<3.6); CPK CREATINE PHOSPHOKINASE 81 U/L (26-192); CREATININE FOR GFR 1.52 MG/DL (0.55-1.30); GLOMERULAR FILTRATION RATE 36.2 (>45); GLUCOSE, FASTING 105 MG/DL (70-100); MB/CK RELATIVE INDEX 1.98 (< OR =4); POTASSIUM SERUM 4.4 MEQ/L (3.5-5.1); SODIUM LEVEL 141 MEQ/L (136-145); TROPONIN I < 0.02 NG/ML (< 0.10)
[2019-03-09] MEDS ORDERED: ISOVUE-370 76% 100ML VIAL (Q9967) As Ordered ONE (19:07)
[2019-03-09] MEDS ORDERED: GI COCKTAIL 50ML BTL(HYOSCYAMINE/MAALOX/LIDOCAINE VISCOUS)(1:3:1) PO ONE (19:45)
--- NOTE | 2019-03-09 20:52 | REPVR ---
EXAM: CT Angiography Chest With Contrast EXAM DATE/TIME: 03/09/2019 7:11 PM CLINICAL HISTORY: 68 years old, female; Signs and symptoms; Shortness of breath; Additional info: SOB, hemoptysis TECHNIQUE: Imaging protocol: Axial computed tomographic angiography images of the chest with intravenous contrast using CT angiography protocol. Coronal and sagittal reformatted images were created and reviewed. 3D rendering: MIP reconstructed images were created and reviewed. Radiation optimization: All CT scans at this facility use at least one of these dose optimization techniques: automated exposure control; mA and/or kV adjustment per patient size (includes targeted exams where dose is matched to clinical indication); or iterative reconstruction. Contrast material: ISOVUE 370; Contrast volume: 75 ml; Contrast route: IV; COMPARISON: CT ANGIO CHEST 10/22/2017 5:59 PM FINDINGS: Pulmonary arteries: Normal. No pulmonary emboli. Aorta: Unremarkable. No aortic aneurysm. No aortic dissection. Lungs: Extensive emphysematous changes with large bulla in the right lung apex similar to previous study. Peripheral increased interstitial markings with bibasilar small consolidations, left greater than right. Findings may represent a exacerbation of emphysema with atelectasis or developing pneumonia, clinical correlation is recommended. Few small pleural based densities in the left upper lobe measuring up to 12 mm. Right lower lobe medial density measuring 11.1 mm (series 403 image 78). Previously seen partially calcified density. Calcified granulomas in bilateral upper lobes. Pleural space: Unremarkable. Heart: Unremarkable. No cardiomegaly. No pericardial effusion. Lymph nodes: Unremarkable. No enlarged lymph nodes. Bones/joints: Unremarkable. No acute fracture. Soft tissues: Unremarkable. IMPRESSION: No pulmonary emboli. Extensive emphysematous changes with large bulla in the right lung apex similar to previous study. Peripheral increased interstitial markings with bibasilar small consolidations, left greater than right. Findings may represent a exacerbation of emphysema with atelectasis or developing pneumonia, clinical correlation is recommended. Few small pleural based densities in the left upper lobe measuring up to 12 mm. Right lower lobe medial density measuring 11.1 mm (series 403 image 78). Previously seen partially calcified density in the left upper lobe is resolved. Followup after treatment is recommended to evaluate lung nodules. Electronically signed by: Kimi Golden On 03/09/2019 20:51:38 PM
[2019-03-09] MEDS ORDERED: HEPARIN SOD (PORCINE) 5000 UNITS/ML VIAL SC SCH (21:00)
[2019-03-09 21:51] VITALS: O2SAT 82
[2019-03-09] MEDS ORDERED: ACETAMINOPHEN TAB 650MG DOSE (2X325MG) PO PRN (22:15)
[2019-03-09] MEDS ORDERED: HYOS1TAB SL (22:25)
[2019-03-09] MEDS ORDERED: OXYC10TA12 PO (22:25)
[2019-03-09] MEDS ORDERED: NYST50SS SS (22:25)
[2019-03-09] MEDS: DOXYCYCLINE HYCLATE 100 MG in D5W MINI-BAG PLUS 100 ML IV SCH (23:00)
[2019-03-09] MEDS: MONTELUKAST 10 MG TAB PO SCH (23:00)
[2019-03-09] MEDS: GABAPENTIN 300 MG CAP PO SCH (23:00)
[2019-03-09] MEDS: SERTRALINE HCL 50 MG TAB PO SCH (23:01)
[2019-03-09] MEDS: traZODone 100 MG TAB PO PRN (23:55)
[2019-03-09] MEDS: oxyCODONE 5MG TAB PO PRN (23:56)
[2019-03-09 23:59] VITALS: BP 118/59
[2019-03-10] MEDS: methylPREDNISolone INJ 40 MG/1 ML VIAL (J2920) IV SCH ×3 (02:50→17:03)
[2019-03-10 04:00] VITALS: BP 129/74
[2019-03-10 06:00] VITALS: BP 122/63
[2019-03-10] MEDS: IPRATROPIUM 0.5MG/ALBUTEROL 2.5MG INH SOL UD 3ML (DUONEB)(J7620) NEB SCH ×4 (07:11→20:00)
[2019-03-10 08:00] VITALS: BP 130/50
[2019-03-10 08:46] LABS: HEMATOCRIT 36.9 % (36.0-47.0); HEMOGLOBIN 11.8 g/dl (12.0-15.5); MEAN CORPUSCULAR HEMOGLOBIN 27.8 pg (27.0-33.0); PLATELET COUNT, AUTOMATED 175 10^3/uL (150-450); RED BLOOD COUNT 4.24 10^6/uL (4.00-5.40); WHITE BLOOD COUNT 7.9 10^3/uL (4.0-10.0)
--- NOTE | 2019-03-10 08:54 | HPE ---
DATE OF ADMISSION: 03/09/2019 PRIMARY CARE PROVIDER: Dr. Wilhelm COST AND RISK ANALYSIS MANAGER: Dr. Rico ATTENDING PHYSICIAN: Dr. Coles CHIEF COMPLAINT: Shortness of breath and hemoptysis. HISTORY OF PRESENT ILLNESS: The patient is a 68-year-old white female with a history of chronic obstructive pulmonary disease (COPD), who presented to the hospital for evaluation of shortness of breath and coughing up blood. History is provided by herself, as well as by review of the chart. The patient has COPD and she is an ex smoker and she uses 2 liters of oxygen at home. She was here recently for COPD exacerbation. She states the last few days she has worsening shortness of breath and some cough without any phlegm. Today, she coughed up blood and so she decided to come to the emergency room for further evaluation. The patient denies fevers or chills. No runny nose. Also, she states that she has some burning pain in her epigastric area. In the emergency room, her workup was not significant, including negative CT angio of the chest. Medicine service was called for admission. REVIEW OF SYSTEMS: Denies fever. No chills. No headaches or blurred vision. No shortness of breath. Positive for hemoptysis, which is small, and no nausea. No vomiting. No diarrhea. No tingling, numbness or weakness in the arms or lower extremities. All other systems are reviewed but negative. PAST MEDICAL HISTORY: 1. COPD on 2 liters of oxygen supplement. 2. Colitis, status post hemicolectomy. 3. Anxiety and depression. 4. Peripheral neuropathy. 5. Chronic lower back pain. PAST SURGICAL HISTORY: 1. Hemicolectomy in 1999. 2. Hysterectomy. 3. Tonsillectomy. 4. Cholecystectomy. 5. Back surgery times two. ALLERGIES: She is allergic to NONSTEROIDAL ANTIINFLAMMATORY DRUGS (NSAIDS). MEDICATIONS: - Neurontin 300 mg three times a day - Singulair 10 mg by mouth daily - oxycodone for pain - Zoloft 150 mg by mouth daily - trazodone 200 mg by mouth at night - Colace as needed - albuterol inhaler as needed FAMILY HISTORY: Her mother had a history of lung cancer. Father had a history of coronary artery disease and prostate cancer. One brother has a brain tumor. One sister has bone cancer. SOCIAL HISTORY: Remote tobacco use, but quit many years. No alcohol abuse. No illicit drug abuse. She lives with her grandson. She is a F[employer]. PHYSICAL EXAMINATION: VITAL SIGNS: Temperature is 97.4, heart rate is 91, respiratory rate 20, blood pressure 110/58, oxygen saturation is 94% on 3 liters of oxygen. GENERAL: She is awake, alert, oriented times three. She is in moderate respiratory distress. HEENT: Atraumatic. Pupils are equal, round and reactive to light. No jaundice. Extraocular muscles are intact. Ears, nose and throat normal. Mouth mucosa is dry. NECK: No jugular venous distention (JVD) or bruits. LUNGS: Diminished breath sounds but not wheezing. No crackles. HEART: S1, S2 regular. No murmur. ABDOMEN: Soft. Bowel sounds positive. Nontender. EXTREMITIES: No edema in bilateral lower extremities. NEUROLOGIC: Nonfocal. SKIN: No rash. PSYCHOLOGIC: No acute psychosis. DIAGNOSTICS AND LABORATORIES: CBC and differential showed WBC 10, hemoglobin and hematocrit 12/37, platelets 180. Sodium is 141, potassium 4.4, chloride 106, bicarbonate 28, BUN 14, creatinine 1.5. CT angiogram of the chest was reviewed and no evidence of blood clot. IMPRESSION: 1. Acute on chronic respiratory failure. 2. Chronic obstructive pulmonary disease (COPD) exacerbation. 3. Hemoptysis related to COPD. 4. Chronic kidney disease stage III. 5. Chronic lower back pain. PLAN: The patient will be admitted to the medical/surgical floor. We will treat her with IV steroids, nebulizer and doxycycline for COPD exacerbation. She will continue on oxygen supplement. She has hemoptysis, likely related to COPD. We will continue to monitor her. Sequential compression device (SCD) will be used for deep vein thrombosis (DVT) prophylaxis.
[2019-03-10 09:09] LABS: CALCIUM LEVEL 8.8 MG/DL (8.8-10.2); CREATININE FOR GFR 1.41 MG/DL (0.55-1.30); GLOMERULAR FILTRATION RATE 39.5 (>45)
[2019-03-10] MEDS: HYOSCYAMINE SULFATE 0.125 MG SUBL TABLET SL SCH ×3 (09:12→21:00)
[2019-03-10] MEDS: GABAPENTIN 300 MG CAP PO SCH ×3 (09:13→21:56)
[2019-03-10] MEDS: oxyCODONE 5MG TAB PO PRN ×2 (09:22→21:56)
[2019-03-10] MEDS ORDERED: SLF 3 ML SYR IV PRN (10:15)
[2019-03-10] MEDS: FUROSEMIDE 20 MG/2 ML VIAL (J1940) IV SCH ×2 (11:52→16:15)
[2019-03-10] MEDS: DOXYCYCLINE HYCLATE 100 MG in D5W MINI-BAG PLUS 100 ML IV SCH ×2 (11:52→23:36)
--- NOTE | 2019-03-10 13:32 | IPNPDOC ---
Date Seen The patient was seen on 03/10/19. Progress Note SUBJECTIVE: Patient [tells me that she still feels the same as when she presented to the hospital. She tells me that she has difficulty laying flat he gets short of breath and sleeping propped up she tells me that she was feeling fairly well at home for a week after her most recent discharge but quickly began feeling bad once again. She tells me she always 2 L of oxygen at home currently she is on 3. otherwise patient denies, nausea, vomiting, fevers, chills OBJECTIVE PHYSICAL EXAMINATION: VITAL SIGNS: Please see below. GENERAL: Pleasant elderly female sitting up in bed awake alert oriented speaking in complete sentences no acute distress no accessory muscle use HEENT: Moist mucous membranes there is some elevation in CVP CARDIOVASCULAR: S1 S2 regular no additional heart sounds appreciated. RESPIRATORY: Scattered bibasilar Rales, sounds tight, diffuse end expiratory wheeze. ABDOMINAL: Bowel sounds present abdomen soft and nontender EXTREMITIES: No clubbing cyanosis, trace edema NEUROLOGICAL: Spontaneously moves all 4 extremities cranial 2 through 12 grossly intact no gross focal deficits appreciated PSYCHOLOGICAL: Appropriate LABORATORY DATA, MICROBIOLOGY: Please see below. IMAGING STUDIES: CT angiography:No pulmonary emboli. Extensive emphysematous changes with large bulla in the right lung apex similar to previous study. Peripheral increased interstitial markings with bibasilar small consolidations, left greater than right. Findings may represent a exacerbation of emphysema with atelectasis or developing pneumonia, clinical correlation is recommended. Few small pleural based densities in the left upper lobe measuring up to 12 mm. Right lower lobe medial density measuring 11.1 mm (series 403 image 78). Previously seen partially calcified density in the left upper lobe is resolved. Followup after treatment is recommended to evaluate lung nodules. ASSESSMENT AND PLAN: This is a 68-year-old female with acute on chronic hypoxic respiratory failure PROBLEMS: 1. Acute on chronic hypoxic respiratory failure with shortness of breath and cough: There is certainly concern for decompensated COPD, as such she has been started on IV Solu-Medrol doxycycline nebulizer treatments. HerCTsuggestsfairlysignificantandadvancedbullousemphysemadisease. Based on a previous echo and clinical history do have some concern for decompensated diastolic congestive heart failure and as such I will begin gently diuresing her with IV Lasix monitoring her renal function and electrolytes.. 2. Anxiety depression: Continue with trazodone and sertraline. 3. Chronic low back pain: Continue with oxycodone gabapentin. 4. Seasonal allergies: Continue with Singulair. DVT prophylaxis: Teds and sequentials in the setting of hemoptysis DISPOSITION: Pending clinical improvement. VS, I&O, 24H, Fishbone Vital Signs/I&O Vital Signs Date Time Temp Pulse Resp B/P (MAP) Pulse Ox O2 Delivery O2 Flow Rate FiO2 03/10/19 11:30 3.0 03/10/19 10:00 20 03/10/19 08:00 96.7 89 130/50 (76) 95 03/10/19 04:00 100 03/09/19 22:45 Nasal Cannula I&O- Last 24 Hours up to 6 AM 03/10/19 06:00 Intake Total 680 ml Output Total 1000 ml Balance -320 ml Laboratory Data 24H LABS Laboratory Tests 2 03/09/19 18:05: Blood Gas Bicarbonate Standard 25.9, Arterial Blood pH 7.475H, Arterial Blood Partial Pressure CO2 34.4L, Arterial Blood Partial Pressure O2 90.1, Arterial Blood Total CO2 25.8, Arterial Blood HCO3 24.8, Arterial Blood Base Excess 1.6, Arterial Blood Oxygen Saturation 97.3 03/09/19 18:06: Immature Granulocyte % (Auto) 1.1, White Blood Count 10.0, Red Blood Count 4.39, Hemoglobin 12.0, Hematocrit 37.6, Mean Corpuscular Volume 85.6, Mean Corpuscular Hemoglobin 27.3, Mean Corpuscular Hemoglobin Concent 31.9L, Red Cell Distribution Width 14.6H, Platelet Count 180, Neutrophils (%) (Auto) 76.5H, Lymphocytes (%) (Auto) 13.8L, Monocytes (%) (Auto) 7.5H, Eosinophils (%) (Auto) 0.5, Basophils (%) (Auto) 0.6, Neutrophils # (Auto) 7.7, Lymphocytes # (Auto) 1.4L, Monocytes # (Auto) 0.8, Eosinophils # (Auto) 0.1, Basophils # (Auto) 0.1, Nucleated Red Blood Cells % (auto) 0.0, Prothrombin Time 15.7H, Prothromb Time International Ratio 1.23, Activated Partial Thromboplast Time 32.8, Anion Gap 7L, Glomerular Filtration Rate 36.2L, Blood Urea Nitrogen 14, Creatinine 1.52H, Sodium Level 141, Potassium Level 4.4, Chloride Level 106, Carbon Dioxide Level 28, Calcium Level 8.5L, Total Creatine Kinase 81, Creatine Kinase MB 1.6, Creatine Kinase MB Relative Index 1.98, Troponin I < 0.02, Thyroid Stimulating Hormone (TSH) 1.640 03/10/19 08:22: Nucleated Red Blood Cells % (auto) 0.0, Anion Gap 9, Glomerular Filtration Rate 39.5L, Blood Urea Nitrogen 16, Creatinine 1.41H, Sodium Level 137, Potassium [place] 4.0, Chloride Level 102, Carbon Dioxide Level 26, Calcium Level 8.8 CBC/BMP Laboratory Tests 03/09/19 18:06 Red Blood Count 4.39, Mean Corpuscular Volume 85.6, Mean Corpuscular Hemoglobin 27.3, Mean Corpuscular Hemoglobin Concent 31.9 L, Red Cell Distribution Width 14.6 H, Neutrophils (%) (Auto) 76.5 H, Lymphocytes (%) (Auto) 13.8 L, Monocytes (%) (Auto) 7.5 H, Eosinophils (%) (Auto) 0.5, Basophils (%) (Auto) 0.6, Neutrophils # (Auto) 7.7, Lymphocytes # (Auto) 1.4 L, Monocytes # (Auto) 0.8, Eosinophils # (Auto) 0.1, Basophils # (Auto) 0.1, Calcium Level 8.5 L, Total C reatine Kinase 81 03/10/19 08:22 Red Blood Count 4.24, Mean Corpuscular Volume 87.0, Mean Corpuscular Hemoglobin 27.8, Mean Corpuscular Hemoglobin Concent 32.0, Red Cell Distribution Width 14.4, Calcium Level 8.8 Microbiology Microbiology 03/10/19 Respiratory Virus Panel (PCR) (JIMMIE) - Final, Complete ALISHA PHELPS MD Mar 10, 2019 13:32
[2019-03-10] MEDS: SLF 3 ML SYR IV SCH ×2 (14:00→23:36)
[2019-03-10 16:00] VITALS: BP 105/52
[2019-03-10 18:19] VITALS: BP 127/59
--- NOTE | 2019-03-10 18:50 | ECGEPIP ---
[facility] - ED Test Date: 2019-03-09 Pat Name: RADHA HENRY Department: Room: [place] [address] Gender: Female Program Specialist: DRISS : [id number] Requested By: WALTER Feng Order Number: [id number] Reading MD: Chelle Berrios Measurements Intervals [place] Rate: 92 P: 64 ME: 160 QRS: 81 QRSD: 98 T: 68 QT: 355 QTc: 441 Interpretive Statements SINUS RHYTHM ST DEVIATION AND MODERATE T-WAVE ABNORMALITY, CONSIDER ANTERIOR ISCHEMIA DECREASED RATE 02/17/19 Electronically Signed on 03-10-2019 18:50:23 EDT by Chelle Berrios
[2019-03-10] MEDS ORDERED: FLUTICASONE PROP 0.05% NASAL SPRAY 16 GM (FLONASE) NARES SCH (21:00)
[2019-03-10] MEDS: AZELASTINE 137MCG NASAL SPY 30 ML (ASTELIN) SCH (21:00)
[2019-03-10] MEDS: CETIRIZINE (ZyrTEC) 10 MG TAB PO SCH (21:00)
[2019-03-10] MEDS: SERTRALINE HCL 50 MG TAB PO SCH (21:55)
[2019-03-10] MEDS: MONTELUKAST 10 MG TAB PO SCH (21:56)
[2019-03-10 22:00] VITALS: BP 105/52
[2019-03-10] MEDS: traZODone 100 MG TAB PO PRN (23:35)
[2019-03-11] MEDS: methylPREDNISolone INJ 40 MG/1 ML VIAL (J2920) IV SCH ×3 (01:56→18:00)
[2019-03-11] MEDS: SLF 3 ML SYR IV SCH ×3 (05:37→23:25)
[2019-03-11 06:00] VITALS: BP 112/62
[2019-03-11 06:03] LABS: HEMATOCRIT 37.6 % (36.0-47.0); HEMOGLOBIN 11.9 g/dl (12.0-15.5); MEAN CORPUSCULAR HEMOGLOBIN 26.9 pg (27.0-33.0); MEAN CORPUSCULAR HGB CONC 31.6 g/dl (32.0-36.5); MEAN CORPUSCULAR VOLUME 84.9 fl (80.0-96.0); PLATELET COUNT, AUTOMATED 238 10^3/uL (150-450); RED BLOOD COUNT 4.43 10^6/uL (4.00-5.40); WHITE BLOOD COUNT 15.8 10^3/uL (4.0-10.0)
[2019-03-11 06:31] LABS: CALCIUM LEVEL 8.9 MG/DL (8.8-10.2); CREATININE FOR GFR 1.36 MG/DL (0.55-1.30); GLOMERULAR FILTRATION RATE 41.2 (>45); POTASSIUM SERUM 4.4 MEQ/L (3.5-5.1)
[2019-03-11] MEDS: IPRATROPIUM 0.5MG/ALBUTEROL 2.5MG INH SOL UD 3ML (DUONEB)(J7620) NEB SCH ×4 (07:52→19:20)
[2019-03-11] MEDS: AZELASTINE 137MCG NASAL SPY 30 ML (ASTELIN) SCH ×2 (08:41→20:07)
[2019-03-11] MEDS: CETIRIZINE (ZyrTEC) 10 MG TAB PO SCH ×2 (08:42→20:08)
[2019-03-11] MEDS: HYOSCYAMINE SULFATE 0.125 MG SUBL TABLET SL SCH ×3 (08:42→20:08)
[2019-03-11] MEDS: GABAPENTIN 300 MG CAP PO SCH ×3 (08:42→20:09)
[2019-03-11] MEDS: FUROSEMIDE 20 MG/2 ML VIAL (J1940) IV SCH ×2 (08:42→16:07)
[2019-03-11] MEDS: oxyCODONE 5MG TAB PO PRN ×2 (08:48→20:10)
[2019-03-11] MEDS: guaiFENesin DM LIQ 10ML UD PO PRN ×2 (11:47→18:00)
[2019-03-11] MEDS: DOXYCYCLINE HYCLATE 100 MG in D5W MINI-BAG PLUS 100 ML IV SCH ×2 (11:48→23:24)
[2019-03-11 14:00] VITALS: BP 107/59
--- NOTE | 2019-03-11 14:24 | IPNPDOC ---
Date Seen The patient was seen on 03/11/19. Progress Note SUBJECTIVE: Patient tells me that she still has significant cough. She still has her shortness of breath, she tells me she did make significant amount of urine but she also drank a lot of fluid yesterday as well . She tells me she always 2 L of oxygen at home currently she is on 3. otherwise patient denies, nausea, vomiting, fevers, chills. She denies any further hemoptysis OBJECTIVE PHYSICAL EXAMINATION: VITAL SIGNS: Please see below. GENERAL: Pleasant elderly female sitting up in bed awake alert oriented speaking in complete sentences no acute distress no accessory muscle use, she does provide significant cough during the exam HEENT: Moist mucous membranes there is some elevation in CVP CARDIOVASCULAR: S1 S2 regular no additional heart sounds appreciated. She is not tachycardic RESPIRATORY: Scattered bibasilar Rales, sounds tight, diffuse end expiratory wheeze. ABDOMINAL: Bowel sounds present abdomen soft and nontender EXTREMITIES: No clubbing cyanosis, trace edema NEUROLOGICAL: Spontaneously moves all 4 extremities cranial 2 through 12 grossly intact no gross focal deficits appreciated PSYCHOLOGICAL: Appropriate LABORATORY DATA, MICROBIOLOGY: Please see below. IMAGING STUDIES: CT angiography:No pulmonary emboli. Extensive emphysematous changes with large bulla in the right lung apex similar to previous study. Peripheral increased interstitial markings with bibasilar small consolidations, left greater than right. Findings may represent a exacerbation of emphysema with atelectasis or developing pneumonia, clinical correlation is recommended. Few small pleural based densities in the left upper lobe measuring up to 12 mm. Right lower lobe medial density measuring 11.1 mm (series [id number] image [id number]). Previously seen partially calcified density in the left upper lobe is resolved. Followup after treatment is recommended to evaluate lung nodules. ASSESSMENT AND PLAN: This is a 68-year-old female with acute on chronic hypoxic respiratory failure PROBLEMS: 1. Acute on chronic hypoxic respiratory failure with shortness of breath and cough: There is certainly concern for decompensated COPD, as such she has been started on IV Solu-Medrol doxycycline nebulizer treatments. Her CT suggests fairly significant and advanced bullous emphysema disease. Based on a previous echo and clinical history do have some concern for decompensated diastolic congestive heart failure and as such I am gently diuresing her with IV Lasix monitoring her renal function and electrolytes. Should she fail to improve with these measures would consider inpatient pole consultation she normally follows with Dr. Rico of the [facility] pulmonary group. I'll provide her with cough syrup at her request this is helped in the past 2. Anxiety depression: Continue with trazodone and sertraline. 3. Chronic low back pain: Continue with oxycodone gabapentin. 4. Seasonal allergies: Continue with Singulair. DVT prophylaxis: Heparin DISPOSITION: Pending clinical improvement. VS, I&O, 24H, Fishbone Vital Signs/I&O Vital Signs Date Time Temp Pulse Resp B/P (MAP) Pulse Ox O2 Delivery O2 Flow Rate FiO2 03/11/19 09:45 3.0 03/11/19 09:18 16 03/11/19 06:00 96.7 74 112/62 (79) 93 03/10/19 04:00 100 03/09/19 22:45 Nasal Cannula I&O- Last 24 Hours up to 6 AM 03/11/19 06:00 Intake Total 2580 ml Output Total 2070 ml Balance 510 ml Laboratory Data 24H LABS Laboratory Tests 2 03/11/19 05:28: Nucleated Red Blood Cells % (auto) 0.0, Anion Gap 6L, Glomerular Filtration Rate 41.2L, Blood Urea Nitrogen 18, Creatinine 1.36H, Sodium Level 140, Potassium Level 4.4, Chloride Level 102, Carbon Dioxide Level 32, Calcium Level 8.9 CBC/BMP Laboratory Tests 03/11/19 05:28 Red Blood Count 4.43, Mean Corpuscular Volume 84.9, Mean Corpuscular Hemoglobin 26.9 L, Mean Corpuscular Hemoglobin Concent 31.6 L, Red Cell Distribution Width 14.4, Calcium Level 8.9 Microbiology Microbiology 03/10/19 Respiratory Virus Panel (PCR) (JIMMIE) - Final, Complete ALISHA PHELPS MD Mar 11, 2019 14:24
[2019-03-11] MEDS: HEPARIN SOD (PORCINE) 5000 UNITS/ML VIAL SQ SCH (20:08)
[2019-03-11] MEDS: traZODone 100 MG TAB PO PRN (20:08)
[2019-03-11] MEDS: SERTRALINE HCL 50 MG TAB PO SCH (20:09)
[2019-03-11] MEDS: MONTELUKAST 10 MG TAB PO SCH (20:09)
[2019-03-11 22:00] VITALS: BP 110/57
[2019-03-12] MEDS: methylPREDNISolone INJ 40 MG/1 ML VIAL (J2920) IV SCH ×3 (01:30→18:25)
[2019-03-12] MEDS: guaiFENesin DM LIQ 10ML UD PO PRN ×3 (01:30→15:56)
[2019-03-12 06:00] VITALS: BP 109/65
[2019-03-12 06:20] LABS: HEMATOCRIT 35.2 % (36.0-47.0); HEMOGLOBIN 11.2 g/dl (12.0-15.5); MEAN CORPUSCULAR HEMOGLOBIN 27.2 pg (27.0-33.0); MEAN CORPUSCULAR HGB CONC 31.8 g/dl (32.0-36.5); MEAN CORPUSCULAR VOLUME 85.4 fl (80.0-96.0); PLATELET COUNT, AUTOMATED 228 10^3/uL (150-450); RED BLOOD COUNT 4.12 10^6/uL (4.00-5.40); WHITE BLOOD COUNT 11.2 10^3/uL (4.0-10.0)
[2019-03-12 06:47] LABS: CALCIUM LEVEL 8.6 MG/DL (8.8-10.2); CREATININE FOR GFR 1.53 MG/DL (0.55-1.30); GLOMERULAR FILTRATION RATE 35.9 (>45); POTASSIUM SERUM 3.9 MEQ/L (3.5-5.1)
[2019-03-12] MEDS: SLF 3 ML SYR IV SCH ×3 (06:48→20:55)
[2019-03-12] MEDS: IPRATROPIUM 0.5MG/ALBUTEROL 2.5MG INH SOL UD 3ML (DUONEB)(J7620) NEB SCH ×4 (07:20→20:09)
[2019-03-12] MEDS: CETIRIZINE (ZyrTEC) 10 MG TAB PO SCH ×2 (09:29→20:53)
[2019-03-12] MEDS: HYOSCYAMINE SULFATE 0.125 MG SUBL TABLET SL SCH (09:29)
[2019-03-12] MEDS: GABAPENTIN 300 MG CAP PO SCH ×3 (09:30→20:53)
[2019-03-12] MEDS: oxyCODONE 5MG TAB PO PRN (09:30)
[2019-03-12] MEDS: HEPARIN SOD (PORCINE) 5000 UNITS/ML VIAL SQ SCH ×2 (09:30→20:54)
[2019-03-12] MEDS: AZELASTINE 137MCG NASAL SPY 30 ML (ASTELIN) SCH ×2 (09:31→20:52)
[2019-03-12] MEDS: DOXYCYCLINE HYCLATE 100 MG in D5W MINI-BAG PLUS 100 ML IV SCH (11:27)
[2019-03-12 14:00] VITALS: BP 144/67
--- NOTE | 2019-03-12 15:07 | IPNPDOC ---
Text Note Date of Service The patient was seen on 03/12/19. NOTE S: patient is being seen for COPD exacerbation. She is on chronic oxygen at home. States feels better today. Has been receiving IV Lasix for diuresis and possible CHF. She states continues with dry paroxysmal cough, wheeze but no CP. has chronic SOB/ASHRAF and is on home oxygen. She has poor IV access. O: Vitals as below General: pleasant, NAD AAOx3 Heart - irreg/irreg LCTA with scattered wheeze, no rales, no rhonchi Ext: no edema A/P: 1. Acute on chronic hypoxic respiratory failure - doubt underlying CHF after reviewing echo (EF 65% with grade I - LV diastolic dysfunction. Will d/c IV diuresis as this is causing a mild iatrogenic NEVIN. Currently in stable respiratory state. 2. COPD EXACERBATION - IV steroids. Change IV doxycycline to oral az ithromycin and keflex. Add pulmicort. anticipate changing IV steroids to po tomorrow and d/c in 2 days 3 Anxiety depression: Continue with trazodone and sertraline. 4. Chronic low back pain: Continue with oxycodone gabapentin. 5 Seasonal allergies: Continue with Singulair. 6. NEVIN due to IV contrast CTA chest on 03/09, recurrent use of IV Lasix. Current Medications Acetaminophen (Tylenol Tab) 650 mg Q4H PRN PO PAIN OR FEVER; Start 03/09/19 at 22:15 Albuterol/ Ipratropium (Duoneb (Ipr 0.5mg/Alb 2.5mg)) 3 ml RQID NEB Last administered on 03/12/19at 07:20; Start 03/10/19 at 08:00 Azelastine HCl (Astelin) 2 spray BID NA Last administered on 03/12/19at 09:31; Start 03/10/19 at 21:00 Cetirizine HCl (ZyrTEC) 10 mg BID PO Last administered on 03/12/19at 09:29; Start 03/10/19 at 21:00 Doxycycline Hyclate 100 mg/ Dextrose 100 ml @ 100 mls/hr Q12H IV Last administered on 03/11/19at 23:24; Start 03/09/19 at 23:00 Fluticasone Propionate (Flonase 0.05% Nasal [place]) 2 spray BID NARES ; Start 03/10/19 at 21:00; Stop 03/10/19 at 23:24; Status DC Furosemide (LASIX injection) 20 mg BID@ IV Last administered on 03/11/19 16:07; Start 03/10/19 at 11:00 Gabapentin (Neurontin) 300 mg TID PO Last administered on 03/12/19 09:30; Start 03/09/19 at 21:00 Guaifenesin/ Dextromethorphan (Robitussin Dm) 5 ml QIDP PRN PO COUGH Last administered on 03/12/19 09:30; Start 03/11/19 at 11:15 Heparin Sodium (Porcine) (Heparin) 5,000 units Q12H SC ; Start 03/09/19 at 21:00; Stop 03/09/19 at 22:40; Status DC Heparin Sodium (Porcine) (Heparin) 5,000 units Q12H SQ Last administered on 03/12/19 09:30; Start 03/11/19 at 21:00 Home Med (Med Rec Complete!) ASDIRECTED XX ; Start 03/09/19 at 22:30; Stop 03/09/19 at 22:36; Status DC Hyoscyamine Sulfate (Levsin) 0.125 mg TID SL Last administered on 03/12/19 09:29; Start 03/10/19 at 09:00 Methylprednisolone (SOLU medrol) 40 mg Q8H IV Last administered on 03/12/19 09:30; Start 03/10/19 at 02:00 Montelukast Sodium (Singulair) 10 mg QHS PO Last administered on 03/11/19 20:09; Start 03/09/19 at 21:00 Oxycodone HCl (Roxicodone, Oxyir) 10 mg BID PRN PO PAIN Last administered on 03/12/19 09:30; Start 03/09/19 at 22:30 Sertraline HCl (Zoloft) 150 mg QHS PO Last administered on 03/11/19 20:09; Start 03/09/19 at 21:00 Sodium Chloride (Saline Lock Flush) 2 ml ASDIRECTED PRN IV SEE LABEL COMMENTS; Start 03/10/19 at 10:15 Sodium Chloride (Saline Lock Flush) 2 ml SLF IV Last administered on 6/18/19at 06:48; Start 03/10/19 at 14:00 Trazodone HCl (Desyrel) 200 mg QHSP PRN PO INSOMNIA Last administered on 03/11/19at 20:08; Start 03/09/19 at 22:30 VS,Fishbone, I+O VS, Fishbone, I+O Laboratory Tests 03/12/19 05:27 Red Blood Count 4.12, Mean Corpuscular Volume 85.4, Mean Corpuscular Hemoglobin 27.2, Mean Corpuscular Hemoglobin Concent 31.8 L, Red Cell Distribution Width 14.5, Calcium Level 8.6 L Vital Signs Date Time Temp Pulse Resp B/P (MAP) Pulse Ox O2 Delivery O2 Flow Rate FiO2 03/12/19 09:30 18 03/12/19 09:30 3.0 03/12/19 06:00 97.5 77 109/65 (80) 93 03/10/19 04:00 100 03/09/19 22:45 Nasal Cannula I&O- Last 24 Hours up to 6 AM 03/12/19 06:00 Intake Total 2130 ml Output Total 1720 ml Balance 410 ml REESE MEYERS DO Mar 12, 2019 11:16
[2019-03-12] MEDS ORDERED: HYOSCYAMINE SULFATE 0.125 MG SUBL TABLET SL PRN (15:15)
[2019-03-12] MEDS: AZITHROMYCIN 250 MG TAB PO SCH (15:56)
[2019-03-12] MEDS: CEPHALEXIN 500 MG CAP PO SCH ×2 (15:56→20:53)
[2019-03-12] MEDS: traZODone 100 MG TAB PO PRN (20:53)
[2019-03-12] MEDS: MONTELUKAST 10 MG TAB PO SCH (20:53)
[2019-03-12] MEDS: SERTRALINE HCL 50 MG TAB PO SCH (20:58)
[2019-03-12 22:00] VITALS: BP 124/57
[2019-03-13] MEDS: methylPREDNISolone INJ 40 MG/1 ML VIAL (J2920) IV SCH (01:44)
[2019-03-13] MEDS: SLF 3 ML SYR IV SCH ×3 (01:45→21:31)
[2019-03-13] MEDS: guaiFENesin DM LIQ 10ML UD PO PRN ×3 (01:53→15:08)
[2019-03-13 06:00] VITALS: BP 119/60
[2019-03-13 06:04] LABS: HEMATOCRIT 35.4 % (36.0-47.0); HEMOGLOBIN 11.1 g/dl (12.0-15.5); MEAN CORPUSCULAR HEMOGLOBIN 27.1 pg (27.0-33.0); MEAN CORPUSCULAR HGB CONC 31.4 g/dl (32.0-36.5); MEAN CORPUSCULAR VOLUME 86.6 fl (80.0-96.0); PLATELET COUNT, AUTOMATED 218 10^3/uL (150-450); RED BLOOD COUNT 4.09 10^6/uL (4.00-5.40); WHITE BLOOD COUNT 7.8 10^3/uL (4.0-10.0)
[2019-03-13 06:37] LABS: CALCIUM LEVEL 8.9 MG/DL (8.8-10.2); CREATININE FOR GFR 1.31 MG/DL (0.55-1.30); POTASSIUM SERUM 4.4 MEQ/L (3.5-5.1)
[2019-03-13] MEDS: IPRATROPIUM 0.5MG/ALBUTEROL 2.5MG INH SOL UD 3ML (DUONEB)(J7620) NEB SCH ×4 (07:58→19:50)
[2019-03-13] MEDS: oxyCODONE 5MG TAB PO PRN (10:21)
[2019-03-13] MEDS: CEPHALEXIN 500 MG CAP PO SCH ×3 (10:22→21:31)
[2019-03-13] MEDS: GABAPENTIN 300 MG CAP PO SCH ×3 (10:22→21:31)
[2019-03-13] MEDS: HEPARIN SOD (PORCINE) 5000 UNITS/ML VIAL SQ SCH ×2 (10:22→21:31)
[2019-03-13] MEDS: CETIRIZINE (ZyrTEC) 10 MG TAB PO SCH ×2 (10:22→21:31)
[2019-03-13] MEDS: AZITHROMYCIN 250 MG TAB PO SCH (10:22)
[2019-03-13] MEDS: AZELASTINE 137MCG NASAL SPY 30 ML (ASTELIN) SCH ×2 (10:38→21:31)
[2019-03-13] MEDS: predniSONE 20 MG TAB PO SCH (12:59)
--- NOTE | 2019-03-13 13:30 | IPNPDOC ---
Text Note Date of Service The patient was seen on 03/13/19. NOTE S: patient states feeling better. Had dry coughing episode early this AM that resulted in small amount of dried blood. Has chronic SOB/ASHRAF but able to ambulate to bathroom 15 feet with oxygen and no significant dyspnea. no CP, no N, no V O: Vitals as below General: pleasant, NAD AAOx3 HRRR LCTA with scant wheeze at base, no rhonchi, no rales Ext: no edema A/P: 1. Acute on chronic hypoxic respiratory failure - doubt underlying CHF after reviewing echo (EF 65% with grade I - LV diastolic dysfunction. Will d/c IV diuresis as this is causing a mild iatrogenic NEVIN. Currently in stable respiratory state. 2. COPD EXACERBATION - change IV steroids to po and if tolerates, d/c home tomorrow AM. Add pulmicort. CXR in AM 3 Anxiety depression: Continue with trazodone and sertraline. 4. Chronic low back pain: Continue with oxycodone gabapentin. 5 Seasonal allergies: Continue with Singulair. 6. NEVIN due to IV contrast CTA chest on 03/09, recurrent use of IV Lasix. - lasix d/c 03/12 and creat improving VS,Fishbone, I+O VS, Fishbone, I+O Laboratory Tests 03/13/19 05:36 Red Blood Count 4.09, Mean Corpuscular Volume 86.6, Mean Corpuscular Hemoglobin 27.1, Mean Corpuscular Hemoglobin Concent 31.4 L, Red Cell Distribution Width 14.5, Calcium Level 8.9 Vital Signs Date Time Temp Pulse Resp B/P (MAP) Pulse Ox O2 Delivery O2 Flow Rate FiO2 03/13/19 10:21 16 3.0 03/13/19 06:00 97.1 88 119/60 (79) 94 03/10/19 04:00 100 03/09/19 22:45 Nasal Cannula I&O- Last 24 Hours up to 6 AM 03/13/19 06:00 Intake Total 1869 ml Output Total 1650 ml Balance 219 ml REESE MEYERS DO Mar 13, 2019 11:01
[2019-03-13] MEDS ORDERED: AZIT-12 PO (13:38)
[2019-03-13] MEDS ORDERED: TRAZ-163 PO (13:38)
[2019-03-13] MEDS ORDERED: CEPH500C PO (13:38)
[2019-03-13] MEDS ORDERED: PRED20TA PO (13:38)
[2019-03-13] MEDS ORDERED: GUAI1SOL7 PO (13:38)
[2019-03-13 14:00] VITALS: BP 136/63
[2019-03-13] MEDS: SERTRALINE HCL 50 MG TAB PO SCH (21:31)
[2019-03-13] MEDS: traZODone 100 MG TAB PO PRN (21:34)
[2019-03-13 22:00] VITALS: BP 129/62
[2019-03-14] MEDS: MONTELUKAST 10 MG TAB PO SCH (00:11)
[2019-03-14] MEDS: guaiFENesin DM LIQ 10ML UD PO PRN ×2 (03:36→10:53)
[2019-03-14 06:00] VITALS: BP 130/66
[2019-03-14] MEDS: SLF 3 ML SYR IV SCH ×2 (06:44→11:50)
[2019-03-14] MEDS: IPRATROPIUM 0.5MG/ALBUTEROL 2.5MG INH SOL UD 3ML (DUONEB)(J7620) NEB SCH ×2 (07:26→11:14)
[2019-03-14] MEDS: CETIRIZINE (ZyrTEC) 10 MG TAB PO SCH (08:25)
[2019-03-14] MEDS: CEPHALEXIN 500 MG CAP PO SCH (08:25)
[2019-03-14] MEDS: AZITHROMYCIN 250 MG TAB PO SCH (08:25)
[2019-03-14] MEDS: HEPARIN SOD (PORCINE) 5000 UNITS/ML VIAL SQ SCH (08:25)
[2019-03-14] MEDS: AZELASTINE 137MCG NASAL SPY 30 ML (ASTELIN) SCH (08:25)
[2019-03-14] MEDS: GABAPENTIN 300 MG CAP PO SCH (08:25)
[2019-03-14] MEDS: oxyCODONE 5MG TAB PO PRN (08:43)
--- NOTE | 2019-03-14 10:24 | REP ---
PA and lateral chest: Comparison is 02/17/2019. There is decreased density in the upper lobes bilaterally with crowding of the lung markings in the lower lobes bilaterally, unchanged, compatible with COPD. There are no infiltrates. There are no pleural effusions. No masses or nodules are identified. Cardiac size is normal. The yunior, mediastinum, skeletal structures are unremarkable. There are paraspinal surgical clips on the left in the upper thoracic area. These are unchanged. Impression: Findings are compatible with COPD. No acute cardiopulmonary findings are identified. Electronically Signed by Zane Solo MD 03/14/2019 10:16 A
[2019-03-14] MEDS ORDERED: TRAZ10TA PO (11:35)
[2019-03-14] MEDS: predniSONE 20 MG TAB PO SCH (11:44)
--- NOTE | 2019-03-14 15:34 | DS.PDOC ---
Discharge Summary General Date of Admission Mar 09, 2019 at 22:10 Date of Discharge 03/14/19 Primary Care Physician: Obi Wilhelm MD Attending Physician: REESE MEYERS DO Discharge Summary PROCEDURES PERFORMED DURING STAY: none ADMITTING DIAGNOSES: 1. Acute on chronic respiratory failure. 2. Chronic obstructive pulmonary disease (COPD) exacerbation. 3. Hemoptysis related to COPD. 4. Chronic kidney disease stage III. 5. Chronic lower back pain. DISCHARGE DIAGNOSES: 1. Acute on chronic hypoxic respiratory failure - 2. COPD EXACERBATION 3 Anxiety depression: 4. Chronic low back pain: 5 Seasonal allergies: C 6. NEVIN due to IV contrast CTA chest on 03/09, recurrent use of IV Lasix 7. CKD stage III COMPLICATIONS/CHIEF COMPLAINT: Copd With Acute Exacerbation. HISTORY OF PRESENT ILLNESS:: The patient is a 68-year-old white female with a history of chronic obstructive pulmonary disease (COPD), who presented to the hospital for evaluation of shortness of breath and coughing up blood. See H&P for details HOSPITAL COURSE: Patient was admitted and placed on antibiotics, steroids, nebulizer. there was concern for underlying CHF and she was given 2 days of IV lasix. After reviewing echo (EF 65% with grade I - LV diastolic dysfunction) and CT chest films/CXR with patient, this diagnosis was in error and lasix s topped. She had a mild iatrogenic NEVIN associated with the use of lasix which improved prior to discharge. She had slow improvement to her WBC and respiratory status, so antibiotics were adjusted (changed doxycycline to rocephin/azithomycin). Her respiratory status also improve and she was tapered from IV steroid to oral. There was no signs of QT changes with trazadone and azithromycin. Trazadone was changed to prn dosing while on azithromycin. Patient was able to resume her usual supplemental oxygen dosing and prior to discharge, CXR showed no effusion, no infiltrate. Because of her significant bullous emphysema, reviewed with patient possible pneumothorax signs and symptoms. she was able to verbalize understanding of symptoms and tp seek emergency treatment if occurs. Patient is being discharged in stable and improved condition. DISCHARGE MEDICATIONS: Please see below. ALLERGIES: Please see below. PHYSICAL EXAMINATION ON DISCHARGE: VITAL SIGNS: Please see below. GENERAL: pleasant, NAD AAOx3 HRRR no murmur LCTA no W/R/R (improved to baseline) EXTREMITIES: no edema LABORATORY DATA: Please see below. PROGNOSIS: good ACTIVITY: as tolerated, 2-3 liter oxygen via NC with rest/activity DIET: as tolerated DISCHARGE PLAN: DC to home DISCHARGE INSTRUCTIONS: 1. complete antibiotics 2. use trazadone prn while on azithromycin 3. follow up with PCP or pulmonology in 7-10 days for recheck of lungs DISCHARGE CONDITION: stable TIME SPENT ON DISCHARGE: 30 minutes. Vital Signs/I&Os Vital Signs Date Time Temp Pulse Resp B/P (MAP) Pulse Ox O2 Delivery O2 Flow Rate FiO2 03/14/19 09:13 16 2.0 03/14/19 06:00 97.0 77 130/66 (87) 99 03/10/19 04:00 100 03/09/19 22:45 Nasal Cannula I&O- Last 24 Hours up to 6 AM 03/14/19 06:00 Intake Total 1600 ml Output Total 725 ml Balance 875 ml Microbiology Microbiology 03/10/19 Respiratory Virus Panel (PCR) (JIMMIE) - Final, Complete Discharge Medications Scheduled Azelastine HCl (Azelastine HCl) 0.1% [place].pump, 2 SPRAYS NARES BID, (Reported) Azithromycin (Azithromycin) 250 Mg Tablet, 500 MG PO DAILY Cephalexin (Cephalexin) 500 Mg Capsule, 500 MG PO TID Cetirizine HCl (ZyrTEC) 10 Mg Capsule, 10 MG PO DAILY, (Reported) Fluticasone/Vilanterol (Breo Ellipta 200-25 Mcg INH) 1 Inh Inh, 1 PUFF PO DAILY, (Reported) Gabapentin (Gabapentin) 300 Mg Capsule, 300 MG PO TID, (Reported) Montelukast Sodium (Montelukast Sodium) 10 Mg Tablet, 10 MG PO QHS, (Reported) Nystatin (Nystatin Oral Susp) 100,000 Unit/1 Ml Oral.susp, 5 ML SS QID, (Reported) Prednisone (Prednisone) 20 Mg Tablet, 20 MG PO as directed [id number] and stop Sertraline Hcl (Zoloft) 100 Mg Tab, 150 MG PO QHS, (Reported) Scheduled PRN Albuterol Sulfate (Ventolin Hfa) 18 Gm Hfa.aer.ad, 2 PUFF INH Q4H PRN for SHORTNESS OF BREATH, (Reported) Codeine Phosphate/Guaifenesin (Guaifen-Codeine 100-10 mg/5 ml) 5 Ml Liquid, 5-10 ML PO Q4HP PRN for cough and congestion Oxycodone HCl (Oxycodone HCl) 10 Mg Tablet, 10 MG PO BID PRN for PAIN, (Reported) Trazodone HCl (Trazodone HCl) 100 Mg Tablet, 200 MG PO QHSP PRN for INSOMNIA Allergies Coded Allergies: NSAIDS (Non-Steroidal Anti-Inflamma (Verified Allergy, Unknown, renal failure, 02/17/19) tapentadol (Verified Allergy, Unknown, hair loss, weight loss, 02/17/19) REESE MEYERS DO Mar 14, 2019 10:50
== END 2019-03-14 12:16 | disposition home or self-care (01) | DRG 193 ==
LOC: M ED 17:34 → M ED INP 22:10 → M PCU 23:41 → M MSPAV 03-10 18:10
PROVIDERS: ADMIT Hospitalist; ATTEND Family Medicine
DX: J18.9 Pneumonia, unspecified organism (principal); J96.21 Acute and chronic respiratory failure with hypoxia; N17.9 Acute kidney failure, unspecified; R04.2 Hemoptysis; J43.8 Other emphysema; N18.3 Chronic kidney disease, stage 3 (moderate); M54.5 Low back pain; F41.9 Anxiety disorder, unspecified; F32.9 Major depressive disorder, single episode, unspecified; Z79.899 Other long term (current) drug therapy; Z88.8 Allergy status to other drugs, medicaments and biological substances; Z88.6 Allergy status to analgesic agent; G62.9 Polyneuropathy, unspecified

== ENCOUNTER 2019-04-28 14:57 | Emergency (ER) | payer MEDICARE ==
[~2019-04-28] VITALS: Ht 162.6 cm; Wt 68.5 kg
[~2019-04-28 14:57] MED LIST changes: +AZEL1SPR3 NARES; +AZIT-12 PO; +CEPH500C PO; +HYOS1TAB SL; +OXYC10TA12 PO; +TRAZ10TA PO
--- NOTE | 2019-04-28 15:45 | ECGEPIP ---
[facility] - ED Test Date: 2019-04-28 Pat Name: RADHA HENRY Department: Room: - Gender: Female Psychology Physician: : [id number] Requested By: DILCIA Alvarado PA-C Order Number: [id number] Reading MD: Chelle Berrios Measurements Intervals [place] Rate: 74 P: 76 DC: 186 QRS: 80 QRSD: 97 T: 61 QT: 381 QTc: 425 Interpretive Statements SINUS RHYTHM MINIMAL ST DEPRESSION/NSTTW ABNORMALITY DECREASED RATE 03/09/19 Electronically Signed on 04-28-2019 15:45:35 EDT by Chelle Berrios
--- NOTE | 2019-04-28 15:59 | REP ---
Clinical: Cough and dyspnea . Comparison: 03/14/2019 . Technique: PA and lateral. Findings: The mediastinum and cardiac silhouette are normal. The lung moreira demonstrate COPD/emphysematous changes and scattered scarring / interstitial changes. The skeletal structures are intact and normal. Surgical clips identified in the posterior midline chest. Impression: 1. COPD and chronic interstitial changes. 2. No acute cardiopulmonary process. Electronically Signed by Alfredo Pillai MD 04/28/2019 03:51 P
[2019-04-28 16:03] LABS: BASO # 0.1 10^3/uL (0.0-0.2); BASO % 0.5 % (0.0-1.0); EOS % 0.3 % (0.0-3.0); HEMATOCRIT 39.1 % (36.0-47.0); HEMOGLOBIN 12.1 g/dl (12.0-15.5); LYMPH # 1.3 10^3/uL (1.5-4.5); LYMPH % 13.9 % (24.0-44.0); MEAN CORPUSCULAR HEMOGLOBIN 27.2 pg (27.0-33.0); MEAN CORPUSCULAR HGB CONC 30.9 g/dl (32.0-36.5); MEAN CORPUSCULAR VOLUME 87.9 fl (80.0-96.0); MONO # 0.6 10^3/uL (0.0-0.8); MONO % 6.6 % (0.0-5.0); NEUTROPHILS # 7.1 10^3/uL (1.8-7.7); NEUTROPHILS % 76.4 % (36.0-66.0); PLATELET COUNT, AUTOMATED 176 10^3/uL (150-450); RED BLOOD COUNT 4.45 10^6/uL (4.00-5.40); WHITE BLOOD COUNT 9.3 10^3/uL (4.0-10.0)
--- NOTE | 2019-04-28 16:20 | REP ---
Clinical: Left lower extremity pain and swelling . Technique: Kessler scale and color Doppler evaluation using linear high frequency transducer. Findings: Ultrasound examination of the left lower extremity deep venous structures from the common femoral vein to the popliteal vein demonstrates normal compressibility flow and wave patterns in response to respiration and augmentation. There is no evidence for deep venous thrombosis. Impression: No evidence for deep venous thrombosis. Electronically Signed by Alfredo Pillai MD 04/28/2019 04:10 P
--- NOTE | 2019-04-28 16:22 | REP ---
Clinical: Left lower extremity lump/mass. Technique: Real time suarez scale and color evaluation using linear and curved array transducers. Findings: Directed ultrasound examination along the lateral left calf demonstrates 4.5 x 1.2 x 3.0 cm complex collection in the subcutaneous tissue with multiple septations and small amounts of mural echogenic material. Color evaluation is unremarkable and without evidence for associated vascularity. Correlation is required and differential diagnosis includes but is not limited to hematoma and chronic seroma. Impression: Complex avascular septated fluid collection in the subcutaneous tissue. Correlation is recommended. Differential diagnosis includes but is not limited to hematoma and seroma. Electronically Signed by Alfredo Pillai MD 04/28/2019 04:12 P
[2019-04-28 16:26] LABS: ALBUMIN 3.4 GM/DL (3.2-5.2); ALT/SGPT 20 U/L (12-78); BILIRUBIN,DIRECT 0.1 MG/DL (0.0-0.2); BILIRUBIN,TOTAL 0.4 MG/DL (0.2-1.0); BLOOD UREA NITROGEN 7 MG/DL (7-18); CALCIUM LEVEL 8.7 MG/DL (8.8-10.2); CARBON DIOXIDE LEVEL 31 MEQ/L (21-32); CHLORIDE LEVEL 104 MEQ/L (98-107); CK-MB VALUE MASS 7.9 NG/ML (<3.6); CPK CREATINE PHOSPHOKINASE 181 U/L (26-192); CREATININE FOR GFR 1.43 MG/DL (0.55-1.30); GLOMERULAR FILTRATION RATE 38.8 (>45); GLUCOSE, FASTING 97 MG/DL (70-100); MB/CK RELATIVE INDEX 4.36 (< OR =4); NT-PRO BNP 755 PG/ML (<125); POTASSIUM SERUM 3.9 MEQ/L (3.5-5.1); SODIUM LEVEL 142 MEQ/L (136-145); TOTAL PROTEIN 6.1 GM/DL (6.4-8.2); TROPONIN I < 0.02 NG/ML (< 0.10)
[2019-04-28] MEDS ORDERED: GUAI1SOL2 PO (17:06)
[2019-04-28 17:17] VITALS: BP 146/82
== END 2019-04-28 17:16 | disposition home or self-care (01) ==
LOC: M ED 14:57
DX: J44.9 Chronic obstructive pulmonary disease, unspecified (principal); S80.12XA Contusion of left lower leg, initial encounter; X58.XXXA Exposure to other specified factors, initial encounter; Y92.89 Other specified places as the place of occurrence of the external cause; N18.3 Chronic kidney disease, stage 3 (moderate); I50.9 Heart failure, unspecified; Z79.899 Other long term (current) drug therapy; Z99.81 Dependence on supplemental oxygen; Z88.8 Allergy status to other drugs, medicaments and biological substances; Z87.891 Personal history of nicotine dependence

== ENCOUNTER → 2019-05-30 | Outpatient (CLI) | payer OTHER ==
[~2019-05-30] MED LIST changes: +GUAI1SOL2 PO
--- NOTE | 2019-06-12 01:22 | ECWPNPC ---
PATIENT NAME: RADHA HENRY : 1950 GENDER: FEMALE VISIT DATE: 05/30/2019 DISCHARGE DATE: 05/30/19 1601 VISIT LOCKED DATE TIME: PHYSICIAN: ADRIANA WEAVER MD RESOURCE: ADRIANA WEAVER MD REASON FOR APPOINTMENT 1. BACK HISTORY OF PRESENT ILLNESS HISTORY OF PRESENT ILLNESS: PAIN THE PATIENT DESCRIBES THE PAIN... 68 YEAR OLD FEMALE PATIENT WITH A HISTORY OF CHRONIC LOW BACK PAIN. THE PATIENT DESCRIBES THE PAIN SHARP, TENDER, DAILY, AND CONTINUOUS WITH A PAIN SCORE OF 7-10/10 DEPENDING ON PHYSICAL ACTIVITY. THE PATIENT WAS HURT IN A WORK RELATED INJURY ON 06/24/2006 WHILE WORKING AT [employer] WHEN SHE INJURED HER BACK WHILE PICKING UP A 85 LB WIRE ROUND THAT HAD FALLEN OFF OF A CART. THE PATIENT STATES HER PAIN BEGINS IN HER LOW BACK WITH RADIATION DOWN MAINLY HER LEFT LEG THAT FEELS LIKE A PINS AND NEEDLES SENSATION. THE PATIENT SAYS HER LOW BACK PAIN IS AFFECTING HER ABILITY TO PERFORM HER DAILY ACTIVITIES SUCH COOKING, CLEANING, AND GROCERY SHOPPING. THE PATIENT SAYS SHE IS USING GABAPENTIN 300 MG UP TO 3 TABLETS DAILY AND OXYCODONE 10 MG UP TO 2 TABLETS DAILY NEEDED FOR PAIN, WHICH BOTH ARE HELPING HER TO MANAGE THE LOW BACK PAIN. THE PATIENT MENTIONS SHE HAS SOME SWELLING OVER HER LEFT LEG AND FOOT THAT HER PRIMARY CARE PHYSICIAN IS AWARE AND IS HELPING HER WITH THE ISSUE. PATIENT DENIES UNEXPLAINABLE WEIGHT LOSS, FEVER, CHILLS, NEW CHANGES ON HER URINARY OR BOWEL CONTROL. FALL RISK SCREENING: SCREENING :NO FALLS REPORTED IN THE LAST YEAR CURRENT MEDICATIONS TAKING TRAZODONE HCL 100 MG TABLET 2 TABLET AT BEDTIME ORALLY ONCE A DAY TAKING SERTRALINE HCL 100 MG TABLET 1 1/2 TABLETS ORALLY BEFORE BEDTIME TAKING ZYRTEC 10 MG ORALLY DAILY TAKING VENTOLIN HFA 108 (90 BASE) MCG/ACT AEROSOL SOLUTION 2 PUFFS NEEDED INHALATION EVERY 6 HRS TAKING BREO ELLIPTA 200-25 MCG/INH AEROSOL POWDER BREATH ACTIVATED 1 PUFF INHALATION ONCE A DAY TAKING FLONASE 50 MCG/ACT SUSPENSION 1 SPRAY IN EACH NOSTRIL NASALLY ONCE A DAY TAKING PREDNISONE 10 MG TABLET 2 TABLETS ORALLY W MORE WEEKS 01-27-19, NOTES: TAPERING DOSE-WILL BE COMPLETED 05/17 TAKING SINGULAIR 10 MG TABLET 1 TABLET ORALLY ONCE A DAY TAKING OXYCODONE HCL 10 MG TABLET 1 TABLET NEEDED ORALLY FOR PAIN EVERY 12 HRS MDD2 TAKING GABAPENTIN 300 MG CAPSULE 1 CAPSULE ORALLY THREE TIMES A DAY MDD 3 TAKING CEFUROXIME AXETIL 500 MG TABLET 1 TABLET ORALLY EVERY 12 HRS NOT-TAKING CODEINE SULFATE 30 MG TABLET 1 TABLET AT BEDTIME ORALLY FOR PAIN ONCE A DAY NOT-TAKING HYDROCODONE-ACETAMINOPHEN 5-325 MG TABLET 1 TABLET NEEDED ORALLY FOR PAIN EVERY 6 HRS MDD2 NOT-TAKING CYMBALTA 30 MG CAPSULE DELAYED RELEASE PARTICLES 1 CAPSULE ORALLY WITH FOOD ONCE A DAY NOT-TAKING OXYCODONE-ACETAMINOPHEN 5-325 MG TABLET 1 TABLET ORALLY EVERY 6 HRS PRN PAIN MDD=2 NOT-TAKING GABAPENTIN 300 MG CAPSULE 1 CAPSULE ORALLY THREE TIMES A DAY MDD3 NOT-TAKING PEPCID 40 MG TABLET 1 TABLET ORALLY ONCE A DAY NOT-TAKING LEVAQUIN 250 MG TABLET 1 TABLET ORALLY ONCE A DAY X 10 STARTED, NOTES: STARTED 05/09 NOT-TAKING LYRICA 150 MG CAPSULE 1 CAPSULE ORALLY 2 TIMES A DAY MDD=2 NOT-TAKING LOMOTIL 2.5-0.025 MG TABLET 1 TAB ORALLY DAILY NEEDED, NOTES: NONE LATELY NOT-TAKING KETOROLAC TROMETHAMINE 10 MG TABLET 1 TABLET WITH FOOD OR MILK NEEDED ORALLY EVERY 8 HRS MEDICATION LIST REVIEWED AND RECONCILED WITH THE PATIENT PAST MEDICAL HISTORY COLITIS PNEUMONIA - MULTIPLE TIMES ACUTE ARTHRITIS BRONCHITIS / COPD LOW BACK PAIN / NECK PAIN / THORACIC PAIN TIA'S YEARS AGO DECREASED KIDNEY FUNCTION REFLUX ACUTE BRONCHITIS ULCERATIVE COLITIS LEFT CALF HEMATOMA ALLERGIES NUCYNTA: LOSS HAIR, WGT LOSS AND ITCHING - ALLERGY NSAIDS: KIDNEY FUNCTION - SIDE EFFECTS SURGICAL HISTORY APPENDECTOMY TERESITA CATARACTS GALLBLADDER HERNIA REPAIR HYSTERECTOMY LUMBAR LAMI 2008 LEFT SHOULDER SURGERY LEFT CARPAL TUNNEL L4- S1 LUMBAR FUSION 2010 TONSILLECTOMY BOWEL RESECTION FOR ULCERATIVE COLITIS 1999,09/2017 REMOVED POLYPS FROM VOCAL CORDS BRIANNA ON RIGHT LUNG FAMILY HISTORY FATHER: , DIAGNOSED WITH UNSPECIFIED HEART DISEASE, OTHER MALIGNANT NEOPLASM OF UNSPECIFIED SITE MOTHER: , OTHER MALIGNANT NEOPLASM OF UNSPECIFIED SITE, OTHER SPECIFIED CONDITIONS INFLUENCING HEALTH STATUS 5 BROTHER(S) , 1 SISTER(S) . 1 SON(S) , 1 DAUGHTER(S) . DAD-PROSTATE CA\\\\NMOM-LUNG CA, EMPHYSEMA\\\\N SISTER FROM CANCER AT AGE OF 12\\\\N1 BROTHER FROM CANCER\\\\NSON HAS HEART ISSUES\\\\NDAUGHTER HAS SEIZURES. SOCIAL HISTORY GENERAL: TOBACCO USE ARE YOU A:FORMER SMOKER HOW LONG HAS IT BEEN SINCE YOU LAST SMOKED?> 10 YEARS PAIN CLINIC PFS, CLERGY, PUBLIC HEALTH REFERRALS PFS REFERRAL NEEDED?NO CLERGY REFERRAL NEEDED?NO PUBLIC HEALTH REFERRAL NEEDED?NO WAS THE PROVIDER NOTIFIED OF ANY PERTINENT INFO?YES N /A HAS THE PATIENT BEEN EDUCATED REGARDING HIS/HER PLAN OF CARE?YES HAS THE PATIENT BEEN EDUCATED REGARDING PAIN, THE RISK FOR PAIN, THE IMPORTANCE OF EFFECTIVE PAIN MANAGEMENT, AND THE PAIN ASSESSMENT PROCESS?YES LATEX QUESTIONNAIRE LATEX ALLERGY : HAVE YOU EVER DEVELOPED ANY TYPE OF REACTION AFTER HANDLING LATEX PRODUCTS SUCH RUBBER GLOVES, CONDOMS, DIAPHRAGMS, BALLOONS, SOCKS, OR UNDERWEAR?NO LATEX ALLERGY : HAVE YOU EVER DEVELOPED ANY TYPE OF REACTION DURING OR AFTER DENTAL APPOINTMENT, VAGINAL/RECTAL EXAMINATION, SURGICAL PROCEDURE, OR ANY OTHER EXPOSURE?NO DATE ASKED : 12/26/2018 LATEX RISK : HAVE YOU EVER HAD ANY DIFFICULTY BREATHING OR HIVES AFTER EATING OR HANDLING ANY FRUITS, OR VEGETABLES; SUCH KIWI, BANANAS, STONE FRUITS, OR CHESTNUTSNO LATEX RISK : DO YOU HAVE A PREVIOUS PERSONAL HISTORY OF MORE THAN NINE SURGERIES, SPINA BIFIDA, OR REPEATED CATHERIZATIONS? NO LATEX RISK : ARE YOU FREQUENTLY EXPOSED TO LATEX PRODUCTS IN YOUR OCCUPATION?NO CAFFEINE CAFFEINE USE?YES HOW OFTEN AND HOW MUCH? 1 COFFEE AND 1 PEPSI /DAILY ADVANCE DIRECTIVE ADVANCE DIRECTIVE DISCUSSED WITH PATIENT:YES PT DOES NOT HAVE ANY ADVANCED DIRECTIVES AND SHE DECLINES INFORMATION ON HCP AT THIS TIME. EDUCATION LEVEL OF EDUCATION: GED LATTER DAY [id number] NONE LANGUAGE LANGUAGES SPOKEN:JAPANESE DOMESTIC VIOLENCE DO YOU FEEL SAFE IN YOUR ENVIRONMENT?YES ALCOHOL SCREENING DID YOU HAVE A DRINK CONTAINING ALCOHOL IN THE PAST YEAR?NO POINTS0 INTERPRETATIONNEGATIVE RECREATIONAL DRUG USE DRUG USE?NO LEARNING BARRIERS / SPECIAL NEEDS BARRIERS TO LEARNING?NO HEARING IMPAIRED?NO VISION IMPAIRED?YES COGNITIVELY IMPAIRED?NO :CORRECTIVE LENSES READING READINESS TO LEARN?YES LEARNING PREFERENCES?NO LEARNING CAPABILITIES PRESENT?YES EMOTIONAL BARRIERS?NO SPECIAL DEVICES?NO FRONT DESK REPRESENTATIVE NEEDED?NO 05/14/18 1610 REVIEWED WITH PT. ADREVIEWED WITH PATIENT 08/24/18 1251 JSREVIEWED WITH PATIENT 03/04/19 1415 JS. HOSPITALIZATION/MAJOR DIAGNOSTIC PROCEDURE SURGERY RELATED PNEUMONIA PNEUMONIA 01/2019 REVIEW OF SYSTEMS REVIEWED BY: PROVIDER: ADRIANA WEAVER MD . CONSTITUTIONAL: ANY CHANGE IN YOUR MEDICAL CONDITION? YES, PT WAS SEEN AT [facility] ER 04/28/19 FOR COUGH AND LEFT LEG BUMP AND PAIN. PT WAS SEEN AND TX'D, IMAGING WAS DONE, PT DX W COPD AND HEMATOMA OF LEFT LOWER LEG . CHILLS NO . FEVER NO . INFECTION: DO YOU HAVE NEW INFECTIONS? NO . DO YOU HAVE HISTORY OF MRSA? NO . MUSCULOSKELETAL: ANY NEW PATTERNS OF PAIN OR NUMBNESS? YES, LEFT LEG . GASTROENTEROLOGY: ANY NEW CHANGE IN BOWEL CONTROL? NO . GENITOURINARY: ANY NEW CHANGE IN BLADDER CONTROL? NO . IS THERE A CHANCE YOU COULD BE ? NO . HEMATOLOGY/LYMPH: DO YOU TAKE ANY BLOOD THINNERS? (FOR EXAMPLE- COUMADIN, PLAVIX, AGGRENOX, PLATEL, PRADAXA, OR XARELTO) NO . WHEN WAS YOUR LAST DOSE? DATE: TIME: . NEUROLOGY: HAVE YOU FALLEN IN THE PAST 12 MONTHS? NO . ANY NEW EXTREMITY NUMBNESS OR WEAKNESS? YES, LEFT LEG . CARDIOLOGY: DO YOU HAVE A PACEMAKER OR DEFIBRILLATOR? NO . RESPIRATORY: HAVE YOU BEEN SICK IN THE PAST WEEK? YES, COPD . FEVER NO . FLU LIKE SYMPTOMS? NO . COUGH YES, WHITE SPUTUM . INTEGUMENTARY: DO YOU HAVE ANY RASHES OR OPEN SORES? NO . ALLERGIC/IMMUNO: ARE YOU ALLERGIC TO IV DYE? NO . ANY NEW ALLERGIES? NO . PSYCHIATRIC: DO YOU HAVE THOUGHTS OF HURTING YOURSELF OR SOMEONE ELSE? NO . ARE YOU ABUSED, NEGLECTED, OR IN AN UNSAFE ENVIRONMENT? NO . ENDOCRINOLOGY: ARE YOU DIABETIC? NO . OTHER: DO YOU NEED ANY PRESCRIPTIONS? NO . IF YES, PLEASE LIST: ____ . ANY NEW PROBLEMS WITH YOUR MEDICATIONS? NO . WHEN DID YOU LAST EAT? ____ . WHEN DID YOU LAST DRINK? ____ . WHAT DID YOU LAST DRINK? ____ . NAME OF PERSON DRIVING YOU HOME? ____ . DO YOU HAVE ANY OTHER QUESTIONS OR CONCERNS YES, LEFT LEG HEMATOMA . VITAL SIGNS WT 147.6 LBS, HT 64 IN, BMI 25.33 INDEX, BP 118/59 MM HG, HR 83 /MIN, RR 18 /MIN, TEMP 97.2 F, OXYGEN SAT % 91%, NA INITIALS AW 1453, REVIEWED BY: EM. EXAMINATION GENERAL EXAMINATION: PATIENT IS ALERT O X 3 AND COOPERATIVE. TENDERNESS IN THE LOW BACK. PRESENCE OF BANDS OF TISSUE AND TRIGGER POINTS WITH RESTRICTION OF MOVEMENT OF THE LOW BACK. 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 HENRY'S PAIN MANAGEMENT CASE. THE PATIENT BROUGHT HER MEDICATIONS IN THEIR ORIGINAL BOTTLES TO TODAY'S VISIT. A PILL COUNT WAS PERFORMED TODAY THAT PRODUCED APPROPRIATE COUNT. I DISCUSSED THE RISKS ASSOCIATED WITH THE USE OF OPIOIDS INCLUDING THE POSSIBLE DEVELOPMENT OF ADDICTION OR TOLERANCE AND THE PATIENT VERBALIZED UNDERSTANDING. THE PATIENT STATES SHE AVOIDS USING THE MEDICATION MUCH POSSIBLE AND ONLY TAKES NEEDED WHEN HER PAIN IS SEVERE. URINE TOXICOLOGY DONE ON 12/26/2018 SHOWS CONCURRENT RESULTS. I DISCUSSED WITH THE PATIENT THAT SHE IS A GOOD CANDIDATE FOR A TRIGGER POINT INJECTION, HOWEVER WE AGREED TO WAIT UNTIL HER LEFT LEG AND FOOT SWELLING IS RESOLVED. THE PATIENT WAS ADVISED TO FOLLOW UP WITH HER PRIMARY CARE PHYSICIAN REGARDING HER LEFT LEG AND FOOT SWELLING. THE PATIENT WILL FOLLOW UP IN 2 MONTHS WITH THE NURSE PRACTITIONER. INSTRUCTIONS WERE GIVEN, QUESTIONS WERE ANSWERED, PATIENT REPORTS UNDERSTANDING AND AGREES WITH THE PLAN. I, OLLIE LANG, DOCUMENTED THE ABOVE INFORMATION ACTING A SCRIBE FOR DR. WEAVER. I HAVE REVIEWED THE ABOVE DOCUMENT, WRITTEN BY OLLIE DONNELLY AND I VERIFY THAT IT IS ACCURATE. . PROCEDURES PN WORKMANS' COMP OPINION IN YOUR OPINION, WAS THE INCIDENT THAT THE PATIENT DESCRIBED THE COMPETENT MEDICAL CAUSE OF THIS INJURY/ILLNESS? YES ARE THE PATIENT'S COMPLAINTS CONSISTENT WITH HIS/HER HISTORY OF THE INJURY/ILLNESS? YES IS THE PATIENT'S HISTORY OF THE INJURY/ILLNESS CONSISTENT WITH YOUR OBJECTIVE FINDING? YES WHAT IS THE PERCENTAGE OF TEMPORARY IMPAIRMENT? MODERATE TO MARKED = 66.7% IS THE PATIENT WORKING? 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 IT IS NOT A COPY OF THE [employer] PROGRESS NOTE. CONY
== END ==
LOC: M PAIN 14:45
PROVIDERS: ATTEND Anesthesiology
DX: G89.29 Other chronic pain (principal); M54.42 Lumbago with sciatica, left side; M79.18 Myalgia, other site; M96.1 Postlaminectomy syndrome, not elsewhere classified; K52.9 Noninfective gastroenteritis and colitis, unspecified; K21.9 Gastro-esophageal reflux disease without esophagitis; K51.90 Ulcerative colitis, unspecified, without complications; Z87.01 Personal history of pneumonia (recurrent); M19.90 Unspecified osteoarthritis, unspecified site; J44.9 Chronic obstructive pulmonary disease, unspecified; M54.2 Cervicalgia; M54.6 Pain in thoracic spine; Z87.891 Personal history of nicotine dependence; Z98.41 Cataract extraction status, right eye; Z98.42 Cataract extraction status, left eye; Z90.49 Acquired absence of other specified parts of digestive tract; Z79.52 Long term (current) use of systemic steroids; Z79.891 Long term (current) use of opiate analgesic; Z79.899 Other long term (current) drug therapy; Z88.6 Allergy status to analgesic agent; Z88.8 Allergy status to other drugs, medicaments and biological substances

== ENCOUNTER → 2019-08-07 | Outpatient (CLI) | payer OTHER ==
--- NOTE | 2019-08-09 03:42 | ECWPNPC ---
PATIENT NAME: RADHA HENRY : 1950 GENDER: FEMALE VISIT DATE: 08/07/2019 DISCHARGE DATE: 08/07/19 1415 VISIT LOCKED DATE TIME: PHYSICIAN: NAKUL JETT RESOURCE: NAKUL JETT REASON FOR APPOINTMENT 1. W/C BACK HISTORY OF PRESENT ILLNESS HISTORY OF PRESENT ILLNESS: PAIN THE PATIENT DESCRIBES THE PAIN... THE PATIENT DESCRIBES THE PAIN... 69-YEAR-OLD FEMALE IN FOR CHRONIC PAIN FOLLOW-UP. SHE RATES HER PAIN CURRENTLY AT A 6 OUT OF 10 AND DESCRIBES IT SHARP, STABBING, AND TENDER. SHE FEELS HER MEDICATIONS ARE WORKING WELL AND DENIES MED SIDE EFFECTS AT THIS TIME. THE PATIENT WAS HURT IN A WORK RELATED INJURY ON 06/24/2006 WHILE WORKING AT [employer] WHEN SHE INJURED HER BACK WHILE PICKING UP A 85 LB WIRE ROUND THAT HAD FALLEN OFF OF A CART. THE PATIENT STATES HER PAIN BEGINS IN HER LOW BACK WITH RADIATION DOWN MAINLY HER LEFT LEG THAT FEELS LIKE A PINS AND NEEDLES SENSATION. THE PATIENT SAYS HER LOW BACK PAIN IS AFFECTING HER ABILITY TO PERFORM HER DAILY ACTIVITIES SUCH COOKING, CLEANING, AND GROCERY SHOPPING. THE PATIENT SAYS SHE IS USING GABAPENTIN 300 MG UP TO 3 TABLETS DAILY AND OXYCODONE 10 MG UP TO 2 TABLETS DAILY NEEDED FOR PAIN, WHICH BOTH ARE HELPING HER TO MANAGE THE LOW BACK PAIN. FALL RISK SCREENING: SCREENING :NO FALLS REPORTED IN THE LAST YEAR CURRENT MEDICATIONS TAKING TRAZODONE HCL 100 MG TABLET 2 TABLET AT BEDTIME ORALLY ONCE A DAY TAKING ZYRTEC 10 MG ORALLY DAILY TAKING VENTOLIN HFA 108 (90 BASE) MCG/ACT AEROSOL SOLUTION 2 PUFFS NEEDED INHALATION EVERY 6 HRS TAKING BREO ELLIPTA 200-25 MCG/INH AEROSOL POWDER BREATH ACTIVATED 1 PUFF INHALATION ONCE A DAY TAKING FLONASE 50 MCG/ACT SUSPENSION 1 SPRAY IN EACH NOSTRIL NASALLY ONCE A DAY TAKING PREDNISONE 10 MG TABLET 2 TABLETS ORALLY W MORE WEEKS 01-27-19, NOTES: TAPERING DOSE-WILL BE COMPLETED 05/17 TAKING SINGULAIR 10 MG TABLET 1 TABLET ORALLY ONCE A DAY TAKING CEFUROXIME AXETIL 500 MG TABLET 1 TABLET ORALLY EVERY 12 HRS TAKING OXYCODONE HCL 10 MG TABLET 1 TABLET NEEDED ORALLY FOR PAIN EVERY 12 HRS MDD2 TAKING GABAPENTIN 300 MG CAPSULE 1 CAPSULE ORALLY THREE TIMES A DAY MDD 3 NOT-TAKING SERTRALINE HCL 100 MG TABLET 1 1/2 TABLETS ORALLY BEFORE BEDTIME NOT-TAKING CODEINE SULFATE 30 MG TABLET 1 TABLET AT BEDTIME ORALLY FOR PAIN ONCE A DAY NOT-TAKING HYDROCODONE-ACETAMINOPHEN 5-325 MG TABLET 1 TABLET NEEDED ORALLY FOR PAIN EVERY 6 HRS MDD2 NOT-TAKING CYMBALTA 30 MG CAPSULE DELAYED RELEASE PARTICLES 1 CAPSULE ORALLY WITH FOOD ONCE A DAY NOT-TAKING OXYCODONE-ACETAMINOPHEN 5-325 MG TABLET 1 TABLET ORALLY EVERY 6 HRS PRN PAIN MDD=2 NOT-TAKING GABAPENTIN 300 MG CAPSULE 1 CAPSULE ORALLY THREE TIMES A DAY MDD3 NOT-TAKING PEPCID 40 MG TABLET 1 TABLET ORALLY ONCE A DAY NOT-TAKING LEVAQUIN 250 MG TABLET 1 TABLET ORALLY ONCE A DAY X 10 STARTED, NOTES: STARTED 05/09 NOT-TAKING LYRICA 150 MG CAPSULE 1 CAPSULE ORALLY 2 TIMES A DAY MDD=2 NOT-TAKING LOMOTIL 2.5-0.025 MG TABLET 1 TAB ORALLY DAILY NEEDED, NOTES: NONE LATELY NOT-TAKING KETOROLAC TROMETHAMINE 10 MG TABLET 1 TABLET WITH FOOD OR MILK NEEDED ORALLY EVERY 8 HRS MEDICATION LIST REVIEWED AND RECONCILED WITH THE PATIENT PAST MEDICAL HISTORY COLITIS PNEUMONIA - MULTIPLE TIMES ACUTE ARTHRITIS BRONCHITIS / COPD LOW BACK PAIN / NECK PAIN / THORACIC PAIN TIA'S YEARS AGO DECREASED KIDNEY FUNCTION REFLUX ACUTE BRONCHITIS ULCERATIVE COLITIS LEFT CALF HEMATOMA ALLERGIES NUCYNTA: LOSS HAIR, WGT LOSS AND ITCHING - ALLERGY NSAIDS: KIDNEY FUNCTION - SIDE EFFECTS SURGICAL HISTORY APPENDECTOMY TERESITA CATARACTS GALLBLADDER HERNIA REPAIR HYSTERECTOMY LUMBAR LAMI 2009 LEFT SHOULDER SURGERY LEFT CARPAL TUNNEL L4- S1 LUMBAR FUSION 2010 TONSILLECTOMY BOWEL RESECTION FOR ULCERATIVE COLITIS 1999,09/2017 REMOVED POLYPS FROM VOCAL CORDS BRIANNA ON RIGHT LUNG FAMILY HISTORY FATHER: , DIAGNOSED WITH UNSPECIFIED HEART DISEASE, OTHER MALIGNANT NEOPLASM OF UNSPECIFIED SITE MOTHER: , OTHER MALIGNANT NEOPLASM OF UNSPECIFIED SITE, OTHER SPECIFIED CONDITIONS INFLUENCING HEALTH STATUS 5 BROTHER(S) , 1 SISTER(S) . 1 SON(S) , 1 DAUGHTER(S) . DAD-PROSTATE CA\\\\NMOM-LUNG CA, EMPHYSEMA\\\\N SISTER FROM CANCER AT AGE OF 12\\\\N1 BROTHER FROM CANCER\\\\NSON HAS HEART ISSUES\\\\NDAUGHTER HAS SEIZURES. SOCIAL HISTORY GENERAL: TOBACCO USE ARE YOU A:FORMER SMOKER HOW LONG HAS IT BEEN SINCE YOU LAST SMOKED?> 10 YEARS PAIN CLINIC PFS, CLERGY, PUBLIC HEALTH REFERRALS PFS REFERRAL NEEDED?NO CLERGY REFERRAL NEEDED?NO PUBLIC HEALTH REFERRAL NEEDED?NO WAS THE PROVIDER NOTIFIED OF ANY PERTINENT INFO?YES N /A HAS THE PATIENT BEEN EDUCATED REGARDING HIS/HER PLAN OF CARE?YES HAS THE PATIENT BEEN EDUCATED REGARDING PAIN, THE RISK FOR PAIN, THE IMPORTANCE OF EFFECTIVE PAIN MANAGEMENT, AND THE PAIN ASSESSMENT PROCESS?YES LATEX QUESTIONNAIRE LATEX ALLERGY : HAVE YOU EVER DEVELOPED ANY TYPE OF REACTION AFTER HANDLING LATEX PRODUCTS SUCH RUBBER GLOVES, CONDOMS, DIAPHRAGMS, BALLOONS, SOCKS, OR UNDERWEAR?NO LATEX ALLERGY : HAVE YOU EVER DEVELOPED ANY TYPE OF REACTION DURING OR AFTER DENTAL APPOINTMENT, VAGINAL/RECTAL EXAMINATION, SURGICAL PROCEDURE, OR ANY OTHER EXPOSURE?NO LATEX RISK : HAVE YOU EVER HAD ANY DIFFICULTY BREATHING OR HIVES AFTER EATING OR HANDLING ANY FRUITS, OR VEGETABLES; SUCH KIWI, BANANAS, STONE FRUITS, OR CHESTNUTSNO LATEX RISK : DO YOU HAVE A PREVIOUS PERSONAL HISTORY OF MORE THAN NINE SURGERIES, SPINA BIFIDA, OR REPEATED CATHERIZATIONS? NO LATEX RISK : ARE YOU FREQUENTLY EXPOSED TO LATEX PRODUCTS IN YOUR OCCUPATION?NO DATE ASKED : 12/26/2018 CAFFEINE CAFFEINE USE?YES HOW OFTEN AND HOW MUCH? 1 COFFEE AND 1 PEPSI /DAILY ADVANCE DIRECTIVE ADVANCE DIRECTIVE DISCUSSED WITH PATIENT:YES PT DOES NOT HAVE ANY ADVANCED DIRECTIVES. INFORMATION ON HCP GIVEN TO PATIENT AT THIS TIME, PATINT DECLINED ASSISTANCE IN FILLING IT OUT. EDUCATION LEVEL OF EDUCATION: GED CHRISTIANITY [id number] NONE LANGUAGE LANGUAGES SPOKEN:BRAZILIAN DOMESTIC VIOLENCE DO YOU FEEL SAFE IN YOUR ENVIRONMENT?YES ALCOHOL SCREENING DID YOU HAVE A DRINK CONTAINING ALCOHOL IN THE PAST YEAR?NO POINTS0 INTERPRETATIONNEGATIVE RECREATIONAL DRUG USE DRUG USE?NO LEARNING BARRIERS / SPECIAL NEEDS BARRIERS TO LEARNING?NO HEARING IMPAIRED?NO VISION IMPAIRED?YES COGNITIVELY IMPAIRED?NO :CORRECTIVE LENSES READING READINESS TO LEARN?YES LEARNING PREFERENCES?NO LEARNING CAPABILITIES PRESENT?YES EMOTIONAL BARRIERS?NO SPECIAL DEVICES?NO PRINT PRESS OPERATOR NEEDED?NO 05/14/18 1610 REVIEWED WITH PT. ADREVIEWED WITH PATIENT 08/24/18 1251 JSREVIEWED WITH PATIENT 03/04/19 1415 JSREVIEWED WITH PATIENT 08/07/19 1353 JS. HOSPITALIZATION/MAJOR DIAGNOSTIC PROCEDURE SURGERY RELATED PNEUMONIA PNEUMONIA 01/2019 REVIEW OF SYSTEMS REVIEWED BY: PROVIDER: SIRISHA MOREAU . CONSTITUTIONAL: ANY CHANGE IN YOUR MEDICAL CONDITION? NO . CHILLS NO . FEVER NO . INFECTION: DO YOU HAVE NEW INFECTIONS? NO . DO YOU HAVE HISTORY OF MRSA? NO . MUSCULOSKELETAL: ANY NEW PATTERNS OF PAIN OR NUMBNESS? YES, STATES PAIN IN LEFT LEG WORSENING - GETTING OUT OF BED IN MORNING BECOMING DIFFICULT . GASTROENTEROLOGY: ANY NEW CHANGE IN BOWEL CONTROL? NO . GENITOURINARY: ANY NEW CHANGE IN BLADDER CONTROL? NO . IS THERE A CHANCE YOU COULD BE ? NO . HEMATOLOGY/LYMPH: DO YOU TAKE ANY BLOOD THINNERS? (FOR EXAMPLE- COUMADIN, PLAVIX, AGGRENOX, PLATEL, PRADAXA, OR XARELTO) NO . WHEN WAS YOUR LAST DOSE? DATE: TIME: . NEUROLOGY: HAVE YOU FALLEN IN THE PAST 12 MONTHS? NO . ANY NEW EXTREMITY NUMBNESS OR WEAKNESS? NO . CARDIOLOGY: DO YOU HAVE A PACEMAKER OR DEFIBRILLATOR? NO . RESPIRATORY: HAVE YOU BEEN SICK IN THE PAST WEEK? NO . FEVER NO . FLU LIKE SYMPTOMS? NO . COUGH NO . INTEGUMENTARY: DO YOU HAVE ANY RASHES OR OPEN SORES? NO . ALLERGIC/IMMUNO: ARE YOU ALLERGIC TO IV DYE? NO . ANY NEW ALLERGIES? NO . PSYCHIATRIC: DO YOU HAVE THOUGHTS OF HURTING YOURSELF OR SOMEONE ELSE? NO . ARE YOU ABUSED, NEGLECTED, OR IN AN UNSAFE ENVIRONMENT? NO . ENDOCRINOLOGY: ARE YOU DIABETIC? NO . OTHER: DO YOU NEED ANY PRESCRIPTIONS? NO . IF YES, PLEASE LIST: ____ . ANY NEW PROBLEMS WITH YOUR MEDICATIONS? NO . WHEN DID YOU LAST EAT? ____ . WHEN DID YOU LAST DRINK? ____ . WHAT DID YOU LAST DRINK? ____ . NAME OF PERSON DRIVING YOU HOME? ____ . DO YOU HAVE ANY OTHER QUESTIONS OR CONCERNS NO . VITAL SIGNS WT 150.6 LBS, HT 64 IN, BMI 25.85 INDEX, BP 135/67 MM HG, HR 105 /MIN, RR 18 /MIN, TEMP 96.0 F, OXYGEN SAT % 92%, SAFE IN ENV? (Y/N) YES, NA INITIALS AW 1345, REVIEWED BY: JS. EXAMINATION GENERAL EXAMINATION: GENERALNO ACUTE DISTRESS, WELL NOURISHED AND HYDRATED. PSYCHAPPROPRIATE MOOD AND AFFECT . LUNGS:LUNGS DIMINSHED BILATERALLY. HEART:NO MURMURS, REGULAR RATE AND RHYTHM. ASSESSMENTS INTERVERTEBRAL DISC DISORDER WITH RADICULOPATHY OF LUMBAR REGION - M51.16 (PRIMARY) TREATMENT INTERVERTEBRAL DISC DISORDER WITH RADICULOPATHY OF LUMBAR REGION CLINICAL NOTES: 69-YEAR-OLD FEMALE IN FOR WORKER'S COMP. CHRONIC PAIN FOLLOW-UP. SHE DOES ADMIT TO SOME WORSENING LEFT LEG PAIN BUT FURTHER STATES THE OXYCODONE IS HELPFUL IN ALLEVIATING. GIVEN PRESENTING SYMPTOMS AND RESULTS OF PHYSICAL EXAMINATION RECOMMENDED CONTINUATION OF CURRENT MEDICATION REGIMEN WITH FOLLOW-UP IN 3 MONTHS. PATIENT HAS EXPRESSED UNDERSTANDING OF AND WAS IN AGREEMENT WITH TREATMENT PLAN. GIVEN TIME TO ASK QUESTIONS AND EXPRESS CONCERNS., ISTOP REGISTRY REVIEWED AND DEMONSTRATES COMPLLIANCE. (REF # [id number] ) BRINGS IN MEDICATIONS WHICH IS APPROPRIATE FOR WHAT WAS DISPENSED. RECENT URINE TOXICOLOGY REVIEWED. NO UNAUTHORIZED MEDICATIONS. NO ILLICIT SUBSTANCES AND PRESCRIBED MEDICATIONS WERE PRESENT. PROCEDURES PN WORKMANS' COMP OPINION IN YOUR OPINION, WAS THE INCIDENT THAT THE PATIENT DESCRIBED THE COMPETENT MEDICAL CAUSE OF THIS INJURY/ILLNESS? YES ARE THE PATIENT'S COMPLAINTS CONSISTENT WITH HIS/HER HISTORY OF THE INJURY/ILLNESS? YES IS THE PATIENT'S HISTORY OF THE INJURY/ILLNESS CONSISTENT WITH YOUR OBJECTIVE FINDING? YES WHAT IS THE PERCENTAGE OF TEMPORARY IMPAIRMENT? MODERATE TO MARKED = 66.7% IS THE PATIENT WORKING? NO DOCTOR ON SITE: ADRIANA LAMB MD PROCEDURE CODES FA211 ESTABILISHED PATIENT [facility] FACILITY CHARGE DISPOSITION & COMMUNICATION FOLLOW UP 3 MONTHS (REASON: CHRONIC PAIN) ELECTRONICALLY SIGNED BY MAGUI MOSHER ON 08/08/2019 AT 03:21 PM EST DISCLAIMER : THIS IS A VISIT SUMMARY EXTRACTED FROM THE [employer] CHART. IT IS NOT A COPY OF THE [employer] PROGRESS NOTE. CONY
== END ==
LOC: M PAIN 13:45
PROVIDERS: ATTEND Family Medicine
DX: M51.16 Intervertebral disc disorders with radiculopathy, lumbar region (principal); G89.29 Other chronic pain; J44.9 Chronic obstructive pulmonary disease, unspecified; Z86.73 Personal history of transient ischemic attack (TIA), and cerebral infarction without residual deficits; Z87.891 Personal history of nicotine dependence; Z88.5 Allergy status to narcotic agent; Z88.6 Allergy status to analgesic agent; Z79.51 Long term (current) use of inhaled steroids; Z79.899 Other long term (current) drug therapy

== ENCOUNTER 2019-09-16 14:13 | Inpatient (IN) | payer MEDICARE ==
[~2019-09-16] VITALS: Ht 162.6 cm; Wt 68.5 kg
[2019-09-16 14:57] LABS: BASO # 0.1 10^3/uL (0.0-0.2); BASO % 0.5 % (0.0-1.0); EOS % 0.1 % (0.0-3.0); HEMATOCRIT 42.3 % (36.0-47.0); HEMOGLOBIN 13.3 g/dl (12.0-15.5); LYMPH # 1.1 10^3/uL (1.5-5.0); LYMPH % 10.8 % (24.0-44.0); MEAN CORPUSCULAR HEMOGLOBIN 27.4 pg (27.0-33.0); MEAN CORPUSCULAR HGB CONC 31.4 g/dl (32.0-36.5); MEAN CORPUSCULAR VOLUME 87.2 fl (80.0-96.0); MONO # 0.5 10^3/uL (0.0-0.8); MONO % 4.5 % (0.0-5.0); NEUTROPHILS # 8.7 10^3/uL (1.5-8.5); NEUTROPHILS % 81.8 % (36.0-66.0); PLATELET COUNT, AUTOMATED 226 10^3/uL (150-450); RED BLOOD COUNT 4.85 10^6/uL (4.00-5.40); WHITE BLOOD COUNT 10.6 10^3/uL (4.0-10.0)
--- NOTE | 2019-09-16 15:12 | REP ---
Clinical: Cough and dyspnea. Comparison: January 26, 2019. Findings: Mediastinum and cardiac silhouette stable. Lung moreira demonstrate chronic stable changes. Subtle superimposed atelectasis cannot be excluded. No consolidation. No effusion. No pneumothorax. Skeletal structures intact. Impression: Chronic stable changes. Cannot exclude subtle basilar atelectasis. Electronically Signed by Alfredo Pillai MD 09/16/2019 03:03 P
[2019-09-16] MEDS ORDERED: IPRATROPIUM 0.5MG/ALBUTEROL 2.5MG INH SOL UD 3ML (DUONEB)(J7620) NEB ONE ×2 (15:15→17:00)
[2019-09-16 15:33] LABS: BLOOD UREA NITROGEN 11 MG/DL (7-18); CALCIUM LEVEL 8.8 MG/DL (8.8-10.2); CARBON DIOXIDE LEVEL 27 MEQ/L (21-32); CHLORIDE LEVEL 103 MEQ/L (98-107); CK-MB VALUE MASS 3.5 NG/ML (<3.6); CPK CREATINE PHOSPHOKINASE 123 U/L (26-192); CREATININE FOR GFR 1.48 MG/DL (0.55-1.30); GLOMERULAR FILTRATION RATE 37.2 (>45); GLUCOSE, FASTING 107 MG/DL (70-100); MB/CK RELATIVE INDEX 2.85 (< OR =4); MYOGLOBIN 135 NG/ML (13-71); POTASSIUM SERUM 4.1 MEQ/L (3.5-5.1); SODIUM LEVEL 140 MEQ/L (136-145); TROPONIN I < 0.02 NG/ML (< 0.10)
[2019-09-16] MEDS ORDERED: LevoFLOXacin IV 500 MG in IV 1 EA IV ONE (15:45)
[2019-09-16] MEDS ORDERED: ACETAMINOPHEN 325 MG TAB PO ONE (16:00)
[2019-09-16] MEDS ORDERED: PRED10TA2 PO (18:34)
[2019-09-16] MEDS ORDERED: FLON1SPR (18:34)
[2019-09-16] MEDS ORDERED: TRAZ-189 PO (18:34)
[2019-09-16] MEDS ORDERED: IPRATROPIUM 0.5MG/ALBUTEROL 2.5MG INH SOL UD 3ML (DUONEB)(J7620) NEB PRN (19:00)
[2019-09-16] MEDS ORDERED: ACETAMINOPHEN 500 MG TAB PO PRN (19:15)
[2019-09-16] MEDS ORDERED: ISOVUE-370 76% 100ML VIAL (Q9967) As Ordered ONE (19:21)
[2019-09-16] MEDS: MONTELUKAST 10 MG TAB PO SCH (19:42)
[2019-09-16] MEDS: traZODone 100 MG TAB PO SCH (19:42)
[2019-09-16] MEDS: methylPREDNISolone INJ 40 MG/1 ML VIAL (J2920) IV SCH (19:42)
[2019-09-16] MEDS: GABAPENTIN 300 MG CAP PO SCH (19:43)
[2019-09-16] MEDS: SERTRALINE HCL 25 MG TABLET PO SCH (19:44)
[2019-09-16] MEDS: ALBUTEROL SULFATE 2.5 MG/0.5 ML INH NEB SOLN NEB SCH ×2 (20:00→23:05)
[2019-09-16] MEDS: BUDESONIDE 0.5 MG/2 ML INHALATION SUSPENSION INH SCH (20:00)
--- NOTE | 2019-09-16 20:29 | REPVR ---
PROCEDURE INFORMATION: Exam: CT Angiography Chest With Contrast Exam date and time: 09/16/2019 7:28 PM Age: 69 years old Clinical indication: Shortness of breath; Additional info: SOB with cough and hemoptysis and chest pain TECHNIQUE: Imaging protocol: Computed tomographic angiography of the chest with intravenous contrast. 3D rendering: MIP and/or 3D reconstructed images were created by the technologist. Radiation optimization: All CT scans at this facility use at least one of these dose optimization techniques: automated exposure control; mA and/or kV adjustment per patient size (includes targeted exams where dose is matched to clinical indication); or iterative reconstruction. Contrast material: ISOVUE 370; Contrast volume: 75 ml; Contrast route: IV; COMPARISON: CT ANGIO CHEST 03/09/2019 7:01 PM FINDINGS: Pulmonary arteries: The main pulmonary artery measures 26 mm. No pulmonary embolism is identified. Aorta: The ascending thoracic aorta measures 27 mm. Lungs: Prominent bullous change in the right upper lobe and apex. Mild bullous changes are noted in the left apex. Mild bibasilar fibro-atelectatic change, greatest in the lower lobes with minimal lower lobe bronchiectasis. Calcified granuloma in the anterior upper lobe. Pleural space: Unremarkable. No pneumothorax. No pleural effusion. Heart: Unremarkable. No cardiomegaly. No pericardial effusion. Lymph nodes: Unremarkable. No enlarged lymph nodes. Bones/joints: Unremarkable. No acute fracture. Soft tissues: Unremarkable. IMPRESSION: 1. Biapical bullous changes, right greater than left. 2. Mild bibasilar fibro-atelectatic change, greatest in the lower lobes with minimal lower lobe bronchiectasis. 3. Otherwise negative CTA chest. No pulmonary embolism is identified. Electronically signed by: Bryce Rodarte On 09/16/2019 20:29:20 PM
[2019-09-16] MEDS ORDERED: traZODone 100 MG TAB PO SCH (21:00)
[2019-09-16] MEDS ORDERED: SERTRALINE 100 MG TAB PO SCH (21:00)
--- NOTE | 2019-09-16 21:54 | HPEPDOC ---
General Date of Admission Sep 16, 2019 at 18:53 Date of Service: Sep 16, 2019 Chief Complaint The patient is a 69-year-old female admitted with a reason for visit of Copd With Acute Exacerbation,Hemoptysis. Source: Patient, RN/, Old records Associated Symptoms: Chest Pain, Cough, Shortness of breath History of Present Illness Patient is a 68-year-old female with a PMHx of COPD on 2L of oxygen, Mild Pulmonary HTN, Ulcerative colitis (s/p Hemicolectomy), CKD3, Anxiety, Claustrophobia, Neuropathy, Chronic back pain, who presented to the emergency room with complaints of increased coughing for 2 days and increased shortness of breath and blood tinged sputum form this morning. Patient complained of severe bouts of coughing fits with no expectoration followed by severe shortness of breath when she would feel she cannot feel any air going in. She also started feeling severe chest pain right across th center of the chest from the severe coughing. This morning she noticed blood tinged sputum. She say she did have similar blood in sputum back in summer this year. On evaluation in ED she was found to desaturate to 70s with minimal exertion with her home oxygen, she was tachypniec to 26 to 28. No documentation noted in EMR. After such a coughing fit she became pale and blue and collapsed back into the bed. Nurses immediately sat her up , increased her oxygen flow then it took her several minutes to recover. She is being admitted for COPD exacerbation and to rule out pulmonary embolism. Home Medications Scheduled Cetirizine HCl (ZyrTEC) 10 Mg Capsule, 10 MG PO DAILY, (Reported) Fluticasone Propionate (Flonase Allergy Relief) 9.9 Ml [place].susp, 1 SPRAY NA BID, (Reported) Fluticasone/Vilanterol (Breo Ellipta 200-25 Mcg INH) 1 Inh Inh, 1 PUFF PO DAILY, (Reported) Gabapentin (Gabapentin) 300 Mg Capsule, 300 MG PO TID, (Reported) Guaifenesin (Mucinex) 600 Mg Tab.er.12h, 600 MG PO BID Levofloxacin (Levofloxacin) 250 Mg Tablet, 1 TAB PO DAILY Montelukast Sodium (Montelukast Sodium) 10 Mg Tablet, 10 MG PO QHS, (Reported) Prednisone (Prednisone) 10 Mg Tablet, 10 MG PO TAPER Take 4 tabs daily x 3 days, then 3 tabs daily x 3 days, then 2 tabs daily x 3 days, then 1 tab daily x 3 days and stop Sertraline Hcl (Zoloft) 100 Mg Tab, 150 MG PO QHS, (Reported) Trazodone HCl (Trazodone HCl) 100 Mg Tablet, 200 MG PO QHS, (Reported) Scheduled PRN Albuterol Sulfate (Ventolin Hfa) 18 Gm Hfa.aer.ad, 2 PUFF INH Q4H PRN for SHORTNESS OF BREATH, (Reported) Benzocaine/Menthol (Sore Throat Lozenge) 1 Each Lozenge, 1 LILY PO Q3HP PRN for SORE THROAT Oxycodone HCl (Oxycodone HCl) 10 Mg Tablet, 10 MG PO BID PRN for PAIN, (Reported) Allergies Coded Allergies: NSAIDS (Non-Steroidal Anti-Inflamma (Verified Allergy, Unknown, renal failure, 02/17/19) tapentadol (Verified Adverse Reaction, Unknown, hair loss, weight loss, 09/17/19) Past Medical History Medical History COPD with chronic respiratory failure with hypoxia. l 24 x7 Bilateral bullous emphysema right. left Mild Pulmonary HTN, Ulcerative colitis (s/p Hemicolectomy), CKD3, Anxiety, Neuropathy, Chronic back pain Surgical History Hemicolectomy; 1999 Hysterectomy Tonsillectomy Cholecystectomy Back surgery 2; 2010 and 2008 Family History Mother with history of lung cancer - Father with history of CAD and prostate cancer - Brother with a history of brain cancer - Sister with a history of bone cancer in her left leg Social History * Smoker: former Smoker Alcohol: Denies Drugs: denies A-FIB/CHADSVASC A-FIB History Current/History of A-Fib/PAF?: No Review of Systems Constitutional: Reports: Weakness, Fatigue; Denies: Chills, Fever, Night Sweats Eyes: Denies: Pain, Vision change ENT: Reports: Post Nasal Drip, Sore Throat Skin: Denies: Rash, Lesions, Breakdown Pulmonary: Reports: Dyspnea, Cough Cardiovascular: Reports: Chest Pain (across the middle of the chest), Orthopnea Gastrointestinal: Denies: Nausea, Vomiting, Abdominal Pain, Diarrhea Genitourinary: Denies: Dysuria, Frequency, Incontinence, Retention Musculoskeletal: Reports: Back Pain, Shoulder Pain Neurological: Denies: Weakness, Numbness, Change in speech, Confusion Psych: Reports: Anxiety Physical Examination General Exam: Positive: Alert, Cooperative, Moderate Distress, Other (conversational dyspnea present) Eye Exam: Positive: PERRLA, Conjunctiva & lids normal, EOMI, Other Eye Symptoms; Negative: Sclera icteric ENT Exam: Positive: Atraumatic, Mucous membr. moist/pink, Pharynx Normal Neck Exam: Positive: Supple; Negative: JVD, thyromegaly Chest Exam: Positive: Rhonchi, Wheezing, Diminished Heart Exam: Positive: Tachycardic, Regular Rhythm, Normal S1, Normal S2; Negative: Gallops, Murmurs, Rubs Abdomen Exam: Positive: Normal bowel sounds, Soft; Negative: Tenderness, Hepatospenomegaly Extremity Exam: Negative: Clubbing, Cyanosis, Edema Skin Exam: Positive: Nl turgor and temperature; Negative: Breakdown, Lesion Neuro Exam: Positive: Normal Gait, Normal Speech, Cranial Nerves 3-12 NL, Reflexes 2+ Psych Exam: Positive: Anxiety, Memory Intact, Oriented x 3 Vital Signs Vital Signs Date Time Temp Pulse Resp B/P (MAP) Pulse Ox O2 Delivery O2 Flow Rate FiO2 09/16/19 20:46 98.1 100 115/52 (73) 97 Nasal Cannula 4.0 09/16/19 14:14 24 Laboratory Data Labs 24H Laboratory Tests 2 09/16/19 14:42: Immature Granulocyte % (Auto) 2.3, Neutrophils (%) (Auto) 81.8H, Lymphocytes (%) (Auto) 10.8L, Monocytes (%) (Auto) 4.5, Eosinophils (%) (Auto) 0.1, Basophils (%) (Auto) 0.5, Neutrophils # (Auto) 8.7H, Lymphocytes # (Auto) 1.1L, Monocytes # (Auto) 0.5, Eosinophils # (Auto) 0.0, Basophils # (Auto) 0.1, Nucleated Red Blood Cells % (auto) 0.0, Anion Gap 10, Glomerular Filtration Rate 37.2L, Calcium Level 8.8, Total Creatine Kinase 123, Creatine Kinase MB 3.5, Creatine Kinase MB Relative Index 2.85, Myoglobin 135H, Troponin I < 0.02 CBC/BMP Laboratory Tests 09/16/19 14:42 Microbiology Microbiology 09/16/19 Respiratory Virus Panel (PCR) ([facility]) - Final, Complete 09/16/19 Blood Culture, Received Pending 09/16/19 Blood Culture, Received Pending Assessment/Plan Patient is a 68-year-old female with a PMHx of COPD on 2L of oxygen, Mild Pulmonary HTN, Ulcerative colitis (s/p Hemicolectomy), CKD3, Anxiety, Claustrophobia, Neuropathy, Chronic back pain, who presented to the emergency room with complaints of increased coughing for 2 days and increased shortness of breath and blood tinged sputum form this morning. Patient complained of severe bouts of coughing fits with no expectoration followed by severe shortness of breath when she would feel she cannot feel any air going in. She also started feeling severe chest pain right across th center of the chest from the severe coughing. This morning she noticed blood tinged sputum. She say she did have similar blood in sputum back in summer this year. On evaluation in ED she was found to desaturate to 70s with minimal exertion with her home oxygen, she was tachypniec to 26 to 28. No documentation noted in EMR. After such a coughing fit she became pale and blue and collapsed back into the bed. Nurses immediately sat her up , increased her oxygen flow then it took her several minutes to recover. She is being admitted for COPD exacerbation and to rule out pulmonary embolism. Hemoptysis probably from acute bronchitis. No Pulmonary embolism in CT angio. will give levofloxacin will give cough suppressant and cough lozenses. Acute on chronic respiratory failure with hypoxia due to copd exacebation with possible acute bronchitis resp viral panel negative patient is desaturating to 70s with her home oxygen her RR in 26 to 28 and needing 4 to 5 liters of oxygen to maintain a saturation of 90% will place patient on comfort flow of oxygen. She does not have any history of Co2 retention. COPD with bilateral bullous emphysema with moderate Pulmonary HTN, right heart failure with exacerbation No pneumothorax. will give budesonide nebs, albuterol q4 h, duonebs prn, steroids and levofoxacin Grade 1 diastolic dysfunction from Echo in January 2019. no over CHF. Ulcerative colitis (s/p Hemicolectomy), no issues at this point. CKD3 creatinine at baseline Had CT angio with contrast will monitor for contrast nephropathy will hold diuretics. Anxiety continue trazodone and sertraline but will give in half the dosage. Neuropathy continue gabapentin Chronic back pain status post 2 back surgeries will give tylenol, will hold oxycodone for now. Plan / VTE VTE Prophylaxis Ordered?: Yes HARRISON NOVAK MD Sep 16, 2019 21:54
[2019-09-16 22:00] VITALS: BP 142/82
[2019-09-16] MEDS: DEXTROMETHORPHAN 60MG/10ML SUSP 90ML BTL(DELSYM) PO SCH (22:07)
[2019-09-16] MEDS: CEPACOL LOZENGE PO PRN (22:07)
[2019-09-16] MEDS: FLUTICASONE PROP 0.05% NASAL SPRAY 16 GM (FLONASE) SCH (22:07)
[2019-09-16 23:08] LABS: ABG HCO3 25.4 MEQ/L (22.0-26.0); ABG O2 SATURATION 98.1 % (95.0-99.0); ABG PARTIAL PRESSURE CO2 44.6 mmHg (35.0-45.0); ABG PARTIAL PRESSURE O2 112.8 mmHg (75.0-100.0); ABG STANDARD HCO3 24.5 MEQ/L (22.0-26.0); ABG TOTAL CO2 26.8 MEQ/L (23.0-31.0); ABG pH (ARTERIAL) 7.374 UNITS (7.350-7.450)
[2019-09-17 03:39] VITALS: BP 140/58
[2019-09-17] MEDS: ALBUTEROL SULFATE 2.5 MG/0.5 ML INH NEB SOLN NEB SCH ×5 (03:46→19:54)
[2019-09-17] MEDS ORDERED: IBUPROFEN 400 MG TAB PO ONE (04:00)
[2019-09-17] MEDS: methylPREDNISolone INJ 40 MG/1 ML VIAL (J2920) IV SCH ×3 (04:03→20:23)
[2019-09-17] MEDS: ACETAMINOPHEN TAB 650MG DOSE (2X325MG) PO PRN ×2 (04:04→16:08)
[2019-09-17 06:00] VITALS: BP 132/78
[2019-09-17 06:58] LABS: BASO % 0.3 % (0.0-1.0); HEMATOCRIT 41.6 % (36.0-47.0); HEMOGLOBIN 12.5 g/dl (12.0-15.5); LYMPH # 0.4 10^3/uL (1.5-5.0); LYMPH % 4.2 % (24.0-44.0); MEAN CORPUSCULAR HEMOGLOBIN 26.9 pg (27.0-33.0); MEAN CORPUSCULAR VOLUME 89.7 fl (80.0-96.0); MONO # 0.2 10^3/uL (0.0-0.8); MONO % 2.1 % (0.0-5.0); NEUTROPHILS # 8.8 10^3/uL (1.5-8.5); NEUTROPHILS % 91.2 % (36.0-66.0); PLATELET COUNT, AUTOMATED 204 10^3/uL (150-450); RED BLOOD COUNT 4.64 10^6/uL (4.00-5.40); WHITE BLOOD COUNT 9.6 10^3/uL (4.0-10.0)
[2019-09-17 07:15] LABS: CREATININE FOR GFR 1.54 MG/DL (0.55-1.30); GLOMERULAR FILTRATION RATE 35.6 (>45); POTASSIUM SERUM 4.4 MEQ/L (3.5-5.1)
[2019-09-17] MEDS ORDERED: NORCO, ANEXSIA 5/325MG TABLET (HYDROcodone/ACETAMINOPHEN) PO PRN (08:00)
[2019-09-17] MEDS ORDERED: SODIUM CHLORIDE 0.9% 1000ML IV ONE (08:00)
[2019-09-17] MEDS ORDERED: ONDANSETRON 4MG/2ML VIAL (J2405) IV PRN (08:00)
[2019-09-17] MEDS: BUDESONIDE 0.5 MG/2 ML INHALATION SUSPENSION INH SCH ×2 (08:54→19:54)
[2019-09-17] MEDS: GABAPENTIN 300 MG CAP PO SCH ×2 (09:23→20:24)
[2019-09-17] MEDS: DEXTROMETHORPHAN 60MG/10ML SUSP 90ML BTL(DELSYM) PO SCH ×2 (09:23→20:24)
[2019-09-17] MEDS: FLUTICASONE PROP 0.05% NASAL SPRAY 16 GM (FLONASE) SCH ×2 (09:24→20:24)
[2019-09-17 14:00] VITALS: BP 132/71
[2019-09-17] MEDS: LevoFLOXacin IV 250 MG in IV 1 EA IV SCH (16:08)
[2019-09-17 19:55] VITALS: O2SAT 95
--- NOTE | 2019-09-17 20:20 | ECGEPIP ---
[facility] - ED Test Date: 2019-09-16 Pat Name: RADHA HENRY Department: Room: [place] [address] Gender: Female Panel Wirer: tarik : 1950 Requested By: Galdino Nava Order Number: [id number] Reading MD: Ollie Heath Measurements Intervals [place] Rate: 90 P: 74 ND: 180 QRS: 81 QRSD: 99 T: 72 QT: 367 QTc: 449 Interpretive Statements SINUS RHYTHM NSTTW ABNORMALITIES SIMILAR TO 04/28/19 Electronically Signed on 09-17-2019 20:19:43 EST by Ollie Heath
[2019-09-17] MEDS: MONTELUKAST 10 MG TAB PO SCH (20:24)
[2019-09-17] MEDS: traZODone 100 MG TAB PO SCH (20:24)
[2019-09-17] MEDS: SERTRALINE HCL 25 MG TABLET PO SCH (20:24)
[2019-09-17] MEDS: oxyCODONE 5MG TAB PO PRN (21:35)
[2019-09-17 22:00] VITALS: BP 127/73
[2019-09-18] MEDS: CEPACOL LOZENGE PO PRN (02:03)
[2019-09-18] MEDS: methylPREDNISolone INJ 40 MG/1 ML VIAL (J2920) IV SCH ×3 (03:51→20:49)
[2019-09-18] MEDS: ALBUTEROL SULFATE 2.5 MG/0.5 ML INH NEB SOLN NEB SCH ×7 (03:54→22:24)
[2019-09-18 06:00] VITALS: BP 124/79
[2019-09-18 07:11] LABS: BASO % 0.2 % (0.0-1.0); HEMATOCRIT 41.1 % (36.0-47.0); HEMOGLOBIN 12.9 g/dl (12.0-15.5); LYMPH # 0.7 10^3/uL (1.5-5.0); LYMPH % 4.8 % (24.0-44.0); MEAN CORPUSCULAR HEMOGLOBIN 27.6 pg (27.0-33.0); MEAN CORPUSCULAR HGB CONC 31.4 g/dl (32.0-36.5); MEAN CORPUSCULAR VOLUME 87.8 fl (80.0-96.0); MONO # 0.4 10^3/uL (0.0-0.8); MONO % 3.1 % (0.0-5.0); NEUTROPHILS # 12.9 10^3/uL (1.5-8.5); NEUTROPHILS % 89.8 % (36.0-66.0); PLATELET COUNT, AUTOMATED 238 10^3/uL (150-450); RED BLOOD COUNT 4.68 10^6/uL (4.00-5.40); WHITE BLOOD COUNT 14.3 10^3/uL (4.0-10.0)
[2019-09-18 07:31] LABS: CALCIUM LEVEL 8.8 MG/DL (8.8-10.2); CREATININE FOR GFR 1.46 MG/DL (0.55-1.30); GLOMERULAR FILTRATION RATE 37.8 (>45); POTASSIUM SERUM 4.2 MEQ/L (3.5-5.1)
--- NOTE | 2019-09-18 07:46 | IPNPDOC ---
Subjective Date Seen The patient was seen on 09/17/19. Subjective Chief Complaint/HPI Was good all day at baseline oxygen requirements then had a severe episode of coughing late in the evening during which she became pale and blue and almost passed out. nurses increased the oxygen supply and then it took he severeal minutes to recover. Complains of back pain . No fever or chills, No further hemoptysis. Objective Physical Examination General Exam: Positive: Alert, Cooperative, Moderate Distress, Other (conversational dyspnea present) Eye Exam: Positive: PERRLA, Conjunctiva & lids normal, EOMI, Other Eye Symptoms; Negative: Sclera icteric ENT Exam: Positive: Atraumatic, Mucous membr. moist/pink, Pharynx Normal Neck Exam: Positive: Supple; Negative: JVD, thyromegaly Chest Exam: Positive: Rhonchi, Wheezing, Diminished Heart Exam: Positive: Rate Normal, Regular Rhythm, Normal S1, Normal S2; Negative: Gallops, Murmurs, Rubs Abdomen Exam: Positive: Normal bowel sounds, Soft; Negative: Tenderness, Hepatospenomegaly Extremity Exam: Negative: Clubbing, Cyanosis, Edema Skin Exam: Positive: Nl turgor and temperature; Negative: Breakdown, Lesion Neuro Exam: Positive: Normal Gait, Normal Speech, Cranial Nerves 3-12 NL, Reflexes 2+ Psych Exam: Positive: Anxiety, Memory Intact, Oriented x 3 Assessment /Plan Assessment Patient is a 68-year-old female with a PMHx of COPD on 2L of oxygen, Mild Pulmonary HTN, Ulcerative colitis (s/p Hemicolectomy), CKD3, Anxiety, Claustrophobia, Neuropathy, Chronic back pain, who presented to the emergency room with complaints of increased coughing for 2 days and increased shortness of breath and blood tinged sputum form this morning. Patient complained of severe bouts of coughing fits with no expectoration followed by severe shortness of breath when she would feel she cannot feel any air going in. She also started feeling severe chest pain right across th center of the chest from the severe coughing. This morning she noticed blood tinged sputum. She say she did have similar blood in sputum back in summer this year. On evaluation in ED she was found to desaturate to 70s with minimal exertion with her home oxygen, she was tachypniec to 26 to 28. No documentation noted in EMR. After such a coughing fit she became pale and blue and collapsed back into the bed. Nurses immediately sat her up , increased her oxygen flow then it took her several minutes to recover. She is being admitted for COPD exacerbation and to rule out pulmonary embolism. Hemoptysis with severe episodes of coughing probably from acute bronchitis. No Pulmonary embolism in CT angio. levofloxacin will give cough suppressant and cough lozenses. Acute on chronic respiratory failure with hypoxia due to copd exacebation with possible acute bronchitis resp viral panel negative She does not have any history of Co2 retention. COPD with bilateral bullous emphysema with moderate Pulmonary HTN, right heart failure with exacerbation No pneumothorax. budesonide nebs, albuterol q4 h, duonebs prn, steroids and levofoxacin Grade 1 diastolic dysfunction from Echo in January 2019. no over CHF. Ulcerative colitis (s/p Hemicolectomy), no issues at this point. CKD3 creatinine at baseline Had CT angio with contrast no PE or pneumonia or effusion continue to hold diuretics for now. Anxiety continue trazodone and sertraline but will give in half the dosage. Neuropathy continue gabapentin Chronic back pain status post 2 back surgeries oxycodone bid prn VS, I&O, 24H, Fishbone Vital Signs/I&O Vital Signs Date Time Temp Pulse Resp B/P (MAP) Pulse Ox O2 Delivery O2 Flow Rate FiO2 09/18/19 06:00 98.0 97 18 124/79 (94) 100 09/17/19 21:00 3.0 09/17/19 19:55 Nasal Cannula I&O- Last 24 Hours up to 6 AM 09/18/19 06:00 Intake Total 1305 ml Balance 1305 ml Laboratory Data 24H LABS Laboratory Tests 2 09/18/19 06:31: Immature Granulocyte % (Auto) 2.1, Neutrophils (%) (Auto) 89.8H, Lymphocytes (%) (Auto) 4.8L, Monocytes (%) (Auto) 3.1, Eosinophils (%) (Auto) 0.0, Basophils (%) (Auto) 0.2, Neutrophils # (Auto) 12.9H, Lymphocytes # (Auto) 0.7L, Monocytes # (Auto) 0.4, Eosinophils # (Auto) 0.0, Basophils # (Auto) 0.0, Nucleated Red Blood Cells % (auto) 0.0, Anion Gap 10, Glomerular Filtration Rate 37.8L, Calcium Level 8.8 CBC/BMP Laboratory Tests 09/18/19 06:31 Microbiology Microbiology 09/16/19 Respiratory Virus Panel (PCR) ([facility]) - Final, Complete 09/16/19 Blood Culture - Preliminary, Resulted No growth after 24 hours . All specim... 09/16/19 Blood Culture - Preliminary, Resulted No growth after 24 hours . All specim... HARRISON NOVAK MD Sep 18, 2019 07:46
[2019-09-18] MEDS: BUDESONIDE 0.5 MG/2 ML INHALATION SUSPENSION INH SCH ×2 (08:05→18:56)
[2019-09-18] MEDS: DEXTROMETHORPHAN 60MG/10ML SUSP 90ML BTL(DELSYM) PO SCH ×2 (08:27→20:50)
[2019-09-18] MEDS: GABAPENTIN 300 MG CAP PO SCH ×2 (08:28→20:50)
[2019-09-18] MEDS: CETIRIZINE (ZyrTEC) 10 MG TAB PO SCH (08:28)
[2019-09-18] MEDS: FLUTICASONE PROP 0.05% NASAL SPRAY 16 GM (FLONASE) SCH ×2 (08:28→20:50)
[2019-09-18] MEDS: oxyCODONE 5MG TAB PO PRN ×2 (09:39→22:16)
--- NOTE | 2019-09-18 10:28 | IPNPDOC ---
Subjective Date Seen The patient was seen on 09/18/19. Subjective Chief Complaint/HPI still has episodes of coughing but less than before. SHe says she becomes dizzy during coughing fits. no hemoptysis, no fever or chills. Objective Physical Examination General Exam: Positive: Alert, Cooperative, Moderate Distress, Other (conversational dyspnea present) Eye Exam: Positive: PERRLA, Conjunctiva & lids normal, EOMI, Other Eye Symptoms; Negative: Sclera icteric ENT Exam: Positive: Atraumatic, Mucous membr. moist/pink, Pharynx Normal Neck Exam: Positive: Supple; Negative: JVD, thyromegaly Chest Exam: Positive: Rhonchi, Wheezing, Diminished Heart Exam: Positive: Rate Normal, Regular Rhythm, Normal S1, Normal S2; Negative: Gallops, Murmurs, Rubs Abdomen Exam: Positive: Normal bowel sounds, Soft; Negative: Tenderness, Hepatospenomegaly Extremity Exam: Negative: Clubbing, Cyanosis, Edema Skin Exam: Positive: Nl turgor and temperature; Negative: Breakdown, Lesion Neuro Exam: Positive: Normal Gait, Normal Speech, Cranial Nerves 3-12 NL, Reflexes 2+ Psych Exam: Positive: Anxiety, Memory Intact, Oriented x 3 Assessment /Plan Assessment Patient is a 68-year-old female with a PMHx of COPD on 2L of oxygen, Mild Pulmonary HTN, Ulcerative colitis (s/p Hemicolectomy), CKD3, Anxiety, Claustrophobia, Neuropathy, Chronic back pain, who presented to the emergency room with complaints of increased coughing for 2 days and increased shortness of breath and blood tinged sputum form this morning. Patient complained of severe bouts of coughing fits with no expectoration followed by severe shortness of breath when she would feel she cannot feel any air going in. She also started feeling severe chest pain right across th center of the chest from the severe coughing. This morning she noticed blood tinged sputum. She say she did have similar blood in sputum back in summer this year. On evaluation in ED she was found to desaturate to 70s with minimal exertion with her home oxygen, she was tachypniec to 26 to 28. No documentation noted in EMR. After such a coughing fit she became pale and blue and collapsed back into the bed. Nurses immediately sat her up , increased her oxygen flow then it took her several minutes to recover. She is being admitted for COPD exacerbation and to rule out pulmonary embolism. Hemoptysis with severe episodes of coughing probably from acute bronchitis. No Pulmonary embolism in CT angio. levofloxacin will give cough suppressant and cough lozenges. Acute on chronic respiratory failure with hypoxia due to copd exacebation with possible acute bronchitis resp viral panel negative She does not have any history of Co2 retention. COPD with bilateral bullous emphysema with moderate Pulmonary HTN, right heart failure with exacerbation No pneumothorax. budesonide nebs, albuterol q4 h, duonebs prn, steroids and levofoxacin Grade 1 diastolic dysfunction from Echo in January 2019. no over CHF. Ulcerative colitis (s/p Hemicolectomy), no issues at this point. CKD3 creatinine at baseline Had CT angio with contrast no PE or pneumonia or effusion continue to hold diuretics for now. Anxiety continue trazodone and sertraline but will give in half the dosage. Neuropathy continue gabapentin Chronic back pain status post 2 back surgeries oxycodone bid prn VS, I&O, 24H, Fishbone Vital Signs/I&O Vital Signs Date Time Temp Pulse Resp B/P (MAP) Pulse Ox O2 Delivery O2 Flow Rate FiO2 09/18/19 09:39 18 09/18/19 08:00 3.0 09/18/19 06:00 98.0 97 124/79 (94) 100 09/17/19 19:55 Nasal Cannula I&O- Last 24 Hours up to 6 AM 09/18/19 06:00 Intake Total 1305 ml Balance 1305 ml Laboratory Data 24H LABS Laboratory Tests 2 09/18/19 06:31: Immature Granulocyte % (Auto) 2.1, Neutrophils (%) (Auto) 89.8H, Lymphocytes (%) (Auto) 4.8L, Monocytes (%) (Auto) 3.1, Eosinophils (%) (Auto) 0.0, Basophils (%) (Auto) 0.2, Neutrophils # (Auto) 12.9H, Lymphocytes # (Auto) 0.7L, Monocytes # (Auto) 0.4, Eosinophils # (Auto) 0.0, Basophils # (Auto) 0.0, Nucleated Red Blood Cells % (auto) 0.0, Anion Gap 10, Glomerular Filtration Rate 37.8L, Calcium Level 8.8 CBC/BMP Laboratory Tests 12/25/19 06:31 Microbiology Microbiology 09/16/19 Respiratory Virus Panel (PCR) ([facility]) - Final, Complete 09/16/19 Blood Culture - Preliminary, Resulted No growth after 24 hours . All specim... 09/16/19 Blood Culture - Preliminary, Resulted No growth after 24 hours . All specim... HARRISON NOVAK MD Sep 18, 2019 10:28
[2019-09-18] MEDS: guaiFENesin ER 600 MG TAB PO SCH ×2 (12:18→20:50)
[2019-09-18 14:00] VITALS: BP 125/78
[2019-09-18] MEDS: LevoFLOXacin IV 250 MG in IV 1 EA IV SCH (16:15)
[2019-09-18] MEDS: SERTRALINE HCL 25 MG TABLET PO SCH (20:50)
[2019-09-18] MEDS: MONTELUKAST 10 MG TAB PO SCH (20:50)
[2019-09-18] MEDS: traZODone 100 MG TAB PO SCH (20:50)
[2019-09-18 22:00] VITALS: BP 135/67
[2019-09-19] MEDS: ALBUTEROL SULFATE 2.5 MG/0.5 ML INH NEB SOLN NEB SCH ×2 (04:00→07:27)
[2019-09-19] MEDS: methylPREDNISolone INJ 40 MG/1 ML VIAL (J2920) IV SCH (05:50)
[2019-09-19 06:10] LABS: BASO % 0.3 % (0.0-1.0); EOS % 0.1 % (0.0-3.0); HEMATOCRIT 39.2 % (36.0-47.0); LYMPH # 0.9 10^3/uL (1.5-5.0); LYMPH % 7.4 % (24.0-44.0); MEAN CORPUSCULAR HEMOGLOBIN 27.7 pg (27.0-33.0); MEAN CORPUSCULAR HGB CONC 30.6 g/dl (32.0-36.5); MEAN CORPUSCULAR VOLUME 90.5 fl (80.0-96.0); MONO # 0.7 10^3/uL (0.0-0.8); MONO % 6.1 % (0.0-5.0); NEUTROPHILS % 83.7 % (36.0-66.0); PLATELET COUNT, AUTOMATED 194 10^3/uL (150-450); RED BLOOD COUNT 4.33 10^6/uL (4.00-5.40); WHITE BLOOD COUNT 11.9 10^3/uL (4.0-10.0)
[2019-09-19 06:31] LABS: CALCIUM LEVEL 8.3 MG/DL (8.8-10.2); CREATININE FOR GFR 1.24 MG/DL (0.55-1.30); GLOMERULAR FILTRATION RATE 45.7 (>45); POTASSIUM SERUM 3.9 MEQ/L (3.5-5.1)
[2019-09-19 06:56] VITALS: BP 138/86
[2019-09-19] MEDS: BUDESONIDE 0.5 MG/2 ML INHALATION SUSPENSION INH SCH (07:27)
[2019-09-19] MEDS ORDERED: MUCI600T31 PO (09:00)
[2019-09-19] MEDS ORDERED: SORE15LO PO (09:00)
[2019-09-19] MEDS ORDERED: PRED10TA2 PO (09:00)
[2019-09-19] MEDS: DEXTROMETHORPHAN 60MG/10ML SUSP 90ML BTL(DELSYM) PO SCH (09:43)
[2019-09-19] MEDS: GABAPENTIN 300 MG CAP PO SCH (09:43)
[2019-09-19] MEDS: CETIRIZINE (ZyrTEC) 10 MG TAB PO SCH (09:43)
[2019-09-19] MEDS: FLUTICASONE PROP 0.05% NASAL SPRAY 16 GM (FLONASE) SCH (09:43)
[2019-09-19] MEDS: guaiFENesin ER 600 MG TAB PO SCH (09:43)
[2019-09-19] MEDS: oxyCODONE 5MG TAB PO PRN (10:25)
[2019-09-19] MEDS ORDERED: LEVO250T12 PO (12:49)
--- NOTE | 2019-09-19 12:52 | DS.PDOC ---
Discharge Summary General Date of Admission Sep 16, 2019 at 18:53 Date of Discharge 09/19/19 Discharge Summary PROCEDURES PERFORMED DURING STAY: [None]. 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 COMPLICATIONS/CHIEF COMPLAINT: Copd With Acute Exacerbation,Hemoptysis. HISTORY OF PRESENT ILLNESS: See history and physical HOSPITAL COURSE: Patient is a 68-year-old female with a PMHx of COPD on 2L of oxygen, Moderate Pulmonary HTN, Ulcerative colitis (s/p Hemicolectomy), CKD3, Anxiety, Claustrophobia, Neuropathy, Chronic back pain, who presented to the emergency room with complaints of increased coughing for 2 days and increased shortness of breath and blood tinged sputum form this morning. Patient complained of severe bouts of coughing fits with no expectoration followed by severe shortness of breath when she would feel she cannot feel any air going in. She also started feeling severe chest pain right across th center of the chest from the severe coughing. This morning she noticed blood tinged sputum. She say she did have similar blood in sputum back in summer this year. On evaluation in ED she was found to desaturate to 70s with minimal exertion with her home oxygen, she was tachypneic to 26 to 28. No documentation noted in EMR. After such a coughing fit she became pale and blue and collapsed back into the bed. Nurses immediately sat her up , increased her oxygen flow then it took her several minutes to recover. She is being admitted for COPD exacerbation and to rule out pulmonary embolism. Hemoptysis with severe episodes of coughing probably from acute bronchitis. No Pulmonary embolism in CT angio. levofloxacin will give cough syrup and cough lozenges. Acute on chronic respiratory failure with hypoxia due to copd exacerbation with possible acute tracheobronchitis resp viral panel negative She does not have any history of Co2 retention. COPD with bilateral bullous emphysema with moderate Pulmonary HTN, right heart failure with exacerbation No pneumothorax. budesonide nebs, albuterol q4 h, duonebs prn, steroids and levofoxacin pateint does not use oxygen when she is out int the community though she is supposed to use it 24 x7. says her oxygen tank only lasts for 4 hours. Grade 1 diastolic dysfunction from Echo in January 2019. no over CHF. Ulcerative colitis (s/p Hemicolectomy), no issues at this point. CKD3 creatinine at baseline Had CT angio with contrast no PE or pneumonia or effusion continue to hold diuretics for now. Anxiety continue trazodone and sertraline but will give in half the dosage. Neuropathy continue gabapentin Chronic back pain status post 2 back surgeries oxycodone bid prn DISCHARGE MEDICATIONS: Please see below. ALLERGIES: Please see below. PHYSICAL EXAMINATION ON DISCHARGE: VITAL SIGNS: Please see below. General Exam: Positive: Alert, Cooperative, Moderate Distress, Other (conversational dyspnea present) Eye Exam: Positive: PERRLA, Conjunctiva & lids normal, EOMI, Other Eye Symptoms; Negative: Sclera icteric ENT Exam: Positive: Atraumatic, Mucous membr. moist/pink, Pharynx Normal Neck Exam: Positive: Supple; Negative: JVD, thyromegaly Chest Exam: Positive: Rhonchi, Wheezing, Diminished Heart Exam: Positive: Rate Normal, Regular Rhythm, Normal S1, Normal S2; Negative: Gallops, Murmurs, Rubs Abdomen Exam: Positive: Normal bowel sounds, Soft; Negative: Tenderness, Hepatospenomegaly Extremity Exam: Negative: Clubbing, Cyanosis, Edema Skin Exam: Positive: Nl turgor and temperature; Negative: Breakdown, Lesion Neuro Exam: Positive: Normal Gait, Normal Speech, Cranial Nerves 3-12 NL, Reflexes 2+ Psych Exam: Positive: Anxiety, Memory Intact, Oriented x 3 LABORATORY DATA: Please see below. ACTIVITY: [As tolerated]. DIET: As tolerated DISPOSITION: 01 Home, Self-Care. DISCHARGE INSTRUCTIONS: Follow up with PMD in 1 week DISCHARGE CONDITION: [Stable]. TIME SPENT ON DISCHARGE: 35 minutes. Vital Signs/I&Os Vital Signs Date Time Temp Pulse Resp B/P (MAP) Pulse Ox O2 Delivery O2 Flow Rate FiO2 09/19/19 10:55 18 09/19/19 06:56 97.9 75 138/86 (103) 98 Nasal Cannula 3.0 I&O- Last 24 Hours up to 6 AM 09/19/19 06:00 Intake Total 1365 ml Balance 1365 ml Laboratory Data Labs 24H Laboratory Tests 2 09/19/19 05:39: Immature Granulocyte % (Auto) 2.4, Neutrophils (%) (Auto) 83.7H, Lymphocytes (%) (Auto) 7.4L, Monocytes (%) (Auto) 6.1H, Eosinophils (%) (Auto) 0.1, Basophils (%) (Auto) 0.3, Neutrophils # (Auto) 10.0H, Lymphocytes # (Auto) 0.9L, Monocytes # (Auto) 0.7, Eosinophils # (Auto) 0.0, Basophils # (Auto) 0.0, Nucleated Red Blood Cells % (auto) 0.0, Anion Gap 6L, Glomerular Filtration Rate 45.7, Calcium Level 8.3L CBC/BMP Laboratory Tests 09/19/19 05:39 Microbiology Microbiology 09/16/19 Respiratory Virus Panel (PCR) (JIMMIE) - Final, Complete 09/16/19 Blood Culture - Preliminary, Resulted No Growth after 48 hours. All Specime... 09/16/19 Blood Culture - Preliminary, Resulted No Growth after 48 hours. All Specime... Discharge Medications Scheduled Cetirizine HCl (ZyrTEC) 10 Mg Capsule, 10 MG PO DAILY, (Reported) Fluticasone Propionate (Flonase Allergy Relief) 9.9 Ml [place].susp, 1 SPRAY NA BID, (Reported) Fluticasone/Vilanterol (Breo Ellipta 200-25 Mcg INH) 1 Inh Inh, 1 PUFF PO DAILY, (Reported) Gabapentin (Gabapentin) 300 Mg Capsule, 300 MG PO TID, (Reported) Guaifenesin (Mucinex) 600 Mg Tab.er.12h, 600 MG PO BID Montelukast Sodium (Montelukast Sodium) 10 Mg Tablet, 10 MG PO QHS, (Reported) Prednisone (Prednisone) 10 Mg Tablet, 10 MG PO TAPER Take 4 tabs daily x 3 days, then 3 tabs daily x 3 days, then 2 tabs daily x 3 days, then 1 tab daily x 3 days and stop Sertraline Hcl (Zoloft) 100 Mg Tab, 150 MG PO QHS, (Reported) Trazodone HCl (Trazodone HCl) 100 Mg Tablet, 200 MG PO QHS, (Reported) Scheduled PRN Albuterol Sulfate (Ventolin Hfa) 18 Gm Hfa.aer.ad, 2 PUFF INH Q4H PRN for SHOR TNESS OF BREATH, (Reported) Benzocaine/Menthol (Sore Throat Lozenge) 1 Each Lozenge, 1 LILY PO Q3HP PRN for SORE THROAT Oxycodone HCl (Oxycodone HCl) 10 Mg Tablet, 10 MG PO BID PRN for PAIN, (Reported) Allergies Coded Allergies: NSAIDS (Non-Steroidal Anti-Inflamma (Verified Allergy, Unknown, renal failure, 02/17/19) tapentadol (Verified Adverse Reaction, Unknown, hair loss, weight loss, 1 11/18/18) HARRISON NOVAK MD Sep 19, 2019 12:52
== END 2019-09-19 11:35 | disposition home or self-care (01) | DRG 190 ==
LOC: M ED 14:13 → M ED INP 18:53 → M MSPAV 20:59
PROVIDERS: ADMIT Internal Medicine Nephrology; ATTEND Internal Medicine Nephrology
DX: J44.1 Chronic obstructive pulmonary disease with (acute) exacerbation (principal); J96.21 Acute and chronic respiratory failure with hypoxia; R04.2 Hemoptysis; K51.90 Ulcerative colitis, unspecified, without complications; J20.9 Acute bronchitis, unspecified; N18.3 Chronic kidney disease, stage 3 (moderate); F41.9 Anxiety disorder, unspecified; F40.240 Claustrophobia; I27.20 Pulmonary hypertension, unspecified; M54.5 Low back pain; G62.9 Polyneuropathy, unspecified; Z79.899 Other long term (current) drug therapy; Z88.6 Allergy status to analgesic agent; Z88.8 Allergy status to other drugs, medicaments and biological substances; Z87.891 Personal history of nicotine dependence

== ENCOUNTER 2019-12-31 11:48 | Emergency (ER) | payer MEDICARE ==
[~2019-12-31] VITALS: Ht 162.6 cm; Wt 70.5 kg
[~2019-12-31 11:48] MED LIST changes: +LEVO250T12 PO; -MONT10TA2 PO; +MONT10TA4 PO; +MUCI600T31 PO; +PRED10TA2 PO; +SORE15LO PO; -TRAZ-163 PO; +TRAZ-189 PO; +TRAZ-257 PO; -TRAZ10TA PO; +TRAZ1TAB12 PO; +ZONI100C17 PO; -ZONI100C2 PO
[2019-12-31] MEDS ORDERED: IPRATROPIUM 0.5MG/ALBUTEROL 2.5MG INH SOL UD 3ML (DUONEB)(J7620) NEB PRN (12:00)
[2019-12-31] MEDS ORDERED: predniSONE 20 MG TAB PO ONE (12:00)
[2019-12-31] MEDS: COMBIVENT RESPIMAT 100-20MCG INHALER 4GM INH SCH ×3 (12:22→13:19)
[2019-12-31 12:35] LABS: VENOUS BASE EXCESS 1.7 (-2.0-2.0); VENOUS HCO3 27.7 MEQ/L (23.0-27.0); VENOUS O2 SATURATION 96.9 % (60.0-80.0); VENOUS PARTIAL PRESSURE CO2 49.3 mmHg (38.0-50.0); VENOUS PARTIAL PRESSURE O2 92.5 mmHg (30.0-50.0); VENOUS PH 7.368 UNITS (7.330-7.430); VENOUS TOTAL CO2 29.2 MEQ/L (24.0-28.0)
[2019-12-31 12:42] LABS: BASO # 0.1 10^3/uL (0.0-0.2); BASO % 0.8 % (0.0-1.0); EOS # 0.1 10^3/uL (0.0-0.5); EOS % 0.6 % (0.0-3.0); HEMATOCRIT 39.5 % (36.0-47.0); HEMOGLOBIN 12.7 g/dl (12.0-15.5); LYMPH # 0.7 10^3/uL (1.5-5.0); LYMPH % 8.3 % (24.0-44.0); MEAN CORPUSCULAR HEMOGLOBIN 28.5 pg (27.0-33.0); MEAN CORPUSCULAR HGB CONC 32.2 g/dl (32.0-36.5); MEAN CORPUSCULAR VOLUME 88.6 fl (80.0-96.0); MONO # 0.3 10^3/uL (0.0-0.8); NEUTROPHILS # 7.6 10^3/uL (1.5-8.5); NEUTROPHILS % 85.7 % (36.0-66.0); PLATELET COUNT, AUTOMATED 203 10^3/uL (150-450); RED BLOOD COUNT 4.46 10^6/uL (4.00-5.40); WHITE BLOOD COUNT 8.9 10^3/uL (4.0-10.0)
[2019-12-31 13:13] LABS: ALBUMIN 3.5 GM/DL (3.2-5.2); ALT/SGPT 21 U/L (12-78); BILIRUBIN,DIRECT < 0.1 MG/DL (0.0-0.2); BILIRUBIN,TOTAL 0.4 MG/DL (0.2-1.0); BLOOD UREA NITROGEN 13 MG/DL (7-18); CALCIUM LEVEL 8.7 MG/DL (8.8-10.2); CARBON DIOXIDE LEVEL 30 MEQ/L (21-32); CHLORIDE LEVEL 102 MEQ/L (98-107); CK-MB VALUE MASS 5.3 NG/ML (<3.6); CPK CREATINE PHOSPHOKINASE 142 U/L (26-192); CREATININE FOR GFR 1.62 MG/DL (0.55-1.30); GLOMERULAR FILTRATION RATE 33.5 (>45); GLUCOSE, FASTING 100 MG/DL (70-100); MB/CK RELATIVE INDEX 3.73 (< OR =4); NT-PRO BNP 207 PG/ML (<125); POTASSIUM SERUM 4.4 MEQ/L (3.5-5.1); SODIUM LEVEL 136 MEQ/L (136-145); TOTAL PROTEIN 6.6 GM/DL (6.4-8.2); TROPONIN I < 0.02 NG/ML (< 0.10)
--- NOTE | 2019-12-31 13:41 | REP ---
CHEST, PORTABLE: AP portable view of the chest is performed. There are emphysematous changes with bibasilar fibrosis. Findings are stable compared to prior studies. Heart is upper limits of normal in size. There is calcification of the thoracic aorta. Mediastinal silhouette is unchanged. Metallic clips are seen in the midline. IMPRESSION: Chronic changes without evidence of superimposed acute infiltrate. Electronically Signed by Zane Kessler MD 12/31/2019 03:13 P
[2019-12-31 13:58] VITALS: BP 137/58
[2019-12-31] MEDS ORDERED: PRED20TA PO (14:02)
[2019-12-31 14:03] VITALS: O2SAT 92
--- NOTE | 2020-01-01 09:55 | ECGEPIP ---
[facility] - ED Test Date: 2019-12-31 Pat Name: RADHA HENRY Department: Room: - Gender: Female Social Work Therapist: CYRUS : 1950 Requested By: Chelle Berrios Order Number: [id number] Reading MD: Ollie Heath Measurements Intervals [place] Rate: 95 P: 83 MA: 174 QRS: 85 QRSD: 94 T: 75 QT: 354 QTc: 445 Interpretive Statements SINUS RHYTHM NSTTW ABNORMALITIES SIMILAR TO 09/16/19 Electronically Signed on 01-01-2020 9:55:38 EDT by Ollie Heath
== END 2019-12-31 14:20 | disposition home or self-care (01) ==
LOC: M ED 11:48
DX: J44.9 Chronic obstructive pulmonary disease, unspecified (principal); I27.20 Pulmonary hypertension, unspecified; N18.9 Chronic kidney disease, unspecified; G89.29 Other chronic pain; M54.9 Dorsalgia, unspecified; Z99.81 Dependence on supplemental oxygen; Z79.899 Other long term (current) drug therapy; Z88.8 Allergy status to other drugs, medicaments and biological substances; Z87.891 Personal history of nicotine dependence
CPT/HCPCS: 36415; 71045; 80048; 80076; 82550; 82553; 82803; 83605; 83880; 84484; 85025; 87040; 87486; 87581; 87633; 87798; 93005; 93041; 94640; 94664; 99284; U0002

== ENCOUNTER 2020-02-03 14:28 | Emergency (ER) | payer MEDICARE ==
[~2020-02-03] VITALS: Ht 162.6 cm; Wt 75.6 kg
[2020-02-03 14:28] VITALS: BP 124/74
[2020-02-03] MEDS ORDERED: BOOSTRIX/ADACEL VACCINE (DIPHTH/PERTUSS/ACELL/TETANUS) 0.5ML SYR IM ONE (15:00)
[2020-02-03] MEDS ORDERED: AUGM875T28 PO (15:00)
== END 2020-02-03 15:28 | disposition home or self-care (01) ==
LOC: M ED 14:28
DX: S60.512A Abrasion of left hand, initial encounter (principal); W54.8XXA Other contact with dog, initial encounter; Y92.008 Other place in unspecified non-institutional (private) residence as the place of occurrence of the external cause; J44.9 Chronic obstructive pulmonary disease, unspecified; I50.9 Heart failure, unspecified; M19.90 Unspecified osteoarthritis, unspecified site; F33.9 Major depressive disorder, recurrent, unspecified; F41.9 Anxiety disorder, unspecified; Z99.81 Dependence on supplemental oxygen; Z79.899 Other long term (current) drug therapy; Z88.8 Allergy status to other drugs, medicaments and biological substances

== ENCOUNTER → 2020-02-13 | Outpatient (CLI) | payer OTHER ==
[~2020-02-13] MED LIST changes: +AUGM875T28 PO
--- NOTE | 2020-02-15 02:38 | ECWPNPC ---
PATIENT NAME: RADHA HENRY : 1950 GENDER: FEMALE VISIT DATE: 02/13/2020 DISCHARGE DATE: 02/13/20 1401 VISIT LOCKED DATE TIME: PHYSICIAN: NAKUL JETT RESOURCE: NAKUL JETT REASON FOR APPOINTMENT 1. W/C BACK PAT DONE HISTORY OF PRESENT ILLNESS HISTORY OF PRESENT ILLNESS: PAIN THE PATIENT DESCRIBES THE PAINDURING THE LAST MONTH SEVERITY - PAIN SCORE OF10/10 LOCATIONSLOWER BACK QUALITYTENDER, SORE DURATIONCONTINUOUS, CONSTANT, ALL DAY, AWAKENS FROM SLEEEP PAIN IS INCREASED BY:ACTIVITIES, PROLONGED STANDING PAIN IS DECREASED BY:USE OF PAIN MEDICATIONS PERMISSION REQUESTED AND RECEIVED FROM PATIENT TO PERFORM TELEPHONE VISIT. 69-YEAR-OLD FEMALE IN FOR WORKER'S COMP. CHRONIC PAIN FOLLOW-UP. SHE RATES HER PAIN CURRENTLY AT AN 8 OUT OF 10 AND DESCRIBES IT ACHING AND SHARP. SHE FEELS HER INCREASED PAIN RECENTLY IS RELATED TO THE FACT THAT SHE HAS NOT PICKED UP HER MEDICATIONS OF YET. SHE DOES FEEL HER MEDICATIONS ARE HELPFUL AND DENIES MED SIDE EFFECTS AT THIS TIME. THE PATIENT WAS HURT IN A WORK RELATED INJURY ON 06/24/2006 WHILE WORKING AT [employer] WHEN SHE INJURED HER BACK WHILE PICKING UP A 85 LB WIRE ROUND THAT HAD FALLEN OFF OF A CART. THE PATIENT STATES HER PAIN BEGINS IN HER LOW BACK WITH RADIATION DOWN MAINLY HER LEFT LEG THAT FEELS LIKE A PINS AND NEEDLES SENSATION. THE PATIENT SAYS HER LOW BACK PAIN IS AFFECTING HER ABILITY TO PERFORM HER DAILY ACTIVITIES SUCH COOKING, CLEANING, AND GROCERY SHOPPING. FALL RISK SCREENING: SCREENING :NO FALLS REPORTED IN THE LAST YEAR CURRENT MEDICATIONS TAKING TRAZODONE HCL 100 MG TABLET 2 TABLET AT BEDTIME ORALLY ONCE A DAY TAKING ZYRTEC 10 MG ORALLY DAILY TAKING VENTOLIN HFA 108 (90 BASE) MCG/ACT AEROSOL SOLUTION 2 PUFFS NEEDED INHALATION EVERY 6 HRS TAKING BREO ELLIPTA 200-25 MCG/INH AEROSOL POWDER BREATH ACTIVATED 1 PUFF INHALATION ONCE A DAY TAKING FLONASE 50 MCG/ACT SUSPENSION 1 SPRAY IN EACH NOSTRIL NASALLY ONCE A DAY TAKING PREDNISONE 10 MG TABLET 2 TABLETS ORALLY W MORE WEEKS 01-27-, NOTES: TAPERING DOSE-WILL BE COMPLETED 05/17 TAKING SINGULAIR 10 MG TABLET 1 TABLET ORALLY ONCE A DAY TAKING CEFUROXIME AXETIL 500 MG TABLET 1 TABLET ORALLY EVERY 12 HRS TAKING GABAPENTIN 300 MG CAPSULE 1 CAPSULE ORALLY THREE TIMES A DAY MDD 3 TAKING OXYCODONE HCL 10 MG TABLET 1 TABLET NEEDED ORALLY FOR PAIN EVERY 12 HRS MDD2 NOT-TAKING SERTRALINE HCL 100 MG TABLET 1 1/2 TABLETS ORALLY BEFORE BEDTIME NOT-TAKING CODEINE SULFATE 30 MG TABLET 1 TABLET AT BEDTIME ORALLY FOR PAIN ONCE A DAY NOT-TAKING HYDROCODONE-ACETAMINOPHEN 5-325 MG TABLET 1 TABLET NEEDED ORALLY FOR PAIN EVERY 6 HRS MDD2 NOT-TAKING CYMBALTA 30 MG CAPSULE DELAYED RELEASE PARTICLES 1 CAPSULE ORALLY WITH FOOD ONCE A DAY NOT-TAKING OXYCODONE-ACETAMINOPHEN 5-325 MG TABLET 1 TABLET ORALLY EVERY 6 HRS PRN PAIN MDD=2 NOT-TAKING GABAPENTIN 300 MG CAPSULE 1 CAPSULE ORALLY THREE TIMES A DAY MDD3 NOT-TAKING PEPCID 40 MG TABLET 1 TABLET ORALLY ONCE A DAY NOT-TAKING LEVAQUIN 250 MG TABLET 1 TABLET ORALLY ONCE A DAY X 10 STARTED, NOTES: STARTED 05/09 NOT-TAKING LYRICA 150 MG CAPSULE 1 CAPSULE ORALLY 2 TIMES A DAY MDD=2 NOT-TAKING LOMOTIL 2.5-0.025 MG TABLET 1 TAB ORALLY DAILY NEEDED, NOTES: NONE LATELY NOT-TAKING KETOROLAC TROMETHAMINE 10 MG TABLET 1 TABLET WITH FOOD OR MILK NEEDED ORALLY EVERY 8 HRS MEDICATION LIST REVIEWED AND RECONCILED WITH THE PATIENT PAST MEDICAL HISTORY COLITIS PNEUMONIA - MULTIPLE TIMES ACUTE ARTHRITIS BRONCHITIS / COPD LOW BACK PAIN / NECK PAIN / THORACIC PAIN TIA'S YEARS AGO DECREASED KIDNEY FUNCTION REFLUX ACUTE BRONCHITIS ULCERATIVE COLITIS LEFT CALF HEMATOMA ALLERGIES NUCYNTA: LOSS HAIR, WGT LOSS AND ITCHING - ALLERGY NSAIDS: KIDNEY FUNCTION - SIDE EFFECTS SURGICAL HISTORY APPENDECTOMY TERESITA CATARACTS GALLBLADDER HERNIA REPAIR HYSTERECTOMY LUMBAR LAMI 2008 LEFT SHOULDER SURGERY LEFT CARPAL TUNNEL L4- S1 LUMBAR FUSION 2010 TONSILLECTOMY BOWEL RESECTION FOR ULCERATIVE COLITIS 1999,09/2017 REMOVED POLYPS FROM VOCAL CORDS BRIANNA ON RIGHT LUNG FAMILY HISTORY FATHER: , DIAGNOSED WITH UNSPECIFIED HEART DISEASE, OTHER MALIGNANT NEOPLASM OF UNSPECIFIED SITE MOTHER: , OTHER MALIGNANT NEOPLASM OF UNSPECIFIED SITE, OTHER SPECIFIED CONDITIONS INFLUENCING HEALTH STATUS 5 BROTHER(S) , 1 SISTER(S) . 1 SON(S) , 1 DAUGHTER(S) . DAD-PROSTATE CA\\\\NMOM-LUNG CA, EMPHYSEMA\\\\N SISTER FROM CANCER AT AGE OF 12\\\\N1 BROTHER FROM CANCER\\\\NSON HAS HEART ISSUES\\\\JEOVANY HAS SEIZURES. SOCIAL HISTORY GENERAL: TOBACCO USE ARE YOU A:FORMER SMOKER HOW LONG HAS IT BEEN SINCE YOU LAST SMOKED?> 10 YEARS LATEX QUESTIONNAIRE LATEX ALLERGY : HAVE YOU EVER DEVELOPED ANY TYPE OF REACTION AFTER HANDLING LATEX PRODUCTS SUCH RUBBER GLOVES, CONDOMS, DIAPHRAGMS, BALLOONS, SOCKS, OR UNDERWEAR?NO LATEX ALLERGY : HAVE YOU EVER DEVELOPED ANY TYPE OF REACTION DURING OR AFTER DENTAL APPOINTMENT, VAGINAL/RECTAL EXAMINATION, SURGICAL PROCEDURE, OR ANY OTHER EXPOSURE?NO DATE ASKED : 12/26/2018 LATEX RISK : HAVE YOU EVER HAD ANY DIFFICULTY BREATHING OR HIVES AFTER EATING OR HANDLING ANY FRUITS, OR VEGETABLES; SUCH KIWI, BANANAS, STONE FRUITS, OR CHESTNUTSNO LATEX RISK : DO YOU HAVE A PREVIOUS PERSONAL HISTORY OF MORE THAN NINE SURGERIES, SPINA BIFIDA, OR REPEATED CATHERIZATIONS? NO LATEX RISK : ARE YOU FREQUENTLY EXPOSED TO LATEX PRODUCTS IN YOUR OCCUPATION?NO ALCOHOL SCREENING DID YOU HAVE A DRINK CONTAINING ALCOHOL IN THE PAST YEAR?NO POINTS0 INTERPRETATIONNEGATIVE RECREATIONAL DRUG USE DRUG USE?NO CAFFEINE CAFFEINE USE?YES HOW OFTEN AND HOW MUCH? 1 COFFEE AND 1 PEPSI /DAILY ZOROASTRIAN [id number] NONE LANGUAGE LANGUAGES SPOKEN:GERMAN EDUCATION LEVEL OF EDUCATION: GED LEARNING BARRIERS / SPECIAL NEEDS BARRIERS TO LEARNING?NO HEARING IMPAIRED?NO VISION IMPAIRED?YES COGNITIVELY IMPAIRED?NO :CORRECTIVE LENSES READING READINESS TO LEARN?YES LEARNING PREFERENCES?NO LEARNING CAPABILITIES PRESENT?YES EMOTIONAL BARRIERS?NO SPECIAL DEVICES?NO BAG CHECKER NEEDED?NO DOMESTIC VIOLENCE DO YOU FEEL SAFE IN YOUR ENVIRONMENT?YES PAIN CLINIC PFS, CLERGY, PUBLIC HEALTH REFERRALS PFS REFERRAL NEEDED?NO CLERGY REFERRAL NEEDED?NO PUBLIC HEALTH REFERRAL NEEDED?NO WAS THE PROVIDER NOTIFIED OF ANY PERTINENT INFO?YES N /A HAS THE PATIENT BEEN EDUCATED REGARDING HIS/HER PLAN OF CARE?YES HAS THE PATIENT BEEN EDUCATED REGARDING PAIN, THE RISK FOR PAIN, THE IMPORTANCE OF EFFECTIVE PAIN MANAGEMENT, AND THE PAIN ASSESSMENT PROCESS?YES ADVANCE DIRECTIVE ADVANCE DIRECTIVE DISCUSSED WITH PATIENT:YES PT DOES NOT HAVE ANY ADVANCED DIRECTIVES. INFORMATION ON HCP GIVEN TO PATIENT AT THIS TIME, PATINT DECLINED ASSISTANCE IN FILLING IT OUT. HOSPITALIZATION/MAJOR DIAGNOSTIC PROCEDURE SURGERY RELATED PNEUMONIA PNEUMONIA 01/2019 REVIEW OF SYSTEMS REVIEWED BY: PROVIDER: SIRISHA MOREAU . CONSTITUTIONAL: ANY CHANGE IN YOUR MEDICAL CONDITION? NO . CHILLS NO . FEVER NO . INFECTION: DO YOU HAVE NEW INFECTIONS? NO . DO YOU HAVE HISTORY OF MRSA? NO . MUSCULOSKELETAL: ANY NEW PATTERNS OF PAIN OR NUMBNESS? YES, SORE PAIN IN LEFT LEG . GASTROENTEROLOGY: ANY NEW CHANGE IN BOWEL CONTROL? NO . GENITOURINARY: ANY NEW CHANGE IN BLADDER CONTROL? NO . IS THERE A CHANCE YOU COULD BE ? NO . HEMATOLOGY/LYMPH: DO YOU TAKE ANY BLOOD THINNERS? (FOR EXAMPLE- COUMADIN, PLAVIX, AGGRENOX, PLATEL, PRADAXA, OR XARELTO) NO . WHEN WAS YOUR LAST DOSE? DATE: TIME: . NEUROLOGY: HAVE YOU FALLEN IN THE PAST 12 MONTHS? NO . ANY NEW EXTREMITY NUMBNESS OR WEAKNESS? NO . CARDIOLOGY: DO YOU HAVE A PACEMAKER OR DEFIBRILLATOR? NO . RESPIRATORY: HAVE YOU BEEN SICK IN THE PAST WEEK? NO . FEVER NO . FLU LIKE SYMPTOMS? NO . COUGH NO . INTEGUMENTARY: DO YOU HAVE ANY RASHES OR OPEN SORES? NO . ALLERGIC/IMMUNO: ARE YOU ALLERGIC TO IV DYE? NO . ANY NEW ALLERGIES? NO . PSYCHIATRIC: DO YOU HAVE THOUGHTS OF HURTING YOURSELF OR SOMEONE ELSE? NO . ARE YOU ABUSED, NEGLECTED, OR IN AN UNSAFE ENVIRONMENT? NO . ENDOCRINOLOGY: ARE YOU DIABETIC? NO . OTHER: DO YOU NEED ANY PRESCRIPTIONS? NO . IF YES, PLEASE LIST: ____ . ANY NEW PROBLEMS WITH YOUR MEDICATIONS? NO . WHEN DID YOU LAST EAT? ____ . WHEN DID YOU LAST DRINK? ____ . WHAT DID YOU LAST DRINK? ____ . NAME OF PERSON DRIVING YOU HOME? ____ . DO YOU HAVE ANY OTHER QUESTIONS OR CONCERNS NO . EXAMINATION GENERAL EXAMINATION: PSYCHAPPROPRIATE MOOD AND AFFECT , ORIENTED X 3. ASSESSMENTS INTERVERTEBRAL DISC DISORDER WITH RADICULOPATHY OF LUMBAR REGION - M51.16 (PRIMARY) TREATMENT INTERVERTEBRAL DISC DISORDER WITH RADICULOPATHY OF LUMBAR REGION CLINICAL NOTES: 69-YEAR-OLD FEMALE IN FOR WORKER'S COMP. CHRONIC PAIN FOLLOW-UP. GIVEN PRESENTING SYMPTOMS RECOMMENDED CONTINUATION OF CURRENT MEDICATION REGIMEN WITH FOLLOW-UP IN 3 MONTHS. PATIENT HAS EXPRESSED UNDERSTANDING OF AND WAS IN AGREEMENT WITH TREATMENT PLAN. GIVEN TIME TO ASK QUESTIONS AND EXPRESS CONCERNS. , ISTOP REGISTRY REVIEWED AND DEMONSTRATES COMPLLIANCE. (REF # [id number] ) BRINGS IN MEDICATIONS WHICH IS APPROPRIATE FOR WHAT WAS DISPENSED. RECENT URINE TOXICOLOGY REVIEWED. NO UNAUTHORIZED MEDICATIONS. NO ILLICIT SUBSTANCES AND PRESCRIBED MEDICATIONS WERE PRESENT. VISIT TO BILLED BASED ON TIME SPENT WITH PATIENT. TIME SPENT WITH PATIENT 11 MINUTES. OTHERS NOTES: VITALS NOT OBTAINED DUE TO VIRTUAL VISIT, PRE SCREENING COMPLETED, 02/12/20, NA. PROCEDURES PN WORKMANS' COMP OPINION IN YOUR OPINION, WAS THE INCIDENT THAT THE PATIENT DESCRIBED THE COMPETENT MEDICAL CAUSE OF THIS INJURY/ILLNESS? YES ARE THE PATIENT'S COMPLAINTS CONSISTENT WITH HIS/HER HISTORY OF THE INJURY/ILLNESS? YES IS THE PATIENT'S HISTORY OF THE INJURY/ILLNESS CONSISTENT WITH YOUR OBJECTIVE FINDING? YES WHAT IS THE PERCENTAGE OF TEMPORARY IMPAIRMENT? MODERATE TO MARKED = 66.7% IS THE PATIENT WORKING? NO DOCTOR ON SITE: ADRIANA LAMB MD DISPOSITION & COMMUNICATION FOLLOW UP 3 MONTHS (REASON: WORKER'S COMP. BACK PAIN) ELECTRONICALLY SIGNED BY MAGUI MOSHER ON 02/14/2020 AT 07:52 AM EDT DISCLAIMER : THIS IS A VISIT SUMMARY EXTRACTED FROM THE [employer] CHART. IT IS NOT A COPY OF THE [employer] PROGRESS NOTE. CONY
== END ==
LOC: M PAIN 13:00
PROVIDERS: ATTEND Family Medicine
DX: M51.16 Intervertebral disc disorders with radiculopathy, lumbar region (principal)

== ENCOUNTER 2020-04-24 17:05 | Emergency (ER) | payer MEDICARE ==
[2020-04-24] MEDS ORDERED: CYCLOBENZAPRINE 5MG TABLET ONE (20:03)
[2020-04-24] MEDS ORDERED: PERCOCET 5MG/325MG TAB ONE (20:03)
== END 2020-04-24 21:35 | disposition home or self-care (01) ==
LOC: M ED 17:05
DX: M50.10 Cervical disc disorder with radiculopathy, unspecified cervical region (principal); I50.9 Heart failure, unspecified; J44.9 Chronic obstructive pulmonary disease, unspecified; N18.3 Chronic kidney disease, stage 3 (moderate); K51.90 Ulcerative colitis, unspecified, without complications; Z79.899 Other long term (current) drug therapy; Z88.8 Allergy status to other drugs, medicaments and biological substances; Z87.891 Personal history of nicotine dependence

== ENCOUNTER → 2020-05-14 | Outpatient (POV) | payer MEDICARE ==
[~2020-05-14] MED LIST changes: +BUDE0.5S6 INH; +CALC-190 PO; +DEXT30LI PO; +FLUO40CA PO; +GABA-845; +GABA-845 PO; +IPRA0.00 INH; +LEVA750T7 PO; +LEVO500T3 PO; +PANT-23 PO; +PANT40TA29 PO; +ROBI1LIQ9 PO
== END ==
LOC: M PAIN 09:00
PROVIDERS: ATTEND Family Medicine
DX: M51.16 Intervertebral disc disorders with radiculopathy, lumbar region (principal)

== ENCOUNTER 2020-06-01 13:37 | Inpatient (IN) | payer MEDICARE ==
[~2020-06-01] VITALS: Ht 162.6 cm; Wt 78.0 kg
[~2020-06-01 13:37] MED LIST changes: -BUDE0.5S6 INH; -CALC-190 PO; -DEXT30LI PO; -FLUO40CA PO; -GABA-845; -GABA-845 PO; -IPRA0.00 INH; -LEVA750T7 PO; -LEVO500T3 PO; -PANT-23 PO; -PANT40TA29 PO; -ROBI1LIQ9 PO
[2020-06-01] MEDS ORDERED: PRED10TA2 PO (14:05)
[2020-06-01] MEDS ORDERED: GABA-845 (14:05)
[2020-06-01 15:04] LABS: BASO # 0.1 10^3/uL (0.0-0.2); BASO % 0.6 % (0.0-1.0); EOS # 0.1 10^3/uL (0.0-0.5); EOS % 0.5 % (0.0-3.0); HEMATOCRIT 36.8 % (36.0-47.0); HEMOGLOBIN 11.4 g/dl (12.0-15.5); LYMPH # 0.8 10^3/uL (1.5-5.0); LYMPH % 7.8 % (24.0-44.0); MEAN CORPUSCULAR HEMOGLOBIN 27.1 pg (27.0-33.0); MEAN CORPUSCULAR VOLUME 87.4 fl (80.0-96.0); MONO # 0.4 10^3/uL (0.0-0.8); MONO % 3.7 % (0.0-5.0); NEUTROPHILS # 8.6 10^3/uL (1.5-8.5); NEUTROPHILS % 85.4 % (36.0-66.0); PLATELET COUNT, AUTOMATED 210 10^3/uL (150-450); RED BLOOD COUNT 4.21 10^6/uL (4.00-5.40); WHITE BLOOD COUNT 10.1 10^3/uL (4.0-10.0)
[2020-06-01 15:14] LABS: INR 1.1; PROTHROMBIN TIME 14.4 SECONDS (11.8-14.0)
[2020-06-01 15:41] LABS: ALBUMIN 3.1 GM/DL (3.2-5.2); ALT/SGPT 17 U/L (12-78); BILIRUBIN,DIRECT < 0.1 MG/DL (0.0-0.2); BILIRUBIN,TOTAL 0.4 MG/DL (0.2-1.0); BLOOD UREA NITROGEN 13 MG/DL (7-18); CALCIUM LEVEL 8.6 MG/DL (8.8-10.2); CARBON DIOXIDE LEVEL 31 MEQ/L (21-32); CHLORIDE LEVEL 103 MEQ/L (98-107); CPK CREATINE PHOSPHOKINASE 105 U/L (26-192); CREATININE FOR GFR 1.28 MG/DL (0.55-1.30); GLOMERULAR FILTRATION RATE 43.9 (>39); GLUCOSE, FASTING 105 MG/DL (70-100); MB/CK RELATIVE INDEX 3.81 (< OR =4); NT-PRO BNP 355 PG/ML (<125); POTASSIUM SERUM 4.2 MEQ/L (3.5-5.1); SODIUM LEVEL 138 MEQ/L (136-145); TOTAL PROTEIN 6.2 GM/DL (6.4-8.2); TROPONIN I < 0.02 NG/ML (< 0.10)
[2020-06-01] MEDS ORDERED: COMBIVENT RESPIMAT 100-20MCG INHALER 4GM INH ONE (16:15)
[2020-06-01] MEDS ORDERED: ISOVUE-370 76% 100ML VIAL As Ordered ONE (16:23)
[2020-06-01] MEDS ORDERED: methylPREDNISolone 125MG 2ML VIAL IV ONE (16:30)
[2020-06-01 16:43] LABS: ABG BASE EXCESS 4.8 (-2.0-2.0); ABG HCO3 30.7 MEQ/L (22.0-26.0); ABG O2 SATURATION 98.2 % (95.0-99.0); ABG PARTIAL PRESSURE CO2 51.2 mmHg (35.0-45.0); ABG PARTIAL PRESSURE O2 119.2 mmHg (75.0-100.0); ABG STANDARD HCO3 28.8 MEQ/L (22.0-26.0); ABG TOTAL CO2 32.3 MEQ/L (23.0-31.0); ABG pH (ARTERIAL) 7.396 UNITS (7.350-7.450)
[2020-06-01] MEDS ORDERED: IPRATROPIUM 0.5MG/ALBUTEROL 2.5MG INH SOL UD 3ML (DUONEB) NEB ONE ×3 (17:00→18:45)
--- NOTE | 2020-06-01 17:39 | REPVR ---
PROCEDURE INFORMATION: Exam: US Duplex Lower Extremity Veins, Bilateral Exam date and time: 06/01/2020 5:27 PM Age: 70 years old Clinical indication: Pain; Leg, lower; Bilateral; Additional info: Leg pain R/O dvt TECHNIQUE: Imaging protocol: Real-time duplex ultrasound of the extremities with 2-D suarez scale, color Doppler flow and spectral waveform analysis with image documentation. Complete exam focused on the bilateral lower extremity veins. COMPARISON: US Duplex, Ext,LOWER veins,unilat LEFT 04/28/2019 3:52 PM FINDINGS: Right deep veins: Common femoral, femoral, proximal profunda femoral and popliteal veins are patent without thrombus. Normal Doppler waveforms. Normal compressibility and/or augmentation response. Right superficial veins: Saphenofemoral junction is patent without thrombus. Left deep veins: Common femoral, femoral, proximal profunda femoral and popliteal veins are patent without thrombus. Normal Doppler waveforms. Normal compressibility and/or augmentation response. Left superficial veins: Saphenofemoral junction is patent without thrombus. Soft tissues: No focal fluid collection. IMPRESSION: No evidence of deep vein thrombosis. Electronically signed by: Efren Chapman On 06/01/2020 17:39:21 PM
--- NOTE | 2020-06-01 17:50 | REPVR ---
PROCEDURE INFORMATION: Exam: CT Angiography Chest With Contrast Exam date and time: 06/01/2020 5:25 PM Age: 70 years old Clinical indication: Shortness of breath; Additional info: Chest pain, SOB TECHNIQUE: Imaging protocol: Computed tomographic angiography of the chest with intravenous contrast. 3D rendering (Not supervised by radiologist): MIP and/or 3D reconstructed images were created by the technologist. Radiation optimization: All CT scans at this facility use at least one of these dose optimization techniques: automated exposure control; mA and/or kV adjustment per patient size (includes targeted exams where dose is matched to clinical indication); or iterative reconstruction. Contrast material: ISOVUE 370; Contrast volume: 75 ml; Contrast route: INTRAVENOUS (IV); COMPARISON: CT ANGIO CHEST 09/16/2019 7:17 PM FINDINGS: Pulmonary arteries: Peripheral pulmonary artery evaluation limited by cardiac and respiratory motion artifact. Central pulmonary arteries show no intraluminal defect suggestive of clot. Aorta: No thoracic aortic aneurysm or dissection. Lungs: Pulmonary vascular/interstitial pattern does not suggest active pulmonary edema. No suspicious lung mass or air space process. No central endobronchial lesion. Severe apical predominant centrilobular emphysema, with basilar scarring/fibrosis. Pleural space: No pleural effusion or pneumothorax. Heart: No overt cardiac enlargement or abnormal volume of pericardial fluid. Lymph nodes: No enlarged mediastinal lymph nodes. Gallbladder and bile ducts: Gallbladder is surgically absent. Bones/joints: Multi-level, age-related thoracic degenerative disc disease is present. IMPRESSION: 1. No evidence of acute, central pulmonary embolus. Peripheral pulmonary arterial evaluation is limited by cardiac and respiratory motion artifact. 2. Severe centrilobular emphysema with apical predominance and basilar atelectasis/fibrosis. 3. No other acute or concerning focal intrathoracic abnormality. Electronically signed by: Efren Chapman On 06/01/2020 17:50:18 PM
[2020-06-01] MEDS ORDERED: oxyCODONE 5MG TAB PO ONE (18:45)
[2020-06-01] MEDS ORDERED: ALBUTEROL SULFATE 2.5 MG/0.5 ML INH NEB SOLN NEB PRN (20:30)
[2020-06-01] MEDS ORDERED: MOM 30ML SUSPENSION UDC PO PRN (20:30)
[2020-06-01] MEDS ORDERED: ACETAMINOPHEN TAB 650MG DOSE (2X325MG) PO PRN (20:30)
[2020-06-01] MEDS ORDERED: MAALOX 30 ML SUSP *UDC PO PRN (20:30)
--- NOTE | 2020-06-01 20:38 | HPEPDOC ---
[facility] Medical History & Physical Date of Admission Jun 01, 2020 Date of Service: Jun 01, 2020 Primary Care Physician: Obi Wilhelm MD Attending Physician: CHIP DENNEY MD History and Physical TIME OF SERVICE: 905PM CHIEF COMPLAINT: shortness of breath HISTORY OF PRESENT ILLNESS: This 70 yr old F completed a 10 day course of abx about 7 days ago, thereafter she developed shortness of breath that was so severe that she couldnt even walk to the bathroom despite having her O2 with her. At her baseline she is able to walk around her house with her O2 without having to stop to rest. She has been using her inhalers more often, but this hasnt helped her symptoms. She has not iced that hot humid air or cold air tend to trigger her COPD exacerbations. She reports having transient fever, a new dry cough, mid 10/10 in severity sharp non-radiating chest pain that is made worse by coughing, and a headache that is also made worse by coughing. She denies having chills or swelling of her legs. Despite receiving nebs and solumedrol in the ER her O2 sats dropped to 87% w ambulation. REVIEW OF SYSTEMS: 12 point review of systems negative except as listed in HPI PAST MEDICAL/ SURGICAL HISTORY: COPD/ Bilateral bullous emphysema Chronic O2 dependent respiratory failure with hypoxia (baseline O2 requirement 3L) Group 3 Moderate Pulmonary HTN PASP 41 mmHg Ulcerative colitis (s/p total colectomy w J pouch w diverting ileostomy followed by ileostomy closure a few months later) CKD3 Anxiety Chronic back pain w neuropathy (s/p back surgery) Ventral abdominal hernia repair Hysterectomy Tonsillectomy Cholecystectomy Back surgery 2 SOCIAL HISTORY: Former smoker, doesnt drink, doesnt use recreational drugs FAMILY HISTORY: Mother - lung cancer Father - CAD and prostate cancer Brother - brain cancer Sister - bone cancer in her left leg ALLERGIES: Please see below. HOME MEDICATIONS: Please see below. PHYSICAL EXAMINATION: Vital Signs Date Time Temp Pulse Resp B/P (MAP) Pulse Ox O2 Delivery O2 Flow Rate FiO2 06/01/20 13:37 96.6 113 28 130/63 (85) 94 Nasal Cannula 3.0 GENERAL APPEARANCE: well nourished / well developed / NAD HEENT: EOMI / NC in place / trachea mid-line / neck short CARDIOVASCULAR: RRR/NMRG/ radial pulse intact / no BLE edema / chest pain reproducible w palpation of the mid chest wall LUNGS: able to speak full sentence w/o stopping to take a breath / not using accessory muscles / equal air entry bilaterally / breath sounds diminished / no wheezing ABDOMEN: obese MUSCULOSKELETAL: NCAT/ KULDEEP x 4 / no finger nail clubbing INTEGUMENT: mild generalized pallor / lips acyanotic / extremities not wasted NEUROLOGICAL: no asterixis / speech not dysarthric PSYCHIATRIC: A&O / able to understand and follow commands LABORATORY DATA: 06/01/20 14:30 Immature Granulocyte % (Auto) 2.0, Neutrophils (%) (Auto) 85.4H, Lymphocytes (%) (Auto) 7.8L, Monocytes (%) (Auto) 3.7, Eosinophils (%) (Auto) 0.5, Basophils (%) (Auto) 0.6, Neutrophils # (Auto) 8.6H, Lymphocytes # (Auto) 0.8L, Monocytes # (Auto) 0.4, Eosinophils # (Auto) 0.1, Basophils # (Auto) 0.1, Nucleated Red Blood Cells % (auto) 0.0, Prothrombin Time 14.4H, Prothromb Time International Ratio 1.10, Anion Gap 4L, Glomerular Filtration Rate 43.9, Calcium Level 8.6L, Total Bilirubin 0.4, Direct Bilirubin < 0.1, Aspartate Amino Transf (AST/SGOT) 21, Alanine Aminotransferase (ALT/SGPT) 17, Alkaline Phosphatase 68, Total Creatine Kinase 105, Creatine Kinase MB 4.0H, Creatine Kinase MB Relative Index 3.81, Troponin I < 0.02, NN-Ykb-F-Type Natriuretic Peptide 355H, Total Protein 6.2L, Albumin 3.1L, Albumin/Globulin Ratio 1.0L, Thyroid Stimulating Hormone (TSH) 1.300 Blood Gas Bicarbonate Standard 28.8H, Arterial Blood pH 7.396, Arterial Blood Partial Pressure CO2 51.2H, Arterial Blood Partial Pressure O2 119.2H, Arterial Blood Total CO2 32.3H, Arterial Blood HCO3 30.7H, Arterial Blood Base Excess 4.8H, Arterial Blood Oxygen Saturation 98.2 IMAGING: BLE Duplex IMPRESSION: No evidence of deep vein thrombosis. MICROBIOLOGY: Respiratory panel including COVID-19 neg Blood cx pending ASSESSMENT: Ms. Vanegas is a 70 yr old former smoker w a hx of steroid and O2 dependent COPD, Group 3 mod Pulmonary HTN and HFpEF who presented w c/o of dyspnea, cough and mid chest pain; her work up so far is unrevealing she will be admitted for acute COPD likely triggered by changes in the weather. PLAN: 1 Acute COPD The trigger may be aspiration, or changes in the weather PE, bacterial, and viral infections have been ruled out as triggers for this exacerbation This is her 2nd hospital admission to [facility] in the last 12 months for acute COPD Reasons for admission: -Her PCO2 dropped to 87% with ambulation -Her [place] chronic obstructive pulmonary disease risk scare (OCRS) guide to admission vs discharge in COPD exacerbation = 2 points = medium risk group w a 7.2% risk of adverse event therefore will admit -Her PCO2 is 51 which is slightly higher than it was during her last admission when it was 44.6. Plan: admit to PCU for closer monitoring because her PCO2 is elevated and she has SIRS / supplemental O2 / continuous pulse oximetry / aspiration precautions / f/u VBG in the morning /hold home inhalers while she is receiving Dunebs Q6H, Albuterol Q1HP, Prednisone w PPI / c/w monteluklast / will start Levofloxacin because the she has a new cough / Tessalon Pearls /the day time team can refer her to Director Of Business Development for repeat PFTs / will place a referral for Pulmonary Rehab which has been shown to reduce mortality if she attends within 90 days of discharge / will order flu-shot which she can get prior to discharge / instructed her to follow up with her PCP to see if she is up-todate on her Pnemovax and Prevnar vaccines 2 Chronic O2 Dependent Respiratory Failure Plan: supplemental O2 3 Mild Acute Respiratory Acidosis with Secondary Metabolic Alkalosis Plan: treat COPD 4 Pleuritic Chest Pain Likely 2/2 cough She denies having an MA but is at increased risk for accelerated artherosclerosis because of her chronic steroid use and autoimmune disease (UC) The first trop was wnl, while the EKG showed non-specfic small T wave inversions in two of the lateral leads Plan: telemetry / trend trops 5 SIRS Likely reactive due to acute COPD SIRs criteria include tachypnea and tachycardia Plan: monitor vitals/ f/u lactic acid and blood cx 6 Likely Group 3? Mod Pulmonary HTN / HFpEF (Grade 1) Despite the elevated BNP clinically she is euvolemic and there is no pulmonary edema on CTA of the chest Plan: treat COPD 7 Chronic Back Pain w Neuropathy Plan: Flector patches / c/w Oxycodone & gabapentin 8 Ulcerative colitis Plan: Lomotil / not sure why she is not taking one of the new immunologics / she can f/u w GI as scheduled 9 CKD 3 Plan: f/u BMP 10 Anxiety? Suspect she also has depression based on the meds Plan: trazadone and fluoxetine [place] Prediction Score to determine need for AC in hospitalized patients = 5 points = pharmacological prophylaxis is recommended will order [facility] Early Screen for Discharge Planning. Score of >/= 10 indicate the need for specialized discharge planning services. Her score is [address] PFS consult to determine if she needs a home health aide or home RN. Will also place PT consult for early mobilization to prevent deconditioning. Home Medications Scheduled Cetirizine HCl (ZyrTEC) 10 Mg Capsule, 10 MG PO DAILY Diphenoxylate HCl/Atropine (Lomotil 2.5-0.025 mg Tablet) 1 Each Tablet, 1 TAB PO BID Fluoxetine Hcl (Fluoxetine HCl) 40 Mg Capsule, 40 MG PO QHS Fluticasone Propionate (Flonase Allergy Relief) 9.9 Ml [place].susp, 1 SPRAY NA BID Fluticasone/Vilanterol (Breo Ellipta 200-25 Mcg INH) 1 Inh Inh, 1 PUFF PO DAILY Gabapentin (Gabapentin) 400 Mg Capsule, 400 MG PO TID Montelukast Sodium (Montelukast Sodium) 10 Mg Tablet, 10 MG PO QHS Prednisone (Prednisone) 10 Mg Tablet, 10 MG PO DAILY Trazodone HCl (Trazodone HCl) 100 Mg Tablet, 200 MG PO QHS Scheduled PRN Albuterol Sulfate (Ventolin Hfa) 18 Gm Hfa.aer.ad, 2 PUFF INH Q4H PRN for SHORTNESS OF BREATH Budesonide (Budesonide) 0.5 Mg/2 Ml Ampul.neb, 0.5 MG INH QID PRN for SHORTNESS OF BREATH MIXES WITH DUONEB NEEDED Ipratropium/Albuterol Sulfate (Iprat-Albut 0.5-3(2.5) mg/3 ml) 3 Ml Ampul.neb, 3 ML INH QID PRN for SHORTNESS OF BREATH MIXES WITH BUDESONIDE NEEDED Oxycodone HCl (Oxycodone HCl) 10 Mg Tablet, 10 MG PO BID PRN for PAIN Allergies Coded Allergies: NSAIDS (Non-Steroidal Anti-Inflamma (Verified Allergy, Unknown, renal failure, 02/17/19) tapentadol (Verified Adverse Reaction, Unknown, hair loss, weight loss, 09/17/19) A-FIB/CHADSVASC A-FIB History Current/History of A-Fib/PAF?: No Current PO Anticoag Therapy: No CHIP DENNEY MD Jun 01, 2020 20:38
[2020-06-01] MEDS ORDERED: LOMO2.5T PO (20:48)
[2020-06-01] MEDS ORDERED: FLUO40CA PO (20:48)
[2020-06-01] MEDS ORDERED: IPRA0.00 INH (20:50)
[2020-06-01] MEDS ORDERED: GABA-845 PO (20:50)
[2020-06-01] MEDS ORDERED: BUDE0.5S6 INH (20:51)
[2020-06-01] MEDS ORDERED: LevoFLOXacin 750 MG TABLET PO SCH (21:00)
[2020-06-01 22:00] VITALS: BP 137/79
[2020-06-01] MEDS ORDERED: BENZONATATE 100 MG CAP PO PRN (22:45)
[2020-06-01] MEDS: FLUTICASONE PROP 0.05% NASAL SPRAY 16 GM (FLONASE) SCH (23:21)
[2020-06-01] MEDS: MONTELUKAST 10 MG TAB PO SCH (23:22)
[2020-06-01] MEDS: traZODone 100 MG TAB PO SCH (23:22)
[2020-06-01] MEDS: FLUoxetine 20 MG CAP PO SCH (23:22)
[2020-06-01] MEDS: LOMOTIL 2.5MG/0.025MG TABLET PO SCH (23:22)
[2020-06-01] MEDS: GABAPENTIN 400 MG CAP PO SCH (23:22)
[2020-06-01] MEDS: DICLOFENAC EPOLAMINE 1.3 % PATCH TOP SCH ×2 (23:24→23:56)
[2020-06-02] MEDS: IPRATROPIUM 0.5MG/ALBUTEROL 2.5MG INH SOL UD 3ML (DUONEB) NEB SCH ×4 (01:30→18:49)
[2020-06-02 02:00] VITALS: BP 108/64
[2020-06-02 06:00] VITALS: BP 110/58
[2020-06-02 06:13] LABS: HEMATOCRIT 37.4 % (36.0-47.0); HEMOGLOBIN 11.7 g/dl (12.0-15.5); MEAN CORPUSCULAR HEMOGLOBIN 27.5 pg (27.0-33.0); MEAN CORPUSCULAR HGB CONC 31.3 g/dl (32.0-36.5); MEAN CORPUSCULAR VOLUME 87.8 fl (80.0-96.0); PLATELET COUNT, AUTOMATED 230 10^3/uL (150-450); RED BLOOD COUNT 4.26 10^6/uL (4.00-5.40); WHITE BLOOD COUNT 9.8 10^3/uL (4.0-10.0)
[2020-06-02 06:22] LABS: VENOUS O2 SATURATION 99.4 % (60.0-80.0); VENOUS PARTIAL PRESSURE CO2 43.6 mmHg (38.0-50.0); VENOUS PARTIAL PRESSURE O2 148.4 mmHg (30.0-50.0); VENOUS STANDARD HCO3 26.3 MEQ/L; VENOUS TOTAL CO2 28.4 MEQ/L (24.0-28.0)
[2020-06-02 06:38] LABS: CALCIUM LEVEL 8.8 MG/DL (8.8-10.2); CREATININE FOR GFR 1.2 MG/DL (0.55-1.30); GLOMERULAR FILTRATION RATE 47.3 (>39); MAGNESIUM LEVEL 2.4 MG/DL (1.8-2.4); POTASSIUM SERUM 4.4 MEQ/L (3.5-5.1)
[2020-06-02 10:00] VITALS: BP 132/64
[2020-06-02] MEDS: GABAPENTIN 400 MG CAP PO SCH ×3 (10:30→20:17)
[2020-06-02] MEDS: ENOXAPARIN 40MG/0.4ML SYRINGE (J1650 PER 10MG) SC SCH (10:30)
[2020-06-02] MEDS: LOMOTIL 2.5MG/0.025MG TABLET PO SCH ×2 (10:30→20:17)
[2020-06-02] MEDS: predniSONE 20 MG TAB PO SCH (10:30)
[2020-06-02] MEDS: DICLOFENAC EPOLAMINE 1.3 % PATCH TOP SCH ×2 (10:30→20:17)
[2020-06-02] MEDS: PANTOPRAZOLE 40MG TAB (PROTONIX) PO SCH (10:30)
[2020-06-02] MEDS: FLUTICASONE PROP 0.05% NASAL SPRAY 16 GM (FLONASE) SCH ×2 (10:30→20:17)
[2020-06-02] MEDS ORDERED: FLUBLOK(EGG FREE)(QUAD)INFLUENZA VACC 0.5ML SYRINGE 18YRS & OLDER IM ONE (12:00)
--- NOTE | 2020-06-02 13:30 | IPNPDOC ---
Text Note Date of Service The patient was seen on 06/02/20. NOTE SUBJECTIVE: -No issues overnight -on 3L NC but becomes winded with ambulation GENERAL APPEARANCE: well nourished,well developed, NAD HEENT: EOMI, NC in place, trachea mid-line, CARDIOVASCULAR: RRR, no mrg, no BLE edema LUNGS: able to speak full sentence w/o stopping to take a breath, no accessory muscle use, equal air entry bilaterally, breath sounds diminished, scattered r are wheezing ABDOMEN: obese, NTND INTEGUMENT: mild generalized pallor, lips acyanotic, extremities not wasted NEUROLOGICAL: Speech not dysarthric, CN2-12 intact PSYCHIATRIC: A&Ox3, able to understand and follow commands LABORATORY DATA: reviewed IMAGING: BLE Duplex IMPRESSION: No evidence of deep vein thrombosis. MICROBIOLOGY: Respiratory panel including COVID-19 neg Blood cx pending ASSESSMENT: 70 yo W, former smoker w/ a hx of steroid and O2 dependent COPD, Group 3 mod Pulmonary HTN and HFpEF, Ulcerative colitis who presented w c/o of dyspnea, cough in i/s/o recent completion of a course of levaquin for presumed CAP with an unrevealing work up and admitted for acute COPD exacerbation. PLAN: 1 Acute COPD exacerbation: -PE, bacterial, and viral infections have been ruled out as triggers for this exacerbation Reasons for admission: -Her PCO2 dropped to 87% with ambulation -Her [place] chronic obstructive pulmonary disease risk scare (OCRS) guide to admission vs discharge in COPD exacerbation = 2 points = medium risk group w a 7.2% risk of adverse event therefore will admit -Her PCO2 is 51 which is slightly higher than it was during her last admission when it was 44.6. -supplemental O2 -aspiration precautions -/hold home inhalers while she is receiving Duonebs Q6H, Albuterol Q1HP, Prednisone w PPI -c/w monteluklast -Tessalon Pearls -mucinex BID -no abx at this time -prednisone increased from baseline 10mg QD to 40mg QD -will place a referral for Pulmonary Rehab which has been shown to reduce mortality if she attends within 90 days of discharge -flu-shot which she can get prior to discharge -instructed her to follow up with her PCP to see if she is up-todate on her Pnemovax and Prevnar vaccines 2 Chronic O2 Dependent Respiratory Failure -supplemental O2 3 Mild Acute Respiratory Acidosis with Secondary Metabolic Alkalosis -treat COPD 4 Likely Group 3? Mod Pulmonary HTN / HFpEF (Grade 1) Despite the elevated BNP clinically she is clinically euvolemic and there is no pulmonary edema on CTA of the chest -treat COPD 5 Chronic Back Pain w Neuropathy -Flector patches / c/w Oxycodone & gabapentin 6 Ulcerative colitis -Lomotil / not sure why she is not taking one of the new immunologics / she can f/u w GI as scheduled 7 CKD 3: stable -f/u BMP 8 Anxiety? Suspect she also has depression based on the meds -c/w trazadone and fluoxetine -PT/OT -DVT ppx: lovenox VS,Fishbone, I+O VS, Fishbone, I+O Laboratory Tests 06/01/20 14:30 06/02/20 05:40 Vital Signs Date Time Temp Pulse Resp B/P (MAP) Pulse Ox O2 Delivery O2 Flow Rate FiO2 06/02/20 10:00 97.1 95 20 132/64 (86) 92 Nasal Cannula 3.0 I&O- Last 24 Hours up to 6 AM 06/02/20 06:00 Intake Total 355 ml Output Total 600 ml Balance -245 ml ALEN MATTA MD Jun 02, 2020 13:30
[2020-06-02] MEDS: oxyCODONE 5MG TAB PO PRN (13:45)
[2020-06-02 14:00] VITALS: BP 129/64
[2020-06-02 18:00] VITALS: BP 127/68
[2020-06-02] MEDS: traZODone 100 MG TAB PO SCH (20:17)
[2020-06-02] MEDS: FLUoxetine 20 MG CAP PO SCH (20:17)
[2020-06-02] MEDS: MONTELUKAST 10 MG TAB PO SCH (20:17)
[2020-06-02] MEDS ORDERED: FLUBLOK(EGG FREE)(QUAD)INFLUENZA VACC 0.5ML SYRINGE 18YRS & OLDER IM SCH (20:30)
[2020-06-02 22:00] VITALS: BP 120/64
[2020-06-03] VITALS (7 sets, daily range): BP systolic 98–132; BP diastolic 52–75; O2SAT 94
[2020-06-03] MEDS: IPRATROPIUM 0.5MG/ALBUTEROL 2.5MG INH SOL UD 3ML (DUONEB) NEB SCH ×4 (00:42→17:59)
--- NOTE | 2020-06-03 08:22 | IPNPDOC ---
Text Note Date of Service The patient was seen on 06/03/20. NOTE SUBJECTIVE: -No issues overnight -on 3L NC GENERAL APPEARANCE: well nourished,well developed, NAD HEENT: EOMI, NC in place, trachea mid-line, CARDIOVASCULAR: RRR, no mrg, no BLE edema LUNGS: able to speak full sentence w/o stopping to take a breath, equal air entry bilaterally, breath sounds diminished ABDOMEN: obese, NTND INTEGUMENT: mild generalized pallor, lips acyanotic, extremities not wasted NEUROLOGICAL: Speech not dysarthric, CN2-12 intact PSYCHIATRIC: A&Ox3, able to understand and follow commands LABORATORY DATA: reviewed IMAGING: BLE Duplex IMPRESSION: No evidence of deep vein thrombosis. MICROBIOLOGY: Respiratory panel including COVID-19 neg Blood cx pending ASSESSMENT: 70 yo W, former smoker w/ a hx of steroid and O2 dependent COPD, Group 3 mod Pulmonary HTN and HFpEF, Ulcerative colitis who presented w c/o of dyspnea, cough in i/s/o recent completion of a course of levaquin for presumed CAP with an unrevealing work up and admitted for acute COPD exacerbation. PLAN: 1 Acute COPD exacerbation: -PE, bacterial, and viral infections have been ruled out as triggers for this exacerbation -supplemental O2 -aspiration precautions -holding home inhalers while she is receiving Duonebs Q6H, Albuterol Q4HP, Prednisone w/ PPI -c/w monteluklast -Tessalon Pearls -mucinex BID -no abx at this time -prednisone increased from baseline 10mg QD to 40mg QD, day 2, with plan for taper back to 10. -will place a referral for Pulmonary Rehab which has been shown to reduce mortality if she attends within 90 days of discharge -flu-shot which she can get prior to discharge -instructed her to follow up with her PCP to see if she is up-todate on her Pnemovax and Prevnar vaccines 2 Chronic O2 Dependent Respiratory Failure -supplemental O2 3 Mild Acute Respiratory Acidosis with Secondary Metabolic Alkalosis -treat COPD 4 Likely Group 3? Mod Pulmonary HTN / HFpEF (Grade 1) Despite the elevated BNP clinically she is clinically euvolemic and there is no pulmonary edema on CTA of the chest -treat COPD 5 Chronic Back Pain w Neuropathy -Flector patches / c/w Oxycodone & gabapentin 6 Ulcerative colitis -Lomotil / not sure why she is not taking one of the new immunologics / she can f/u w GI as scheduled 7 CKD 3: stable -f/u BMP 8 Anxiety? Suspect she also has depression based on the meds -c/w trazadone and fluoxetine -PT/OT -DVT ppx: lovenox Dispo: ambulatory sat with PT for safe discharge planning, and may discharge home today VS,Fishbone, I+O VS, Fishbone, I+O Vital Signs Date Time Temp Pulse Resp B/P (MAP) Pulse Ox O2 Delivery O2 Flow Rate FiO2 06/03/20 06:00 97.6 95 18 132/63 (86) 95 Nasal Cannula 3.0 I&O- Last 24 Hours up to 6 AM 06/03/20 06:00 Intake Total 920 ml Output Total 1600 ml Balance -680 ml ALEN MATTA MD Jun 03, 2020 08:22
[2020-06-03 09:25] LABS: HEMATOCRIT 36.5 % (36.0-47.0); HEMOGLOBIN 11.2 g/dl (12.0-15.5); MEAN CORPUSCULAR HEMOGLOBIN 27.4 pg (27.0-33.0); MEAN CORPUSCULAR HGB CONC 30.7 g/dl (32.0-36.5); MEAN CORPUSCULAR VOLUME 89.2 fl (80.0-96.0); PLATELET COUNT, AUTOMATED 230 10^3/uL (150-450); RED BLOOD COUNT 4.09 10^6/uL (4.00-5.40); WHITE BLOOD COUNT 10.7 10^3/uL (4.0-10.0)
[2020-06-03] MEDS: predniSONE 20 MG TAB PO SCH (09:27)
[2020-06-03] MEDS: PANTOPRAZOLE 40MG TAB (PROTONIX) PO SCH (09:27)
[2020-06-03] MEDS: GABAPENTIN 400 MG CAP PO SCH ×3 (09:28→22:14)
[2020-06-03] MEDS: LOMOTIL 2.5MG/0.025MG TABLET PO SCH ×2 (09:28→22:14)
[2020-06-03] MEDS: DICLOFENAC EPOLAMINE 1.3 % PATCH TOP SCH ×2 (09:28→22:16)
[2020-06-03] MEDS: FLUTICASONE PROP 0.05% NASAL SPRAY 16 GM (FLONASE) SCH ×2 (09:29→22:17)
[2020-06-03] MEDS: ENOXAPARIN 40MG/0.4ML SYRINGE (J1650 PER 10MG) SC SCH (09:29)
[2020-06-03] MEDS: oxyCODONE 5MG TAB PO PRN ×2 (09:33→22:15)
[2020-06-03 09:54] LABS: CALCIUM LEVEL 8.5 MG/DL (8.8-10.2); CREATININE FOR GFR 1.4 MG/DL (0.55-1.30); GLOMERULAR FILTRATION RATE 39.6 (>39); POTASSIUM SERUM 3.6 MEQ/L (3.5-5.1)
[2020-06-03] MEDS ORDERED: FLUBLOK(EGG FREE)(QUAD)INFLUENZA VACC 0.5ML SYRINGE 18YRS & OLDER IM SCH (10:45)
[2020-06-03] MEDS: guaiFENesin ER 600 MG TAB PO SCH ×2 (12:01→22:13)
[2020-06-03] MEDS: MONTELUKAST 10 MG TAB PO SCH (22:14)
[2020-06-03] MEDS: FLUoxetine 20 MG CAP PO SCH (22:16)
[2020-06-03] MEDS: traZODone 100 MG TAB PO SCH (22:16)
[2020-06-04] MEDS: IPRATROPIUM 0.5MG/ALBUTEROL 2.5MG INH SOL UD 3ML (DUONEB) NEB SCH ×2 (01:12→07:34)
[2020-06-04 01:38] VITALS: O2SAT 93
[2020-06-04 02:00] VITALS: BP 142/70
[2020-06-04 06:00] VITALS: BP 140/76
[2020-06-04 09:08] VITALS: BP 112/54
[2020-06-04] MEDS: DICLOFENAC EPOLAMINE 1.3 % PATCH TOP SCH (09:10)
[2020-06-04] MEDS: GABAPENTIN 400 MG CAP PO SCH (09:11)
[2020-06-04] MEDS: guaiFENesin ER 600 MG TAB PO SCH (09:11)
[2020-06-04] MEDS: ENOXAPARIN 40MG/0.4ML SYRINGE (J1650 PER 10MG) SC SCH (09:11)
[2020-06-04] MEDS: FLUTICASONE PROP 0.05% NASAL SPRAY 16 GM (FLONASE) SCH (09:11)
[2020-06-04] MEDS: PANTOPRAZOLE 40MG TAB (PROTONIX) PO SCH (09:11)
[2020-06-04] MEDS: LOMOTIL 2.5MG/0.025MG TABLET PO SCH (09:12)
[2020-06-04] MEDS: predniSONE 20 MG TAB PO SCH (09:12)
[2020-06-04] MEDS: oxyCODONE 5MG TAB PO PRN (09:25)
[2020-06-04 10:00] VITALS: BP 109/58
[2020-06-04] MEDS ORDERED: ROBI1LIQ9 PO (12:32)
[2020-06-04] MEDS ORDERED: PANT40TA29 PO (12:32)
[2020-06-04] MEDS ORDERED: CALC-190 PO (12:32)
[2020-06-04] MEDS ORDERED: FLUBLOK(EGG FREE)(QUAD)INFLUENZA VACC 0.5ML SYRINGE 18YRS & OLDER IM ONE (13:00)
--- NOTE | 2020-06-04 17:57 | ECGEPIP ---
[place] Test Date: 2020-06-04 Pat Name: RADHA HENRY Department: Room: [place] [address] Gender: Female Trap Operator: JAYSON : 1950 Requested By: QUAN JACOBSEN Order Number: [id number] Reading MD: Jose Trejo Measurements Intervals [place] Rate: 97 P: 67 AL: 161 QRS: 61 QRSD: 100 T: 62 QT: 363 QTc: 462 Interpretive Statements NSR. INCOMPLETE RBBB, LOW PRECORDIAL VOLTAGE. SLOW R WAVE PROGRESSION, BODY H HABITUS VS COPD. NONSPECIFIC ST T ABNORMALITIES. CLINICAL CORRELATION ADVISED. S SEE DOWNTIME SCANNED REPORT.
--- NOTE | 2020-06-05 15:32 | ECGEPIP ---
[facility] - ED Test Date: 2020-06-01 Pat Name: RADHA HENRY Department: Room: - Gender: Female Metal Cutter: KELSIE : 1950 Requested By: WALTER Feng Order Number: [id number] Reading MD: Chelle Berrios Measurements Intervals [place] Rate: 94 P: 69 OR: 172 QRS: 77 QRSD: 98 T: 60 QT: 368 QTc: 460 Interpretive Statements SINUS RHYTHM ST DEVIATION AND MODERATE T-WAVE ABNORMALITY, CONSIDER ANTERIOR ISCHEMIA ABNORMAL ECG SEE SCANNED DOWNTIME REPORT
--- NOTE | 2020-06-13 14:31 | DS.PDOC ---
Discharge Summary General Date of Admission Jun 01, 2020 at 20:30 Date of Discharge 06/04/20 Discharge Summary PROCEDURES PERFORMED DURING STAY: [None]. ADMITTING DIAGNOSES: Acute COPD exacerbation Chronic O2 Dependent Respiratory Failure Mild Acute Respiratory Acidosis with Secondary Metabolic Alkalosis Pulmonary HTN HFpEF Chronic Back Pain w Neuropathy Ulcerative colitis CKD 3 Anxiety DISCHARGE DIAGNOSES: Acute COPD exacerbation Chronic O2 Dependent Respiratory Failure Mild Acute Respiratory Acidosis with Secondary Metabolic Alkalosis Pulmonary HTN HFpEF Chronic Back Pain w Neuropathy Ulcerative colitis CKD 3 Anxiety COMPLICATIONS/CHIEF COMPLAINT: Cpod With Exacerbation,Sirs. HISTORY OF PRESENT ILLNESS: 70 yo W, former smoker w/ a hx of steroid and O2 dependent COPD, Group 3 mod Pulmonary HTN and HFpEF, Ulcerative colitis who presented w c/o of dyspnea, cough in i/s/o recent completion of a course of levaquin for presumed CAP with an unrevealing work up and admitted for acute COPD exacerbation. HOSPITAL COURSE: During hospital stay following issue addressed 1 Acute COPD exacerbation: -PE, bacterial, and viral infections have been ruled out as triggers for this exacerbation -supplemental O2 -aspiration precautions -holding home inhalers while she is receiving Duonebs Q6H, Albuterol Q4HP, Prednisone w/ PPI -c/w monteluklast -Tessalon Pearls -mucinex BID -no abx at this time -prednisone increased from baseline 10mg QD to 40mg QD, day 2, with plan for taper back to 10. -will place a referral for Pulmonary Rehab which has been shown to reduce mortality if she attends within 90 days of discharge -flu-shot which she can get prior to discharge -instructed her to follow up with her PCP to see if she is up-todate on her Pnemovax and Prevnar vaccines 2 Chronic O2 Dependent Respiratory Failure -supplemental O2 3 Mild Acute Respiratory Acidosis with Secondary Metabolic Alkalosis -treat COPD 4 Likely Group 3? Mod Pulmonary HTN / HFpEF (Grade 1) Despite the elevated BNP clinically she is clinically euvolemic and there is no pulmonary edema on CTA of the chest -treat COPD 5 Chronic Back Pain w Neuropathy -Flector patches / c/w Oxycodone & gabapentin 6 Ulcerative colitis -Lomotil / not sure why she is not taking one of the new immunologics / she can f/u w GI as scheduled 7 CKD 3: stable -f/u BMP 8 Anxiety? Suspect she also has depression based on the meds -c/w trazadone and fluoxetine DISCHARGE MEDICATIONS: Please see below. ALLERGIES: Please see below. PHYSICAL EXAMINATION ON DISCHARGE: VITAL SIGNS: Please see below. HEENT: EOMI, NC in place, trachea mid-line, CARDIOVASCULAR: RRR, no mrg, no BLE edema LUNGS: able to speak full sentence w/o stopping to take a breath, equal air entry bilaterally, breath sounds diminished ABDOMEN: obese, NTND INTEGUMENT: mild generalized pallor, lips acyanotic, extremities not wasted NEUROLOGICAL: Speech not dysarthric, CN2-12 intact PSYCHIATRIC: A&Ox3, able to understand and follow commands LABORATORY DATA: Please see below. IMAGING: [facility] NAME: RADHA HENRY DATE OF : 1950 BUSINESS NUMBER: [id number] AGE: 70 SEX: F REPORT #: [id number] ROOM: ED TECHNOLOGIST: CATA DOCTOR: WALTER MORALES MD Ordered for Date&Time: 06/01/20 1615 cc: [~ rep ct ivnm] Service Date&Time: 06/01/20 1725 This report is in Signed status. Interpretation performed by [facility]. Thank you for having your radiology procedures performed at [facility] RADIOLOGY REPORT Date&Time printed: [~ rep prt dt last] [~ rep prt tm last] Page 2 of 2 [place] [id number] RADIOLOGY REPORT This report is in Signed status. Interpretation performed by [facility]. Thank you for having your radiology procedures performed at [facility] RADIOLOGY REPORT Date&Time printed: [~ rep prt dt last] [~ rep prt tm last] Page 1 of 1 Exam: CT Angiography Chest With Contrast Exam date and time: 06/01/2020 5:25 PM Age: 70 years old Clinical indication: Shortness of breath; Additional info: Chest pain, SOB TECHNIQUE: Imaging protocol: Computed tomographic angiography of the chest with intravenous contrast. 3D rendering (Not supervised by radiologist): MIP and/or 3D reconstructed images were created by the technologist. Radiation optimization: All CT scans at this facility use at least one of these dose optimization techniques: automated exposure control; mA and/or kV adjustment per patient size (includes targeted exams where dose is matched to clinical indication); or iterative reconstruction. Contrast material: ISOVUE 370; Contrast volume: 75 ml; Contrast route: INTRAVENOUS (IV); COMPARISON: CT ANGIO CHEST 09/16/2019 7:17 PM FINDINGS: Pulmonary arteries: Peripheral pulmonary artery evaluation limited by cardiac and respiratory motion artifact. Central pulmonary arteries show no intraluminal defect suggestive of clot. Aorta: No thoracic aortic aneurysm or dissection. Lungs: Pulmonary vascular/interstitial pattern does not suggest active pulmonary edema. No suspicious lung mass or air space process. No central endobronchial lesion. Severe apical predominant centrilobular emphysema, with basilar scarring/fibrosis. Pleural space: No pleural effusion or pneumothorax. Heart: No overt cardiac enlargement or abnormal volume of pericardial fluid. Lymph nodes: No enlarged mediastinal lymph nodes. Gallbladder and bile ducts: Gallbladder is surgically absent. Bones/joints: Multi-level, age-related thoracic degenerative disc disease is present. IMPRESSION: 1. No evidence of acute, central pulmonary embolus. Peripheral pulmonary arterial evaluation is limited by cardiac and respiratory motion artifact. 2. Severe centrilobular emphysema with apical predominance and basilar atelectasis/fibrosis. 3. No other acute or concerning focal intrathoracic abnormality. Electronically signed by: Efren Chapman On 06/01/2020 17:50:18 PM DD: EFREN CHAPMAN MD 06/01/20 1725 DT: TONNY 06/01/201749 DS: ABILIO 06/01/20 175 [~ rep ct labl] PROGNOSIS: fair ACTIVITY: [As tolerated]. DIET: Cardiac DISPOSITION: 01 Home, Self-Care. ITEMS TO FOLLOWUP ON ON OUTPATIENT: Follow-up with PCP DISCHARGE CONDITION: [Stable]. TIME SPENT ON DISCHARGE: Greater than minutes. Discharge Medications Scheduled Cetirizine HCl (ZyrTEC) 10 Mg Capsule, 10 MG PO DAILY, (Reported) Diphenoxylate HCl/Atropine (Lomotil 2.5-0.025 mg Tablet) 1 Each Tablet, 1 TAB PO BID, (Reported) Fluoxetine Hcl (Fluoxetine HCl) 40 Mg Capsule, 40 MG PO QHS, (Reported) Fluticasone Propionate (Flonase Allergy Relief) 9.9 Ml [place].susp, 1 SPRAY NA BID, (Reported) Fluticasone/Vilanterol (Breo Ellipta 200-25 Mcg INH) 1 Inh Inh, 1 PUFF PO DAILY, (Reported) Gabapentin (Gabapentin) 400 Mg Capsule, 400 MG PO TID, (Reported) Levofloxacin (Levofloxacin) 500 Mg Tablet, 500 MG PO Q2D Montelukast Sodium (Montelukast Sodium) 10 Mg Tablet, 10 MG PO QHS, (Reported) Pantoprazole Sodium (Pantoprazole Sodium) 40 Mg Tablet.dr, 40 MG PO DAILY, (Reported) Prednisone (Prednisone) 10 Mg Tablet, 10 MG PO TAPER Take 4 tabs daily x 3 days, then 3 tabs daily x 3 days, then 2 tabs daily x 3 days, then 1 tab daily x 3 days and stop Trazodone HCl (Trazodone HCl) 100 Mg Tablet, 200 MG PO QHS, (Reported) Scheduled PRN Albuterol Sulfate (Ventolin Hfa) 18 Gm Hfa.aer.ad, 2 PUFF INH Q4H PRN for SHORTNESS OF BREATH, (Reported) Budesonide (Budesonide) 0.5 Mg/2 Ml Ampul.neb, 0.5 MG INH QID PRN for SHORTNESS OF BREATH, (Reported) MIXES WITH DUONEB NEEDED Dextromethorphan Polistirex (Dextromethorphan Polistirex) 30 Mg/5 Ml [place].er.12h, 30 MG PO Q8HP PRN for COUGH Ipratropium/Albuterol Sulfate (Iprat-Albut 0.5-3(2.5) mg/3 ml) 3 Ml Ampul.neb, 3 ML INH QID PRN for SHORTNESS OF BREATH, (Reported) MIXES WITH BUDESONIDE NEEDED Oxycodone HCl (Oxycodone HCl) 10 Mg Tablet, 10 MG PO BID PRN for PAIN, (Reported) Allergies Coded Allergies: NSAIDS (Non-Steroidal Anti-Inflamma (Verified Allergy, Unknown, renal failure, 06/07/20) tapentadol (Verified Adverse Reaction, Unknown, hair loss, weight loss, 06/07/20) QUAN JACOBSEN DO Jun 13, 2020 14:31
== END 2020-06-04 13:10 | disposition home or self-care (01) | DRG 191 ==
LOC: M ED 13:37 → M ED INP 20:30 → M MSPAV 21:19
PROVIDERS: ADMIT Internal Medicine; ATTEND Internal Medicine
DX: J44.1 Chronic obstructive pulmonary disease with (acute) exacerbation (principal); J96.10 Chronic respiratory failure, unspecified whether with hypoxia or hypercapnia; E87.2 Acidosis; K51.90 Ulcerative colitis, unspecified, without complications; I27.23 Pulmonary hypertension due to lung diseases and hypoxia; N18.3 Chronic kidney disease, stage 3 (moderate); Z99.81 Dependence on supplemental oxygen; G62.9 Polyneuropathy, unspecified; Z87.891 Personal history of nicotine dependence

== ENCOUNTER 2020-06-07 18:03 | Inpatient (IN) | payer MEDICARE ==
[~2020-06-07] VITALS: Ht 162.6 cm; Wt 75.4 kg
[~2020-06-07 18:03] MED LIST changes: +BUDE0.5S6 INH; +CALC-190 PO; +FLUO40CA PO; +GABA-845; +GABA-845 PO; +IPRA0.00 INH; +PANT40TA29 PO; +ROBI1LIQ9 PO
[2020-06-07] MEDS ORDERED: IPRATROPIUM 0.5MG/ALBUTEROL 2.5MG INH SOL UD 3ML (DUONEB) NEB ONE (18:30)
[2020-06-07] MEDS ORDERED: methylPREDNISolone 125MG 2ML VIAL IV ONE (18:30)
[2020-06-07 18:41] LABS: BASO # 0.1 10^3/uL (0.0-0.2); BASO % 0.4 % (0.0-1.0); EOS # 0.1 10^3/uL (0.0-0.5); EOS % 0.6 % (0.0-3.0); HEMATOCRIT 35.9 % (36.0-47.0); LYMPH # 0.9 10^3/uL (1.5-5.0); LYMPH % 6.7 % (24.0-44.0); MEAN CORPUSCULAR HEMOGLOBIN 27.2 pg (27.0-33.0); MEAN CORPUSCULAR HGB CONC 30.6 g/dl (32.0-36.5); MEAN CORPUSCULAR VOLUME 88.9 fl (80.0-96.0); MONO # 0.6 10^3/uL (0.0-0.8); MONO % 4.5 % (0.0-5.0); NEUTROPHILS # 11.8 10^3/uL (1.5-8.5); NEUTROPHILS % 85.6 % (36.0-66.0); PLATELET COUNT, AUTOMATED 237 10^3/uL (150-450); RED BLOOD COUNT 4.04 10^6/uL (4.00-5.40); WHITE BLOOD COUNT 13.7 10^3/uL (4.0-10.0)
[2020-06-07 18:52] LABS: INR 1.03; PROTHROMBIN TIME 13.7 SECONDS (11.8-14.0)
--- NOTE | 2020-06-07 18:54 | REPVR ---
PROCEDURE INFORMATION: Exam: XR Chest, 1 View Exam date and time: 06/07/2020 6:13 PM Age: 70 years old Clinical indication: Shortness of breath; Additional info: Dyspnea/cough TECHNIQUE: Imaging protocol: XR of the chest Views: 1 view. COMPARISON: CT ANGIO CHEST 06/01/2020 5:22 PM FINDINGS: Lungs: Large bulla again seen in the right upper to mid lung as well as emphysematous changes in the upper left lung. Increased interstitial opacities in the lower chest bilaterally which may be atelectasis, developing pneumonia, or pulmonary edema. Pleural space: Unremarkable. No pleural effusion. No pneumothorax. Heart/Mediastinum: Heart size is upper normal. Vasculature: There is atherosclerotic calcification in the thoracic aorta. Bones/joints: No acute osseous abnormality. Soft tissues: Surgical clips in the upper chest slightly to the left of midline. IMPRESSION: 1. Increased interstitial opacities in the lower chest bilaterally which may be atelectasis, developing pneumonia, or pulmonary edema. 2. Emphysema with large bleb in the right upper and mid lung. Electronically signed by: Mary Laughlin On 06/07/2020 18:53:59 PM
[2020-06-07 19:16] LABS: ALBUMIN 3.1 GM/DL (3.2-5.2); ALT/SGPT 21 U/L (12-78); BILIRUBIN,DIRECT < 0.1 MG/DL (0.0-0.2); BILIRUBIN,TOTAL 0.4 MG/DL (0.2-1.0); BLOOD UREA NITROGEN 13 MG/DL (7-18); CALCIUM LEVEL 8.7 MG/DL (8.8-10.2); CARBON DIOXIDE LEVEL 30 MEQ/L (21-32); CHLORIDE LEVEL 104 MEQ/L (98-107); CK-MB VALUE MASS 5.1 NG/ML (<3.6); CPK CREATINE PHOSPHOKINASE 119 U/L (26-192); CREATININE FOR GFR 1.37 MG/DL (0.55-1.30); GLOMERULAR FILTRATION RATE 40.6 (>39); GLUCOSE, FASTING 114 MG/DL (70-100); MB/CK RELATIVE INDEX 4.29 (< OR =4); NT-PRO BNP 402 PG/ML (<125); SODIUM LEVEL 139 MEQ/L (136-145); TOTAL PROTEIN 6.2 GM/DL (6.4-8.2); TROPONIN I < 0.02 NG/ML (< 0.10)
--- NOTE | 2020-06-07 20:04 | REPVR ---
PROCEDURE INFORMATION: Exam: CT Chest Without Contrast Exam date and time: 06/07/2020 7:27 PM Age: 70 years old Clinical indication: Abnormal findings; Abnormal radiologic exam of lung or chest; Shortness of breath; Additional info: Shortness of breath, possible increased opacity on cxr TECHNIQUE: Imaging protocol: Computed tomography of the chest without contrast. 3D rendering (Not supervised by radiologist): MIP and/or 3D reconstructed images were created by the technologist. Radiation optimization: All CT scans at this facility use at least one of these dose optimization techniques: automated exposure control; mA and/or kV adjustment per patient size (includes targeted exams where dose is matched to clinical indication); or iterative reconstruction. COMPARISON: CT ANGIO CHEST 06/01/2020 5:22 PM FINDINGS: Lungs: There is again severe emphysema, with very large bulla occupying much of the right upper and mid hemithorax. There is increased interstitial opacity in the lingula medially as well as in the posterior lower lobes and lingula laterally. This is superimposed on subpleural nodular opacities in the posterior lower lobes bilaterally, similar to 06/01/2020 on the right but increased since 06/01/2020 on the left. This could be nodular atelectasis or scar, although developing pneumonia is possible. There are scattered small peripheral pulmonary nodules in the mid and lower lungs measuring 1-2 mm which are unchanged from 06/01/2020 but may be new since 09/16/2019. Nodular atelectasis or scar is stable in the right middle lobe at the lung base. Pleural space: Unremarkable. No pneumothorax. No pleural effusion. Heart: Blood within the heart is relatively hypodense suggesting anemia. Heart size is normal. No pericardial effusion. Coronary atherosclerosis is noted. Aorta: There is atherosclerotic calcification in a mildly tortuous thoracic aorta as well as the branching great vessels off the aortic arch. No thoracic aortic aneurysm. Additional atherosclerotic changes in the upper abdomen. Lymph nodes: Unremarkable. No enlarged lymph nodes. Gallbladder and bile ducts: There has been a cholecystectomy. No significant biliary ductal dilatation. Bones/joints: No acute osseous abnormality. Small well-defined lucency in the scapula has corticated margins and is unchanged dating back to 09/16/2019, of uncertain significance. Soft tissues: Unremarkable. IMPRESSION: 1. Non-specific subpleural nodular opacities in the posterior aspect of the lower lobes, increased on the left but similar on the right compared to 06/01/2020 but new since 09/16/2019. This could be nodular atelectasis or scar, although developing pneumonia is possible. 2. Increased interstitial opacities in the lingula medially and laterally as well as in the posterior lower lobes, of uncertain etiology. The changes to rapid for fibrosis. This could represent atypical infection. 3. Small 1-2 mm scattered peripheral pulmonary nodules in the lower lungs, similar to 06/01/2020, but some are new compared to 09/16/2019. For patients at low risk (minimal or absent history of smoking and of other known risk factors), no routine follow-up is indicated. For patients at high risk (history of smoking or of other known risk factors), consider optional CT at 12 months. (Amie et al., Fleischner Society, 2017) 4. Severe emphysema, with large bulla occupying much of the right upper to mid hemithorax. Electronically signed by: Mary Laughlin On 06/07/2020 20:03:57 PM
[2020-06-07] MEDS ORDERED: MOXIFLOXACIN HCL 400 MG in IV 1 EA IV ONE (20:15)
[2020-06-07] MEDS ORDERED: PANT-23 PO (20:39)
[2020-06-07] MEDS ORDERED: ALBUTEROL SULFATE 2.5 MG/0.5 ML INH NEB SOLN NEB PRN (21:00)
[2020-06-07] MEDS: LOMOTIL 2.5MG/0.025MG TABLET PO SCH (21:00)
[2020-06-07] MEDS: FLUTICASONE PROP 0.05% NASAL SPRAY 16 GM (FLONASE) SCH (21:00)
--- NOTE | 2020-06-07 21:54 | HPEPDOC ---
[facility] Medical History & Physical Date of Admission Jun 07, 2020 Date of Service: Jun 07, 2020 Attending Physician: Nellie Shay MD History and Physical CHIEF COMPLAINT: Coughing up blood, increased shortness of breath HISTORY OF PRESENT ILLNESS: Patient is a 70 y/o F with PMH of chronic respiratory failure 2/2 to COPD/Bullous emphysema/known pulmonary nodules on 3 L NC ATC at home, pulmonary HTN, ulcerative colitis, CKD Stage II, anxiety, chronic back pain with neuropathy who presented to [facility] ER with chief complaint of new onset of coughing up blood with clots 06/06-06/07. Patient states that her symptoms started 06/06 when she began coughing heavily and noticed "a lot of bright red blood and clots" being coughed up. She denies taking any ASA, anticoagulation, NSAIDs but is on chronic prednisone 10 mg PO daily. states to have pleuritic chest pain, anterior, substernally located with radiation straight to back at times. Chest pain was constant and 10/10 06/06/20 but today is 8/10 and intermittent with coughing. She states to have a chronic cough which is different from the pro ductive cough she has now. Patient has a recent hospital hospital for COPD exacerbation 06/01-06/04. In ER, VS stable on [address] chest showed possible subpleural nodular opacities in the posterior aspect of the lower lobes, increased on the left but similar on the right compared to 06/01/2020 but new since 09/16/2019. This could be nodular atelectasis or scarring developing pneumonia is possible, increased interstitial opacities in the lingula medially and laterally as well as in the posterior lower lobes, of uncertain etiology. The changes were concerning to rapid for fibrosis. This could represent atypical infection, small 1-2 mm scattered peripheral pulmonary nodules in the lower lungs, similar to 06/01/2020, but some are new compared to 09/16/2019, severe emphysema, with large bulla occupying much of the right upper to mid hemithorax. Patient had no episodes of hemoptysis here. At the time of admission patient denied fevers, chills, n/v, numbness of arms/extremities, diaphoresis, lightheadedness, dizziness, abdominal pain, appetite changes. Patient was admitted for COPD exa cerbation, possible PNA, hemoptysis with pulmonary consult. PAST MEDICAL HISTORY: COPD/ Bilateral bullous emphysema Chronic O2 dependent respiratory failure with hypoxia (baseline O2 requirement 3L) Group 3 Moderate Pulmonary HTN- PASP 41 mmHg Ulcerative colitis s/p total colectomy CKD3 Anxiety Chronic back pain w neuropathy PAST SURGICAL HISTORY: total colectomy w J pouch w diverting ileostomy followed by ileostomy closure a few months later Ventral abdominal hernia repair Hysterectomy Tonsillectomy Cholecystectomy Back surgery 2 SOCIAL HISTORY: Former smoker, doesnt drink, doesnt use recreational drugs. 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 Rico, [facility]. FAMILY HISTORY: Mother - lung cancer Father - CAD and prostate cancer Brother - brain cancer Sister - bone cancer in her left leg ALLERGIES: Please see below. HOME MEDICATIONS: Please see below. PHYSICAL EXAM: VS: Please see under HPI HEENT: EOMI / NC in place / trachea mid-line / neck short CARDIOVASCULAR: RRR/NMRG/ radial pulse intact / no BLE edema / chest pain reproducible w palpation of the mid chest wall, nasal cannula in place LUNGS: able to speak full sentence w/o stopping to take a breath / not using accessory muscles / equal air entry bilaterally / breath sounds diminished / no wheezing ABDOMEN: obese MUSCULOSKELETAL: NCAT/ KULDEEP x 4 / no finger nail clubbing INTEGUMENT: lips acyanotic / extremities not wasted NEUROLOGICAL: no asterixis / speech not dysarthric PSYCHIATRIC: A&O / able to understand and follow commands LABORATORY DATA: See below. IMAGING: CT chest: 1. Non-specific subpleural nodular opacities in the posterior aspect of the lower lobes, increased on the left but similar on the right compared to 06/01/2020 but new since 09/16/2019. This could be nodular atelectasis or scar, although developing pneumonia is possible. 2. Increased interstitial opacities in the lingula medially and laterally as well as in the posterior lower lobes, of uncertain etiology. The changes to rapid for fibrosis. This could represent atypical infection. 3. Small 1-2 mm scattered peripheral pulmonary nodules in the lower lungs, similar to 06/01/2020, but some are new compared to 09/16/2019. For patients at low risk (minimal or absent history of smoking and of other known risk factors), no routine follow-up is indicated. For patients at high risk (history of smoking or of other known risk factors), consider optional CT at 12 months. (Amie et al., Fleischner Society, 2017) 4. Severe emphysema, with large bulla occupying much of the right upper to mid hemithorax. CXR: 1. Increased interstitial opacities in the lower chest bilaterally which may be atelectasis, developing pneumonia, or pulmonary edema. 2. Emphysema with large bleb in the right upper and mid lung. ECG: Sinus tachycardia, nonspecific ST and T wave abnormality, abnormal rhythm ECG MICROBIOLOGY: Please see below. ASSESSMENT: 70 y/o F with PMH of chronic respiratory failure 2/2 to COPD/Bullous emphysema/known pulmonary nodules on 3 L NC ATC at home, pulmonary HTN, ulcerat jimmy colitis, CKD Stage II, anxiety, chronic back pain with neuropathy admitted for COPD exacerbation, possible PNA, hemoptysis with pulmonary consult. PLAN: 1. Hemoptysis possibly PNA vs. underlying bu lung disease, COPD exacerbation -CT not suspicious for hemorrhage. -H/H stable, no signs of acute bleeding currently. -F/u repeat CBC in AM -Avoid AC -CT above, follows with pulmonary as o/p (Dr. Rico) -C/w treatment PNA and COPD below -Pulmonary consulted, can call in consult in the AM. 2. COPD exacerbation, mild-mod -Increased wheezing and coughing; however, on home amount NC at 3 L NC, saturating well. -Previously on 10 mg , increasing to 60 mg PO daily . -Duonebs ATC, albuterol PRN, incentive spirometer. -Montelukast, budesonide -Tele 3. HCAP vs. CAP. -Recent hospitalization 06/01-06/04 -Home amt O2, saturating well. WBC 13.4 (is on home steroids), LA elevated at 2.4 -F/u sputum cx, blood cultures -Levofloxacin, cefepime. F/u MRSA -Pulmonary (Dr. Honeycutt) consulted, discussed case with her in ER and will see 06/08/20 4. Ulcerative colitis s/p total colectomy -Stable 5. CKD3 -Cr at baseline -Daily labs 6. Anxiety -Stable. 7. Chronic back pain w neuropathy -Stable -c/w home meds 8. GI px -PPI 9. DVT px -SCDs, teds. AC CI with hemoptysis DISPOSITION: Admitted under inpatient status. Pulmonary consulted, known to their service as o/p. PT/OT when medically improved, from home. Vital Signs Vital Signs Date Time Temp Pulse Resp B/P (MAP) Pulse Ox O2 Delivery O2 Flow Rate FiO2 06/07/20 20:00 98 20 147/70 (95) 94 Nasal Cannula 06/07/20 18:41 3.0 06/07/20 18:14 97.4 Laboratory Data Labs 24H Laboratory Tests 2 06/07/20 18:29: Lactic Acid Level 2.4*H 06/07/20 18:30: Immature Granulocyte % (Auto) 2.2, Neutrophils (%) (Auto) 85.6H, Lymphocytes (%) (Auto) 6.7L, Monocytes (%) (Auto) 4.5, Eosinophils (%) (Auto) 0.6, Basophils (%) (Auto) 0.4, Neutrophils # (Auto) 11.8H, Lymphocytes # (Auto) 0.9L, Monocytes # (Auto) 0.6, Eosinophils # (Auto) 0.1, Basophils # (Auto) 0.1, Nucleated Red Blood Cells % (auto) 0.0, Prothrombin Time 13.7, Prothromb Time International Ratio 1.03, Anion Gap 5L, Glomerular Filtration Rate 40.6, Calcium Level 8.7L, Total Bilirubin 0.4, Direct Bilirubin < 0.1, Aspartate Amino Transf (AST/SGOT) 19, Alanine Aminotransferase (ALT/SGPT) 21, Alkaline Phosphatase 71, Total Creatine Kinase 119, Creatine Kinase MB 5.1H, Creatine Kinase MB Relative Index 4.29H, Troponin I < 0.02, TI-Ajb-D-Type Natriuretic Peptide 402H, Total Protein 6.2L, Albumin 3.1L, Albumin/Globulin Ratio 1.0L, Thyroid Stimulating Hormone (TSH) 1.650 CBC/BMP Laboratory Tests 06/07/20 18:30 Microbiology Microbiology 06/07/20 Blood Culture, Received Pending 06/07/20 Blood Culture, Received Pending 06/07/20 Gram Stain, Received Pending 06/07/20 Sputum Culture, Received Pending Home Medications Scheduled Cetirizine HCl (ZyrTEC) 10 Mg Capsule, 10 MG PO DAILY Diphenoxylate HCl/Atropine (Lomotil 2.5-0.025 mg Tablet) 1 Each Tablet, 1 TAB PO BID Fluoxetine Hcl (Fluoxetine HCl) 40 Mg Capsule, 40 MG PO QHS Fluticasone Propionate (Flonase Allergy Relief) 9.9 Ml [place].susp, 1 SPRAY NA BID Fluticasone/Vilanterol (Breo Ellipta 200-25 Mcg INH) 1 Inh Inh, 1 PUFF PO DAILY Gabapentin (Gabapentin) 400 Mg Capsule, 400 MG PO TID Montelukast Sodium (Montelukast Sodium) 10 Mg Tablet, 10 MG PO QHS Pantoprazole Sodium (Pantoprazole Sodium) 40 Mg Tablet.dr, 40 MG PO DAILY Prednisone (Prednisone) 10 Mg Tablet, 10 MG PO DAILY Trazodone HCl (Trazodone HCl) 100 Mg Tablet, 200 MG PO QHS Scheduled PRN Albuterol Sulfate (Ventolin Hfa) 18 Gm Hfa.aer.ad, 2 PUFF INH Q4H PRN for SHORTNESS OF BREATH Budesonide (Budesonide) 0.5 Mg/2 Ml Ampul.neb, 0.5 MG INH QID PRN for SHORTNESS OF BREATH MIXES WITH DUONEB NEEDED Ipratropium/Albuterol Sulfate (Iprat-Albut 0.5-3(2.5) mg/3 ml) 3 Ml Ampul.neb, 3 ML INH QID PRN for SHORTNESS OF BREATH MIXES WITH BUDESONIDE NEEDED Oxycodone HCl (Oxycodone HCl) 10 Mg Tablet, 10 MG PO BID PRN for PAIN Allergies Coded Allergies: NSAIDS (Non-Steroidal Anti-Inflamma (Verified Allergy, Unknown, renal failure, 06/07/20) tapentadol (Verified Adverse Reaction, Unknown, hair loss, weight loss, 06/07/20) A-FIB/CHADSVASC A-FIB History Current/History of A-Fib/PAF?: No Current PO Anticoag Therapy: No Age/Risk Factor Scoring CHADSVASC: CHADSVASC Response (Comments) Value Age Risk Factor Age 65-74 years old 1 Gender Risk Factor Female 1 Hx of CHF No 0 Hx of HTN No 0 Hx of Stroke/TIA/or VTE No 0 Hx of Diabetes No 0 Hx of Vascular Disease No 0 Total 2 Treatment Treatment ordered: NONE Other anticoagulant ordered: CI due to hemoptysis Nellie Shay MD Jun 07, 2020 21:54
[2020-06-07] MEDS: NS 1,000 ML IV SCH (22:00)
[2020-06-07] MEDS ORDERED: ACETAMINOPHEN TAB 650MG DOSE (2X325MG) PO PRN (22:30)
[2020-06-07 22:32] VITALS: BP 142/83
[2020-06-07] MEDS: IPRATROPIUM 0.5MG/ALBUTEROL 2.5MG INH SOL UD 3ML (DUONEB) NEB SCH (23:32)
[2020-06-08] MEDS: MONTELUKAST 10 MG TAB PO SCH ×2 (00:01→20:52)
[2020-06-08] MEDS: oxyCODONE 5MG TAB PO PRN ×2 (00:02→12:36)
[2020-06-08] MEDS: CEFEPIME HCL 1 GM in D5W MINI-BAG PLUS 50 ML IV SCH ×3 (00:37→22:52)
[2020-06-08] MEDS: IPRATROPIUM 0.5MG/ALBUTEROL 2.5MG INH SOL UD 3ML (DUONEB) NEB SCH ×6 (04:00→23:50)
[2020-06-08 06:00] VITALS: BP 135/68
[2020-06-08 06:48] LABS: HEMATOCRIT 32.6 % (36.0-47.0); HEMOGLOBIN 10.2 g/dl (12.0-15.5); MEAN CORPUSCULAR HEMOGLOBIN 27.3 pg (27.0-33.0); MEAN CORPUSCULAR HGB CONC 31.3 g/dl (32.0-36.5); MEAN CORPUSCULAR VOLUME 87.2 fl (80.0-96.0); PLATELET COUNT, AUTOMATED 201 10^3/uL (150-450); RED BLOOD COUNT 3.74 10^6/uL (4.00-5.40); WHITE BLOOD COUNT 12.7 10^3/uL (4.0-10.0)
[2020-06-08 07:06] LABS: ALBUMIN 2.7 GM/DL (3.2-5.2); BILIRUBIN,TOTAL 0.4 MG/DL (0.2-1.0); CALCIUM LEVEL 8.1 MG/DL (8.8-10.2); CREATININE FOR GFR 1.17 MG/DL (0.55-1.30); GLOMERULAR FILTRATION RATE 48.7 (>39); POTASSIUM SERUM 4.4 MEQ/L (3.5-5.1); TOTAL PROTEIN 5.6 GM/DL (6.4-8.2)
[2020-06-08] MEDS: BUDESONIDE 0.5 MG/2 ML INHALATION SUSPENSION INH PRN ×2 (08:18→19:15)
[2020-06-08] MEDS ORDERED: ENOXAPARIN 40MG/0.4ML SYRINGE (J1650 PER 10MG) SC SCH (09:00)
[2020-06-08] MEDS ORDERED: predniSONE 20 MG TAB PO SCH ×2 (09:00)
[2020-06-08] MEDS: LOMOTIL 2.5MG/0.025MG TABLET PO SCH ×2 (09:20→20:52)
[2020-06-08] MEDS: GABAPENTIN 400 MG CAP PO SCH ×4 (09:20→20:52)
[2020-06-08] MEDS: PANTOPRAZOLE 40MG TAB (PROTONIX) PO SCH (09:21)
[2020-06-08] MEDS: NS 1,000 ML IV SCH (09:21)
[2020-06-08] MEDS: FLUTICASONE PROP 0.05% NASAL SPRAY 16 GM (FLONASE) SCH ×2 (10:16→20:53)
--- NOTE | 2020-06-08 12:21 | REPVR ---
PROCEDURE INFORMATION: Exam: US Duplex Lower Extremity Veins, Bilateral Exam date and time: 06/08/2020 12:13 PM Age: 70 years old Clinical indication: Pain; Leg, lower; Bilateral; Additional info: R/O dvt TECHNIQUE: Imaging protocol: Real-time duplex ultrasound of the extremities with 2-D suarez scale, color Doppler flow and spectral waveform analysis with image documentation. Complete exam focused on the bilateral lower extremity veins. COMPARISON: US Duplex, Ext LOWER veins, bilat 06/01/2020 5:14 PM FINDINGS: Right deep veins: No deep venous thrombosis in the visualized right common femoral, femoral, or popliteal veins. Left deep veins: No deep venous thrombosis in the visualized left common femoral, femoral, or popliteal veins. Soft tissues: Unremarkable. IMPRESSION: No deep venous thrombosis in the visualized bilateral lower extremities. Electronically signed by: Eugenio Bradshaw On 06/08/2020 12:21:24 PM
[2020-06-08 14:00] VITALS: BP 147/80
--- NOTE | 2020-06-08 14:29 | CR ---
DATE OF CONSULTATION: 06/08/2020 Dr. Emely Mckeon dictating on behalf of Dr. Honeycutt HISTORY OF PRESENT ILLNESS: Tierra Vanegas is a 70-year-old female with a history of chronic obstructive pulmonary disease (COPD) on 3 liters home oxygen and bullous emphysema as well as pulmonary hypertension who presents with hemoptysis. She was recently hospitalized between June 01 to June 04 for suspected acute exacerbation of COPD after which she was not sent home on any antibiotics but to resume her home medications. She has been taking all of her home medications as prescribed including nebulizers and inhalers but reports that yesterday morning she started noticing some blood in her sputum. She reports she had several episodes of dark blood clots and some blood mixed with frothy sputum with blood mixed in. The patient denies any fevers or chills, nausea or vomiting or diarrhea. Otherwise she has no other complaints this morning. She did not have any epistaxis as well. MEDICAL HISTORY: Significant for COPD on 3 liters home oxygen, bilateral bullous emphysema on chronic home steroids of 10 mg of Prednisone, group 3 moderate pulmonary hypertension with a last known pulmonary artery systolic pressure of 41 mmHg, ulcerative colitis status post total colectomy, chronic kidney disease (CKD) III, anxiety, chronic back pain with neuropathy, congestive heart failure with grade 1 diastolic dysfunction with preserved ejection fraction. PAST SURGICAL HISTORY: Significant for total colectomy with a J pouch with diverting ileostomy followed by ileostomy closure a few months later, ventral abdominal hernia repair, hysterectomy, tonsillectomy, cholecystectomy, back surgery times two. SOCIAL HISTORY: Former smoker, quit greater than 20 years ago. Denies alcohol use, denies recreational drugs. 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 No occupational exposures, no recent travel. FAMILY HISTORY: Mother with lung cancer. Father with coronary artery disease (CAD) and prostate cancer. Brother with brain cancer. Sister with bone cancer in her left leg. ALLERGIES: She is allergic to NONSTEROIDAL ANTI-INFLAMMATORIES and TAPENTADOL. HOME MEDICATIONS: Albuterol 2 puff INH Q4H PRN Budesonide 0.5mg/2 mL Ampul Neb QID PRN Cetirizine Hcl 10mg PO daily Lamotil 2.5-0.025mg tab 1 tab PO DAILY Fluoxetine 40mg PO QHS Flonase 1 spray NA BID Breo Ellipta 200-25 mcg INH 1 puff PO DAILY Gabapentin 400mg PO TID Ipratropium/Albuterol 3 mL INH QID PRN Montelukast 10mg PO QHS Oxycodone 10mg PO BID PRN Pantoprazole 40mg PO DAILY Prednisone 10mg PO DAILY Trazodone 200mg PO QHS CURRENT INPATIENT MEDICATIONS: All home medications as listed above, in addition to: Prednisone 60mg PO DAILY Levaquin 750 mg IV Q48H Cefepime 1gm IV Q12H REVIEW OF SYSTEMS: General: she reports weight loss between now and last hospitalization about 11 pounds. No weight gain. No fatigue. No difficulty sleeping, feeling well in general. No chronic pain. No fever, chills, or night sweats. Vision: She denies any double vision, eye discharge, or red eye. Head and neck: No pain, no masses or growths, no ear pain. She does report some nasal discharge and postnasal drip. No change in voice or hoarseness. No tooth pain. Pulmonary: She does report some shortness of breath with exertion. She has chest pain simultaneous with her cough. She is coughing and producing hemoptysis. She denies any wheezing. No pleurisy. Cardiovascular: She reports the anterior chest pain with coughing. She denies any palpitations. No orthopnea or PND. GI: She denies any nausea, vomiting, or diarrhea. No abdominal pain. No black tarry stools. No constipation. Genitourinary: She reports normal urination, darker-colored urine. No dysuria- like symptoms. No nephrolithiasis. Hematology/oncology: No abnormal bruising. Has not required blood transfusions. No easy bleeding except for recent events. Neurologic: She denies any numbness, weakness, dizziness, or balance problems. She does report a hospital course with coughing. Endocrine: She denies any polyuria, polydipsia, polyphagia.No hair loss or cold intolerance. Infectious: She denies fever, chills, or sweats. Musculoskeletal: She denies any joint pain, knee pain, hip or shoulder pain. No joint effusions. Psychiatric: She denies any feelings of depression. No anxiety, no suicidal ideation. Skin: She denies any new rashes. No pruritic abnormalities. PHYSICAL EXAM: VITAL SIGNS: Temperature 97.9, pulse 79, respiratory rate 16, blood pressure 135/68, pulse oximetry 90% on 3 liters nasal cannula. GENERAL: She is sitting up at the bedside. She is calm, cooperative, no acute distress. She is eating her breakfast. She is very pleasant. HEENT: Her mucous membranes are moist. Mallampati score is III. Her extraocular movements are intact. She is normocephalic, atraumatic. Pupils are equally, round and reactive to light. NECK: Supple with no thyromegaly, no lymphadenopathy. CARDIOVASCULAR: Regular rate and rhythm with a 2/6 systolic ejection murmur heard best in the right upper sternal border. LUNGS: She has diffuse rales with no rhonchi or rubs. She has diminished breath sounds at the bases bilaterally but she also has wheezes in the upper lobes, specifically the left middle lobe and some wheezing heard in the right upper lobe. She is speaking in full sentences, and on inspection her chest wall is symmetric. Her expiratory phase is greater than her inspiratory phase. ABDOMEN: Soft and nontender, obese, positive bowel sounds. No hepatosplenomegaly. No masses. EXTREMITIES: She does have some trace pitting edema in her lower extremities bilaterally. No calf tenderness. Otherwise no cyanosis, clubbing, or edema. NEUROLOGIC: She has no obvious focal deficits. PSYCHOLOGIC: She is awake, alert and oriented times three with a normal mood, normal affect. LYMPHATICS: She has no enlarged lymph nodes in the supraclavicular or postauricular areas. SKIN: Warm and well perfused with no rashes or ulcers. LABORATORY DATA: Her white blood cell count is 12.7, hemoglobin 10.2, hematocrit 32.6, and her platelet count is 201. Her sodium is 139, potassium 4.4, chloride 106, CO2 30, BUN is 12 and her creatinine is 1.17. Her lactic acid followup originally was 2.4 and then was 3.0. Calcium is 8.1. AST 15, ALT 18, alkaline phosphatase 54. Total protein 5.6, albumin is 2.7. Her PT is 13.7 and her INR is 1.03. MRSA was not detected. On her sputum culture she has grown few white blood cells, moderate gram-positive cocci in pairs, chains, and clusters and some gram-positive rods. Otherwise she has two blood cultures pending. IMAGING DATA: 1. She did have a chest x-ray done yesterday on admission which showed increased interstitial opacities in the lower chest bilaterally which may be atelectasis, developing pneumonia, or pulmonary edema. 2. Emphysema with a large bleb in the right upper and middle lobes. 3. On chest CT that was also done she was found to have nonspecific subpleural nodular opacities in the posterior aspect of the lower lobes, increased in the left but similar on the right, could be atelectasis or scar although developing pneumonia is possible. She has increased interstitial opacities in the lingula medially and laterally as well as the posterior lower lobes of uncertain etiology and as well she has some small scattered peripheral pulmonary nodules, and severe emphysema with large bulla occupying the right upper to mid hemothorax. ASSESSMENT: This is a 70-year-old female with COPD on 3 liters home oxygen and bullous emphysema dependent on daily Prednisone at home who presented with hemoptysis and chest pain concerning for infection versus pulmonary embolism (PE) versus less likely autoimmune etiology. PLAN: We will obtain a bilateral lower extremity Doppler to rule out deep venous thrombosis (DVT) and possible PE. She did have a CT angio done on her previous hospitalization only a few days ago which was negative for PE but we will check a Doppler first. I have started her on DVT prophylaxis, Lovenox. In addition, because her lungs appear to be somewhat edematous with fluid, I stopped her IV fluids for now. Agree with the current antibiotic choice of Levaquin and cefepime for now as well as Prednisone 40 mg daily status post Solu-Medrol 125 mg in the emergency department. She is to continue with all the rest of her home medications as prescribed, and we will continue to follow her very closely. Should you have any questions about this consult, please feel free to give us a call. ADDENDUM TO NOTE DICTATED BY DR. HONEYCUTT: I have reviewed this history and physical obtained by my resident. I conducted an independent history and physical and agree with the assessment and plan as outlined above. Tierra is a 70-year-old female with a history of emphysema recently admitted for a chronic obstructive pulmonary disease (COPD) exacerbation. She received one dose of antibiotics during her last hospitalization was clinically improving and therefore sent home. However, returned with coughing up blood clots and having productive sputum. I suspect likely she had an infection that was not cultured. I agree with continuing antibiotics, steroids. We will lower extremity Dopplers just because she was recently in the hospital. However, she did have a normal CT angiogram on her last visit on 06/01/2020. Most recent CT shows more prominent dependent infiltrate. Would limit IV fluid administration. We will continue to monitor the patient but I suspect she will likely be ready for discharge tomorrow on antibiotics and a burst and taper of steroids. The differential of hemoptysis was reviewed. At this point in time she has no signs of vasculitis, epistaxis, or any other potential diagnoses on the differential. We will continue to monitor for alternative diagnoses but this does appear to be infectious in etiology. Addendum dictated: CLARKE 06/08/2020 1217 Addendum transcribed: [email or web address] 06/08/2020 1235 [place]
--- NOTE | 2020-06-08 14:43 | IPNPDOC ---
Text Note Date of Service The patient was seen on 06/08/20. NOTE HPI: Ms. Vanegas presented to the ED with the complaint of worsening shortness of breath, coughing up bloody sputum. SUBJECTIVE: No acute events overnight. Pt states that she feels a little better, her shortness of breath is worse than normal but is better than when she was in the ED, she is coughing on and off but has had no bloody sputum since the ED. She still reports reproducible retrosternal chest pain (7.5 at rest, 9 when coughing). She denies any fever, chills, nausea, or vomiting. OBJECTIVE: VITAL SIGNS: please see below. GENERAL: Pt appears sitting up in bed eating breakfast in no acute distress. HEENT: NC, AT, EOMI, no scleral icterus, no pharyngeal erythema, mucous membranes moist. NECK: no JVD or lymphadenopathy appreciated. CARDIOVASCULAR: RRR, no murmurs, rubs, or gallops, pain on palpation of L lower sternal border (reproduces the pain present when coughing). RESP: decreased breath sounds bilaterally, worse on R side, inspiratory and expiratory wheezing throughout. ABDOMEN: soft, nontender, nondistended, obese EXTREMITIES: 1+ pitting edema BL lower extremities, pain on palpation LABORATORY: please see below. MICROBIOLOGY: please see below. IMAGING: -CHEST XRAY (06/07/2020): Impression: "Increased interstitial opacities in the lower chest bilaterally which may be atelectasis, developing pneumonia, or pulmonary edema. 2. Emphysema with large bleb in the right upper and mid lung." -CHEST CT w/out contrast (06/07/2020): Impression: "1. Non specific subpleural nodular opacities in the posterior aspect of the lower lobes, increased on the left but similar on the right compared to 06/01/2020 but new since 09/16/2019. This could be nodular atelectasis or scar, although developing pneumonia is possible. 2. Increased interstitial opacities in the lingula medially and laterally as well as in the posterior lower lobes of uncertain etiology. The changes to rapid for fibrosis. This could represent atypical infection. 3. Small 1-2 mm scattered peripheral pulmonary nodules in the lower lungs, similar to 06/01/2020 but some are new compared to 09/16/2019. For patients at low risk (minimal or absent history of smoking and of other known risk factors), no routine follow up is indicated. For patients at high risk (history of smoking or of other known risk factors), consider optional CT at 12 months. (yelitza Holloway al., Fleischner Society, 2017). 4. Severe emphysema, with large bulla occupying much of the right upper to mid hemithorax." - VASCULAR ULTRASOUND (06/08/2020): Impression: "No deep venous thrombosis in the visualized bilateral lower extremities." ASSESSMENT/PLAN: Ms. Vanegas is a 70 yo F with a PMHx of chronic respiratory failure, COPD, bullous emphysema, pulmonary nodules, pulmonary HTN, ulcerative colitis, and CKD stage II that presented to the ED complaining of worsening shortness of breath and having coughed up bloody sputum. #. Chronic respiratory failure and Pulmonary HTN (2/2 to COPD/Bullous Em physema/Pulmonary nodules) exacerbation and PNA causing worsening shortness of breath and bloody sputum - Pt on levofloxacin for PNA - Pt continues to take Singulair, albuterol, budesonide, and ipratropium. - Pt's prednisone was increased from 10 mg to 60 mg daily. #. Pleuritic chest pain -Likely secondary to excessive coughing -Pt takes acetaminophen PRN #. Ulcerative Colitis - Continue lomotil #. Anxiety - Continue fluoxetine and trazodone #. Chronic back pain with neuropathy - Continue gabapentin and oxycodone DVT prophylaxis: not initiated due to bleeding GI prophylaxis: not indicated, pt takes own Protonix VS,Fishbone, I+O VS, Fishbone, I+O Laboratory Tests 06/07/20 18:30 06/08/20 06:28 Vital Signs Date Time Temp Pulse Resp B/P (MAP) Pulse Ox O2 Delivery O2 Flow Rate FiO2 06/08/20 13:06 20 06/08/20 09:00 3.0 06/08/20 06:00 97.9 79 135/68 (90) 90 Nasal Cannula I&O- Last 24 Hours up to 6 AM 06/08/20 06:00 Intake Total 540 ml Output Total 5800 ml Balance -5260 ml GME ATTESTATION GME ATTESTATION My faculty preceptor for this patient encounter was physically present during the encounter and was fully available. All aspects of the patient interview, examination, medical decision making process, and medical care plan development were reviewed and approved by the faculty preceptor. The faculty preceptor is aware and concurs with the plan as stated in the body of this note and will attest to such by his/her cosignature. ATTENDING NOTE Patient was seen and examined by me personally with the residents and I agree with the above assessment and plan TOMMIE BROWNING OMS-3 Jun 08, 2020 14:43 ELBA HERBERT MD Jun 08, 2020 14:48
[2020-06-08] MEDS: FLUoxetine 20 MG CAP PO SCH ×2 (20:52)
[2020-06-08] MEDS: traZODone 100 MG TAB PO SCH ×2 (20:52)
[2020-06-08] MEDS ORDERED: LevoFLOXacin IV 750 MG in IV 1 EA IV SCH (21:00)
[2020-06-08 22:00] VITALS: BP 109/64
[2020-06-09] MEDS: oxyCODONE 5MG TAB PO PRN ×2 (03:25→15:43)
[2020-06-09 05:49] LABS: HEMATOCRIT 31.8 % (36.0-47.0); HEMOGLOBIN 9.8 g/dl (12.0-15.5); MEAN CORPUSCULAR HEMOGLOBIN 27.4 pg (27.0-33.0); MEAN CORPUSCULAR HGB CONC 30.8 g/dl (32.0-36.5); MEAN CORPUSCULAR VOLUME 88.8 fl (80.0-96.0); PLATELET COUNT, AUTOMATED 210 10^3/uL (150-450); RED BLOOD COUNT 3.58 10^6/uL (4.00-5.40); WHITE BLOOD COUNT 13.3 10^3/uL (4.0-10.0)
[2020-06-09 06:00] VITALS: BP 144/83
[2020-06-09 06:24] LABS: ALBUMIN 2.5 GM/DL (3.2-5.2); BILIRUBIN,TOTAL 0.2 MG/DL (0.2-1.0); CALCIUM LEVEL 8.3 MG/DL (8.8-10.2); CREATININE FOR GFR 1.22 MG/DL (0.55-1.30); GLOMERULAR FILTRATION RATE 46.4 (>39); POTASSIUM SERUM 3.7 MEQ/L (3.5-5.1); TOTAL PROTEIN 5.4 GM/DL (6.4-8.2)
[2020-06-09] MEDS: IPRATROPIUM 0.5MG/ALBUTEROL 2.5MG INH SOL UD 3ML (DUONEB) NEB SCH ×6 (07:08→23:55)
[2020-06-09] MEDS ORDERED: BENZONATATE 100 MG CAP PO PRN (09:30)
[2020-06-09] MEDS: LOMOTIL 2.5MG/0.025MG TABLET PO SCH ×2 (10:01→20:05)
[2020-06-09] MEDS: PANTOPRAZOLE 40MG TAB (PROTONIX) PO SCH (10:01)
[2020-06-09] MEDS: GABAPENTIN 400 MG CAP PO SCH ×3 (10:01→20:05)
[2020-06-09] MEDS: FLUTICASONE PROP 0.05% NASAL SPRAY 16 GM (FLONASE) SCH ×2 (10:02→20:05)
[2020-06-09] MEDS: predniSONE 20 MG TAB PO SCH (10:02)
--- NOTE | 2020-06-09 11:35 | IPNPDOC ---
Text Note Date of Service The patient was seen on 06/09/20. NOTE HPI: Ms. Vanegas is a 70 yo female that presented to the ED complaining of wors ening shortness of breath and episodes of hemoptysis. SUBJECTIVE: No acute events overnight. Pt states that she coughed up bloody sputum this morning for the first time since the ED (06/07). The sputum was pink with no obvious clots. Pt states that she is feeling slightly worse than yesterday mostly due to coughing and the hemoptysis which she stated was scary to see. Pt states that nurses accompany her to the bathroom because her oxygen saturation goes down upon movement and she starts to feel weak and lightheaded. Pt still has chest pain when coughing and describes a feeling of heaviness (ne gative trops x2). Pt denies fever, chills, nausea, vomiting, or diarrhea. OBJECTIVE: VITAL SIGNS: please see below. GENERAL: Pt appears sitting up in bed eating breakfast in no acute distress. HEENT: NC, AT, EOMI, no scleral icterus, no pharyngeal edema, mucous membranes moist. NECK: no JVD or lymphadenopathy appreciated. CV: RRR, no murmurs, rubs, or gallops appreciated. RESP: decreased breath sounds bilaterally, more diminished on R upper and middle lobes, inspiratory and expiratory wheezes BL. ABDOMEN: soft, nontender, nondistended, bowel sounds present in all 4 quadrants. EXTREMITIES: +1 pitting edema BL lower extremities, no new rashes or erythema noted. LABORATORY: please see below. MICROBIOLOGY: -SPUTUM GRAM STAIN (06/07/2020): QUALITY: POOR MANY EPITHELIAL CELLS FEW WBCS MODERATE GRAM POSITIVE COCCI IN PAIRS, CHAINS AND CLUSTERS FEW GRAM POSITIVE RODS IMAGING: -CHEST XRAY (06/07/2020): Impression: "Increased interstitial opacities in the lower chest bilaterally which may be atelectasis, developing pneumonia, or pulmonary edema. 2. Emphysema with large bleb in the right upper and mid lung." -CHEST CT w/out contrast (06/07/2020): Impression: "1. Non specific subpleural nodular opacities in the posterior aspect of the lower lobes, increased on the left but similar on the right compared to 06/01/2020 but new since 09/16/2019. This could be nodular atelectasis or scar, although developing pneumonia is possible. 2. Increased interstitial opacities in the lingula medially and laterally as well as in the posterior lower lobes of uncertain etiology. The changes to rapid for fibrosis. This could represent atypical infection. 3. Small 1-2 mm scattered peripheral pulmonary nodules in the lower lungs, similar to 06/01/2020 but some are new compared to 09/16/2019. For patients at low risk (minimal or absent history of smoking and of other known risk factors), no routine follow up is indicated. For patients at high risk (history of smoking or of other known risk factors), consider optional CT at 12 months. (Amie et al., Fleischner Society, 2017). 4. Severe emphysema, with large bulla occupying much of the right upper to mid hemithorax." - VASCULAR ULTRASOUND (06/08/2020): Impression: "No deep venous thrombosis in the visualized bilateral lower extremities." CONSULTS: -PULMONOLOGY Dr. Honeycutt (06/08/2020): "Would limit IV fluid administration. We will continue to monitor the patient but I suspect she will likely be ready for discharge tomorrow on antibiotics and a burst and taper of steroids. The differential of hemoptysis was reviewed. At this point in time she has no signs of vasculitis, epistaxis, or any other potential diagnoses on the differential. We will continue to monitor for alternative diagnoses but this does appear to be infectious in etiology." ASSESSMENT/PLAN: Ms. Vanegas is a 70 yo female with a PMHx of chronic respiratory failure 2/2 to COPD/bullous emphysema/pulmonary nodules, pulmonary HTN, ulcerative colitis, CKD stage II, anxiety, and chronic back pain with neuropathy that presented to the ED with worsening shortness of breath and hemop tysis concerning for PNA vs COPD exacerbation vs PE. #. Chronic respiratory failure 2/2 to COPD/Bullous emphysema/Pulmonary nodules worsened by PNA - Treating PNA with Levofloxacin. - Continue home albuterol and ipratropium. - Continue prednisone 40 mg daily - Use acapella as per pulmonology - Pulmonology consulted, appreciate their recommendations. - Pt on 3L O2 via nasal cannula which is her home dose. #. Hemoptysis likely 2/2 to COPD/Bullous emphysema/Pulmonary nodues and PNA - Suspect that her vigorous coughing is irritating respiratory tract and contributing to mild hemoptysis. - Tessalon Perles TID PRN ordered to help reduce coughing. - Lovenox was discontinued as it was started yesterday and could have contributed to the episode of hemoptysis this morning. #. Retrosternal chest pain likely 2/2 to vigorous coughing - Acetaminophen PRN to manage pain. - Antitussive ordered to help reduce coughing. - Trops x2 negative, PE ruled out #. CKD stage II - No medications at this time - IVFs discontinued per pulmonology to prevent fluid overload. - BUN and creatinine at baseline. #. Ulcerative colitis - Continue lomotil and budesonide. #. Chronic back pain with neuropathy - Continue oxycodone and gabapentin. #. Anxiety - Continue fluoxetine and trazodone. DVT prophylaxis: TEDs and sequentials. GI prophylaxis: pt takes own protonix. DISPOSITION: anticipate discharge to home tomorrow. VS,Fishbone, I+O VS, Fishbone, I+O Laboratory Tests 06/09/20 05:37 Vital Signs Date Time Temp Pulse Resp B/P (MAP) Pulse Ox O2 Delivery O2 Flow Rate FiO2 06/09/20 06:00 97.8 93 20 144/83 (103) 95 Nasal Cannula 3.0 I&O- Last 24 Hours up to 6 AM 06/09/20 06:00 Intake Total 1020 ml Output Total 750 ml Balance 270 ml GME ATTESTATION GME ATTESTATION My faculty preceptor for this patient encounter was physically present during the encounter and was fully available. All aspects of the patient interview, examination, medical decision making process, and medical care plan development were reviewed and approved by the faculty preceptor. The faculty preceptor is aware and concurs with the plan as stated in the body of this note and will attest to such by his/her cosignature. ATTENDING NOTE Pt was seen and examined by me personally with the residents/students. Agree with the above assessment plan. TOMMIE BROWNING OMS-3 Jun 09, 2020 11:10 ELBA HERBERT MD Jun 19, 2020 10:27
[2020-06-09 14:00] VITALS: BP 157/86
[2020-06-09] MEDS: BUDESONIDE 0.5 MG/2 ML INHALATION SUSPENSION INH PRN (19:35)
[2020-06-09 19:37] VITALS: O2SAT 96
[2020-06-09] MEDS: traZODone 100 MG TAB PO SCH (20:04)
[2020-06-09] MEDS: MONTELUKAST 10 MG TAB PO SCH (20:04)
[2020-06-09] MEDS: FLUoxetine 20 MG CAP PO SCH (20:05)
[2020-06-09 22:00] VITALS: BP 126/70
[2020-06-10] MEDS: IPRATROPIUM 0.5MG/ALBUTEROL 2.5MG INH SOL UD 3ML (DUONEB) NEB SCH ×3 (03:00→11:21)
[2020-06-10 06:00] VITALS: BP 138/81
[2020-06-10] MEDS: oxyCODONE 5MG TAB PO PRN (06:40)
[2020-06-10 06:58] LABS: HEMATOCRIT 33.6 % (36.0-47.0); HEMOGLOBIN 10.2 g/dl (12.0-15.5); MEAN CORPUSCULAR HEMOGLOBIN 27.2 pg (27.0-33.0); MEAN CORPUSCULAR HGB CONC 30.4 g/dl (32.0-36.5); MEAN CORPUSCULAR VOLUME 89.6 fl (80.0-96.0); PLATELET COUNT, AUTOMATED 236 10^3/uL (150-450); RED BLOOD COUNT 3.75 10^6/uL (4.00-5.40); WHITE BLOOD COUNT 10.9 10^3/uL (4.0-10.0)
[2020-06-10 07:04] LABS: CALCIUM LEVEL 8.8 MG/DL (8.8-10.2); CREATININE FOR GFR 1.4 MG/DL (0.55-1.30); GLOMERULAR FILTRATION RATE 39.6 (>39); POTASSIUM SERUM 4.2 MEQ/L (3.5-5.1)
[2020-06-10] MEDS: BUDESONIDE 0.5 MG/2 ML INHALATION SUSPENSION INH PRN (07:21)
[2020-06-10] MEDS: LOMOTIL 2.5MG/0.025MG TABLET PO SCH (09:10)
[2020-06-10] MEDS: GABAPENTIN 400 MG CAP PO SCH (09:10)
[2020-06-10] MEDS: PANTOPRAZOLE 40MG TAB (PROTONIX) PO SCH (09:10)
[2020-06-10] MEDS: predniSONE 20 MG TAB PO SCH (09:11)
[2020-06-10] MEDS: FLUTICASONE PROP 0.05% NASAL SPRAY 16 GM (FLONASE) SCH (09:11)
[2020-06-10] MEDS ORDERED: PRED10TA2 PO (11:30)
[2020-06-10] MEDS ORDERED: LEVA750T7 PO (11:32)
--- NOTE | 2020-06-10 11:37 | DS.PDOC ---
Discharge Summary General Date of Admission Jun 07, 2020 at 20:44 Date of Discharge Jun 10, 2020 Primary Care Physician: Obi Wilhelm MD Attending Physician: ELBA HERBERT MD Specialist/Consultants Involve: RHODA TERAN Discharge Summary PROCEDURES PERFORMED DURING STAY: None. ADMITTING DIAGNOSES/DISCHARGE DIAGNOSES: 1. Chronic Respiratory Failure 2. COPD/Bullous Emphysema/Pulmonary nodules 3. Pneumonia 4. CKD Stage II-III 5. Ulcerative Colitis 6. Chronic Back Pain with neuropathy 7. Anxiety COMPLICATIONS/CHIEF COMPLAINT: Shortness of breath, blood in sputum. HISTORY OF PRESENT ILLNESS: Ms. Vanegas is a 70 y/o F who presented to [facility] ER with chief complaint of new onset of coughing up blood with clots 06/06-06/07. Patient stated that her symptoms started 06/06 when she began coughing heavily and noticed "a lot of bright red blood and clots" being coughed up. Stated to have pleuritic chest pain, anterior, substernally located with radiation straight to back at times, reproducible on palpation. Chest pain was constant and 10/10 06/06/20 but was 8/10 and intermittent with coughing on presentation to the ED. She states to have a chronic cough which is different from the productive cough she has now. Patient had recent hospital stay for COPD exacerbation 06/01-06/04. HOSPITAL COURSE/DISCHARGE PLAN: In the ED pt's vital signs were stable on 3L O2 (her home dose). A CT chest was performed on 06/07 and showed subpleural nodular opacities, interstitial opacities, peripheral pulmonary nodules, and severe emphysema with a large bulla occupying much of the R upper to mid hemithorax. A chest Xray on 06/07 showed bilateral lower interstitial opacities and emphysema with a large bleb on the R. She was admitted for COPD exacerbation and possible PNA. Sputum culture revealed gram positive cocci in pairs, chains, and clusters as well as few gram positive rods so she was started on IV levofloxacin. Her home dose of prednisone of 10 mg was increased to 40 mg daily. Pt was seen by pulmonology on 06/08 who suggested limiting IV fluids to avoid fluid overload, obtaining a venous doppler US to rule out DVT, but otherwise stated that this was likely of infectious etiology. Vascular US was performed on 06/08 and showed no evidence of clots. She was placed on Lovenox as DVT prophylaxis but after receiving that she noticed blood in her sputum again so it was discontinued on 06/09. On 06/10 pt states that she feels much better, her breathing is back to baseline, and her chest pain has resolved. Pt to continue 3L home O2, continue a course of antibiotics, taper prednisone down to 10 mg, follow up with her PCP within 7 days, and follow up with pulmonology. DISCHARGE MEDICATIONS: Please see below. ALLERGIES: Please see below. PHYSICAL EXAMINATION ON DISCHARGE: VITAL SIGNS: Please see below. GENERAL: Pt appears lying comfortably in bed in no acute distress. HEENT: NC, AT, EOMI, no scleral icterus, no pharyngeal erythema, mucous membranes moist. NECK: no JVD or lymphadenopathy appreciated. CARDIOVASCULAR EXAMINATION: RRR, no murmurs, rubs, or gallops appreciated. RESPIRATORY EXAMINATION: Decreased breath sounds bilaterally (more diminished on the R), inspiratory and expiratory wheezes, fine bibasilar crackles. ABDOMINAL EXAMINATION: soft, nontender, nondistended, bowel sounds present in all 4 quadrants. EXTREMITIES: 1+ pitting edema BL lower extremities, no other swelling or erythema. SKIN: no new rashes or erythema. NEUROLOGICAL EXAMINATION: CN II-XII grossly intact, 5/5 strength BL upper and l ower extremities, denies weakness or loss of sensation. PSYCHIATRIC EXAMINATION: Normal mood and affect. LABORATORY DATA: Please see below. IMAGING: -CHEST CT (06/07/2020): Impression: "1. Non-specific subpleural nodular opacities in the posterior aspect of the lower lobes, increased on the left but similar on the right compared to 06/01/2020 but new since 09/16/2019. This could be nodular atelectasis or scar, although developing pneumonia is possible. 2. Increased interstitial opacities in the lingula medially and laterally as well as in the posterior lower lobes, of uncertain etiology. The changes to rapid for fibrosis. This could represent atypical infection. 3. Small 1-2 mm scattered peripheral pulmonary nodules in the lower lungs, similar to 06/01/2020, but some are new compared to 09/16/2019. For patients at low risk (minimal or absent history of smoking and of other known risk factors), no routine follow-up is indicated. For patients at high risk (history of smoking or of other known risk factors), consider optional CT at 12 months. (Amie et al., Fleischner Society, 2017) 4. Severe emphysema, with large bulla occupying much of the right upper to mid hemithorax." -CXR (06/07/2020): Impression: "1. Increased interstitial opacities in the lower chest bilaterally which may be atelectasis, developing pneumonia, or pulmonary edema. 2. Emphysema with large bleb in the right upper and mid lung." -VENOUS US (06/08/2020): Impression "No deep venous thrombosis in the visualized bilateral lower extremities." PROGNOSIS: Fair. ACTIVITY: As tolerated with walker. DIET: Regular. DISPOSITION: Discharge home. DISCHARGE INSTRUCTIONS: 1. Follow up with PCP within 7 days. 2. Return to hospital if symptoms reoccur or worsen. 3. Follow up with parent aide. DISCHARGE CONDITION: Stable. TIME SPENT ON DISCHARGE: Greater than 35 minutes. Vital Signs/I&Os Vital Signs Date Time Temp Pulse Resp B/P (MAP) Pulse Ox O2 Delivery O2 Flow Rate FiO2 06/10/20 07:30 18 06/10/20 06:00 98.0 71 138/81 (100) 94 Nasal Cannula 3.0 I&O- Last 24 Hours up to 6 AM 06/10/20 06:00 Intake Total 960 ml Output Total 600 ml Balance 360 ml Laboratory Data Labs 24H Laboratory Tests 2 06/10/20 06:07: Nucleated Red Blood Cells % (auto) 0.0, Anion Gap 5L, Glomerular Filtration Rate 39.6, Calcium Level 8.8 CBC/BMP Laboratory Tests 06/10/20 06:07 Microbiology Microbiology 06/07/20 Blood Culture - Preliminary, Resulted No Growth after 48 hours. All Specime... 06/07/20 Blood Culture - Preliminary, Resulted No Growth after 48 hours. All Specime... 06/07/20 Gram Stain - Final, Complete 06/07/20 Sputum Culture - Final, Complete Discharge Medications Scheduled Cetirizine HCl (ZyrTEC) 10 Mg Capsule, 10 MG PO DAILY, (Reported) Diphenoxylate HCl/Atropine (Lomotil 2.5-0.025 mg Tablet) 1 Each Tablet, 1 TAB PO BID, (Reported) Fluoxetine Hcl (Fluoxetine HCl) 40 Mg Capsule, 40 MG PO QHS, (Reported) Fluticasone Propionate (Flonase Allergy Relief) 9.9 Ml [place].susp, 1 SPRAY NA BID, (Reported) Fluticasone/Vilanterol (Breo Ellipta 200-25 Mcg INH) 1 Inh Inh, 1 PUFF PO DAILY, (Reported) Gabapentin (Gabapentin) 400 Mg Capsule, 400 MG PO TID, (Reported) Levofloxacin (Levofloxacin) 500 Mg Tablet, 500 MG PO Q2D Montelukast Sodium (Montelukast Sodium) 10 Mg Tablet, 10 MG PO QHS, (Reported) Pantoprazole Sodium (Pantoprazole Sodium) 40 Mg Tablet.dr, 40 MG PO DAILY, (Reported) Prednisone (Prednisone) 10 Mg Tablet, 10 MG PO TAPER Take 4 tabs daily x 3 days, then 3 tabs daily x 3 days, then 2 tabs daily x 3 days, then 1 tab daily x 3 days and stop Trazodone HCl (Trazodone HCl) 100 Mg Tablet, 200 MG PO QHS, (Reported) Scheduled PRN Albuterol Sulfate (Ventolin Hfa) 18 Gm Hfa.aer.ad, 2 PUFF INH Q4H PRN for SHORTNESS OF BREATH, (Reported) Budesonide (Budesonide) 0.5 Mg/2 Ml Ampul.neb, 0.5 MG INH QID PRN for SHORTNESS OF BREATH, (Reported) MIXES WITH DUONEB NEEDED Dextromethorphan Polistirex (Dextromethorphan Polistirex) 30 Mg/5 Ml [place].er.12h, 30 MG PO Q8HP PRN for COUGH Ipratropium/Albuterol Sulfate (Iprat-Albut 0.5-3(2.5) mg/3 ml) 3 Ml Ampul.neb, 3 ML INH QID PRN for SHORTNESS OF BREATH, (Reported) MIXES WITH BUDESONIDE NEEDED Oxycodone HCl (Oxycodone HCl) 10 Mg Tablet, 10 MG PO BID PRN for PAIN, (Reported) Allergies Coded Allergies: NSAIDS (Non-Steroidal Anti-Inflamma (Verified Allergy, Unknown, renal failure, 06/07/20) tapentadol (Verified Adverse Reaction, Unknown, hair loss, weight loss, 06/07/20) GME ATTESTATION GME ATTESTATION My faculty preceptor for this patient encounter was physically present during the encounter and was fully available. All aspects of the patient interview, examination, medical decision making process, and medical care plan development were reviewed and approved by the faculty preceptor. The faculty preceptor is aware and concurs with the plan as stated in the body of this note and will attest to such by his/her cosignature. ATTENDING NOTE Pt was seen and examined by me personally with the residents/students. Agree with the above assessment plan. TOMMIE BROWNING OMS-3 Jun 10, 2020 11:37 ELBA HERBERT MD Jun 19, 2020 10:28
[2020-06-10] MEDS ORDERED: DEXT30LI PO (11:40)
[2020-06-10] MEDS ORDERED: LEVO500T3 PO (11:41)
--- NOTE | 2020-06-10 13:45 | IPN ---
DATE: 06/09/2020 ATTENDING PHYSICIAN: Tobias Honeycutt DO Ms. Vanegas was seen and examined at the bedside this morning. She notes overall she is not ready to go home. She does not feel that she could be as active at home as she was prior. She is still having some hemoptysis that started early this morning, she probably had 3-4 episodes of hemoptysis, very scant blood on the tissue and she shows it to me when I come in the room this morning. She is also concerned that when she goes to the bathroom she finds that she desaturates to the low 80s when getting out of bed. She has been very minimally active but she has no other complaints or no overnight issues. OBJECTIVE: Her vital signs at this time are: Temperature 97.8, pulse of 93, respiratory rate of 20, blood pressure 144/83, pulse oximetry is 95% on three liters nasal cannula. Generally: She is laying in bed, she is calm, cooperative, no acute distress, very pleasant. HEENT exam: Her mucous membranes are moist. Her Mallampati score is a 3. Her extraocular movements are intact. She is normocephalic, atraumatic. Pupils equally round and reactive to light. Neck is supple with no thyromegaly and no lymphadenopathy. Cardiovascular: She is regular rate and rhythm with a 2/6 systolic ejection murmur heard best in the right upper sternal border. Lungs: She has wheezing bilaterally with no discernible rhonchi or rubs today. She does have some diminished breath sounds at the bases. Her chest rise is symmetrical. Her expiratory phase is greater than her inspiratory phase. Otherwise, no other adventitious breath sounds are appreciated. Abdomen: Soft and nontender, obese. Positive bowel sounds. No hepatosplenomegaly, no masses. Extremities: She has no clubbing, cyanosis, or edema in her lower extremities. No calf tenderness. Neurologic: She has no obvious focal deficits. Psychologic: She is awake, alert, and oriented times three with a normal mood and normal affect. Lymphatics: She has no enlarged lymph nodes in the supraclavicular or posterior auricular areas. Skin: Warm and well-perfused with no new rashes or ulcers. LABORATORY DATA: Today: White blood cell count of 13.3, up from 12.7 yesterday, hemoglobin 9.8, hematocrit 31.8, platelet count of 210. Her electrolytes are sodium of 144, potassium of 3.7, chloride of 107, and carbon dioxide of 31, BUN is 15 and creatinine is 1.22, her fasting glucose is 94. Her AST is 18, her ALT is 17, and her alkaline phosphatase is 55. Total protein is 5.4 and her albumin is 2.5. She did have a lower extremity Doppler ultrasound done yesterday to rule out deep venous thrombosis (DVT) with the impression of no DVT in the visualized bilateral lower extremities. No other imaging was done. ASSESSMENT: This is a 70-year-old female with chronic obstructive pulmonary disease (COPD) on three liters home oxygen and bullous emphysema dependent on daily prednisone at home who presented with hemoptysis and chest pain concerning for infection versus less likely pulmonary embolism. PLAN: We have ruled out a deep venous thrombosis (DVT) per her lower extremity Dopplers. I have put her on Lovenox for DVT prophylaxis today. It seems as though she needs some help clearing her secretions and with chest tightness so we will continue the scheduled nebulizers, steroids, and agree with the current antibiotic regimen of Levaquin and cefepime. I have ordered also an Acapella and she should be encouraged to use this every few hours to help clear her secretions. Again, the thought of the etiology behind her hemoptysis is most likely infectious. She does have a sputum culture with gram-positive cocci, pairs, chains, and clusters with a few gram-positive rods. Will await to find out what grows in the sputum culture and can tailor the antibiotics accordingly. As the patient does not desire to go home today, we find it reasonable to have her stay at least until tomorrow, at which point during this time period she should be evaluated for performing her activities of daily living (ADLs) in terms of her oxygenation status. I, Tobias Honeycutt, agree with the assessment and plan as outlined above after my independent history and physical. [place]
--- NOTE | 2020-06-12 12:16 | ECGEPIP ---
[facility] - ED Test Date: 2020-06-07 Pat Name: RADHA HENRY Department: Room: [place] [address] Gender: Female [employer]: VIKAS : 1950 Requested By: Chelle Berrios Order Number: [id number] Reading MD: Chelle Berrios Measurements Intervals [place] Rate: 101 P: 67 ME: 174 QRS: 76 QRSD: 94 T: 61 QT: 348 QTc: 452 Interpretive Statements SINUS TACHYCARDIA NONSPECIFIC ST & T-WAVE ABNORMALITY ABNORMAL RHYTHM ECG SEE SCANNED DOWNTIME REPORT
== END 2020-06-10 13:37 | disposition home or self-care (01) | DRG 194 ==
LOC: M ED 18:03 → EDBD 18:03 → M ED INP 20:44 → ENRESERV 20:58 → M MSPAV 22:32
PROVIDERS: ADMIT Internal Medicine; ATTEND Internal Medicine
DX: J18.9 Pneumonia, unspecified organism (principal); R04.2 Hemoptysis; J96.11 Chronic respiratory failure with hypoxia; I50.32 Chronic diastolic (congestive) heart failure; J44.0 Chronic obstructive pulmonary disease with (acute) lower respiratory infection; J44.1 Chronic obstructive pulmonary disease with (acute) exacerbation; E87.2 Acidosis; K51.90 Ulcerative colitis, unspecified, without complications; R91.8 Other nonspecific abnormal finding of lung field; I27.23 Pulmonary hypertension due to lung diseases and hypoxia; N18.3 Chronic kidney disease, stage 3 (moderate); F41.9 Anxiety disorder, unspecified; G62.9 Polyneuropathy, unspecified; M54.9 Dorsalgia, unspecified; R07.89 Other chest pain; Z99.81 Dependence on supplemental oxygen; Z90.49 Acquired absence of other specified parts of digestive tract; Z87.891 Personal history of nicotine dependence; Z79.52 Long term (current) use of systemic steroids; Z79.899 Other long term (current) drug therapy; Z88.6 Allergy status to analgesic agent; Z88.8 Allergy status to other drugs, medicaments and biological substances